=== PATIENT | female | born 1970 | race Caucasian/White ===

== ENCOUNTER → 2017-01-14 | Outpatient (CLI) | payer BC ==
[~2017-01-14] MED LIST: ALLO300T2 PO; AMLO-110 PO; FERREX PO; METO-217 PO; MULT-506 PO; MYCO500T4 PO; POLY150C PO; PRED-301 PO; PSYL55.43 PO; TACR1CAP PO
[2017-01-14 10:05] LABS: CHOLESTEROL/HDL RATIO 5.1
[2017-01-14 10:14] LABS: ESTIMATED AVERAGE GLUCOSE 157 mg/dl; HA1C FLAG Normal (Normal)
== END | disposition home or self-care (01) ==
LOC: C.LAB1850 08:08
PROVIDERS: ATTEND Internal Medicine
DX: E78.00 Pure hypercholesterolemia, unspecified (principal)

== ENCOUNTER → 2017-02-24 | Outpatient (CLI) | payer BC ==
[~2017-02-24] MED LIST changes: +FERR1TAB13 PO
== END | disposition home or self-care (01) ==
LOC: C.LAB1850 08:08
PROVIDERS: ATTEND Internal Medicine
DX: Z94.0 Kidney transplant status (principal)

== ENCOUNTER → 2017-02-28 | Outpatient (CLI) | payer BC ==
[2017-02-28 13:50] LABS: URINE APPEARANCE TURBID (CLEAR); URINE BILIRUBIN NEG (NEG); URINE COLOR YELLOW; URINE EPITHELIAL CELL AUTO 0-5 /lpf (0-5); URINE NITRITE NEG (NEG); URINE PH 6.5 (4.5-7.5); URINE SPECIFIC GRAVITY 1.018 (1.000-1.030); UROBILINOGEN NEG (NEG)
[2017-02-28 13:57] LABS: MANUAL MICROSCOPIC REQUIRED? NO; REVIEW REQ? NO
== END | disposition home or self-care (01) ==
LOC: C.LAB1850 12:09
PROVIDERS: ATTEND Internal Medicine
DX: N39.0 Urinary tract infection, site not specified (principal); E11.9 Type 2 diabetes mellitus without complications

== ENCOUNTER → 2017-04-10 | Outpatient (CLI) | payer BC ==
[2017-04-10 09:40] LABS: URINE APPEARANCE CLEAR (CLEAR); URINE BILIRUBIN NEG (NEG); URINE COLOR YELLOW; URINE NITRITE NEG (NEG); URINE SPECIFIC GRAVITY 1.019 (1.000-1.030); UROBILINOGEN NEG (NEG)
[2017-04-10 09:41] LABS: MANUAL MICROSCOPIC REQUIRED? NO; REVIEW REQ? NO
[2017-04-10 09:52] LABS: ESTIMATED AVERAGE GLUCOSE 140 mg/dl; HA1C FLAG Normal (Normal)
== END | disposition home or self-care (01) ==
LOC: C.LAB1850 08:09
PROVIDERS: ATTEND Internal Medicine
DX: N39.0 Urinary tract infection, site not specified (principal); E11.9 Type 2 diabetes mellitus without complications

== ENCOUNTER → 2017-08-06 | Outpatient (CLI) | payer BC ==
[~2017-08-06] MED LIST changes: -FERR1TAB13 PO
[2017-08-06 10:04] LABS: ESTIMATED AVERAGE GLUCOSE 148 mg/dl; HA1C FLAG Normal (Normal)
== END | disposition home or self-care (01) ==
LOC: C.LAB1850 08:02
PROVIDERS: ATTEND Internal Medicine
DX: E11.9 Type 2 diabetes mellitus without complications (principal)

== ENCOUNTER 2017-08-18 08:02 | Emergency (ER) | payer BC ==
[~2017-08-18] VITALS: Ht 167.6 cm; Wt 85.5 kg
[2017-08-18 08:04] VITALS: TEMP 36.6; Ht 167.6 cm; Wt 85.5 kg
[2017-08-18 08:21] VITALS: O2SAT 96
[2017-08-18] MEDS ORDERED: FERR1TAB13 PO (08:32)
[2017-08-18 08:48] LABS: BASO % 0.3 %; BASO ABS # 0.02 K/uL (0-0.2); COMPLETE YES; EOS % 2.6 %; HEMATOCRIT 41.9 % (37-47); IG% 0.4 %; LYMPH % 30.6 %; LYMPH ABS # 2.35 K/uL (1.2-3.4); MEAN CELL VOLUME 88.2 fL (80-100); MEAN CORPUSCULAR HEMOGLOBIN 30.5 pg (25-34); MEAN CORPUSCULAR HGB CONC 34.6 g/dl (32-36); MEAN PLATELET VOLUME 10.3 fL (7.4-10.4); MONO % 6.9 %; NEUT % 59.2 %; PLATELET COUNT 312 K/uL (130-400); RED BLOOD COUNT 4.75 M/uL (4.2-5.4); WHITE BLOOD COUNT 7.68 K/uL (4.8-10.8)
--- NOTE | 2017-08-18 08:52 | DIAGNOSTIC IMAGING REPORT ---
CHEST ONE VIEW PORTABLE HISTORY: 46 years-old Female Chest Pain acute atypical chest pain COMPARISON: Chest radiograph 03/13/2016 TECHNIQUE: Portable upright AP view of the chest FINDINGS: Cardiomediastinal and hilar silhouettes are within normal limits. No pneumothorax, pleural effusion, focal airspace consolidation or overt pulmonary edema. Bones of the chest are grossly intact. IMPRESSION: No acute cardiopulmonary process. The above report was generated using voice recognition software. It may contain grammatical, syntax or spelling errors. Electronically signed by: Aldair Ray M.D. 08/18/2017 8:51 AM Dictated Date/Time: 08/18/2017 8:46 AM
[2017-08-18 08:55] LABS: BLOOD UREA NITROGEN 7 mg/dl (7-18); BUN/CREATININE RATIO 8.2 (10-20); CALCIUM 9.1 mg/dl (8.5-10.1); CARBON DIOXIDE 27 mmol/L (21-32); CHLORIDE 105 mmol/L (98-107); CREATININE 0.81 mg/dl (0.60-1.20); GLUCOSE 158 mg/dl (70-99); POTASSIUM 3.6 mmol/L (3.5-5.1); SODIUM 138 mmol/L (136-145)
--- NOTE | 2017-08-18 09:38 | EMERGENCY ROOM VISIT NOTE ---
History Report prepared by Misha: Nayeli Ann Under the Supervision of: Dr. Antelmo Ingram M.D. First contact with patient: 08:08 Chief Complaint: CHEST PAIN Stated Complaint: CHEST PAINS, SHOULDER AND NECK PAIN Nursing Triage Summary: Pt reports mid to right sided chest pain into right side of neck since Fri. SOB when having the pain. Denies dizziness/lightheadedness. Unable to lay flat or bend over d/t increased pain. Denies leg pain. Pt states she is a kidney transplant pt. Had dental work done last week and did take prophylactic abx as ordered. States she was shredding documents when the pain started. States currently pain has "eased up some." History of Present Illness The patient is a 46 year old female who presents to the Emergency Room with complaints of waxing and waning right sided chest pain that began three nights ago. She states that her pain ranges from 2/10-4/10 in severity. The patient states that her pain began Joshua night and notes that the pain radiated into her right arm and neck. She denies doing anything strenuous at the time. The patient denies any history of chest pain in the past. She states that last week she had dental work done and notes that she was on antibiotics. The patient states that her pain has been with her since Friday evening. The patient denies any recent activity or trauma. She reports shallowed breathing, noting that deep breaths worsen her pain. The patient states that she has a history of palpitations that was worked up by Cardiology. She states that she had a normal stress test two years ago and denies any previous echocardiogram. The patient denies any drug or tobacco use. She denies any diaphoresis, nausea , vomiting, or flu symptoms. The patient reports a history of a kidney transplant and hypertension. Source of History: patient Onset: three nights ago Position: chest (right) Symptom Intensity: 2-4/10 Timing: waxes/wanes Modifying Factors (Worsening): breathing (deep) Associated Symptoms: + neck pain, No diaphoresis, No nausea, No vomiting Review of Systems See HPI for pertinent positives & negatives. A total of 10 systems reviewed and were otherwise negative. Past Medical & Surgical Medical Problems: (1) Hypertension (2) Kidney disease Surgical Problems: (1) Kidney transplant recipient (2) S/P cholecystectomy Family History FHx: cancer FHx: heart disease Hypertension Social History Smoking Status: Never Smoker Smokeless Tobacco Use: No Alcohol Use: none Drug Use: none Marital Status: Housing Status: lives with significant other Occupation Status: employed Current/Historical Medications Scheduled Allopurinol (Zyloprim), 300 MG PO DAILY Amlodipine (Norvasc), 5 MG PO DAILY Ferrous Sulfate (Kp Ferrous Sulfate), 325 MG PO BID Metoprolol Succinate (Toprol Xl), 50 MG PO DAILY Multivitamin (Multivitamin), 1 TAB PO DAILY Mycophenolate Mofetil (Cellcept), 500 MG PO BID Prednisone (Prednisone), 5 MG PO Q2D Tacrolimus (Prograf), 3 MG PO BID Allergies Coded Allergies: Penicillins (Verified Allergy, Mild, PATIENT DOESN'T REMEMBER RXN: RASH?, 08/18/17) Sulfa Drugs (Verified Allergy, Mild, 08/18/17) Tetracycline (Verified Allergy, Mild, 08/18/17) Cephalosporins (Verified Allergy, Unknown, PATIENT DOESN'T REMEMBER RXN: RASH?, 08/18/17) Physical Exam Vital Signs Date Time Temp Pulse Resp B/P (MAP) Pulse Ox O2 Delivery O2 Flow Rate FiO2 08/18/17 10:19 68 18 122/74 94 08/18/17 08:24 68 08/18/17 08:21 96 Room Air 08/18/17 08:04 36.6 74 18 144/94 96 Room Air Physical Exam GENERAL: Patient is well appearing and in no acute distress. HEENT: No acute trauma, normocephalic atraumatic, mucous membranes moist, no nasal congestion, no scleral icterus. NECK: No stridor, no adenopathy, no meningismus, trachea is midline. LUNGS: No dyspnea. Clear to auscultation and equal bilaterally. No wheeze, no rhonchi. HEART: Regular rate and rhythm. No murmurs, rubs, gallops appreciated. ABDOMEN: Soft, nontender, bowel sounds positive, no masses appreciated, no peritonitis. BACK: No midline tenderness, no CVA tenderness EXTREMITIES: Normal motion all extremities, no cyanosis, no edema. NEUROLOGIC: Alert and oriented, no acute motor or sensory deficits, no focal weakness, cranial nerves grossly intact. SKIN: No rash, no jaundice, no diaphoresis. Medical Decision & Procedures ER Provider Diagnostic Interpretation: X ray results are stated below per my interpretation and the radiologist's interpretation. CHEST ONE VIEW PORTABLE HISTORY: 46 years-old Female Chest Pain acute atypical chest pain COMPARISON: Chest radiograph 03/13/2016 TECHNIQUE: Portable upright AP view of the chest FINDINGS: Cardiomediastinal and hilar silhouettes are within normal limits. No pneumothorax, pleural effusion, focal airspace consolidation or overt pulmonary edema. Bones of the chest are grossly intact. IMPRESSION: No acute cardiopulmonary process. The above report was generated using voice recognition software. It may contain grammatical, syntax or spelling errors. Electronically signed by: Aldair Ray M.D. 08/18/2017 8:51 AM Dictated Date/Time: 08/18/2017 8:46 AM Laboratory Results 08/18/17 08:18 Red Blood Count 4.75, Mean Corpuscular Volume 88.2, Mean Corpuscular Hemoglobin 30.5, Mean Corpuscular Hemoglobin Concent 34.6, Mean Platelet Volume 10.3, Neutrophils (%) (Auto) 59.2, Lymphocytes (%) (Auto) 30.6, Monocytes (%) (Auto) 6.9, Eosinophils (%) (Auto) 2.6, Basophils (%) (Auto) 0.3, Neutrophils # (Auto) 4.55, Lymphocytes # (Auto) 2.35, Monocytes # (Auto) 0.53, Eosinophils # (Auto) 0.20, Basophils # (Auto) 0.02 08/18/17 08:18 Test 08/18/17 08:18 White Blood Count 7.68 K/uL (4.8-10.8) Red Blood Count 4.75 M/uL (4.2-5.4) Hemoglobin 14.5 g/dL (12.0-16.0) Hematocrit 41.9 % (37-47) Mean Corpuscular Volume 88.2 fL (80-100) Mean Corpuscular Hemoglobin 30.5 pg (25-34) Mean Corpuscular Hemoglobin Concent 34.6 g/dl (32-36) Platelet Count 312 K/uL (130-400) Mean Platelet Volume 10.3 fL (7.4-10.4) Neutrophils (%) (Auto) 59.2 % Lymphocytes (%) (Auto) 30.6 % Monocytes (%) (Auto) 6.9 % Eosinophils (%) (Auto) 2.6 % Basophils (%) (Auto) 0.3 % Neutrophils # (Auto) 4.55 K/uL (1.4-6.5) Lymphocytes # (Auto) 2.35 K/uL (1.2-3.4) Monocytes # (Auto) 0.53 K/uL (0.11-0.59) Eosinophils # (Auto) 0.20 K/uL (0-0.5) Basophils # (Auto) 0.02 K/uL (0-0.2) RDW Standard Deviation 43.8 fL (36.4-46.3) RDW Coefficient of Variation 13.5 % (11.5-14.5) Immature Granulocyte % (Auto) 0.4 % Immature Granulocyte # (Auto) 0.03 K/uL (0.00-0.02) D-Dimer < 190 ug/L FEU (0-500) Anion Gap 6.0 mmol/L (3-11) Est Creatinine Clear Calc Drug Dose 93.5 ml/min Estimated GFR () 99.5 Estimated GFR (Non- 85.9 BUN/Creatinine Ratio 8.2 (10-20) Calcium Level 9.1 mg/dl (8.5-10.1) Troponin I < 0.015 ng/ml (0-0.045) Laboratory results as reviewed by me. ECG Indication: chest pain Rate (beats per minute): 0932 Rhythm: normal sinus Findings: no acute ischemic change, no ectopy ED Course 0811: The patient was evaluated in room B12B. A complete history and physical exam was performed by Dr. Darden, Tile Installer. 0827: The patient was evaluated in room B12B. A complete history and physical exam was performed. 0935: I reevaluated the patient and she is resting comfortably. I discussed the exam findings with her and I discussed the treatment plan. She verbalized complete understanding and agreement. She is ready to go home. Medical Decision Differential: Cardiac Ischemia (STEMI, NSTEMI, Unstable Angina, etc), Aortic Dissection, Arrhythmia, Pulmonary Embolism, Pneumonia, Pneumothorax, MSK, Infectious, Pericarditis/Myocarditis, Esophageal Rupture, Gastrointestinal, amongst other pathologies entertained. 46 yr old female with right upper chest discomfort with increased allergies last few days. Continuous and with normal EKG and Trop I do not feel this is ACS. Not consistent with PE and dimer negative thus I do not feel CTA indicated. No abdominal pain nor TTP thus I do not feel this is referred pain. No evidence abscess nor wbc elevation. Cr oK and has follow up with transplant in a few weeks. Previous stress testing normal and will discuss with PCP further in next few days. Stable and comfortable. Given above I feel that outpatient management reasonable and patient agrees, especially give Obs status if coming in. I noted mild hyperglycemia to patient and she will discuss that with PCP as well. Medication Reconcilliation Current Medication List: was personally reviewed by me Impression Primary Impression: Right-sided chest pain Additional Impression: Hyperglycemia Scribe Attestation The scribe's documentation has been prepared under my direction and personally reviewed by me in its entirety. I confirm that the note above accurately reflects all work, treatment, procedures, and medical decision making performed by me. Departure Information Dispostion Home / Self-Care Referrals Lev Jones M.D. (PCP) Forms Call Back Authorization, HOME CARE DOCUMENTATION FORM, IMPORTANT VISIT INFORMATION Patient Instructions ED Chest Pain Atypical Unkn Cause, My [facility] Additional Instructions You blood sugar was mildly elevated on this visit. You should have this rechecked by your primary provider. Return or call 911 if fevers, worsening pain, passing out, weakness, difficulty breathing or other concerns. Problem Qualifiers
[2017-08-18 10:19] VITALS: BP 122/74; PULSE 68; O2SAT 94
--- NOTE | 2017-08-18 10:35 | EMERGENCY ROOM VISIT NOTE ---
History First contact with patient: 08:08 Chief Complaint: CHEST PAIN Stated Complaint: CHEST PAINS, SHOULDER AND NECK PAIN Nursing Triage Summary: Pt reports mid to right sided chest pain into right side of neck since Fri. SOB when having the pain. Denies dizziness/lightheadedness. Unable to lay flat or bend over d/t increased pain. Denies leg pain. Pt states she is a kidney transplant pt. Had dental work done last week and did take prophylactic abx as ordered. States she was shredding documents when the pain started. States currently pain has "eased up some." History of Present Illness The patient is a 46 year old female who presents to the Emergency Room with complaints of right sided chest pain that began three days ago. She states her chest pain came on whilst she was doing paperwork, and had not engaged in any strenuous activity. Her pain is a 4/10, and waxed and waned from a 2/10 to a 4/ 10, but never disappeared completely. It radiated to her right arm and up into her neck, and was worse if she bent over, lay flat, or took a deep breath in. She denies shortness of breath, but states she tried to take shallow breaths so as not to aggravate the pain. She denies diaphoresis, nausea, vomiting, flu- like symptoms or syncope. She has been eating a drinking well the past few days. No trauma, no history of heart problems. She has had occasional palpitations in the past which were worked up by a chartered wealth manager and found to be benign. Her last stress test was 2 years ago and was normal, and she states she has never had an ECHO. She has a longstanding history of hypertension, and a kidney transplant 13 years ago. She does not have a history of diabetes, hypercholesterolemia. She denies smoking, alcohol and recreational drugs. Of note, she had a dental procedure (filling) done 6 days ago, and was given prophylactic antibiotics at this time. Review of Systems Systems review negative, except as noted Constitutional: No fever, No chills, No sweats Respiratory: No cough, No sputum, No wheezing, No shortness of breath, No dyspnea on exertion, No dyspnea at rest Cardiovascular: + chest pain, No edema, No palpitations Abdomen: No pain, No nausea, No vomiting, No diarrhea, No constipation Genitourinary - Female: No dysuria Past Medical/Surgical History Medical Problems: (1) Hypertension (2) Kidney disease Surgical Problems: (1) Kidney transplant recipient (2) S/P cholecystectomy Family History FHx: cancer FHx: heart disease Hypertension Social History Smoking Status: Never Smoker Smokeless Tobacco Use: No Alcohol Use: none Drug Use: none Marital Status: Housing Status: lives with significant other Occupation Status: employed Current/Historical Medications Scheduled Allopurinol (Zyloprim), 300 MG PO DAILY Amlodipine (Norvasc), 5 MG PO DAILY Ferrous Sulfate (Kp Ferrous Sulfate), 325 MG PO BID Metoprolol Succinate (Toprol Xl), 50 MG PO DAILY Multivitamin (Multivitamin), 1 TAB PO DAILY Mycophenolate Mofetil (Cellcept), 500 MG PO BID Prednisone (Prednisone), 5 MG PO Q2D Tacrolimus (Prograf), 3 MG PO BID Physical Exam Vital Signs Date Time Temp Pulse Resp B/P (MAP) Pulse Ox O2 Delivery O2 Flow Rate FiO2 08/18/17 10:19 68 18 122/74 94 08/18/17 08:24 68 08/18/17 08:21 96 Room Air 08/18/17 08:04 36.6 74 18 144/94 96 Room Air Physical Exam No pertinent exam findings, except as noted. General Appearance: WD/WN, no apparent distress Head: normocephalic, atraumatic Neck: supple, no adenopathy, no JVD, trachea midline, + pertinent finding ( No cervical tenderness, no pain with movement of neck) Respiratory/Chest: chest non-tender, lungs clear, normal breath sounds, no respiratory distress, no accessory muscle use Cardiovascular: regular rate, rhythm, no edema, no gallop, no JVD, no murmur , normal peripheral pulses, + pertinent finding (Mild tenderness to palpation of right chest ) Abdomen / GI: normal bowel sounds, non tender, soft, no organomegaly, no pulsatile mass Medical Decision & Procedures ER Provider Diagnostic Interpretation: EKG - normal sinus, no ischemic changes or ectopy Chest xray - Cardiomediastinal and hilar silhouettes are within normal limits. No pneumothorax, pleural effusion, focal airspace consolidation or overt pulmonary edema. Bones of the chest are grossly intact. Laboratory Results 08/18/17 08:18 Red Blood Count 4.75, Mean Corpuscular Volume 88.2, Mean Corpuscular Hemoglobin 30.5, Mean Corpuscular Hemoglobin Concent 34.6, Mean Platelet Volume 10.3, Neutrophils (%) (Auto) 59.2, Lymphocytes (%) (Auto) 30.6, Monocytes (%) (Auto) 6.9, Eosinophils (%) (Auto) 2.6, Basophils (%) (Auto) 0.3, Neutrophils # (Auto) 4.55, Lymphocytes # (Auto) 2.35, Monocytes # (Auto) 0.53, Eosinophils # (Auto) 0.20, Basophils # (Auto) 0.02 08/18/17 08:18 Test 08/18/17 08:18 White Blood Count 7.68 K/uL (4.8-10.8) Red Blood Count 4.75 M/uL (4.2-5.4) Hemoglobin 14.5 g/dL (12.0-16.0) Hematocrit 41.9 % (37-47) Mean Corpuscular Volume 88.2 fL (80-100) Mean Corpuscular Hemoglobin 30.5 pg (25-34) Mean Corpuscular Hemoglobin Concent 34.6 g/dl (32-36) Platelet Count 312 K/uL (130-400) Mean Platelet Volume 10.3 fL (7.4-10.4) Neutrophils (%) (Auto) 59.2 % Lymphocytes (%) (Auto) 30.6 % Monocytes (%) (Auto) 6.9 % Eosinophils (%) (Auto) 2.6 % Basophils (%) (Auto) 0.3 % Neutrophils # (Auto) 4.55 K/uL (1.4-6.5) Lymphocytes # (Auto) 2.35 K/uL (1.2-3.4) Monocytes # (Auto) 0.53 K/uL (0.11-0.59) Eosinophils # (Auto) 0.20 K/uL (0-0.5) Basophils # (Auto) 0.02 K/uL (0-0.2) RDW Standard Deviation 43.8 fL (36.4-46.3) RDW Coefficient of Variation 13.5 % (11.5-14.5) Immature Granulocyte % (Auto) 0.4 % Immature Granulocyte # (Auto) 0.03 K/uL (0.00-0.02) D-Dimer < 190 ug/L FEU (0-500) Anion Gap 6.0 mmol/L (3-11) Est Creatinine Clear Calc Drug Dose 93.5 ml/min Estimated GFR () 99.5 Estimated GFR (Non- 85.9 BUN/Creatinine Ratio 8.2 (10-20) Calcium Level 9.1 mg/dl (8.5-10.1) Troponin I < 0.015 ng/ml (0-0.045) Medical Decision The patient was evaluated in room B12. Her EKG, chest xray and labs are reported above. Given that her investigations showed no abnormalities, and her pain was slowly resolving, she was discharged and will be followed up by her PCP in the outpatient setting. She may benefit from a repeat stress test, given her last one was two years ago, and a repeat glucose level as she was hyperglycemic in the ED. Impression Primary Impression: Right-sided chest pain Additional Impression: Hyperglycemia Departure Information Dispostion Home / Self-Care Condition GOOD Referrals Lev Jones M.D. (PCP) Forms Call Back Authorization, HOME CARE DOCUMENTATION FORM, IMPORTANT VISIT INFORMATION Patient Instructions My [facility], ED Chest Pain Atypical Unkn Cause Additional Instructions You blood sugar was mildly elevated on this visit. You should have this rechecked by your primary provider. Return or call 911 if fevers, worsening pain, passing out, weakness, difficulty breathing or other concerns. Problem Qualifiers
== END 2017-08-18 10:20 | disposition home or self-care (01) ==
LOC: C.EDB 08:05
DX: R07.9 Chest pain, unspecified (principal); I12.9 Hypertensive chronic kidney disease with stage 1 through stage 4 chronic kidney disease, or unspecified chronic kidney disease; N18.9 Chronic kidney disease, unspecified; Z94.0 Kidney transplant status; Z90.49 Acquired absence of other specified parts of digestive tract; Z79.899 Other long term (current) drug therapy; Z88.0 Allergy status to penicillin; Z88.2 Allergy status to sulfonamides; Z88.8 Allergy status to other drugs, medicaments and biological substances; Z80.9 Family history of malignant neoplasm, unspecified; Z82.49 Family history of ischemic heart disease and other diseases of the circulatory system

== ENCOUNTER → 2017-08-20 | Outpatient (CLI) | payer BC ==
[~2017-08-20] MED LIST changes: +FERR1TAB13 PO; -FERREX PO; -POLY150C PO; -PSYL55.43 PO
--- NOTE | 2017-08-20 15:17 | DIAGNOSTIC IMAGING REPORT ---
CT SCAN OF THE ABDOMEN AND PELVIS WITHOUT CONTRAST CLINICAL HISTORY: R10.11 Abdominal discomfort in right upper quadrant R07.89 atypical chest pain COMPARISON STUDY: 05/14/2013 TECHNIQUE: CT scan of the abdomen and pelvis was performed from the lung bases to the proximal femurs. Images are reviewed in the axial, sagittal, and coronal planes. IV contrast was not administered for this examination. A dose lowering technique was utilized adhering to the principles of ALARA. CT DOSE: 914.50 mGycm FINDINGS: Lower chest: The heart is normal in size and configuration, without pericardial effusion. The lung bases and pleural spaces are clear. Liver: There is mild hepatic steatosis. No focal masses are visualized. The liver is mildly enlarged measuring 23.5 cm in length. Gallbladder: Surgically absent Spleen: The spleen is enlarged measuring 14 cm Pancreas: Unremarkable. Adrenal glands: Unremarkable. Kidneys: The [place] kidneys are markedly atrophic. There is a right lower quadrant iliac fossa transplant kidney. There is no hydronephrosis. Bowel: There are no transition zone to indicate bowel obstruction. The appendix is felt to be normal. There is pandiverticulosis. There are no acute peridiverticular inflammatory changes. Peritoneum: There is no intraperitoneal free air or abdominal ascites. Vasculature: The abdominal aorta is normal in course and caliber. Adenopathy: None. Pelvic viscera: There is an air droplets within the bladder, possibly iatrogenic. Skeletal structures: No destructive osseous lesions are seen. IMPRESSION: 1. No evidence of bowel obstruction. No evidence of free air 2. Pandiverticulosis. No evidence of acute peridiverticular inflammatory change 3. Atrophic date of kidneys. Right lower quadrant transplant kidney. No hydronephrosis 4. Surgically absent gallbladder 5. Hepatic steatosis. Hepatosplenomegaly. 6. Normal appendix Electronically signed by: Andrew Garcia M.D. 08/20/2017 3:15 PM Dictated Date/Time: 08/20/2017 3:11 PM
== END | disposition home or self-care (01) ==
LOC: C.CTS 12:53
PROVIDERS: ATTEND Physician Assistant
DX: R07.89 Other chest pain (principal); R10.11 Right upper quadrant pain; K57.30 Diverticulosis of large intestine without perforation or abscess without bleeding; N26.1 Atrophy of kidney (terminal); Z90.49 Acquired absence of other specified parts of digestive tract; K76.0 Fatty (change of) liver, not elsewhere classified; R16.2 Hepatomegaly with splenomegaly, not elsewhere classified; Z94.0 Kidney transplant status

== ENCOUNTER → 2017-08-20 | Outpatient (CLI) | payer BC ==
[2017-08-20 12:59] LABS: ALT/SGPT 61 U/L (12-78); AMYLASE 45 U/L (25-115); BLOOD UREA NITROGEN 8 mg/dl (7-18); BUN/CREATININE RATIO 9.7 (10-20); CALCIUM 9.4 mg/dl (8.5-10.1); CARBON DIOXIDE 26 mmol/L (21-32); CHLORIDE 107 mmol/L (98-107); CREATININE 0.81 mg/dl (0.60-1.20); GLUCOSE 116 mg/dl (70-99); SODIUM 140 mmol/L (136-145)
[2017-08-20 13:01] LABS: ALB/GLOB RATIO 0.8 (0.9-2); ALKALINE PHOSPHATASE 68 U/L (45-117); AST/SGOT 35 U/L (15-37)
== END | disposition home or self-care (01) ==
LOC: C.LAB1850 10:56
PROVIDERS: ATTEND Physician Assistant
DX: R10.11 Right upper quadrant pain (principal); R07.89 Other chest pain

== ENCOUNTER → 2017-11-11 | Outpatient (CLI) | payer OTHER ==
[2017-11-11 09:44] LABS: BASO % 0.2 %; BASO ABS # 0.02 K/uL (0-0.2); EOS % 2.6 %; EOS ABS # 0.23 K/uL (0-0.5); HEMOGLOBIN 13.8 g/dL (12.0-16.0); IG# 0.01 K/uL (0.00-0.02); LYMPH % 30.6 %; LYMPH ABS # 2.74 K/uL (1.2-3.4); MEAN CELL VOLUME 89.1 fL (80-100); MEAN CORPUSCULAR HGB CONC 33.7 g/dl (32-36); MEAN PLATELET VOLUME 10.9 fL (7.4-10.4); MONO % 8.5 %; MONO ABS # 0.76 K/uL (0.11-0.59); NEUT ABS # 5.19 K/uL (1.4-6.5); PLATELET COUNT 282 K/uL (130-400); RED CELL DISTRIBUTION WIDTH CV 13.7 % (11.5-14.5); RED CELL DISTRIBUTION WIDTH SD 44.9 fL (36.4-46.3); WHITE BLOOD COUNT 8.95 K/uL (4.8-10.8)
[2017-11-11 10:02] LABS: HEMOGLOBIN A1C 6.6 % (4.5-5.6)
[2017-11-11 10:04] LABS: BLOOD UREA NITROGEN 8 mg/dl (7-18); CALCIUM 9.4 mg/dl (8.5-10.1); CARBON DIOXIDE 26 mmol/L (21-32); CREATININE 0.72 mg/dl (0.60-1.20); GLUCOSE 150 mg/dl (70-99); POTASSIUM 3.7 mmol/L (3.5-5.1); SODIUM 138 mmol/L (136-145)
== END | disposition home or self-care (01) ==
LOC: C.LAB1850 08:11
PROVIDERS: ATTEND Internal Medicine
DX: Z94.0 Kidney transplant status (principal); E11.9 Type 2 diabetes mellitus without complications

== ENCOUNTER → 2017-12-22 | Outpatient (CLI) | payer OTHER | END | disposition home or self-care (01) | LOC: C.LAB1850 15:25 | PROVIDERS: ATTEND Internal Medicine | DX: R39.9 Unspecified symptoms and signs involving the genitourinary system (principal) ==

== ENCOUNTER → 2018-02-16 | Outpatient (CLI) | payer OTHER | END | disposition home or self-care (01) | LOC: C.PAPS 10:45 | PROVIDERS: ATTEND Obstetrics & Gynecology | DX: Z12.4 Encounter for screening for malignant neoplasm of cervix (principal) ==

== ENCOUNTER → 2018-02-23 | Outpatient (CLI) | payer OTHER ==
[2018-02-23 09:47] LABS: HEMOGLOBIN A1C 7.7 % (4.5-5.6)
== END | disposition home or self-care (01) ==
LOC: C.LAB1850 08:22
PROVIDERS: ATTEND Internal Medicine
DX: E11.9 Type 2 diabetes mellitus without complications (principal)

== ENCOUNTER → 2018-06-22 | Outpatient (CLI) | payer OTHER ==
[~2018-06-22] MED LIST changes: -AMLO-110 PO; +AMLO5TAB3 PO
[2018-06-22 09:35] LABS: BASO % 0.2 %; BASO ABS # 0.01 K/uL (0-0.2); EOS % 2.7 %; EOS ABS # 0.17 K/uL (0-0.5); HEMATOCRIT 40.5 % (37-47); HEMOGLOBIN 13.5 g/dL (12.0-16.0); IG# 0.01 K/uL (0.00-0.02); LYMPH % 30.7 %; MEAN CELL VOLUME 89.4 fL (80-100); MEAN CORPUSCULAR HEMOGLOBIN 29.8 pg (25-34); MEAN CORPUSCULAR HGB CONC 33.3 g/dl (32-36); MEAN PLATELET VOLUME 11.2 fL (7.4-10.4); MONO % 8.1 %; NEUT % 58.1 %; PLATELET COUNT 275 K/uL (130-400); RED CELL DISTRIBUTION WIDTH CV 13.4 % (11.5-14.5); RED CELL DISTRIBUTION WIDTH SD 43.6 fL (36.4-46.3); WHITE BLOOD COUNT 6.19 K/uL (4.8-10.8)
[2018-06-22 09:52] LABS: HEMOGLOBIN A1C 8.4 % (4.5-5.6)
[2018-06-22 09:58] LABS: BLOOD UREA NITROGEN 6 mg/dl (7-18); CALCIUM 8.7 mg/dl (8.5-10.1); CARBON DIOXIDE 29 mmol/L (21-32); CHOLESTEROL 177 mg/dl (0-200); CREATININE 0.83 mg/dl (0.60-1.20); GLUCOSE 175 mg/dl (70-99); LDL CHOLESTEROL CALCULATED 106 mg/dl; POTASSIUM 3.9 mmol/L (3.5-5.1); SODIUM 138 mmol/L (136-145); URIC ACID 3.4 mg/dl (2.6-7.2)
[2018-06-24 16:04] LABS: FK506 TACROLIMUS HIGHLY SENS 2.4 MCG/L (5-20)
== END | disposition home or self-care (01) ==
LOC: C.LAB1850 08:18
PROVIDERS: ATTEND Internal Medicine
DX: E11.9 Type 2 diabetes mellitus without complications (principal)

== ENCOUNTER 2019-02-02 16:41 | Inpatient (IN) ==
[2019-02-02] MEDS ORDERED: SODIUM CHLORIDE 0.9% 500 ML IV STA (17:07)
--- NOTE | 2019-02-02 17:20 | Emergency Department Note ---
Entered by Allyssa Donato acting as a scribe for History of Present Illness General Chief complaint: Rectal Bleed Stated complaint: RECTAL BLEEDING Time Seen by Provider: 02/02/19 16:58 Source: patient Mode of arrival: ambulatory Limitations: no limitations History of Present Illness Provider complaint: rectal bleeding Onset (ago): hour(s) (earlier today) Location: buttocks Pain Consistency: + other (episode) Maximum Pain Intensity: 0 Quality: + other (heavy) Associated symptoms: + denies other symptoms (urinary) and + other (abd pain); no fever/chills and no nausea/vomiting The patient is a 48 year old female who presents to the Emergency Room with complaints of an episode of rectal bleeding that occurred earlier today. The patient reports that she woke up this morning with abdominal cramping as well as bloating. She states that she then went to the bathroom and had a light episode of rectal bleeding and later had a second episode which was heavier and contained blood clots. The patient notes that she did have a similar episode about 10 years ago that was secondary to diverticular blood. She reports that she was recently placed on Metformin but denies any recent Advil or aspirin use. She also denies any nausea, vomiting, fevers or urinary symptoms. She notes that she has a history of a kidney transplant and denies any recent issues or complications. Home Medications Home Medications Medication Instructions Recorded Confirmed Type allopurinol 300 mg PO QPM 02/02/19 02/02/19 History amlodipine 5 mg PO QAM 02/02/19 02/02/19 History ferrous sulfate 325 mg PO BID 02/02/19 02/02/19 History metformin 500 mg PO DAILY 02/02/19 02/02/19 History metoprolol succinate 50 mg PO QAM 02/02/19 02/02/19 History multivitamin 1 tab PO QAM 02/02/19 02/02/19 History mycophenolate mofetil [CellCept] 500 mg PO BID 02/02/19 02/02/19 History prednisone 5 mg PO Q2D 02/02/19 02/02/19 History tacrolimus [Prograf] 3 mg PO Q12H 02/02/19 02/02/19 History Allergies Allergy/AdvReac Type Severity Reaction Status Date / Time Penicillins Allergy Mild POSSIBLE Unverified 02/02/19 18:23 RASH Sulfa (Sulfonamide Allergy Mild Rash Unverified 02/02/19 18:15 Antibiotics) tetracycline Allergy Mild Unknown Unverified 02/02/19 18:15 Cephalosporins Allergy Unknown Unknown Verified 02/02/19 18:25 Past Med/Surg History Medical History Diverticulosis (Chronic) Hypertension (Chronic) Pre-diabetes Surgical History S/P cholecystectomy S/P kidney transplant Family History Mother Colorectal cancer at age 26 with colon cancer Other Coronary heart disease Social History Preferred Language: Icelandic Communication Ability: Effective [place] Required: No Beliefs That Will Affect Care: None marital status: Current Living Situation: Spouse Other Information That Helps Us Care for You: No Feels Safe at Home: Yes Safety Concerns: Feels Safe At This Time Smoking Status: Never smoker Hx Alcohol Use: No Hx Substance Use: No Review of Systems See HPI for pertinent positives & negatives. and A total of 10 systems reviewed and were otherwise negative Physical Exam Vital Signs Vital Signs - 24 hr 02/02/19 16:46 02/02/19 17:08 02/02/19 18:00 Temperature 36.8 C Temperature Source Oral Sepsis Recent Fever Within 48 Hours No Sepsis New/Unexplained Change in Mental Status No Sepsis Action Taken by Nursing No Action Required Pulse Rate 77 66 Pulse Rate [Right Finger] Pulse Rate from SpO2 Sensor 66 Pulse Rhythm [Right Finger] Pulse Strength [Right Finger] Respiratory Rate 20 20 Respiratory Effort / Characteristics Non-Labored Spontaneous Respiratory Depth Normal Respiratory Pattern Regular Blood Pressure 141/86 H 126/75 Blood Pressure [Left Arm] Blood Pressure [Right Arm] Blood Pressure Mean 104 92 Blood Pressure Mean [Left Arm] Blood Pressure Mean [Right Arm] Blood Pressure Position Sitting Blood Pressure Position [Left Arm] Blood Pressure Position [Right Arm] Pulse Oximetry 98 96 97 Oxygen Delivery Method Room Air Room Air 02/02/19 18:08 02/02/19 18:10 02/02/19 18:20 Temperature Temperature Source Sepsis Recent Fever Within 48 Hours Sepsis New/Unexplained Change in Mental Status Sepsis Action Taken by Nursing Pulse Rate 67 65 64 Pulse Rate [Right Finger] Pulse Rate from SpO2 Sensor 67 65 64 Pulse Rhythm [Right Finger] Pulse Strength [Right Finger] Respiratory Rate 20 16 16 Respiratory Effort / Characteristics Respiratory Depth Respiratory Pattern Blood Pressure Blood Pressure [Left Arm] Blood Pressure [Right Arm] Blood Pressure Mean Blood Pressure Mean [Left Arm] Blood Pressure Mean [Right Arm] Blood Pressure Position Blood Pressure Position [Left Arm] Blood Pressure Position [Right Arm] Pulse Oximetry 98 98 96 Oxygen Delivery Method 02/02/19 18:21 02/02/19 18:30 02/02/19 18:40 Temperature Temperature Source Sepsis Recent Fever Within 48 Hours Sepsis New/Unexplained Change in Mental Status Sepsis Action Taken by Nursing Pulse Rate 65 69 Pulse Rate [Right Finger] 65 Pulse Rate from SpO2 Sensor 65 69 Pulse Rhythm [Right Finger] Pulse Strength [Right Finger] Respiratory Rate 18 20 20 Respiratory Effort / Characteristics Respiratory Depth Respiratory Pattern Blood Pressure Blood Pressure [Left Arm] Blood Pressure [Right Arm] 126/75 Blood Pressure Mean Blood Pressure Mean [Left Arm] Blood Pressure Mean [Right Arm] 92 Blood Pressure Position Blood Pressure Position [Left Arm] Blood Pressure Position [Right Arm] Pulse Oximetry 96 96 96 Oxygen Delivery Method 02/02/19 18:50 02/02/19 19:00 02/02/19 19:01 Temperature Temperature Source Sepsis Recent Fever Within 48 Hours Sepsis New/Unexplained Change in Mental Status Sepsis Action Taken by Nursing Pulse Rate 77 65 65 Pulse Rate [Right Finger] Pulse Rate from SpO2 Sensor 76 66 64 Pulse Rhythm [Right Finger] Pulse Strength [Right Finger] Respiratory Rate 18 20 18 Respiratory Effort / Characteristics Respiratory Depth Respiratory Pattern Blood Pressure 123/66 Blood Pressure [Left Arm] Blood Pressure [Right Arm] Blood Pressure Mean 85 Blood Pressure Mean [Left Arm] Blood Pressure Mean [Right Arm] Blood Pressure Position Blood Pressure Position [Left Arm] Blood Pressure Position [Right Arm] Pulse Oximetry 96 96 97 Oxygen Delivery Method 02/02/19 19:10 02/02/19 19:20 02/02/19 19:30 Temperature Temperature Source Sepsis Recent Fever Within 48 Hours Sepsis New/Unexplained Change in Mental Status Sepsis Action Taken by Nursing Pulse Rate 63 67 68 Pulse Rate [Right Finger] Pulse Rate from SpO2 Sensor 64 68 69 Pulse Rhythm [Right Finger] Pulse Strength [Right Finger] Respiratory Rate 17 19 22 Respiratory Effort / Characteristics Respiratory Depth Respiratory Pattern Blood Pressure Blood Pressure [Left Arm] Blood Pressure [Right Arm] Blood Pressure Mean Blood Pressure Mean [Left Arm] Blood Pressure Mean [Right Arm] Blood Pressure Position Blood Pressure Position [Left Arm] Blood Pressure Position [Right Arm] Pulse Oximetry 98 97 96 Oxygen Delivery Method 02/02/19 19:40 02/02/19 20:15 02/02/19 23:26 Temperature 36.8 C 36.9 C Temperature Source Oral Oral Sepsis Recent Fever Within 48 Hours Sepsis New/Unexplained Change in Mental Status Sepsis Action Taken by Nursing Pulse Rate 72 67 Pulse Rate [Right Finger] 65 64 Pulse Rate from SpO2 Sensor 71 Pulse Rhythm [Right Finger] Regular Pulse Strength [Right Finger] Normal Respiratory Rate 22 18 18 Respiratory Effort / Characteristics Non-Labored Spontaneous Respiratory Depth Normal Respiratory Pattern Regular Blood Pressure Blood Pressure [Left Arm] 123/72 Blood Pressure [Right Arm] 145/81 H Blood Pressure Mean Blood Pressure Mean [Left Arm] 89 Blood Pressure Mean [Right Arm] 102 Blood Pressure Position Blood Pressure Position [Left Arm] Lying Blood Pressure Position [Right Arm] Sitting Pulse Oximetry 96 97 95 Oxygen Delivery Method Room Air Room Air GENERAL: Patient is in no acute distress. HEENT: No acute trauma, normocephalic atraumatic, mucous membranes moist, no nasal congestion, no scleral icterus. NECK: No stridor, no adenopathy, no meningismus, trachea is midline. LUNGS: Clear to auscultation bilaterally, no wheeze, no rhonchi, breath sounds equal. HEART: Without murmurs gallops or rubs, regular rate and rhythm. ABDOMEN: Soft, nontender, bowel sounds positive, no hernias, no peritonitis. Fullness in her right pelvis consistent with her history of a kidney transplant. RECTAL: No hemorrhoids, no external source for bleeding. Digital exam reveals dark, maroon colored blood. EXTREMITIES: No cyanosis or edema, full range of motion of all the joints without pain or difficulty, no signs for acute trauma. NEUROLOGIC: Oriented x 3, no acute motor or sensory deficits, no focal weakness. SKIN: No rash, no jaundice, no diaphoresis. Course 1658: The patient was evaluated in room B12, and a complete history and physical examination were performed. 1910: I reviewed the patient's case with Dr. Giron - [facility] Hospitalist. She will evaluate the patient for further management. Administered Medications Allopurinol (Zyloprim) 300 mg PO QPM [facility] Stop: 03/04/19 20:59 Last Admin: 02/02/19 22:16 Dose: 300 mg Documented by: [id number] Piperacillin Sod/Tazobactam (Sod 3.375 gm/ Dextrose) 115 mls @ 28.75 mls/hr IV Q8H [facility]; Protocol Stop: 02/13/19 00:00 Last Admin: 02/02/19 23:44 Dose: 28.8 mls/hr Documented by: [id number] Sodium Chloride (Nss 1000ml) 1,000 mls @ 80 mls/hr IV .[id number] [facility] Stop: 02/03/19 21:17 Last Admin: 02/02/19 20:43 Dose: 80 mls/hr Documented by: [id number] Insulin Aspart (Novolog Flexpen) 0 units SC ACHS [facility] Stop: 03/04/19 20:59 Last Admin: 02/02/19 23:04 Dose: 2 units Documented by: [id number] Cosigned by: [id number] Mycophenolate Mofetil (Cellcept) 500 mg PO BID [facility] Stop: 03/04/19 20:59 Last Admin: 02/02/19 22:16 Dose: 500 mg Documented by: [id number] Tacrolimus (Prograf) 3 mg PO Q12 [facility] Stop: 03/04/19 21:29 Last Admin: 02/02/19 22:15 Dose: 3 mg Documented by: [id number] Discontinued Medications Sodium Chloride (Nss) 500 mls @ 999 mls/hr IV .Q31M STA Stop: 02/02/19 17:37 Last Infusion: 02/02/19 18:16 Dose: 0 mls/hr Documented by: [id number] Admin: 02/02/19 17:44 Dose: 999 mls/hr Documented by: [id number] Piperacillin Sod/Tazobactam Sod (Zosyn) 4.5 gm in 120 mls @ 240 mls/hr IV NOW ONE Stop: 02/02/19 18:50 Last Infusion: 02/02/19 19:34 Dose: 0 mls/hr Documented by: [id number] Admin: 02/02/19 18:32 Dose: 240 mls/hr Documented by: [id number] Medical Decision Making Differential Diagnosis Differential Diagnosis includes: diverticular bleeding, hemorrhoid, anal tear, anemia, coagulopathy, upper GI bleeding, colonic polyp, and diverticulitis. Home Medications Current Medication List: was personally reviewed by me Laboratory Data Attestation: I reviewed the patient's lab results. Result diagrams: 02/02/19 20:42 02/02/19 17:33 Lab Results 02/02/19 02/02/19 02/02/19 Range/Units 17:32 17:33 17:33 WBC 9.29 (4.8-10.8) K/uL RBC 4.46 (4.2-5.4) M/uL Hgb 13.8 (12.0-16.0) g/dL Hct 40.2 (37-47) % MCV 90.1 (80-100) fL MCH 30.9 (25-34) pg MCHC 34.3 (32-36) g/dL RDW Std Deviation 45.0 (36.4-46.3) fL RDW Coeff of Maribel 13.7 (11.5-14.5) % Plt Count 320 (130-400) K/uL MPV 10.6 H (7.4-10.4) fL Immature Gran % (Auto) % Neut % (Auto) % Lymph % (Auto) % [place] % (Auto) % Eos % (Auto) % Baso % (Auto) % Immature Gran # (Auto) (0.00-0.02) K/uL Neut # (Auto) (1.4-6.5) K/uL Lymph # (Auto) (1.2-3.4) K/uL [place] # (Auto) (0.11-0.59) K/uL Eos # (Auto) (0-0.5) K/uL Baso # (Auto) (0-0.2) K/uL PT 10.9 (9.0-12.0) Seconds INR 1.1 (0.9-1.1) APTT 26.3 (21.0-31.0) Seconds PTT Ratio 1.0 Sodium (136-145) mmol/L Potassium (3.5-5.1) mmol/L Chloride (98-107) mmol/L Carbon Dioxide (21-32) mmol/L Anion Gap (3-11) BUN (7-18) mg/dl Creatinine (0.6-1.2) mg/dl Est Cr Clr Drug Dosing ml/min Est GFR ( Amer) Est GFR (Non-Af Amer) BUN/Creatinine Ratio (10-20) Glucose (70-99) mg/dl POC Glucose (70-99) Calcium (8.5-10.1) mg/dl Phosphorus (2.5-4.9) mg/dl Magnesium (1.8-2.4) mg/dl Total Bilirubin (0.2-1) mg/dl AST (15-37) U/L ALT (12-78) U/L Alkaline Phosphatase (45-117) U/L Total Protein (6.4-8.2) gm/dl Albumin (3.4-5.0) gm/dl Globulin (2.5-4.0) gm/dl Albumin/Globulin Ratio (0.9-2) Blood Type B Positive Antibody Screen NEGATIVE 02/02/19 02/02/19 02/02/19 Range/Units 17:33 20:35 20:42 WBC (4.8-10.8) K/uL RBC (4.2-5.4) M/uL Hgb (12.0-16.0) g/dL Hct (37-47) % MCV (80-100) fL MCH (25-34) pg MCHC (32-36) g/dL RDW Std Deviation (36.4-46.3) fL RDW Coeff of Amribel (11.5-14.5) % Plt Count (130-400) K/uL MPV (7.4-10.4) fL Immature Gran % (Auto) % Neut % (Auto) % Lymph % (Auto) % [place] % (Auto) % Eos % (Auto) % Baso % (Auto) % Immature Gran # (Auto) (0.00-0.02) K/uL Neut # (Auto) (1.4-6.5) K/uL Lymph # (Auto) (1.2-3.4) K/uL [place] # (Auto) (0.11-0.59) K/uL Eos # (Auto) (0-0.5) K/uL Baso # (Auto) (0-0.2) K/uL PT (9.0-12.0) Seconds INR (0.9-1.1) APTT (21.0-31.0) Seconds PTT Ratio Sodium 139 (136-145) mmol/L Potassium 3.9 (3.5-5.1) mmol/L Chloride 106 (98-107) mmol/L Carbon Dioxide 26 (21-32) mmol/L Anion Gap 7.0 (3-11) BUN 8 (7-18) mg/dl Creatinine 0.84 (0.6-1.2) mg/dl Est Cr Clr Drug Dosing 87.5 ml/min Est GFR ( Amer) 93.9 Est GFR (Non-Af Amer) 81.0 BUN/Creatinine Ratio 9.4 L (10-20) Glucose 186 H (70-99) mg/dl POC Glucose 203 H (70-99) Calcium 9.2 (8.5-10.1) mg/dl Phosphorus 2.8 (2.5-4.9) mg/dl Magnesium 1.8 (1.8-2.4) mg/dl Total Bilirubin 0.6 (0.2-1) mg/dl AST 17 (15-37) U/L ALT 48 (12-78) U/L Alkaline Phosphatase 99 (45-117) U/L Total Protein 8.0 (6.4-8.2) gm/dl Albumin 3.7 (3.4-5.0) gm/dl Globulin 4.3 H (2.5-4.0) gm/dl Albumin/Globulin Ratio 0.9 (0.9-2) Blood Type Antibody Screen 02/02/19 Range/Units 20:42 WBC 9.79 (4.8-10.8) K/uL RBC 4.22 (4.2-5.4) M/uL Hgb 12.8 (12.0-16.0) g/dL Hct 37.7 (37-47) % MCV 89.3 (80-100) fL MCH 30.3 (25-34) pg MCHC 34.0 (32-36) g/dL RDW Std Deviation 45.2 (36.4-46.3) fL RDW Coeff of Mariebl 13.8 (11.5-14.5) % Plt Count 289 (130-400) K/uL MPV 10.4 (7.4-10.4) fL Immature Gran % (Auto) 0.3 % Neut % (Auto) 68.4 % Lymph % (Auto) 24.6 % [place] % (Auto) 5.6 % Eos % (Auto) 0.9 % Baso % (Auto) 0.2 % Immature Gran # (Auto) 0.03 H (0.00-0.02) K/uL Neut # (Auto) 6.69 H (1.4-6.5) K/uL Lymph # (Auto) 2.41 (1.2-3.4) K/uL [place] # (Auto) 0.55 (0.11-0.59) K/uL Eos # (Auto) 0.09 (0-0.5) K/uL Baso # (Auto) 0.02 (0-0.2) K/uL PT (9.0-12.0) Seconds INR (0.9-1.1) APTT (21.0-31.0) Seconds PTT Ratio Sodium (136-145) mmol/L Potassium (3.5-5.1) mmol/L Chloride (98-107) mmol/L Carbon Dioxide (21-32) mmol/L Anion Gap (3-11) BUN (7-18) mg/dl Creatinine (0.6-1.2) mg/dl Est Cr Clr Drug Dosing ml/min Est GFR ( Amer) Est GFR (Non-Af Amer) BUN/Creatinine Ratio (10-20) Glucose (70-99) mg/dl POC Glucose (70-99) Calcium (8.5-10.1) mg/dl Phosphorus (2.5-4.9) mg/dl Magnesium (1.8-2.4) mg/dl Total Bilirubin (0.2-1) mg/dl AST (15-37) U/L ALT (12-78) U/L Alkaline Phosphatase (45-117) U/L Total Protein (6.4-8.2) gm/dl Albumin (3.4-5.0) gm/dl Globulin (2.5-4.0) gm/dl Albumin/Globulin Ratio (0.9-2) Blood Type Antibody Screen Imaging Data Radiologist's Impression: Radiology results as stated below per my review and the radiologist's interpretation: CT abd pelvis wo con CLINICAL HISTORY: 48 years-old Female presenting with rectal bleed, poss divertic, h/o renal transplant. TECHNIQUE: Multidetector CT of the abdomen and pelvis was performed without the use of intravenous contrast. IV contrast: None. One or more dose lowering techniques were used consistent with the principles of ALARA (as low as reasonably achievable), including automatic exposure control, mA or kV adjustment to individual patient size, and/or use of iterative reconstruction. COMPARISON: 08/20/2017. CT DOSE (mGy.cm): The estimated cumulative dose is 663.92 mGy.cm. FINDINGS: Hand Clerical Verifier topogram: Cholecystectomy clips. Lung bases: Normal heart size. Coronary artery calcification. No pericardial or pleural effusion. Minimal dependent changes likely atelectasis. Liver: Normal morphology. Density consistent with hepatic steatosis. Biliary: Mild biliary ductal prominence likely a reservoir effect in the post cholecystectomy state. Gallbladder surgically absent. Pancreas: Normal noncontrast appearance. Spleen: Normal noncontrast appearance. Adrenal glands: Normal noncontrast appearance. Kidneys and ureters: Severely atrophic [place] kidneys. Right lower quadrant renal transplant with normal noncontrast appearance. No hydronephrosis or urothelial thickening evident. Bladder: Normal noncontrast appearance. Pelvic organs: Normal noncontrast appearance. Gas noted in the vagina. Bowel: Pancolonic diverticulosis largely sparing the sigmoid colon. Pericolonic inflammatory change and wall thickening at the proximal descending colon associated with one of the diverticula. Adjacent peritoneal thickening and trace left paracolic gutter fluid. No bowel obstruction. The appendix is normal. Peritoneal cavity: Trace free fluid in the left paracolic gutter. No free intraperitoneal gas. Lymph nodes: No gross lymphadenopathy allowing for noncontrast technique. Vasculature: Atherosclerosis of the normal caliber abdominal aorta. Abdominal wall: Normal. Musculoskeletal: Degenerative changes of the spine. IMPRESSION: 1. Acute uncomplicated diverticulitis of the proximal descending colon. No extraluminal gas or abscess. 2. Marte colonic diverticulosis. 3. Hepatic steatosis. 4. Normal noncontrast appearance of the right lower quadrant transplant kidney. 5. Post cholecystectomy. Electronically signed by: Fredis Farias M.D. 02/02/2019 5:53 PM Blood Pressure Blood Pressure Findings: Normal blood pressure Blood Pressure Disposition: did not require urgent referral MDM Narrative There is no leukocytosis or concerning anemia. No coagulopathy. No significant electrolyte abnormality or kidney failure. Blood type was B+. Abdominal and pelvis CT showed diverticulitis, no bowel obstruction, no free air, no abscess. On exam, the patient was not toxic or febrile. There was no peritonitis. She did have dark red blood per rectal exam. The patient received IV saline for hydration. She received IV Zosyn as antibiotic coverage. The patient presents with rectal bleeding. She is immunocompromised. She was found to have diverticulitis. I do think a hospital stay is warranted. She may require a colonoscopy during this hospital stay. I did speak to the patient and case management. The on-call hospitalist was consulted. Impression & Plan Diverticulitis, GI bleed, History of renal transplant, Immunocompromised Discharge Plan Visit Data *Final* Discharge Date/Time: 02/02/19 19:53 Chief Complaint: Rectal Bleed Stated Complaint: RECTAL BLEEDING ED Provider: Nathaniel Cisneros Discharge Problem: Diverticulitis, GI bleed, History of renal transplant, Immunocompromised Patient Disposition: Admitted As Inpatient Discharge Instructions Interventions: ED Discharge Assessment Last Done: 02/02/19 19:53 Discharge Problem: GI bleed Qualifiers: GI bleed type/associated pathology: unspecified gastrointestinal hemorrhage type Qualified Code(s): K92.2 - Gastrointestinal hemorrhage, unspecified The scribe's documentation has been prepared under my direction and personally reviewed by me in its entirety. I confirm that the note above accurately reflects all work, treatment, procedures, and medical decision making performed by me.
[2019-02-02 17:51] LABS: Hematocrit (blood only) 40.2 % (37-47); Hemoglobin 13.8 g/dL (12.0-16.0); Mean Corpuscular Hgb Conc 34.3 g/dL (32-36); Mean Corpuscular Volume 90.1 fL (80-100); Mean Platelet Volume 10.6 fL (7.4-10.4); Platelet Count 320 K/uL (130-400); RDW Coefficient of Variation 13.7 % (11.5-14.5); Red Blood Count 4.46 M/uL (4.2-5.4); White Blood Count 9.29 K/uL (4.8-10.8)
--- NOTE | 2019-02-02 17:55 | CT Scan Report ---
CT abd pelvis wo con CLINICAL HISTORY: 48 years-old Female presenting with rectal bleed, poss divertic, h/o renal transpla nt. TECHNIQUE: Multidetector CT of the abdomen and pelvis was performed without the use of intravenous co ntrast. IV contrast: None. One or more dose lowering techniques were used consistent with the princip les of ALARA (as low as reasonably achievable), including automatic exposure control, mA or kV adjust ment to individual patient size, and/or use of iterative reconstruction. COMPARISON: 08/20/2017. CT DOSE (mGy.cm): The estimated cumulative dose is 663.92 mGy.cm. FINDINGS: Marine Fitter topogram: Cholecystectomy clips. Lung bases: Normal heart size. Coronary artery calcification. No pericardial or pleural effusion. Min imal dependent changes likely atelectasis. Liver: Normal morphology. Density consistent with hepatic steatosis. Biliary: Mild biliary ductal prominence likely a reservoir effect in the post cholecystectomy state. Gallbladder surgically absent. Pancreas: Normal noncontrast appearance. Spleen: Normal noncontrast appearance. Adrenal glands: Normal noncontrast appearance. Kidneys and ureters: Severely atrophic [place] kidneys. Right lower quadrant renal transplant with nor mal noncontrast appearance. No hydronephrosis or urothelial thickening evident. Bladder: Normal noncontrast appearance. Pelvic organs: Normal noncontrast appearance. Gas noted in the vagina. Bowel: Pancolonic diverticulosis largely sparing the sigmoid colon. Pericolonic inflammatory change a nd wall thickening at the proximal descending colon associated with one of the diverticula. Adjacent peritoneal thickening and trace left paracolic gutter fluid. No bowel obstruction. The appendix is no rmal. Peritoneal cavity: Trace free fluid in the left paracolic gutter. No free intraperitoneal gas. Lymph nodes: No gross lymphadenopathy allowing for noncontrast technique. Vasculature: Atherosclerosis of the normal caliber abdominal aorta. Abdominal wall: Normal. Musculoskeletal: Degenerative changes of the spine. IMPRESSION: 1. Acute uncomplicated diverticulitis of the proximal descending colon. No extraluminal gas or absce ss. 2. Marte colonic diverticulosis. 3. Hepatic steatosis. 4. Normal noncontrast appearance of the right lower quadrant transplant kidney. 5. Post cholecystectomy. Electronically signed by: Fredis Farias M.D. 02/02/2019 5:53 PM
[2019-02-02 17:58] LABS: INR 1.1 (0.9-1.1); Partial Thromboplastin Time 26.3 Seconds (21.0-31.0); Prothrombin Time 10.9 Seconds (9.0-12.0)
[2019-02-02 18:08] LABS: Albumin Level 3.7 gm/dl (3.4-5.0); BUN Creatinine Ratio 9.4 (10-20); Calcium 9.2 mg/dl (8.5-10.1); Creatinine Clr Calc Pharmacy 87.5 ml/min; Est GFR (African American) 93.9; Potassium 3.9 mmol/L (3.5-5.1)
[2019-02-02 18:10] LABS: Albumin Globulin Ratio 0.9 (0.9-2); Bilirubin,Total 0.6 mg/dl (0.2-1); Globulin 4.3 gm/dl (2.5-4.0)
[2019-02-02] MEDS ORDERED: PIPERACILLIN/TAZOBACTAM 4.5 GM/120 ML BAG IV ONE (18:21)
--- NOTE | 2019-02-02 19:40 | History & Physical Report ---
Date of Service February 02, 2019 Assessment & Plan (1) GI bleed: Patient with BRBPR, marroon stool, hemoccult + noted in ER. Diverticulosis with diverticulitis noted on CT Abdomen. Patient is hemodynamically stable at present. No active bleeding. H/H = 13.8/40.2 which is near baseline -Admit to medical floor with telemetry monitoring -Place two large bore IVs -Check Orthostatic VS x 1 -Keep NPO for now -CBC q 8 hours. Transfuse for active bleed, symptomatic anemia or Hg < 7 -GI consultation - appreciate assistance with this case. Patient was seen by Dr. Araujo in the past Present on Admission?: Yes (2) Diverticulitis: Acute, uncomplicated diverticulitis noted on CT. Patient is afebrile, hemodynamically stable, no evidence of sepsis. She is s/p renal transplant and is on immuno-suppressants with CellCept/ProGraf and Prednisone. Tolerated Zosyn in ER -Zosyn 3.375gm IV q 8 hours -Monitor for evidence of systemic infection -Will continue immunosuppressants for now Present on Admission?: Yes (3) Immunocompromised: Patient is s/p renal transplant 14 years ago. Presently on CellCept/ProGraf and Prednisone. She follows with Dr. Jones and is doing well from a transplant perspective -Continue home regimen. -Closely monitor for evidence of progressive infection -Avoid nephrotoxic agents -Renal dosing as needed (4) Hypertension: Blood pressure well controlled on home regimen -Continue Amlodipine -Continue Metoprolol -If patient continues to have BRBPR, positive orthostatic VS or significant drop in H/H will hold these agents (5) Pre-diabetes: Patient recently started on Metformin 500mg po daily -ISS F/E/N - NSS at 80mL/hr x 2 liters, monitor electrolytes and replete as needed. NPO for now Ppx - SCDs Code - Full Dispo - Med with telemetry History of Present Illness Chief Complaint: GI bleed Primary Care Provider: Pasquale Jones MD Katy Lomeli is a pleasant 48yo female with history of renal transplant 14 years ago on ProGraf/CellCept and Prednisone immunosuppression, HTN and diverticulosis with prior diverticular bleed in 2011. She presents today with BRBPR. Reports seeing her PCP, Dr. Jones, yesterday for a routine followup appointment. No concerns or changes in medications at that time. After her appointment she began having diffuse crampy abdominal pain that lasted through the night. This AM she began having bright red blood per rectum. Denies rectal pain, nausea, vomiting, diarrhea or constipation. Denies fevers/chills, CP/SOB/dizziness or presyncope. States that her bleeding is similar to prior diverticular bleed. CT Abdomen obtined in the ER revealed rivas-diverticulosis with acute, uncomplicated diverticulitis of the proximal descending colon. ER Course: Zosyn Allergies Allergy/AdvReac Type Severity Reaction Status Date / Time Penicillins Allergy Mild POSSIBLE Unverified 02/02/19 18:23 RASH Sulfa (Sulfonamide Allergy Mild Rash Unverified 02/02/19 18:15 Antibiotics) tetracycline Allergy Mild Unknown Unverified 02/02/19 18:15 Cephalosporins Allergy Unknown Unknown Verified 02/02/19 18:25 Home Medications Home Medications Medication Instructions Recorded Confirmed Type allopurinol 300 mg PO QPM 02/02/19 02/02/19 History amlodipine 5 mg PO QAM 02/02/19 02/02/19 History ferrous sulfate 325 mg PO BID 02/02/19 02/02/19 History metformin 500 mg PO DAILY 02/02/19 02/02/19 History metoprolol succinate 50 mg PO QAM 02/02/19 02/02/19 History multivitamin 1 tab PO QAM 02/02/19 02/02/19 History mycophenolate mofetil [CellCept] 500 mg PO BID 02/02/19 02/02/19 History prednisone 5 mg PO Q2D 02/02/19 02/02/19 History tacrolimus [Prograf] 3 mg PO Q12H 02/02/19 02/02/19 History Past Med/Surg History Medical History Diverticulosis (Chronic) Hypertension (Chronic) Pre-diabetes Surgical History S/P cholecystectomy S/P kidney transplant Family History Mother Colorectal cancer at age 26 with colon cancer Other Coronary heart disease Social History marital status: Current Living Situation: Family Feels Safe at Home: Yes Smoking Status: Never smoker Review of Systems All systems reviewed & are unremarkable except as noted in HPI & below Physical Exam Vital Signs (Past 24 Hours): Last Vital Signs Temp 36.8 C 02/02/19 16:46 Pulse 65 02/02/19 18:21 Resp 18 02/02/19 18:21 BP 126/75 02/02/19 18:21 Pulse Ox 96 02/02/19 18:21 Physical Exam: General: patient resting comfortably, NAD, non-toxic in appearance, AA&O x 4 Skin: warm, dry, intact, no rashes or lesions HEENT: NC/AT, PERRL, EOMI, anicteric sclera, conjunctiva without injection, external ear normal to inspection and nontender, nares patent, moist mucus membranes, dentition intact, no oropharyngeal lesions, neck supple, trachea midline, no LAD, no thyromegaly, no JVD Heart: +S1/S2, regular, no m/r/g Lungs: equal air entry bilaterally, no rales/rhonchi/wheezes Abd: +BS, soft, NT/ND, no masses/organomegaly/ascites, palpable renal transplant in RLQ, non-tender Ext: warm, 2+ pulses in UE/LE bilaterally, no clubbing/cyanosis or edema Neuro: nonfocal, patient AA&O x 4, speech intact, no facial droop, moving all extremities on command with equal strength 5/5 Results & Data Laboratory Results Lab Results 02/02/19 02/02/19 02/02/19 Range/Units 17:32 17:33 17:33 WBC 9.29 (4.8-10.8) K/uL RBC 4.46 (4.2-5.4) M/uL Hgb 13.8 (12.0-16.0) g/dL Hct 40.2 (37-47) % MCV 90.1 (80-100) fL MCH 30.9 (25-34) pg MCHC 34.3 (32-36) g/dL RDW Std Deviation 45.0 (36.4-46.3) fL RDW Coeff of Maribel 13.7 (11.5-14.5) % Plt Count 320 (130-400) K/uL MPV 10.6 H (7.4-10.4) fL PT 10.9 (9.0-12.0) Seconds INR 1.1 (0.9-1.1) APTT 26.3 (21.0-31.0) Seconds PTT Ratio 1.0 Sodium (136-145) mmol/L Potassium (3.5-5.1) mmol/L Chloride (98-107) mmol/L Carbon Dioxide (21-32) mmol/L Anion Gap (3-11) BUN (7-18) mg/dl Creatinine (0.6-1.2) mg/dl Est Cr Clr Drug Dosing ml/min Est GFR ( Amer) Est GFR (Non-Af Amer) BUN/Creatinine Ratio (10-20) Glucose (70-99) mg/dl Calcium (8.5-10.1) mg/dl Total Bilirubin (0.2-1) mg/dl AST (15-37) U/L ALT (12-78) U/L Alkaline Phosphatase (45-117) U/L Total Protein (6.4-8.2) gm/dl Albumin (3.4-5.0) gm/dl Globulin (2.5-4.0) gm/dl Albumin/Globulin Ratio (0.9-2) Blood Type B Positive Antibody Screen NEGATIVE 02/02/19 Range/Units 17:33 WBC (4.8-10.8) K/uL RBC (4.2-5.4) M/uL Hgb (12.0-16.0) g/dL Hct (37-47) % MCV (80-100) fL MCH (25-34) pg MCHC (32-36) g/dL RDW Std Deviation (36.4-46.3) fL RDW Coeff of Maribel (11.5-14.5) % Plt Count (130-400) K/uL MPV (7.4-10.4) fL PT (9.0-12.0) Seconds INR (0.9-1.1) APTT (21.0-31.0) Seconds PTT Ratio Sodium 139 (136-145) mmol/L Potassium 3.9 (3.5-5.1) mmol/L Chloride 106 (98-107) mmol/L Carbon Dioxide 26 (21-32) mmol/L Anion Gap 7.0 (3-11) BUN 8 (7-18) mg/dl Creatinine 0.84 (0.6-1.2) mg/dl Est Cr Clr Drug Dosing 87.5 ml/min Est GFR ( Amer) 93.9 Est GFR (Non-Af Amer) 81.0 BUN/Creatinine Ratio 9.4 L (10-20) Glucose 186 H (70-99) mg/dl Calcium 9.2 (8.5-10.1) mg/dl Total Bilirubin 0.6 (0.2-1) mg/dl AST 17 (15-37) U/L ALT 48 (12-78) U/L Alkaline Phosphatase 99 (45-117) U/L Total Protein 8.0 (6.4-8.2) gm/dl Albumin 3.7 (3.4-5.0) gm/dl Globulin 4.3 H (2.5-4.0) gm/dl Albumin/Globulin Ratio 0.9 (0.9-2) Blood Type Antibody Screen Diagnostic Findings CT abd pelvis wo con CLINICAL HISTORY: 48 years-old Female presenting with rectal bleed, poss divertic, h/o renal transplant. TECHNIQUE: Multidetector CT of the abdomen and pelvis was performed without the use of intravenous contrast. IV contrast: None. One or more dose lowering techniques were used consistent with the principles of ALARA (as low as reasonably achievable), including automatic exposure control, mA or kV adjustment to individual patient size, and/or use of iterative reconstruction. COMPARISON: 08/20/2017. CT DOSE (mGy.cm): The estimated cumulative dose is 663.92 mGy.cm. FINDINGS: Design Verification Engineer topogram: Cholecystectomy clips. Lung bases: Normal heart size. Coronary artery calcification. No pericardial or pleural effusion. Minimal dependent changes likely atelectasis. Liver: Normal morphology. Density consistent with hepatic steatosis. Biliary: Mild biliary ductal prominence likely a reservoir effect in the post cholecystectomy state. Gallbladder surgically absent. Pancreas: Normal noncontrast appearance. Spleen: Normal noncontrast appearance. Adrenal glands: Normal noncontrast appearance. Kidneys and ureters: Severely atrophic moapa kidneys. Right lower quadrant renal transplant with normal noncontrast appearance. No hydronephrosis or urothelial thickening evident. Bladder: Normal noncontrast appearance. Pelvic organs: Normal noncontrast appearance. Gas noted in the vagina. Bowel: Pancolonic diverticulosis largely sparing the sigmoid colon. Pericolonic inflammatory change and wall thickening at the proximal descending colon associated with one of the diverticula. Adjacent peritoneal thickening and trace left paracolic gutter fluid. No bowel obstruction. The appendix is normal. Peritoneal cavity: Trace free fluid in the left paracolic gutter. No free intraperitoneal gas. Lymph nodes: No gross lymphadenopathy allowing for noncontrast technique. Vasculature: Atherosclerosis of the normal caliber abdominal aorta. Abdominal wall: Normal. Musculoskeletal: Degenerative changes of the spine. IMPRESSION: 1. Acute uncomplicated diverticulitis of the proximal descending colon. No extraluminal gas or abscess. 2. Rivas colonic diverticulosis. 3. Hepatic steatosis. 4. Normal noncontrast appearance of the right lower quadrant transplant kidney. 5. Post cholecystectomy. Electronically signed by: Fredis Farias M.D. 02/02/2019 5:53 PM Code Status & VTE Plan Code Status FULL VTE Prophylaxis Plan VTE Prophylaxis will be ordered: Yes Critical Care Time Critical Care Time: No (1) GI bleed GI bleed type/associated pathology: unspecified gastrointestinal hemorrhage type Qualified Code(s): K92.2 - Gastrointestinal hemorrhage, unspecified (2) Hypertension Hypertension type: essential hypertension Qualified Code(s): I10 - Essential (primary) hypertension
[2019-02-02] MEDS ORDERED: GLUCOSE 40% GEL 15 GM TUBE PO PRN (20:18)
[2019-02-02] MEDS ORDERED: GLUCOSE 10 TABS/TUBE PO PRN (20:18)
[2019-02-02] MEDS ORDERED: DEXTROSE 50% 50 ML SYRINGE IV PRN (20:18)
[2019-02-02] MEDS ORDERED: PIPERACILL/TAZOBAC CONSULT ACTIVE PRN (20:18)
[2019-02-02] MEDS ORDERED: GLUCAGON FOR INJ 1 MG VIAL SQ PRN (20:18)
[2019-02-02] MEDS ORDERED: ONDANSETRON INJ 2 MG/ML 2 ML VIAL IV PRN (20:18)
[2019-02-02] MEDS ORDERED: CARBOHYDRATES FOR HYPOGLYCEMIA PO PRN (20:18)
[2019-02-02] MEDS: SODIUM CHLORIDE 0.9% 1000ML 1,000 ML IV SCH (20:43)
[2019-02-02] MEDS ORDERED: ALLOPURINOL 300 MG TAB PO SCH (21:00)
[2019-02-02 21:19] LABS: Basophils # (auto) 0.02 K/uL (0-0.2); Basophils % (auto) 0.2 %; Eosinophils # (auto) 0.09 K/uL (0-0.5); Eosinophils % (auto) 0.9 %; Hematocrit (blood only) 37.7 % (37-47); Hemoglobin 12.8 g/dL (12.0-16.0); Immature Granulocytes # (auto) 0.03 K/uL (0.00-0.02); Immature Granulocytes % (auto) 0.3 %; Lymphocytes # (auto) 2.41 K/uL (1.2-3.4); Lymphocytes % (auto) 24.6 %; Mean Corpuscular Volume 89.3 fL (80-100); Mean Platelet Volume 10.4 fL (7.4-10.4); Monocytes # (auto) 0.55 K/uL (0.11-0.59); Monocytes % (auto) 5.6 %; Neutrophils # (auto) 6.69 K/uL (1.4-6.5); Neutrophils % (auto) 68.4 %; Platelet Count 289 K/uL (130-400); RDW Coefficient of Variation 13.8 % (11.5-14.5); RDW Standard Deviation 45.2 fL (36.4-46.3); Red Blood Count 4.22 M/uL (4.2-5.4); White Blood Count 9.79 K/uL (4.8-10.8)
[2019-02-02 21:26] LABS: Magnesium 1.8 mg/dl (1.8-2.4); Phosphorus 2.8 mg/dl (2.5-4.9)
[2019-02-02] MEDS: TACROLIMUS 1 MG CAP PO SCH (22:15)
[2019-02-02] MEDS: MYCOPHENOLATE MOFETIL 250 MG CAP PO SCH (22:16)
[2019-02-02] MEDS: INSULIN ASPART 100 UNITS/ML 3 ML PEN SC SCH (23:04)
[2019-02-02] MEDS: PIPERACILLIN/TAZOBACTAM 3.375 GM in DEXTROSE 5% 100 ML IV SCH (23:44)
[2019-02-03 06:06] LABS: BUN Creatinine Ratio 9.9 (10-20); Calcium 8.5 mg/dl (8.5-10.1); Creatinine Clr Calc Pharmacy 94.8 ml/min; Est GFR (Non-African American) 91.5; Potassium 3.8 mmol/L (3.5-5.1)
[2019-02-03] MEDS ORDERED: FERROUS SULFATE 325 MG TAB PO SCH (08:00)
[2019-02-03] MEDS: PIPERACILLIN/TAZOBACTAM 3.375 GM in DEXTROSE 5% 100 ML IV SCH (08:24)
[2019-02-03] MEDS: MYCOPHENOLATE MOFETIL 250 MG CAP PO SCH (08:25)
[2019-02-03] MEDS: TACROLIMUS 1 MG CAP PO SCH (08:25)
[2019-02-03] MEDS: SODIUM CHLORIDE 0.9% 1000ML 1,000 ML IV SCH (08:25)
[2019-02-03] MEDS: INSULIN ASPART 100 UNITS/ML 3 ML PEN SC SCH ×2 (08:32→13:35)
--- NOTE | 2019-02-03 08:32 | Family Medicine Progress Note ---
Date of Service February 03, 2019 Assessment & Plan (1) GI bleed: Subjective Pt states she had one bloody BM this morning. Still bright red, with no clots. Feels sine otherwise. Denies lightheadedness, dizziness, palpitations, SOB. Denies N/V, diarrhea, constipation. Review of Systems All systems reviewed & are unremarkable except as noted in HPI & below Physical Exam Vital Signs (Past 24 Hours): Last Vital Signs Temp 36.5 C 02/03/19 07:36 Pulse 63 02/03/19 07:36 Resp 20 02/03/19 07:36 BP 132/78 02/03/19 07:36 Pulse Ox 93 02/03/19 07:36 General: Alert, oriented. No acute distress HEENT: NC/AT, PERRLA, EOMI. Chest: Nontender to palpation. CV: RRR, Normal s1, s2. Resp: Breath sounds clear bilaterally, no increased effort of breathing. Abdomen: Soft, nontender, nondistended. No guarding. No organomegaly appreciated. Extremities: No edema. Results & Data Laboratory Results Laboratory Results - last 24 hr 02/02/19 02/02/19 02/02/19 17:32 17:33 17:33 WBC 9.29 RBC 4.46 Hgb 13.8 Hct 40.2 MCV 90.1 MCH 30.9 MCHC 34.3 RDW Std Deviation 45.0 RDW Coeff of Maribel 13.7 Plt Count 320 MPV 10.6 H Immature Gran % (Auto) Neut % (Auto) Lymph % (Auto) [place] % (Auto) Eos % (Auto) Baso % (Auto) Immature Gran # (Auto) Neut # (Auto) Lymph # (Auto) [place] # (Auto) Eos # (Auto) Baso # (Auto) PT 10.9 INR 1.1 APTT 26.3 PTT Ratio 1.0 Sodium Potassium Chloride Carbon Dioxide Anion Gap BUN Creatinine Est Cr Clr Drug Dosing Est GFR ( Amer) Est GFR (Non-Af Amer) BUN/Creatinine Ratio Glucose POC Glucose Calcium Phosphorus Magnesium Total Bilirubin AST ALT Alkaline Phosphatase Total Protein Albumin Globulin Albumin/Globulin Ratio Blood Type B Positive Antibody Screen NEGATIVE 02/02/19 02/02/19 02/02/19 17:33 20:35 20:42 WBC RBC Hgb Hct MCV MCH MCHC RDW Std Deviation RDW Coeff of Maribel Plt Count MPV Immature Gran % (Auto) Neut % (Auto) Lymph % (Auto) [place] % (Auto) Eos % (Auto) Baso % (Auto) Immature Gran # (Auto) Neut # (Auto) Lymph # (Auto) [place] # (Auto) Eos # (Auto) Baso # (Auto) PT INR APTT PTT Ratio Sodium 139 Potassium 3.9 Chloride 106 Carbon Dioxide 26 Anion Gap 7.0 BUN 8 Creatinine 0.84 Est Cr Clr Drug Dosing 87.5 Est GFR ( Amer) 93.9 Est GFR (Non-Af Amer) 81.0 BUN/Creatinine Ratio 9.4 L Glucose 186 H POC Glucose 203 H Calcium 9.2 Phosphorus 2.8 Magnesium 1.8 Total Bilirubin 0.6 AST 17 ALT 48 Alkaline Phosphatase 99 Total Protein 8.0 Albumin 3.7 Globulin 4.3 H Albumin/Globulin Ratio 0.9 Blood Type Antibody Screen 02/02/19 02/03/19 20:42 05:21 WBC 9.79 RBC 4.22 Hgb 12.8 Hct 37.7 MCV 89.3 MCH 30.3 MCHC 34.0 RDW Std Deviation 45.2 RDW Coeff of Maribel 13.8 Plt Count 289 MPV 10.4 Immature Gran % (Auto) 0.3 Neut % (Auto) 68.4 Lymph % (Auto) 24.6 [place] % (Auto) 5.6 Eos % (Auto) 0.9 Baso % (Auto) 0.2 Immature Gran # (Auto) 0.03 H Neut # (Auto) 6.69 H Lymph # (Auto) 2.41 [place] # (Auto) 0.55 Eos # (Auto) 0.09 Baso # (Auto) 0.02 PT INR APTT PTT Ratio Sodium 141 Potassium 3.8 Chloride 111 H Carbon Dioxide 23 Anion Gap 7.0 BUN 8 Creatinine 0.76 Est Cr Clr Drug Dosing 94.8 Est GFR ( Amer) 106.0 Est GFR (Non-Af Amer) 91.5 BUN/Creatinine Ratio 9.9 L Glucose 150 H POC Glucose Calcium 8.5 Phosphorus Magnesium Total Bilirubin AST ALT Alkaline Phosphatase Total Protein Albumin Globulin Albumin/Globulin Ratio Blood Type Antibody Screen Medications Administered Home Medications allopurinol 300 mg PO QPM 02/02/19 [History Confirmed 02/02/19] amlodipine 5 mg PO QAM 02/02/19 [History Confirmed 02/02/19] ferrous sulfate 325 mg PO BID 02/02/19 [History Confirmed 02/02/19] metformin 500 mg PO DAILY 02/02/19 [History Confirmed 02/02/19] metoprolol succinate 50 mg PO QAM 02/02/19 [History Confirmed 02/02/19] multivitamin 1 tab PO QAM 02/02/19 [History Confirmed 02/02/19] mycophenolate mofetil [CellCept] 500 mg PO BID 02/02/19 [History Confirmed 07/15] prednisone 5 mg PO Q2D 02/02/19 [History Confirmed 02/02/19] tacrolimus [Prograf] 3 mg PO Q12H 02/02/19 [History Confirmed 02/02/19] Active Medications Allopurinol (Zyloprim) 300 mg PO QPM [facility] Stop: 03/04/19 20:59 Last Admin: 02/02/19 22:16 Dose: 300 mg Documented by: Amlodipine Besylate (Norvasc) 5 mg PO QAM [facility] Stop: 03/05/19 08:59 Dextrose (Dextrose 50%) 25 - 50 ml IV UD PRN; Protocol PRN Reason: Hypoglycemia Protocol Stop: 03/04/19 20:17 Ferrous Sulfate (Feosol) 325 mg PO BIDM [facility] Stop: 03/05/19 07:59 Glucagon (Glucagen) 1 mg SQ UD PRN; Protocol PRN Reason: Hypoglycemia Protocol Stop: 03/04/19 20:17 Glucose (Glucose 40%) 15 - 30 gm PO UD PRN; Protocol PRN Reason: Hypoglycemia Protocol Stop: 03/04/19 20:17 Glucose (Dex4 Glucose) 4 - 8 tabs PO UD PRN; Protocol PRN Reason: Hypoglycemia Protocol Stop: 03/04/19 20:17 Piperacillin Sod/Tazobactam (Sod 3.375 gm/ Dextrose) 115 mls @ 28.75 mls/hr IV Q8H [facility]; Protocol Stop: 02/13/19 00:00 Last Infusion: 02/03/19 03:55 Dose: Infused Documented by: Sodium Chloride (Nss 1000ml) 1,000 mls @ 80 mls/hr IV .[id number] [facility] Stop: 02/03/19 21:17 Last Admin: 02/02/19 20:43 Dose: 80 mls/hr Documented by: Insulin Aspart (Novolog Flexpen) 0 units SC ACHS [facility] Stop: 03/04/19 20:59 Last Admin: 02/02/19 23:04 Dose: 2 units Documented by: Metoprolol Succinate (Toprol Xl) 50 mg PO QAM [facility] Stop: 03/05/19 08:59 Miscellaneous (Carbohydrates For Hypoglycemia) 15 - 30 gm PO UD PRN PRN Reason: Hypoglycemia Treatment Stop: 03/04/19 20:17 Miscellaneous Information (Consult) 1 ea N/A UD PRN PRN Reason: Consult Stop: 03/04/19 20:17 Multivitamins (Multivitamin Tab) [facility] [place] Stop: 03/05/19 08:59 Mycophenolate Mofetil (Cellcept) 500 mg PO BID [facility] Stop: 03/04/19 20:59 Last Admin: 02/02/19 22:16 Dose: 500 mg Documented by: Ondansetron HCl (Zofran) 4 mg IV Q6H PRN PRN Reason: Nausea Stop: 03/04/19 20:17 Prednisone (Prednisone) 5 mg PO Q2D [facility] Stop: 03/05/19 08:59 Tacrolimus (Prograf) 3 mg PO Q12 [facility] Stop: 03/04/19 21:29 Last Admin: 02/02/19 22:15 Dose: 3 mg Documented by: (1) GI bleed GI bleed type/associated pathology: unspecified gastrointestinal hemorrhage type Qualified Code(s): K92.2 - Gastrointestinal hemorrhage, unspecified
[2019-02-03] MEDS ORDERED: METOPROLOL SUCC 50MG EXT REL TAB PO SCH (09:00)
[2019-02-03] MEDS ORDERED: AMLODIPINE BESYLATE 5 MG TAB PO SCH (09:00)
[2019-02-03] MEDS ORDERED: predniSONE 5 MG TAB PO SCH (09:00)
[2019-02-03] MEDS ORDERED: MULTIVITAMIN TAB PO SCH (09:00)
--- NOTE | 2019-02-03 10:03 | Gastrointestinal Consultation ---
Date of Consultation February 03, 2019 Assessment & Plan (1) Diverticulitis: Patient is a 48 yo female with acute uncomplicated diverticulitis (first occurrence) without fever or leukocytosis. 1) Continue IV Zosyn while hospitalized with plans to transition to po antibiotic treatment for discharge to complete a 10 day course. 2) Low residue diet. 3) Colonoscopy in 8 weeks. Our office will arrange outpatient scope and follow- up. 4) No further GI recommendations at this time. Thank you for allowing us to participate in the care of this patient. We will sign off at this time. If you have further questions or concerns, do not hesitate to contact us at [phone] or [phone]. Present on Admission?: Yes Supervising Physician Co-Signing Physician Notes Agree with IJEOMA Evans as above Patient was discharged prior to my evaluation History of Present Illness Reason for Consultation: GI bleed Attending Physician: Ester Mata MD History of Present Illness Patient is a 48 yo female who presented to the hospital with left sided abdominal pain and rectal bleeding. She reports that bright red rectal bleeding began on 02/02/2019. She presented to the ER. A CT scan indicated acute, uncomplicated diverticulitis of the descending colon. She has no leukocytosis. She is afebrile. The patient reports a history of diverticulosis. She reports she has had colonoscopies in the past. She notes that her symptoms are resolved at present. She denies abdominal pain or further rectal bleeding. She offers no further complaints. She denies a family history of IBD or GI malignancy. Allergies Allergy/AdvReac Type Severity Reaction Status Date / Time Penicillins Allergy Mild POSSIBLE Unverified 02/02/19 18:23 RASH Sulfa (Sulfonamide Allergy Mild Rash Unverified 02/02/19 18:15 Antibiotics) tetracycline Allergy Mild Unknown Unverified 02/02/19 18:15 Cephalosporins Allergy Unknown Unknown Verified 02/02/19 18:25 Home Medications Home Medications Medication Instructions Recorded Confirmed Type allopurinol 300 mg PO QPM 02/02/19 02/02/19 History amlodipine 5 mg PO QAM 02/02/19 02/02/19 History ferrous sulfate 325 mg PO BID 02/02/19 02/02/19 History metformin 500 mg PO DAILY 02/02/19 02/02/19 History metoprolol succinate 50 mg PO QAM 02/02/19 02/02/19 History multivitamin 1 tab PO QAM 02/02/19 02/02/19 History mycophenolate mofetil [CellCept] 500 mg PO BID 02/02/19 02/02/19 History prednisone 5 mg PO Q2D 02/02/19 02/02/19 History tacrolimus [Prograf] 3 mg PO Q12H 02/02/19 02/02/19 History amoxicillin-pot clavulanate 1 tab PO BID #20 tab 02/03/19 Rx [Augmentin] Patient History Medical History Diverticulosis (Chronic) Hypertension (Chronic) Pre-diabetes Surgical History S/P cholecystectomy S/P kidney transplant Family History Mother Colorectal cancer at age 26 with colon cancer Other Coronary heart disease Social History Preferred Language: Persian Beliefs That Will Affect Care: None marital status: Current Living Situation: Spouse Other Information That Helps Us Care for You: No Feels Safe at Home: Yes Safety Concerns: Feels Safe At This Time Smoking Status: Never smoker Hx Alcohol Use: No Hx Substance Use: No Review of Systems Constitutional: no fever and no chills no acute complaints Respiratory: no cough and no dyspnea Cardiovascular: no chest pain Gastrointestinal: no abdominal pain, no constipation and no diarrhea/loose stools Musculoskeletal: no back pain Integumentary: no rash no acute issues Physical Exam Vital Signs (Past 24 Hours): Last Vital Signs Temp 36.5 C 02/03/19 07:36 Pulse 67 02/03/19 08:00 Resp 20 02/03/19 07:36 BP 132/78 02/03/19 07:36 Pulse Ox 93 02/03/19 07:36 Constitutional: WD/WN, vitals as above Eyes: PERRL, conjunctivae normal, anicteric sclerae ENMT: external ear and nose normal, oropharynx normal Respiratory: normal respiratory effort, lungs clear to auscultation Cardiovascular: RRR, no murmur, no edema Gastrointestinal (Abdomen): normal bowel sounds, soft, nontender, no hepatosplenomegaly Musculoskeletal: no cyanosis or clubbing, extremities motor strength 5/5 Skin: no rashes, warm and dry Neurologic: Speech / Cognition: normal speech Psychiatric: A+Ox3, euthymic affect
--- NOTE | 2019-02-03 12:39 | Discharge Summary ---
Date of Service February 03, 2019 Admission HPI Per Admitting Provider Katy Lomeli is a pleasant 48yo female with history of renal transplant 14 years ago on ProGraf/CellCept and Prednisone immunosuppression, HTN and diverticulosis with prior diverticular bleed in 2011. She presents today with BRBPR. Reports seeing her PCP, Dr. Jones, yesterday for a routine followup appointment. No concerns or changes in medications at that time. After her appointment she began having diffuse crampy abdominal pain that lasted through the night. This AM she began having bright red blood per rectum. Denies rectal pain, nausea, vomiting, diarrhea or constipation. Denies fevers/chills, CP/SO B/dizziness or presyncope. States that her bleeding is similar to prior diverticular bleed. CT Abdomen obtined in the ER revealed rivas-diverticulosis with acute, uncomplicated diverticulitis of the proximal descending colon. ER Course: Zosyn Principal Diagnosis Acute Diverticulitis and Diverticular bleed Discharge Exam Constitutional WD/WN, vitals as above Respiratory normal respiratory effort, lungs clear to auscultation Cardiovascular RRR, no murmur, no edema Gastrointestinal (Abdomen) normal bowel sounds, soft, nontender, no hepatosplenomegaly Psychiatric A+Ox3, euthymic affect Discharge Data Allergies Allergy/AdvReac Type Severity Reaction Status Date / Time Penicillins Allergy Mild POSSIBLE Unverified 02/02/19 18:23 RASH Sulfa (Sulfonamide Allergy Mild Rash Unverified 02/02/19 18:15 Antibiotics) tetracycline Allergy Mild Unknown Unverified 02/02/19 18:15 Cephalosporins Allergy Unknown Unknown Verified 02/02/19 18:25 Consultations 02/02/19 18:31 ED Decision to Admit Stat 02/02/19 20:18 Consult Gastroenterology Routine Ordered Studies 02/02/19 17:07 CT abd pelvis wo con Stat Hospital Course (1) Diverticulitis: Patient with BRBPR, marroon stool, hemoccult + noted in ER. Diverticulosis with diverticulitis noted on CT Abdomen. Hemodynamically stable on admission and with no active bleeding. H/H = 13.8/40.2 which is near baseline -Admited to medical floor with telemetry monitoring -Kept NPO and on IVF -Received Zosyn 3.375gm IV q 8 hours for diverticulitis -Next day - diet was advanced and she tolerated it well. -Discharged home on augmentin. s/p renal transplant 14 years ago. Presently on CellCept/ProGraf and Prednisone. She follows with Dr. Jones and is doing well from a transplant perspective -Continued home regimen. HTN -Continued Amlodipine -Continued Metoprolol Pre-diabetes: -Patient recently started on Metformin 500mg po daily Total Time Total Time Spent Total Time Spent (In Minutes): 35 Discharge Plan Discharge Items Patient Disposition: Home - Self-Care Reason For Visit: GIB Discharge Diagnosis: Acute Diverticulitis Diverticular Bleed Discharge Goals: Improve disease control Activity: Resume your previous activity Non-emergency contact: Primary Care Provider Call non-emergency contact if: your symptoms worsen Follow-up/Referrals: Pasquale Jones MD [Primary Care Provider] - Diet: Low Sodium (2gm) and See below Diet Comment: Low Residue Diet Addtl Provider Instructions: Follow up with family physician in one week. Prescriptions: New amoxicillin-pot clavulanate [Augmentin] 875-125 mg tablet 1 tab PO BID Qty: 20 RF: 0 Continued metoprolol succinate 50 mg Tablet Extended Release 24 Hr 50 mg PO QAM RF: 0 amlodipine 5 mg Tablet 5 mg PO QAM RF: 0 ferrous sulfate 325 mg (65 mg iron) Tablet 325 mg PO BID RF: 0 allopurinol 300 mg Tablet 300 mg PO QPM RF: 0 multivitamin Tablet 1 tab PO QAM RF: 0 prednisone 5 mg Tablet 5 mg PO Q2D RF: 0 mycophenolate mofetil [CellCept] 500 mg Tablet 500 mg PO BID RF: 0 tacrolimus [Prograf] 1 mg Capsule 3 mg PO Q12H RF: 0 metformin 500 mg 500 mg PO DAILY RF: 0 Stand-Alone Forms: [facility] Discharge Orders: Discharge Order (Routine); Ordered 02/03/19 Ordered By: Ester Mata Admission Data Admit Date/Time: 02/02/19 19:35 Attending Provider: Ester Mata Admit Provider: Nayeli Giron Primary Care Provider: Pasquale Jones Other Providers: Ishaan Araujo Service: Telemetry Medical Other Interventions: Discharge Summary Assessment (RN) Last Done: 02/03/19 12:49 DC Date/Time DO NOT enter until pt leaves facility: 02/03/19 16:50
== END 2019-02-03 16:50 | disposition home or self-care (01) | DRG 378 ==
LOC: ED 16:41 → 2N 19:35 → SUATTDRO 19:35 → 2N 19:53
DX: Z88.1 Allergy status to other antibiotic agents; Z79.52 Long term (current) use of systemic steroids; Z79.899 Other long term (current) drug therapy; Z88.2 Allergy status to sulfonamides; Z80.0 Family history of malignant neoplasm of digestive organs; Z94.0 Kidney transplant status; R73.03 Prediabetes; Z88.0 Allergy status to penicillin; K57.33 Diverticulitis of large intestine without perforation or abscess with bleeding; I10 Essential (primary) hypertension; Z79.84 Long term (current) use of oral hypoglycemic drugs

== ENCOUNTER 2019-05-05 20:33 | Inpatient (IN) ==
[2019-05-05] MEDS ORDERED: SODIUM CHLORIDE 0.9% 250 ML IV PRN (21:06)
[2019-05-05] MEDS ORDERED: ONDANSETRON INJ 2 MG/ML 2 ML VIAL ONE (21:11)
[2019-05-05] MEDS ORDERED: ONDANSETRON INJ 2 MG/ML 2 ML VIAL IV STA (21:12)
[2019-05-05] MEDS ORDERED: SODIUM CHLORIDE 0.9% 500 ML IV SCH (21:15)
[2019-05-05 21:38] LABS: Alanine Aminotransferase 34 U/L (12-78); Albumin Level 2.6 gm/dl (3.4-5.0); Aspartate Aminotransferase 17 U/L (15-37); BUN Creatinine Ratio 9.2 (10-20); Blood Urea Nitrogen 8 mg/dl (7-18); Carbon Dioxide 23 mmol/L (21-32); Chloride 108 mmol/L (98-107); Est GFR (Non-African American) 77.7; Glucose 237 mg/dl (70-99); Potassium 3.9 mmol/L (3.5-5.1); Sodium 140 mmol/L (136-145)
--- NOTE | 2019-05-05 21:40 | Emergency Department Note ---
Entered by Kristy Dawson acting as a scribe for Tate Gambino DO History of Present Illness General Chief complaint: Rectal Bleed Stated complaint: BLEEDING FROM BOWEL,HEADACHE Time Seen by Provider: 05/05/19 21:02 Source: patient History of Present Illness Provider complaint: abdominal pain Onset (ago): day(s) 3 Location: abdomen Severity: similar to prior episodes Pain Consistency: + constant Associated symptoms: + headaches, + nausea/vomiting, + weakness and + other (+fatigue) The patient is a 48 year old female who presents to the Emergency Room with complaints of constant abdominal pain. The patient states that she was here and discharged for diverticulitis. The patient states that she has been experiencing nausea, vomiting, fatigue, weakness, dizziness, and headaches. She reports that when she was here her CT scan was negative. The patient denies being on blood thinners. The patient has a history of a kidney transplant and blood transfusion. She denies any tobacco or alcohol use. Home Medications Home Medications Medication Instructions Recorded Confirmed Type allopurinol 300 mg PO QPM 02/02/19 05/05/19 History amlodipine 5 mg PO QAM 02/02/19 05/05/19 History ferrous sulfate 325 mg PO BID 02/02/19 05/05/19 History metoprolol succinate 50 mg PO QAM 02/02/19 05/05/19 History multivitamin 1 tab PO QAM 02/02/19 05/05/19 History mycophenolate mofetil [CellCept] 500 mg PO BID 02/02/19 05/05/19 History prednisone 5 mg PO Q2D 02/02/19 05/05/19 History tacrolimus [Prograf] 3 mg PO Q12H 02/02/19 05/05/19 History metformin 500 mg PO QPM 05/03/19 05/05/19 History ciprofloxacin HCl 500 mg PO BID 05/05/19 05/05/19 History metronidazole 500 mg PO TID 05/05/19 05/05/19 History Allergies Allergy/AdvReac Type Severity Reaction Status Date / Time Penicillins Allergy Mild POSSIBLE Unverified 05/05/19 22:16 RASH Sulfa (Sulfonamide Allergy Mild Rash Unverified 05/05/19 22:16 Antibiotics) tetracycline Allergy Mild Unknown Unverified 05/05/19 22:16 Cephalosporins Allergy Unknown Unknown Verified 05/05/19 22:25 Past Med/Surg History Medical History Diverticulitis (Acute) Diverticulosis (Chronic) Hypertension (Chronic) Pre-diabetes Surgical History S/P cholecystectomy S/P kidney transplant Family History Mother Colorectal cancer at age 26 with colon cancer Other Coronary heart disease Social History Preferred Language: Estonian Communication Ability: Effective Rehabilitation Counsellor Required: No Beliefs That Will Affect Care: None marital status: Current Living Situation: Spouse Other Information That Helps Us Care for You: No Feels Safe at Home: Yes Safety Concerns: Feels Safe At This Time Smoking Status: Never smoker Do You Dip or Chew Tobacco: No Hx Alcohol Use: No Hx Substance Use: No Review of Systems See HPI for pertinent positives & negatives. and A total of 10 systems reviewed and were otherwise negative Physical Exam Vital Signs Vital Signs - 24 hr 05/05/19 20:42 05/05/19 21:14 05/05/19 21:15 Temperature 36.7 C Temperature Source Oral Sepsis Recent Fever Within 48 Hours No Sepsis Action Taken by Nursing No Action Required Pulse Rate 99 H 90 87 Pulse Rate [Apical] Pulse Rate from SpO2 Sensor Pulse Strength Normal Respiratory Rate 18 Respiratory Effort / Characteristics Non-Labored Spontaneous Respiratory Depth Normal Respiratory Pattern Regular Blood Pressure 83/51 L 116/66 Blood Pressure [Right Arm] Blood Pressure Mean 61 82 Blood Pressure Mean [Right Arm] Blood Pressure Position Sitting Pulse Oximetry 98 98 Oxygen Delivery Method Room Air Room Air Oxygen Flow Rate 05/05/19 21:19 05/05/19 21:30 05/05/19 21:31 Temperature Temperature Source Sepsis Recent Fever Within 48 Hours Sepsis Action Taken by Nursing Pulse Rate 87 86 83 Pulse Rate [Apical] Pulse Rate from SpO2 Sensor Pulse Strength Respiratory Rate 20 Respiratory Effort / Characteristics Respiratory Depth Respiratory Pattern Blood Pressure 107/60 Blood Pressure [Right Arm] Blood Pressure Mean 75 Blood Pressure Mean [Right Arm] Blood Pressure Position Pulse Oximetry Oxygen Delivery Method Oxygen Flow Rate 05/05/19 21:44 05/05/19 21:45 05/05/19 22:00 Temperature Temperature Source Sepsis Recent Fever Within 48 Hours Sepsis Action Taken by Nursing Pulse Rate 80 85 Pulse Rate [Apical] 85 Pulse Rate from SpO2 Sensor Pulse Strength Respiratory Rate 20 21 21 Respiratory Effort / Characteristics Respiratory Depth Respiratory Pattern Blood Pressure 110/57 L 112/56 L Blood Pressure [Right Arm] 107/60 Blood Pressure Mean 74 74 Blood Pressure Mean [Right Arm] 75 Blood Pressure Position Pulse Oximetry 96 Oxygen Delivery Method Room Air Oxygen Flow Rate 05/05/19 22:01 05/05/19 22:15 05/05/19 22:25 Temperature Temperature Source Sepsis Recent Fever Within 48 Hours Sepsis Action Taken by Nursing Pulse Rate 89 85 Pulse Rate [Apical] Pulse Rate from SpO2 Sensor Pulse Strength Respiratory Rate 22 24 Respiratory Effort / Characteristics Respiratory Depth Respiratory Pattern Blood Pressure 107/57 L Blood Pressure [Right Arm] Blood Pressure Mean 73 Blood Pressure Mean [Right Arm] Blood Pressure Position Pulse Oximetry Oxygen Delivery Method Room Air Oxygen Flow Rate 05/05/19 22:38 05/05/19 22:40 05/05/19 22:43 Temperature 36.8 C Temperature Source Oral Sepsis Recent Fever Within 48 Hours Sepsis Action Taken by Nursing Pulse Rate 85 85 84 Pulse Rate [Apical] Pulse Rate from SpO2 Sensor 85 Pulse Strength Respiratory Rate 21 22 18 Respiratory Effort / Characteristics Respiratory Depth Respiratory Pattern Blood Pressure 106/54 L 106/56 L 106/56 L Blood Pressure [Right Arm] Blood Pressure Mean 71 72 72 Blood Pressure Mean [Right Arm] Blood Pressure Position Lying Pulse Oximetry 88 L 96 Oxygen Delivery Method Oxygen Flow Rate 05/05/19 22:50 05/05/19 22:59 05/05/19 23:00 Temperature 37.3 C Temperature Source Oral Sepsis Recent Fever Within 48 Hours Sepsis Action Taken by Nursing Pulse Rate 86 83 85 Pulse Rate [Apical] Pulse Rate from SpO2 Sensor 85 84 85 Pulse Strength Respiratory Rate 27 H 21 22 Respiratory Effort / Characteristics Respiratory Depth Respiratory Pattern Blood Pressure 105/55 L 108/60 108/60 Blood Pressure [Right Arm] Blood Pressure Mean 71 76 76 Blood Pressure Mean [Right Arm] Blood Pressure Position Pulse Oximetry 98 98 99 Oxygen Delivery Method Oxygen Flow Rate 3 05/05/19 23:01 05/05/19 23:15 05/05/19 23:44 Temperature 37.5 C 37.3 C Temperature Source Oral Oral Sepsis Recent Fever Within 48 Hours Sepsis Action Taken by Nursing Pulse Rate 84 88 88 Pulse Rate [Apical] Pulse Rate from SpO2 Sensor 83 Pulse Strength Respiratory Rate 19 18 18 Respiratory Effort / Characteristics Respiratory Depth Respiratory Pattern Blood Pressure 104/56 L 105/61 Blood Pressure [Right Arm] Blood Pressure Mean 72 75 Blood Pressure Mean [Right Arm] Blood Pressure Position Pulse Oximetry 100 94 95 Oxygen Delivery Method Oxygen Flow Rate 05/05/19 23:45 Temperature 37.7 C H Temperature Source Oral Sepsis Recent Fever Within 48 Hours Sepsis Action Taken by Nursing Pulse Rate 90 Pulse Rate [Apical] Pulse Rate from SpO2 Sensor Pulse Strength Respiratory Rate 18 Respiratory Effort / Characteristics Respiratory Depth Respiratory Pattern Blood Pressure 112/54 L Blood Pressure [Right Arm] Blood Pressure Mean 73 Blood Pressure Mean [Right Arm] Blood Pressure Position Pulse Oximetry 96 Oxygen Delivery Method Oxygen Flow Rate 0 GENERAL: The patient is awake and alert. She is very anxious appearing. She appears to be uncomfortable. EYES: The conjunctivae are clear. The pupils are round and reactive. EARS, NOSE, MOUTH AND THROAT: The nose is without any evidence of any deformity. Mucous membranes are moist tongue is midline NECK: The neck is nontender and supple. RESPIRATORY: Normal respiratory effort is noted there is no evidence of wheezing rhonchi or rales CARDIOVASCULAR: Regular rate and rhythm noted there no murmurs rubs or gallops normal S1 normal S2 GASTROINTESTINAL: The abdomen is soft. There is diffuse tenderness to abdominal palpation. There is no specific guarding or rigidity. MUSCULOSKELETAL/EXTREMITIES: There is no evidence of gross deformity full range of motion is noted in the hips and shoulders SKIN: There is no obvious evidence of any rash. Skin is cool and dry. Skin is pale. NEUROLOGIC: Patient is awake alert and oriented x3. Course 2104: The patient was evaluated in room B12A, and a complete history and physical examination were performed. 2107: I reviewed the patient's case with Dr. Carlson [facility] Hospitalist. He will evaluate the patient for further management. Consultations Consultation #1: Dr. Carlson [facility] Hospitalist Time: 21:08 Administered Medications Discontinued Medications Sodium Chloride (Nss) 500 mls @ 999 mls/hr IV .Q31M LIUDMILA Stop: 05/05/19 21:45 Last Infusion: 05/05/19 22:13 Dose: 0 mls/hr Documented by: [id number] Admin: 05/05/19 21:46 Dose: 999 mls/hr Documented by: [id number] Aztreonam 2,000 mg/ Dextrose 120 mls @ 100 mls/hr IV NOW STA; Protocol Stop: 05/05/19 23:47 Last Infusion: 05/06/19 00:45 Dose: 0 mls/hr Documented by: [id number] Admin: 05/05/19 23:32 Dose: 100 mls/hr Documented by: [id number] Metronidazole (Flagyl) 500 mg in 100 mls @ 100 mls/hr IV NOW STA Stop: 05/05/19 23:35 Last Infusion: 05/06/19 01:20 Dose: 0 mls/hr Documented by: [id number] Admin: 05/06/19 00:34 Dose: 100 mls/hr Documented by: [id number] Ondansetron HCl (Zofran) Confirm Administered Dose 4 mg .ROUTE .STK-MED ONE Stop: 05/05/19 21:12 Last Admin: 05/05/19 21:17 Dose: 4 mg Documented by: [id number] Ondansetron HCl (Zofran) 4 mg IV NOW STA Stop: 05/05/19 21:13 Last Admin: 05/05/19 21:17 Dose: Not Given Documented by: [id number] Medical Decision Making Differential Diagnosis Differential diagnosis: Etiologies such as appendicitis, diverticulitis, PUD, biliary pathology, UTI, pancreatitis, obstruction, mesenteric ischemia, aortic pathology, infections, inflammatory bowel disease, renal colic, as well as others were entertained. Medical Records Attestation: I reviewed the patient's medical records. Home Medications Current Medication List: was personally reviewed by me Laboratory Data Attestation: I reviewed the patient's lab results. Result diagrams: 05/05/19 20:57 05/05/19 20:57 Lab Results 05/05/19 05/05/19 05/05/19 Range/Units 20:57 20:57 20:57 WBC 16.47 H (4.8-10.8) K/uL RBC 2.01 L (4.2-5.4) M/uL Hgb 6.1 L* (12.0-16.0) g/dL POC Hgb (12.0-16.0) g/dl Hct 18.2 L* (37-47) % POC Hct (37-47) % MCV 90.5 (80-100) fL MCH 30.3 (25-34) pg MCHC 33.5 (32-36) g/dL RDW Std Deviation 47.5 H (36.4-46.3) fL RDW Coeff of Maribel 14.4 (11.5-14.5) % Plt Count 365 (130-400) K/uL MPV 10.4 (7.4-10.4) fL Immature Gran % (Auto) 0.6 % Neut % (Auto) 68.0 % Lymph % (Auto) 24.0 % Dickens % (Auto) 6.3 % Eos % (Auto) 0.9 % Baso % (Auto) 0.2 % Immature Gran # (Auto) 0.10 H (0.00-0.02) K/uL Neut # (Auto) 11.19 H (1.4-6.5) K/uL Lymph # (Auto) 3.96 H (1.2-3.4) K/uL Dickens # (Auto) 1.04 H (0.11-0.59) K/uL Eos # (Auto) 0.14 (0-0.5) K/uL Baso # (Auto) 0.04 (0-0.2) K/uL Polychromasia 1+ PT 11.4 (9.0-12.0) Seconds INR 1.1 (0.9-1.1) APTT < 20.0 L (21.0-31.0) Seconds PTT Ratio 0.7 POC Sodium (135-144) mEq/L Sodium 140 (136-145) mmol/L POC Potassium (3.3-5.0) mEq/L Potassium 3.9 (3.5-5.1) mmol/L POC Chloride (101-112) mEq/L Chloride 108 H (98-107) mmol/L Carbon Dioxide 23 (21-32) mmol/L POC Total CO2 (24-31) mEq/l Anion Gap 8.0 (3-11) POC Anion Gap (16-25) mmol/L POC BUN (7-18) mg/dl BUN 8 (7-18) mg/dl Creatinine 0.87 (0.6-1.2) mg/dl POC Creatinine (0.6-1.3) mg/dl Est Cr Clr Drug Dosing Not Reportable Est GFR ( Amer) 90.0 Est GFR (Non-Af Amer) 77.7 BUN/Creatinine Ratio 9.2 L (10-20) Glucose 237 H (70-99) mg/dl POC Glucose (other) (70-99) mg/dl Calcium 8.0 L (8.5-10.1) mg/dl POC Ioniz Calcium Calvin (1.12-1.32) mmol/l Total Bilirubin 0.2 (0.2-1) mg/dl AST 17 (15-37) U/L ALT 34 (12-78) U/L Alkaline Phosphatase 45 (45-117) U/L Total Protein 5.2 L (6.4-8.2) gm/dl Albumin 2.6 L (3.4-5.0) gm/dl Globulin 2.6 (2.5-4.0) gm/dl Albumin/Globulin Ratio 1.0 (0.9-2) Lipase 117 (73-393) U/L Blood Type Antibody Screen Crossmatch Draw and Hold 05/05/19 05/05/19 Range/Units 21:03 21:09 WBC (4.8-10.8) K/uL RBC (4.2-5.4) M/uL Hgb (12.0-16.0) g/dL POC Hgb 6.5 L* (12.0-16.0) g/dl Hct (37-47) % POC Hct 19 L* (37-47) % MCV (80-100) fL MCH (25-34) pg MCHC (32-36) g/dL RDW Std Deviation (36.4-46.3) fL RDW Coeff of Maribel (11.5-14.5) % Plt Count (130-400) K/uL MPV (7.4-10.4) fL Immature Gran % (Auto) % Neut % (Auto) % Lymph % (Auto) % Dickens % (Auto) % Eos % (Auto) % Baso % (Auto) % Immature Gran # (Auto) (0.00-0.02) K/uL Neut # (Auto) (1.4-6.5) K/uL Lymph # (Auto) (1.2-3.4) K/uL Dickens # (Auto) (0.11-0.59) K/uL Eos # (Auto) (0-0.5) K/uL Baso # (Auto) (0-0.2) K/uL Polychromasia PT (9.0-12.0) Seconds INR (0.9-1.1) APTT (21.0-31.0) Seconds PTT Ratio POC Sodium 138 (135-144) mEq/L Sodium (136-145) mmol/L POC Potassium 3.9 (3.3-5.0) mEq/L Potassium (3.5-5.1) mmol/L POC Chloride 103 (101-112) mEq/L Chloride (98-107) mmol/L Carbon Dioxide (21-32) mmol/L POC Total CO2 20 L (24-31) mEq/l Anion Gap (3-11) POC Anion Gap 21.0 (16-25) mmol/L POC BUN 6 L (7-18) mg/dl BUN (7-18) mg/dl Creatinine (0.6-1.2) mg/dl POC Creatinine 0.7 (0.6-1.3) mg/dl Est Cr Clr Drug Dosing Est GFR ( Amer) Est GFR (Non-Af Amer) BUN/Creatinine Ratio (10-20) Glucose (70-99) mg/dl POC Glucose (other) 245 H (70-99) mg/dl Calcium (8.5-10.1) mg/dl POC Ioniz Calcium Calvin 1.16 (1.12-1.32) mmol/l Total Bilirubin (0.2-1) mg/dl AST (15-37) U/L ALT (12-78) U/L Alkaline Phosphatase (45-117) U/L Total Protein (6.4-8.2) gm/dl Albumin (3.4-5.0) gm/dl Globulin (2.5-4.0) gm/dl Albumin/Globulin Ratio (0.9-2) Lipase (73-393) U/L Blood Type B Positive Antibody Screen NEGATIVE Crossmatch See Detail Draw and Hold Cancelled Imaging Data Radiologist's Impression: Radiology results as stated below per my review and the radiologist's interpretation: XR chest 1V portable CLINICAL HISTORY: 48 years-old Female presenting with gib, vomiting, history of diverticulitis. TECHNIQUE: Portable upright AP view of the chest was obtained. COMPARISON: 08/18/2017. FINDINGS: Cardiomediastinal silhouette normal. No focal opacity. No large effusion or pneumothorax. Osseous structures normal. Upper abdomen normal. IMPRESSION: 1. No acute cardiopulmonary disease. Electronically signed by: Fredis Farias M.D. 05/05/2019 10:40 PM XR KUB/Abdomen 1 view CLINICAL HISTORY: 48 years-old Female presenting with vomiting. TECHNIQUE: Single supine view of the abdomen was obtained. COMPARISON: CT from 05/03/2019. FINDINGS: Cholecystectomy clips noted. Nonobstructive bowel gas pattern. No gross pneumoperitoneum. Allowing for bowel gas and stool, no calcifications to suggest nephrolithiasis. Pelvic phleboliths noted. Osseous structures normal. Lung bases clear. IMPRESSION: 1. No acute intra-abdominal pathology. Electronically signed by: Fredis Farias M.D. 05/05/2019 10:38 PM ECG Data Attestation: I personally reviewed and interpreted this ECG as follows: Indication: abdominal pain Rate (beats per minute): 87 Rhythm: normal sinus Findings: + other (no acute ST segments); no ectopy Comparison ECG Date: from (08/08/17) Change: no significant change Blood Pressure Blood Pressure Findings: Normal blood pressure Blood Pressure Disposition: did not require urgent referral MDM Narrative The patient is a 48-year-old female who presented to the emergency department for an evaluation of lower abdominal pain GI bleeding and nausea vomiting. The patient was found to have a very low hemoglobin compared to her most recent lab draw. She was seen in our facility for similar complaints recently. I discussed the patient's laboratory and radiographic studies with her. She was started on blood transfusion while in the emergency department. She was also treated with IV Zofran and IV fluids. On subsequent reevaluation she was somewhat improved. I discussed her case with the on-call [facility] hospitalist group. They have agreed to evaluate the patient in the emergency department for further management and disposition. Impression & Plan Lower gastrointestinal bleed, Hypotension, Anemia, History of diverticulitis, Nausea & vomiting Critical Care Time Critical Care Time: Yes Total Critical Care Time: 120 I have personally spent 120 minutes of critical care time in the direct management of this patient. This includes bedside care, interpretation of diagnostic studies, and testing, discussion with consultants, patient, and family members, and other required patient management activities. This 120 minutes is in excess of all separately billable procedures. Discharge Plan Visit Data *Final* Discharge Date/Time: 05/06/19 00:49 Chief Complaint: Rectal Bleed Stated Complaint: BLEEDING FROM BOWEL,HEADACHE ED Provider: Tate Gambino Discharge Problem: Lower gastrointestinal bleed, Hypotension, Anemia, History of diverticulitis, Nausea & vomiting Patient Disposition: Admitted As Inpatient Discharge Instructions Interventions: ED Discharge Assessment Last Done: 05/06/19 00:49 Discharge Problem: Hypotension Qualifiers: Hypotension type: unspecified hypotension type Qualified Code(s): I95.9 - Hypotension, unspecified Anemia Qualifiers: Anemia type: unspecified type Qualified Code(s): D64.9 - Anemia, unspecified Nausea & vomiting Qualifiers: Vomiting type: unspecified Vomiting Intractability: unspecified Qualified Code(s): R11.2 - Nausea with vomiting, unspecified The scribe's documentation has been prepared under my direction and personally reviewed by me in its entirety. I confirm that the note above accurately reflects all work, treatment, procedures, and medical decision making performed by me.
[2019-05-05 21:42] LABS: INR 1.1 (0.9-1.1); Partial Thromboplastin Ratio 0.7; Partial Thromboplastin Time < 20.0 Seconds (21.0-31.0); Prothrombin Time 11.4 Seconds (9.0-12.0)
[2019-05-05 21:44] LABS: Alkaline Phosphatase 45 U/L (45-117); Bilirubin,Total 0.2 mg/dl (0.2-1); Globulin 2.6 gm/dl (2.5-4.0); Total Protein 5.2 gm/dl (6.4-8.2)
[2019-05-05 21:58] LABS: Hematocrit (blood only) 18.2 % (37-47); Hemoglobin 6.1 g/dL (12.0-16.0); Mean Corpuscular Hgb Conc 33.5 g/dL (32-36); Mean Corpuscular Volume 90.5 fL (80-100); Mean Platelet Volume 10.4 fL (7.4-10.4); Platelet Count 365 K/uL (130-400); RDW Coefficient of Variation 14.4 % (11.5-14.5); RDW Standard Deviation 47.5 fL (36.4-46.3); Red Blood Count 2.01 M/uL (4.2-5.4); White Blood Count 16.47 K/uL (4.8-10.8)
[2019-05-05 22:07] LABS: Basophils # (auto) 0.04 K/uL (0-0.2); Basophils % (auto) 0.2 %; Eosinophils # (auto) 0.14 K/uL (0-0.5); Eosinophils % (auto) 0.9 %; Immature Granulocytes % (auto) 0.6 %; Lymphocytes # (auto) 3.96 K/uL (1.2-3.4); Monocytes # (auto) 1.04 K/uL (0.11-0.59); Monocytes % (auto) 6.3 %; Neutrophils # (auto) 11.19 K/uL (1.4-6.5); Polychromasia 1+
[2019-05-05 22:10] LABS: iSTAT Creatinine 0.7 mg/dl (0.6-1.3); iSTAT Hemoglobin 6.5 g/dl (12.0-16.0); iSTAT Ionized Calcium 1.16 mmol/l (1.12-1.32); iSTAT Potassium 3.9 mEq/L (3.3-5.0)
[2019-05-05] MEDS ORDERED: AZTREONAM 2,000 MG in DEXTROSE 5% 100 ML IV STA (22:36)
[2019-05-05] MEDS ORDERED: metroNIDAZOLE 500 MG/100 ML BAG IV STA (22:36)
--- NOTE | 2019-05-05 22:39 | XRay Report ---
XR KUB/Abdomen 1 view CLINICAL HISTORY: 48 years-old Female presenting with vomiting. TECHNIQUE: Single supine view of the abdomen was obtained. COMPARISON: CT from 05/03/2019. FINDINGS: Cholecystectomy clips noted. Nonobstructive bowel gas pattern. No gross pneumoperitoneum. Allowing for bowel gas and stool, no calcifications to suggest nephrolithiasis. Pelvic phleboliths no kong. Osseous structures normal. Lung bases clear. IMPRESSION: 1. No acute intra-abdominal pathology. Electronically signed by: Fredis Farias M.D. 05/05/2019 10:38 PM
--- NOTE | 2019-05-05 22:42 | XRay Report ---
XR chest 1V portable CLINICAL HISTORY: 48 years-old Female presenting with gib, vomiting, history of diverticulitis. TECHNIQUE: Portable upright AP view of the chest was obtained. COMPARISON: 08/18/2017. FINDINGS: Cardiomediastinal silhouette normal. No focal opacity. No large effusion or pneumothorax. Osseous str uctures normal. Upper abdomen normal. IMPRESSION: 1. No acute cardiopulmonary disease. Electronically signed by: Fredis Farias M.D. 05/05/2019 10:40 PM
--- NOTE | 2019-05-05 23:48 | History & Physical Report ---
Date of Service May 05, 2019 Assessment & Plan (1) Abdominal pain: 48-year-old female was admitted on 05 May 2019 for abdominal pain, anemia, and suspected diverticular bleed. Abdominal pain, nausea and vomiting, suspected diverticular bleed: Admitted for diverticular bleed in January 2019. Evaluated by GI, recommended outpatient colonoscopy at that time. Seen in ED on 08Jul for BRBPR. Patient notes bleeding since onset then. Concurrent N/V. - In the ED, afebrile, borderline tachycardic, lowest BP 83/51, normal room SpO2. WBC 16. Hemoglobin 6.1, MCV 90. LFTs and lipase okay. EKG NSR 87. CT a/p performed on 08Jul noted resolution of prior acute diverticulitis and hepatic steatosis. This admit, ED pCXR appears clear [rads reads for this and KUB are pending]. BCx from 08Jul have been no growth x 48 hours. - In ED, treated with aztreonam 2 gm, Flagyl 500 mg, normal saline IVF, and Zofran. They ordered type and cross for 4 units PRBCs and transfuse 2 units now. Is not presently tachycardic or hypotensive. - Will recheck hemoglobin after this two unit transfusion. Suspect will need second transfusion of two more units PRBCs given ongoing rectal bleeding. Consulted GI. History of right kidney transplant in 2003: By patient report, for chronic renal loss. At home is on CellCept, prednisone, and tacrolimus. Was started on Cipro and Flagyl yesterday (l) as outpatient via PCP for protection against diverticulitis. Admit eGFR 77. Given her immunosuppression, it is difficult to tell if she has a concurrent infection although she is non-tender to abdominal palpation. - On admit, will convert to vancomycin + aztreonam + Flagyl (in part due to antibiotic allergies). Continue home CellCept, prednisone, and tacrolimus. Ongoing medical issues: - Hypertension: At home is on amlodipine and metoprolol. --- We will hold on admission due to relative hypotension. - Diabetes: 09Jul HbA1c was 7.9. At home is on metformin daily. --- Held home metformin. Will place on insulin sliding scale as inpatient. - Anemia: Reported history of same. At home is on iron. Held while n.p.o. here. - Gout: Patient reports last attack prior to kidney transplant. Was on allopurinol. Held while n.p.o. here. Code status: Full. Diet: N.p.o except PO meds. DVT prophy: SCDs. Chemical prophylaxis held due to current GI bleeding. PT/OT: Deferred. Disbo: Admit to PCU telemetry. (2) Rectal bleeding: (3) Lower gastrointestinal bleed: (4) Diverticulosis: (5) Nausea & vomiting: (6) History of renal transplant: (7) Hypertension: (8) Diabetes: (9) Anemia: (10) Gout: History of Present Illness Primary Care Provider: Pasquale Jones MD 48-year-old female presents the emergency department with concerns for ongoing rectal bleeding and abdominal pain. Symptoms began this past Fridayl with generalized abdominal pain. She was seen in the ED at that time, noted to have BRBPR but her hemoglobin had not dropped. CT scan at that time showed known d iverticular disease without evidence of diverticulitis. Patient already had planned follow-up with gastroenterology after being admitted in January 2019 for a diverticular bleed. She was on track for colonoscopy later this month. Patient says since Friday she continues to have bright red blood with all bowel movements. She also notes some nausea and vomiting as well. No known fevers or prodromal illness. She denies any chest pain, shortness of breath, or focal weakness. No other acute patient concerns. She says she has been able to keep down her chronic immunosuppressive medications. - Past medical history includes diverticulosis, lower GI bleed, bilateral kidney failure, hypertension, pre-diabetes, anemia, gout. - Past surgical history includes cholecystectomy, right kidney transplant in 2003. - Social history includes never smoking. Denies alcohol and substance abuse. and lives at home. Allergies Allergy/AdvReac Type Severity Reaction Status Date / Time Penicillins Allergy Mild POSSIBLE Unverified 05/05/19 22:16 RASH Sulfa (Sulfonamide Allergy Mild Rash Unverified 05/05/19 22:16 Antibiotics) tetracycline Allergy Mild Unknown Unverified 05/05/19 22:16 Cephalosporins Allergy Unknown Unknown Verified 05/05/19 22:25 Home Medications Home Medications Medication Instructions Recorded Confirmed Type allopurinol 300 mg PO QPM 02/02/19 05/05/19 History amlodipine 5 mg PO QAM 02/02/19 05/05/19 History ferrous sulfate 325 mg PO BID 02/02/19 05/05/19 History metoprolol succinate 50 mg PO QAM 02/02/19 05/05/19 History multivitamin 1 tab PO QAM 02/02/19 05/05/19 History mycophenolate mofetil [CellCept] 500 mg PO BID 02/02/19 05/05/19 History prednisone 5 mg PO Q2D 02/02/19 05/05/19 History tacrolimus [Prograf] 3 mg PO Q12H 02/02/19 05/05/19 History metformin 500 mg PO QPM 05/03/19 05/05/19 History ciprofloxacin HCl 500 mg PO BID 05/05/19 05/05/19 History metronidazole 500 mg PO TID 05/05/19 05/05/19 History Past Med/Surg History Medical History Diverticulitis (Acute) Diverticulosis (Chronic) Hypertension (Chronic) Pre-diabetes Surgical History S/P cholecystectomy S/P kidney transplant Family History Mother Colorectal cancer at age 26 with colon cancer Other Coronary heart disease Social History Preferred Language: Dutch Communication Ability: Effective Beliefs That Will Affect Care: None marital status: Current Living Situation: Spouse Feels Safe at Home: Yes Smoking Status: Never smoker Hx Alcohol Use: No Hx Substance Use: No Review of Systems Review of Systems: Constitutional: Denies fevers, chills, focal weakness Eyes: Denies any visual loss or diplopia ENT: Denies any ear/nose/throat pain or difficulty speaking or swallowing Respiratory: Denies any dyspnea, cough, hemoptysis Cardiovascular: Denies any chest pain or feeling of edema Gastrointestinal: Positive abdominal pain. Positive nausea and vomiting. Denies diarrhea. Positive bright red blood per rectum. Musculoskeletal: Denies any acute extremity pains, myalgias, or focal weakness Skin: Denies any known acute rashes or lesions Neuro: Denies any headache, acute focal weakness or numbness, or difficulties with speech or swallow. Hematologic: Ongoing bright red blood per rectum. Physical Exam Physical Exam: GENERAL: Awake, alert, appears fatigued and generally pale, but does not appear in immediate physical distress. HENT: Normocephalic, atraumatic. Oropharynx dry. EYES: Normal conjunctiva. Sclera pale. NECK: Inspection normal. Supple and full ROM. No nuchal rigidity. CARDIAC: +S1S2 RRR, no murmurs. RESPIRATORY: Clear to auscultation. No wheezes or rales. Normal respiratory effort. GI: +BS, soft, non-distended. No tenderness to palpation. No rebound or guarding. EXTREMITIES: No pedal edema or calf tenderness. Moving all extremities naturally and easily. NEURO: No gross neuro deficits. Results & Data Vital Signs (Past 12 Hours) Vital Signs Temp Pulse Pulse Resp BP BP Pulse Ox 05/05/19 23:44 37.3 C 88 18 105/61 95 05/05/19 23:15 37.5 C 88 18 104/56 L 94 05/05/19 23:01 84 19 100 05/05/19 23:00 37.3 C 85 22 108/60 99 05/05/19 22:59 83 21 108/60 98 05/05/19 22:50 86 27 H 105/55 L 98 05/05/19 22:43 36.8 C 84 18 106/56 L 96 05/05/19 22:40 85 22 106/56 L 88 L 05/05/19 22:38 85 21 106/54 L 05/05/19 22:15 85 24 107/57 L 05/05/19 22:01 89 22 05/05/19 22:00 85 21 112/56 L 05/05/19 21:45 80 21 110/57 L 05/05/19 21:44 85 20 107/60 96 05/05/19 21:31 83 05/05/19 21:30 86 20 107/60 05/05/19 21:19 87 05/05/19 21:15 87 116/66 05/05/19 21:14 90 98 05/05/19 20:42 36.7 C 99 H 18 83/51 L 98 Laboratory Results 05/05/19 05/05/19 05/05/19 Range/Units 21:09 21:03 20:57 WBC (4.8-10.8) K/uL RBC (4.2-5.4) M/uL Hgb (12.0-16.0) g/dL POC Hgb 6.5 L* (12.0-16.0) g/dl Hct (37-47) % POC Hct 19 L* (37-47) % MCV (80-100) fL MCH (25-34) pg MCHC (32-36) g/dL RDW Std Deviation (36.4-46.3) fL RDW Coeff of Maribel (11.5-14.5) % Plt Count (130-400) K/uL MPV (7.4-10.4) fL Immature Gran % (Auto) % Neut % (Auto) % Lymph % (Auto) % [place] % (Auto) % Eos % (Auto) % Baso % (Auto) % Immature Gran # (Auto) (0.00-0.02) K/uL Neut # (Auto) (1.4-6.5) K/uL Lymph # (Auto) (1.2-3.4) K/uL [place] # (Auto) (0.11-0.59) K/uL Eos # (Auto) (0-0.5) K/uL Baso # (Auto) (0-0.2) K/uL Polychromasia PT (9.0-12.0) Seconds INR (0.9-1.1) APTT (21.0-31.0) Seconds PTT Ratio POC Sodium 138 (135-144) mEq/L Sodium 140 (136-145) mmol/L POC Potassium 3.9 (3.3-5.0) mEq/L Potassium 3.9 (3.5-5.1) mmol/L POC Chloride 103 (101-112) mEq/L Chloride 108 H (98-107) mmol/L Carbon Dioxide 23 (21-32) mmol/L POC Total CO2 20 L (24-31) mEq/l Anion Gap 8.0 (3-11) POC Anion Gap 21.0 (16-25) mmol/L POC BUN 6 L (7-18) mg/dl BUN 8 (7-18) mg/dl Creatinine 0.87 (0.6-1.2) mg/dl POC Creatinine 0.7 (0.6-1.3) mg/dl Est Cr Clr Drug Dosing Not Reportable Est GFR ( Amer) 90.0 Est GFR (Non-Af Amer) 77.7 BUN/Creatinine Ratio 9.2 L (10-20) Glucose 237 H (70-99) mg/dl POC Glucose (other) 245 H (70-99) mg/dl Calcium 8.0 L (8.5-10.1) mg/dl POC Ioniz Calcium Calvin 1.16 (1.12-1.32) mmol/l Total Bilirubin 0.2 (0.2-1) mg/dl AST 17 (15-37) U/L ALT 34 (12-78) U/L Alkaline Phosphatase 45 (45-117) U/L Total Protein 5.2 L (6.4-8.2) gm/dl Albumin 2.6 L (3.4-5.0) gm/dl Globulin 2.6 (2.5-4.0) gm/dl Albumin/Globulin Ratio 1.0 (0.9-2) Lipase 117 (73-393) U/L Blood Type B Positive Antibody Screen NEGATIVE Crossmatch See Detail Draw and Hold Cancelled 05/05/19 05/05/19 Range/Units 20:57 20:57 WBC 16.47 H (4.8-10.8) K/uL RBC 2.01 L (4.2-5.4) M/uL Hgb 6.1 L* (12.0-16.0) g/dL POC Hgb (12.0-16.0) g/dl Hct 18.2 L* (37-47) % POC Hct (37-47) % MCV 90.5 (80-100) fL MCH 30.3 (25-34) pg MCHC 33.5 (32-36) g/dL RDW Std Deviation 47.5 H (36.4-46.3) fL RDW Coeff of Maribel 14.4 (11.5-14.5) % Plt Count 365 (130-400) K/uL MPV 10.4 (7.4-10.4) fL Immature Gran % (Auto) 0.6 % Neut % (Auto) 68.0 % Lymph % (Auto) 24.0 % [place] % (Auto) 6.3 % Eos % (Auto) 0.9 % Baso % (Auto) 0.2 % Immature Gran # (Auto) 0.10 H (0.00-0.02) K/uL Neut # (Auto) 11.19 H (1.4-6.5) K/uL Lymph # (Auto) 3.96 H (1.2-3.4) K/uL [place] # (Auto) 1.04 H (0.11-0.59) K/uL Eos # (Auto) 0.14 (0-0.5) K/uL Baso # (Auto) 0.04 (0-0.2) K/uL Polychromasia 1+ PT 11.4 (9.0-12.0) Seconds INR 1.1 (0.9-1.1) APTT < 20.0 L (21.0-31.0) Seconds PTT Ratio 0.7 POC Sodium (135-144) mEq/L Sodium (136-145) mmol/L POC Potassium (3.3-5.0) mEq/L Potassium (3.5-5.1) mmol/L POC Chloride (101-112) mEq/L Chloride (98-107) mmol/L Carbon Dioxide (21-32) mmol/L POC Total CO2 (24-31) mEq/l Anion Gap (3-11) POC Anion Gap (16-25) mmol/L POC BUN (7-18) mg/dl BUN (7-18) mg/dl Creatinine (0.6-1.2) mg/dl POC Creatinine (0.6-1.3) mg/dl Est Cr Clr Drug Dosing Est GFR ( Amer) Est GFR (Non-Af Amer) BUN/Creatinine Ratio (10-20) Glucose (70-99) mg/dl POC Glucose (other) (70-99) mg/dl Calcium (8.5-10.1) mg/dl POC Ioniz Calcium Calvin (1.12-1.32) mmol/l Total Bilirubin (0.2-1) mg/dl AST (15-37) U/L ALT (12-78) U/L Alkaline Phosphatase (45-117) U/L Total Protein (6.4-8.2) gm/dl Albumin (3.4-5.0) gm/dl Globulin (2.5-4.0) gm/dl Albumin/Globulin Ratio (0.9-2) Lipase (73-393) U/L Blood Type Antibody Screen Crossmatch Draw and Hold Medications Administered Discontinued Medications Sodium Chloride (Nss) 500 mls @ 999 mls/hr IV .Q31M LIUDMILA Stop: 05/05/19 21:45 Last Infusion: 05/05/19 22:13 Dose: 0 mls/hr Documented by: [id number] Admin: 05/05/19 21:46 Dose: 999 mls/hr Documented by: [id number] Aztreonam 2,000 mg/ Dextrose 120 mls @ 100 mls/hr IV NOW STA; Protocol Stop: 05/05/19 23:47 Last Admin: 05/05/19 23:32 Dose: 100 mls/hr Documented by: [id number] Ondansetron HCl (Zofran) Confirm Administered Dose 4 mg .ROUTE .STK-MED ONE Stop: 05/05/19 21:12 Last Admin: 05/05/19 21:17 Dose: 4 mg Documented by: [id number] Ondansetron HCl (Zofran) 4 mg IV NOW STA Stop: 05/05/19 21:13 Last Admin: 05/05/19 21:17 Dose: Not Given Documented by: [id number] Code Status & VTE Plan Code Status Full code VTE Prophylaxis Plan VTE Prophylaxis will be ordered: Yes Supervising Physician Co-Signing Physician Notes Attending addendum: I have physically seen this patient, have supervised the medical residents activities, and agree with the H&P unless as otherwise noted. Assessment and Plan: Recurrent lower GI bleed/symptomatic anemia/diverticular bleed requiring admission 02/02-02/03/2019- Admit to monitored bed. Most recent assessment in ED 2 nights ago on 04/03/2019 for abdominal discomfort, with onset of bleeding since that time, along with nausea, vomiting and generalized fatigue. Complicated at this time by immunosuppression with mycophenolate and tacrolimus. Place on vancomycin IV, aztreonam IV and Flagyl IV. We will transfuse 2 units PRBCs tonight, and recheck H&H 1 hour afterwards. Status post renal transplant 2003- Continue mycophenolate and tacrolimus. Hold prednisone and place on stress dose hydrocortisone 100 mg IV every 8 hours. Follow serial laboratories. Diabetes mellitus- Hold metformin. Place on Accu-Cheks before meals and at bedtime with NovoLog coverage per scale. Remainder of orders and notations as noted. PG Care Time/CCT Total # of Minutes Spent Total Time Spent with Patient: Total time spent is greater than 50% in coordination of care (as documented) at patient's floor/unit and/or counseling patient: Resident Activity Tracking Resident Involvement: Resident Care Provided Care Provided: Adult Hospital Medicine (1) Anemia Anemia type: unspecified type Qualified Code(s): D64.9 - Anemia, unspecified (2) Nausea & vomiting Vomiting Intractability: unspecified Vomiting type: unspecified Qualified Code(s): R11.2 - Nausea with vomiting, unspecified (3) Hypertension Hypertension type: essential hypertension Qualified Code(s): I10 - Essential (primary) hypertension
[2019-05-06] MEDS ORDERED: VANCOMYCIN CONSULT ACTIVE PRN (01:51)
[2019-05-06] MEDS ORDERED: TACROLIMUS 1 MG CAP PO SCH (01:51)
[2019-05-06] MEDS ORDERED: ACETAMINOPHEN 65 ML IV PRN (01:51)
[2019-05-06] MEDS ORDERED: CARBOHYDRATES FOR HYPOGLYCEMIA PO PRN (01:51)
[2019-05-06] MEDS ORDERED: VANCOMYCIN HCL 1,750 MG in SODIUM CHLORIDE 0.9% 500 ML IV ONE (01:51)
[2019-05-06] MEDS ORDERED: GLUCAGON FOR INJ 1 MG VIAL SQ PRN (01:51)
[2019-05-06] MEDS ORDERED: GLUCOSE 10 TABS/TUBE PO PRN (01:51)
[2019-05-06] MEDS ORDERED: DEXTROSE 50% 50 ML SYRINGE IV PRN (01:51)
[2019-05-06] MEDS ORDERED: GLUCOSE 40% GEL 15 GM TUBE PO PRN (01:51)
[2019-05-06] MEDS ORDERED: ONDANSETRON INJ 2 MG/ML 2 ML VIAL IV PRN (01:51)
[2019-05-06] MEDS ORDERED: PATIENT'S HEIGHT AND/OR WEIGHT NEEDED SCH (02:15)
[2019-05-06] MEDS: LACTATED RINGER'S 1,000 ML IV SCH ×2 (05:15→23:00)
[2019-05-06 06:35] LABS: Basophils # (auto) 0.02 K/uL (0-0.2); Basophils % (auto) 0.1 %; Eosinophils # (auto) 0.01 K/uL (0-0.5); Eosinophils % (auto) 0.1 %; Hematocrit (blood only) 23.3 % (37-47); Hemoglobin 7.9 g/dL (12.0-16.0); Immature Granulocytes # (auto) 0.13 K/uL (0.00-0.02); Immature Granulocytes % (auto) 0.8 %; Lymphocytes # (auto) 2.82 K/uL (1.2-3.4); Lymphocytes % (auto) 18.2 %; Mean Corpuscular Hgb Conc 33.9 g/dL (32-36); Mean Corpuscular Volume 86.9 fL (80-100); Mean Platelet Volume 9.8 fL (7.4-10.4); Monocytes # (auto) 1.14 K/uL (0.11-0.59); Monocytes % (auto) 7.4 %; Neutrophils # (auto) 11.37 K/uL (1.4-6.5); Neutrophils % (auto) 73.4 %; Platelet Count 257 K/uL (130-400); RDW Standard Deviation 50.2 fL (36.4-46.3); Red Blood Count 2.68 M/uL (4.2-5.4); White Blood Count 15.49 K/uL (4.8-10.8)
[2019-05-06 06:45] LABS: Appearance Urine Clear (Clear); Bilirubin Urine Negative (Negative); Blood Urine Negative (Negative); Color Urine Yellow; Glucose Urine UA 2+ (Negative); Ketones Urine Trace (Negative); Leukocyte Esterase Urine Negative (Negative); Nitrite Urine Negative (Negative); Protein Urine Negative (Negative); Specific Gravity Urine 1.028 (1.000-1.030); Urobilinogen Urine Negative (Negative); pH Urine 5.5 (4.5-7.5)
[2019-05-06 07:06] LABS: BUN Creatinine Ratio 11.4 (10-20); Calcium 7.9 mg/dl (8.5-10.1); Creatinine Clr Calc Pharmacy 89.6 ml/min; Est GFR (African American) 96.7; Est GFR (Non-African American) 83.4
[2019-05-06 07:53] LABS: Polychromasia 1+
[2019-05-06] MEDS: AZTREONAM 1,000 MG in DEXTROSE 5% 100 ML IV SCH ×2 (08:30→16:50)
[2019-05-06] MEDS: MYCOPHENOLATE MOFETIL 250 MG CAP PO SCH ×2 (08:31→20:33)
[2019-05-06] MEDS: predniSONE 5 MG TAB PO SCH (08:31)
[2019-05-06] MEDS: INSULIN ASPART 100 UNITS/ML 3 ML PEN SC SCH ×4 (08:38→20:34)
[2019-05-06] MEDS: metroNIDAZOLE 500 MG/100 ML BAG IV SCH ×2 (09:43→17:57)
--- NOTE | 2019-05-06 11:34 | Gastrointestinal Consultation ---
Date of Consultation May 06, 2019 Assessment & Plan (1) Abdominal pain: (2) Nausea & vomiting: (3) Diverticulosis: (4) Anemia: (5) Rectal bleeding: Pt is a 48 y/o female w hx of s/p renal transplant in 2003, hx of diverticulitis last January who was admitted for symptomatic anemia, abd pain, n/v and BRBPR. No more rectal bleeding since admitted. She had been treated w 2U PRBC transfusion and antibx for suspected diverticulitis though her CT scan suggests no signs of diverticulitis. Suspect diverticular bleeding - CL diet; advance as tolerated - Originally had been scheduled for outpt colonoscopy on 05/25. We will help move this up to 05/10/19, also outpt with Dr. Araujo - Monitor H/H and transfuse prn Supervising Physician Co-Signing Physician Notes I saw and evaluated the patient. We were consulted for evaluation of hematochezia. Morning the patient reported resolution however the patient again had a bloody bowel movement around lunch today. Examination No obvious distress, no scleral icterus Impression: Patient with recurrent hematochezia we will plan for a bowel preparation this afternoon. If bleeding discontinues then we can certainly do the colonoscopy as an outpatient with Dr. Araujo as previously scheduled. If bleeding persists we would make arrangements for colonoscopy tomorrow. History of Present Illness Reason for Consultation: GI bleeding Requesting Physician: Dr. Fili Sorensen Attending Physician: Dr. Sushil Patricia History of Present Illness Pt is a 48 y/o female w PMHx of s/o renal transplant in 2003, diverticulitis in January, HTN, gout, anemia, who presente to ED w c/o abd pain, n/v, BRBPR. She suspected she has another diverticulitis episode. Was in ED 3 days ago and had CT abdf/pelvis w/o evidence of diverticulitis. Symptoms got worse w also feeling fainty thus returned. Upon evaluation noted to have leukocytosis, anemia. H/H 6.5/23, treated w 2U PRBC transfusion and responding. INR 1.1. She isn't on any blood thinners. She denies any complications from her renal transplant, currently still on Cellcept 500mg BID, Prograf 3mg BID, Prednisone 5mg BID. She reports that since admitted she hasn't had any more BRBPR. Some nausea but no vomiting. Denies ever having any hematemesis or coffee ground appearing emesis. Currently denies any abd pain. Allergies Allergy/AdvReac Type Severity Reaction Status Date / Time Penicillins Allergy Mild POSSIBLE Unverified 05/05/19 22:16 RASH Sulfa (Sulfonamide Allergy Mild Rash Unverified 05/05/19 22:16 Antibiotics) tetracycline Allergy Mild Unknown Unverified 05/05/19 22:16 Cephalosporins Allergy Unknown Unknown Verified 05/05/19 22:25 Home Medications Home Medications Medication Instructions Recorded Confirmed Type allopurinol 300 mg PO QPM 02/02/19 05/05/19 History amlodipine 5 mg PO QAM 02/02/19 05/05/19 History ferrous sulfate 325 mg PO BID 02/02/19 05/05/19 History metoprolol succinate 50 mg PO QAM 02/02/19 05/05/19 History multivitamin 1 tab PO QAM 02/02/19 05/05/19 History mycophenolate mofetil [CellCept] 500 mg PO BID 02/02/19 05/05/19 History prednisone 5 mg PO Q2D 02/02/19 05/05/19 History tacrolimus [Prograf] 3 mg PO Q12H 02/02/19 05/05/19 History metformin 500 mg PO QPM 05/03/19 05/05/19 History ciprofloxacin HCl 500 mg PO BID 05/05/19 05/05/19 History metronidazole 500 mg PO TID 05/05/19 05/05/19 History Patient History Medical History Diverticulitis (Acute) Diverticulosis (Chronic) Hypertension (Chronic) Pre-diabetes Surgical History S/P cholecystectomy S/P kidney transplant Family History Mother Colorectal cancer at age 26 with colon cancer Other Coronary heart disease Social History Preferred Language: Kazakh Communication Ability: Effective Beliefs That Will Affect Care: None marital status: Current Living Situation: Spouse Feels Safe at Home: Yes Smoking Status: Never smoker Hx Alcohol Use: No Hx Substance Use: No Review of Systems Review of Systems: All systems reviewed & are unremarkable except as noted in HPI & below Physical Exam Constitutional: WD/WN, vitals as above well groomed, cooperative and comfortable Eyes: PERRL, conjunctivae normal, anicteric sclerae ENMT: external ear and nose normal, oropharynx normal Respiratory: normal respiratory effort, lungs clear to auscultation Cardiovascular: RRR, no murmur, no edema Gastrointestinal (Abdomen): normal bowel sounds, soft, nontender, no hepatosplenomegaly Skin: no rashes, warm and dry no jaundice Psychiatric: A+Ox3, euthymic affect Lymphatic: no lymphedema Results & Data Vital Signs (Past 12 Hours) Vital Signs Temp Pulse Pulse Resp BP BP Pulse Ox 05/06/19 08:00 86 05/06/19 07:42 37.3 C 88 18 110/59 L 93 05/06/19 05:19 37 C 92 H 14 96/59 L 94 05/06/19 05:00 93 H 16 106/66 95 05/06/19 04:30 95 H 17 105/65 95 05/06/19 04:24 37.6 C H 98 H 17 102/65 95 05/06/19 04:05 37.6 C H 93 H 16 104/63 96 05/06/19 03:34 37.4 C 85 15 111/64 96 05/06/19 03:18 37.6 C H 91 H 15 98/57 L 96 05/06/19 02:39 37.2 C 15 105/65 96 05/06/19 02:38 37.4 C 80 16 108/64 98 05/06/19 02:00 37.5 C 87 16 108/67 98 05/06/19 01:51 37.5 C 90 16 107/65 98 05/06/19 01:30 37.4 C 90 16 107/65 98 05/06/19 01:00 38.1 C H 85 14 102/61 98 05/06/19 00:26 36.8 C 86 18 104/56 L 98 05/05/19 23:45 37.7 C H 90 18 112/54 L 96 05/05/19 23:44 37.3 C 88 18 105/61 95 Pulse Ox 05/06/19 08:00 05/06/19 07:42 05/06/19 05:19 05/06/19 05:00 05/06/19 04:30 05/06/19 04:24 05/06/19 04:05 05/06/19 03:34 05/06/19 03:18 05/06/19 02:39 05/06/19 02:38 05/06/19 02:00 05/06/19 01:51 98 05/06/19 01:30 05/06/19 01:00 05/06/19 00:26 05/05/19 23:45 05/05/19 23:44 (1) Anemia Anemia type: unspecified type Qualified Code(s): D64.9 - Anemia, unspecified (2) Nausea & vomiting Vomiting Intractability: unspecified Vomiting type: unspecified Qualified Code(s): R11.2 - Nausea with vomiting, unspecified
[2019-05-06] MEDS: TACROLIMUS 1 MG CAP PO SCH ×2 (12:12→21:57)
[2019-05-06 13:01] LABS: Hemoglobin 7.8 g/dL (12.0-16.0)
--- NOTE | 2019-05-06 13:01 | Hospitalist Progress Note ---
Date of Service May 06, 2019 Assessment & Plan (1) Rectal bleeding: Pt is a 48 y/o female w hx of s/p renal transplant in 2003, hx of diverticulitis last January who was admitted for symptomatic anemia, abd pain, n/v and BRBPR. No more rectal bleeding since admitted. She had been treated w 2U PRBC transfusion and antibx for suspected diverticulitis though her CT scan suggests no signs of diverticulitis. Suspect diverticular bleeding no bleeding for about 12 hours, then had a small bloody BM, no pain Hb stable at 7.8 after two units transfused keep two more units on hold if needed, transfuse if < 7 or if hypotensive no plans for colonoscopy while actively bleeding allow low fiber diet (2) Abdominal pain: possible diverticulitis, no evidence on CT but poor quality due to lack of contrast cover empirically with Aztreonam and Flagyl (3) Nausea & vomiting: resolved with supportive care low residue diet (4) Diverticulosis: (5) Anemia: acute blood loss anemia Hb low at 6.1 on admission up to 7.8 after two units transfused over night repeat H/H later this evening two units on hold (6) History of renal transplant: History of right kidney transplant in 2003: At home is on CellCept, prednisone, and tacrolimus. (7) Immunocompromised: continue on suppression medications antibiotics ordered for possible infection (8) Diverticulosis: bleeding, possible diverticulitis (9) Hypotension: At home is on amlodipine and metoprolol. --- We will hold on admission due to relative hypotension. BP improved with transfusion (10) Diabetes: hold Metformin Novolog SS, diabetic diet Subjective patient feeling better this morning, did not have a bloody BM or a BM prior to this morning had a small bloody BM later in the morning no abdominal pain at all, no fever or chills no nausea or vomiting reviewed labs, Hb up to 7.9, repeat at 1300 was at 7.8 will check again tomorrow morning or sooner if she bleeds further discussed with [facility], recommend colonoscopy on Friday with Dr. Araujo will allow a low fiber diet for today Review of Systems Review of Systems: All systems reviewed & are unremarkable except as noted in HPI & below Gastrointestinal: + diarrhea/loose stools and + blood in stools; no abdominal pain, no nausea, no vomiting and no constipation Physical Exam Constitutional: WD/WN, vitals as above Eyes: PERRL, conjunctivae normal, anicteric sclerae ENMT: external ear and nose normal, oropharynx normal Neck: trachea midline, no thyromegaly Respiratory: normal respiratory effort, lungs clear to auscultation Cardiovascular: RRR, no murmur, no edema Gastrointestinal (Abdomen): normal bowel sounds, soft, nontender, no hepatosplenomegaly Musculoskeletal: no cyanosis or clubbing, extremities motor strength 5/5 Skin: no rashes, warm and dry Neurologic: patellar DTR's 2+ bilat, sensation intact and PERRL, EOMI, accommodation nl, no face palsy, no dysarthria Psychiatric: A+Ox3, euthymic affect Lymphatic: no cervical or axillary lymphadenopathy Results & Data Vital Signs (Past 12 Hours) Vital Signs Temp Pulse Pulse Resp BP BP Pulse Ox 05/06/19 11:25 36.9 C 77 18 113/67 95 05/06/19 08:00 86 05/06/19 07:42 37.3 C 88 18 110/59 L 93 05/06/19 05:19 37 C 92 H 14 96/59 L 94 05/06/19 05:00 93 H 16 106/66 95 05/06/19 04:30 95 H 17 105/65 95 05/06/19 04:24 37.6 C H 98 H 17 102/65 95 05/06/19 04:05 37.6 C H 93 H 16 104/63 96 05/06/19 03:34 37.4 C 85 15 111/64 96 05/06/19 03:18 37.6 C H 91 H 15 98/57 L 96 05/06/19 02:39 37.2 C 15 105/65 96 05/06/19 02:38 37.4 C 80 16 108/64 98 05/06/19 02:00 37.5 C 87 16 108/67 98 05/06/19 01:51 37.5 C 90 16 107/65 98 05/06/19 01:30 37.4 C 90 16 107/65 98 05/06/19 01:00 38.1 C H 85 14 102/61 98 Pulse Ox 05/06/19 11:25 05/06/19 08:00 05/06/19 07:42 05/06/19 05:19 05/06/19 05:00 05/06/19 04:30 05/06/19 04:24 05/06/19 04:05 05/06/19 03:34 05/06/19 03:18 05/06/19 02:39 05/06/19 02:38 05/06/19 02:00 05/06/19 01:51 98 05/06/19 01:30 05/06/19 01:00 Laboratory Results Laboratory Results - last 24 hr 05/05/19 05/05/19 05/05/19 20:57 20:57 20:57 WBC 16.47 H RBC 2.01 L Hgb 6.1 L* POC Hgb Hct 18.2 L* POC Hct MCV 90.5 MCH 30.3 MCHC 33.5 RDW Std Deviation 47.5 H RDW Coeff of Maribel 14.4 Plt Count 365 MPV 10.4 Immature Gran % (Auto) 0.6 Neut % (Auto) 68.0 Lymph % (Auto) 24.0 [place] % (Auto) 6.3 Eos % (Auto) 0.9 Baso % (Auto) 0.2 Immature Gran # (Auto) 0.10 H Neut # (Auto) 11.19 H Lymph # (Auto) 3.96 H [place] # (Auto) 1.04 H Eos # (Auto) 0.14 Baso # (Auto) 0.04 Polychromasia 1+ PT 11.4 INR 1.1 APTT < 20.0 L PTT Ratio 0.7 POC Sodium Sodium 140 POC Potassium Potassium 3.9 POC Chloride Chloride 108 H Carbon Dioxide 23 POC Total CO2 Anion Gap 8.0 POC Anion Gap POC BUN BUN 8 Creatinine 0.87 POC Creatinine Est Cr Clr Drug Dosing Not Reportable Est GFR ( Amer) 90.0 Est GFR (Non-Af Amer) 77.7 BUN/Creatinine Ratio 9.2 L Glucose 237 H POC Glucose POC Glucose (other) Calcium 8.0 L POC Ioniz Calcium Calvin Total Bilirubin 0.2 AST 17 ALT 34 Alkaline Phosphatase 45 Total Protein 5.2 L Albumin 2.6 L Globulin 2.6 Albumin/Globulin Ratio 1.0 Lipase 117 Urine Color Urine Appearance Urine pH Ur Specific [place] Urine Protein Urine Glucose (UA) Urine Ketones Urine Blood Urine Nitrite Urine Bilirubin Urine Urobilinogen Ur Leukocyte Esterase Blood Type Antibody Screen Crossmatch Draw and Hold 05/05/19 05/05/19 05/06/19 21:03 21:09 06:10 WBC RBC Hgb POC Hgb 6.5 L* Hct POC Hct 19 L* MCV MCH MCHC RDW Std Deviation RDW Coeff of Maribel Plt Count MPV Immature Gran % (Auto) Neut % (Auto) Lymph % (Auto) [place] % (Auto) Eos % (Auto) Baso % (Auto) Immature Gran # (Auto) Neut # (Auto) Lymph # (Auto) [place] # (Auto) Eos # (Auto) Baso # (Auto) Polychromasia PT INR APTT PTT Ratio POC Sodium 138 Sodium POC Potassium 3.9 Potassium POC Chloride 103 Chloride Carbon Dioxide POC Total CO2 20 L Anion Gap POC Anion Gap 21.0 POC BUN 6 L BUN Creatinine POC Creatinine 0.7 Est Cr Clr Drug Dosing Est GFR ( Amer) Est GFR (Non-Af Amer) BUN/Creatinine Ratio Glucose POC Glucose POC Glucose (other) 245 H Calcium POC Ioniz Calcium Calvin 1.16 Total Bilirubin AST ALT Alkaline Phosphatase Total Protein Albumin Globulin Albumin/Globulin Ratio Lipase Urine Color Yellow Urine Appearance Clear Urine pH 5.5 Ur Specific [place] 1.028 Urine Protein Negative Urine Glucose (UA) 2+ H Urine Ketones Trace H Urine Blood Negative Urine Nitrite Negative Urine Bilirubin Negative Urine Urobilinogen Negative Ur Leukocyte Esterase Negative Blood Type B Positive Antibody Screen NEGATIVE Crossmatch See Detail Draw and Hold Cancelled 05/06/19 05/06/19 05/06/19 06:19 06:19 11:22 WBC 15.49 H RBC 2.68 L Hgb 7.9 L POC Hgb Hct 23.3 L POC Hct MCV 86.9 MCH 29.5 MCHC 33.9 RDW Std Deviation 50.2 H RDW Coeff of Maribel 16.0 H Plt Count 257 MPV 9.8 Immature Gran % (Auto) 0.8 Neut % (Auto) 73.4 Lymph % (Auto) 18.2 [place] % (Auto) 7.4 Eos % (Auto) 0.1 Baso % (Auto) 0.1 Immature Gran # (Auto) 0.13 H Neut # (Auto) 11.37 H Lymph # (Auto) 2.82 [place] # (Auto) 1.14 H Eos # (Auto) 0.01 Baso # (Auto) 0.02 Polychromasia 1+ PT INR APTT PTT Ratio POC Sodium Sodium 140 POC Potassium Potassium 4.0 POC Chloride Chloride 110 H Carbon Dioxide 22 POC Total CO2 Anion Gap 8.0 POC Anion Gap POC BUN BUN 9 Creatinine 0.82 POC Creatinine Est Cr Clr Drug Dosing 89.6 Est GFR ( Amer) 96.7 Est GFR (Non-Af Amer) 83.4 BUN/Creatinine Ratio 11.4 Glucose 194 H POC Glucose 243 H POC Glucose (other) Calcium 7.9 L POC Ioniz Calcium Calvin Total Bilirubin AST ALT Alkaline Phosphatase Total Protein Albumin Globulin Albumin/Globulin Ratio Lipase Urine Color Urine Appearance Urine pH Ur Specific [place] Urine Protein Urine Glucose (UA) Urine Ketones Urine Blood Urine Nitrite Urine Bilirubin Urine Urobilinogen Ur Leukocyte Esterase Blood Type Antibody Screen Crossmatch Draw and Hold 05/06/19 12:52 WBC RBC Hgb 7.8 L POC Hgb Hct 23.0 L POC Hct MCV MCH MCHC RDW Std Deviation RDW Coeff of Maribel Plt Count MPV Immature Gran % (Auto) Neut % (Auto) Lymph % (Auto) [place] % (Auto) Eos % (Auto) Baso % (Auto) Immature Gran # (Auto) Neut # (Auto) Lymph # (Auto) [place] # (Auto) Eos # (Auto) Baso # (Auto) Polychromasia PT INR APTT PTT Ratio POC Sodium Sodium POC Potassium Potassium POC Chloride Chloride Carbon Dioxide POC Total CO2 Anion Gap POC Anion Gap POC BUN BUN Creatinine POC Creatinine Est Cr Clr Drug Dosing Est GFR ( Amer) Est GFR (Non-Af Amer) BUN/Creatinine Ratio Glucose POC Glucose POC Glucose (other) Calcium POC Ioniz Calcium Calvin Total Bilirubin AST ALT Alkaline Phosphatase Total Protein Albumin Globulin Albumin/Globulin Ratio Lipase Urine Color Urine Appearance Urine pH Ur Specific [place] Urine Protein Urine Glucose (UA) Urine Ketones Urine Blood Urine Nitrite Urine Bilirubin Urine Urobilinogen Ur Leukocyte Esterase Blood Type Antibody Screen Crossmatch Draw and Hold Medications Administered Current Inpatient Medications Dextrose (Dextrose 50%) 25 - 50 ml IV UD PRN; Protocol PRN Reason: Hypoglycemia Protocol Stop: 06/05/19 01:50 Glucagon (Glucagen) 1 mg SQ UD PRN; Protocol PRN Reason: Hypoglycemia Protocol Stop: 06/05/19 01:50 Glucose (Glucose 40%) 15 - 30 gm PO UD PRN; Protocol PRN Reason: Hypoglycemia Protocol Stop: 06/05/19 01:50 Glucose (Dex4 Glucose) 4 - 8 tabs PO UD PRN; Protocol PRN Reason: Hypoglycemia Protocol Stop: 06/05/19 01:50 Lactated Ringer's (Lr) 1,000 mls @ 80 mls/hr IV .[id number] [facility] Stop: 06/05/19 01:50 Last Infusion: 05/06/19 11:15 Dose: 80 mls/hr Documented by: Metronidazole (Flagyl) 500 mg in 100 mls @ 100 mls/hr IV Q8H [facility] Stop: 05/16/19 08:59 Last Infusion: 05/06/19 10:45 Dose: Infused Documented by: Acetaminophen (Ofirmev) 65 mls @ 200 mls/hr IV Q4H PRN PRN Reason: Pain or Fever Stop: 06/05/19 01:50 Aztreonam 1,000 mg/ Dextrose 110 mls @ 100 mls/hr IV Q8H [facility]A; Protocol Stop: 05/16/19 07:59 Last Infusion: 05/06/19 09:43 Dose: Infused Documented by: Insulin Aspart (Novolog Flexpen) 0 units SC ACHS [facility] Stop: 06/05/19 07:29 Last Admin: 05/06/19 12:11 Dose: 2 units Documented by: Miscellaneous (Carbohydrates For Hypoglycemia) 15 - 30 gm PO UD PRN PRN Reason: Hypoglycemia Treatment Stop: 06/05/19 01:50 Miscellaneous Information (Consult) 1 ea N/A UD PRN PRN Reason: Consult Stop: 06/05/19 01:50 Mycophenolate Mofetil (Cellcept) 500 mg PO BID [facility] Stop: 06/05/19 08:59 Last Admin: 05/06/19 08:31 Dose: 500 mg Documented by: Ondansetron HCl (Zofran) 4 mg IV Q6H PRN PRN Reason: Nausea Stop: 06/05/19 01:50 Prednisone (Prednisone) 5 mg PO Q2D [facility] Stop: 06/05/19 08:59 Last Admin: 05/06/19 08:31 Dose: 5 mg Documented by: Tacrolimus (Prograf) 3 mg PO Q12@1000,2200 [facility] Stop: 06/05/19 12:29 Last Admin: 05/06/19 12:12 Dose: 3 mg Documented by: PG Care Time/CCT Total # of Minutes Spent Total Time Spent with Patient: Total time spent is greater than 50% in coordination of care (as documented) at patient's floor/unit and/or counseling patient: (1) Anemia Anemia type: unspecified type Qualified Code(s): D64.9 - Anemia, unspecified (2) Nausea & vomiting Vomiting Intractability: unspecified Vomiting type: unspecified Qualified Code(s): R11.2 - Nausea with vomiting, unspecified (3) Hypotension Hypotension type: unspecified hypotension type Qualified Code(s): I95.9 - Hypotension, unspecified
--- NOTE | 2019-05-06 15:04 | Pharmacy Report ---
Pharmacy Abx Dose Short Note - Date of Service May 06, 2019 - Assessment & Plan Assessment 48 year old F receiving vancomycin for treatment of Gi source Day # 11/05 of antimicrobial therapy. Plan Vancomycin * Vanco 1750mg (21mg/kg) given overnight * then vanco 1250mg (15mg) q12 hours * goal trough for abdominal source: 15-20mcg/mL * trough ordered for 05/08/19 @0230, reflective of css Pharmacy will continue to follow and will adjust dose/frequency as necessary. Thank you.
[2019-05-06] MEDS: VANCOMYCIN HCL 1,250 MG in SODIUM CHLORIDE 0.9% 250 ML IV SCH (15:43)
[2019-05-06] MEDS ORDERED: LAVAGE SOLUTION 4000ML PO SCH (17:00)
[2019-05-06 19:19] LABS: Hematocrit (blood only) 22.3 % (37-47); Hemoglobin 7.6 g/dL (12.0-16.0)
[2019-05-06 23:55] LABS: Hematocrit (blood only) 18.9 % (37-47); Hemoglobin 6.4 g/dL (12.0-16.0)
[2019-05-07] MEDS: LACTATED RINGER'S 1,000 ML IV SCH ×3 (00:07→19:37)
[2019-05-07] MEDS: AZTREONAM 1,000 MG in DEXTROSE 5% 100 ML IV SCH ×4 (00:10→23:59)
[2019-05-07] MEDS ORDERED: SODIUM CHLORIDE 0.9% 250 ML IV PRN (00:10)
--- NOTE | 2019-05-07 01:07 | Progress Note ---
Date of Service May 07, 2019 Received a text page from the patient's bedside nurse providing an update of the patient's overall status. Per discussion with the nurse and the patient at bedside, the patient was noted to have multiple bright red liquid bowel movements throughout the day. Patient notes her dizziness is gotten progressively worse throughout today (improves with lying supine) but she denies any chest pain or shortness of breath. Her last hemoglobin checked at 1830 was 7.6. Last BP was 105/55 with heart rate in 80s. A stat hemoglobin was ordered and resulted at 6.4. Discussed the same with the patient and she agreed to be transfused an additional 2 units of PRBCs. Will also increase her maintenance IVF due to minimal p.o. intake (including her GI prep) and fluid losses from bleeding. Once again asked the patient to notify us if she were to develop any new chest pain, shortness of breath, or any acute concerns whatsoever. Discussed plan with Dr. Wilson at the time of ordering additional blood. Devan Ordonez, PGY3 Overnight call Results & Data Vital Signs (Past 12 Hours) Vital Signs Temp Pulse Pulse Resp BP BP BP 05/07/19 00:37 36.8 C 85 18 100/61 05/06/19 23:26 37.3 C 84 17 109/56 L 05/06/19 21:35 36.6 C 05/06/19 21:33 72 104/55 L 05/06/19 18:49 36.8 C 90 18 108/60 05/06/19 17:48 81 05/06/19 15:49 37.1 C 93 H 18 117/61 Pulse Ox 05/07/19 00:37 94 05/06/19 23:26 92 05/06/19 21:35 05/06/19 21:33 99 05/06/19 18:49 97 05/06/19 17:48 05/06/19 15:49 92
[2019-05-07] MEDS: metroNIDAZOLE 500 MG/100 ML BAG IV SCH ×3 (01:13→16:05)
[2019-05-07] MEDS: VANCOMYCIN HCL 1,250 MG in SODIUM CHLORIDE 0.9% 250 ML IV SCH ×2 (02:54→16:05)
[2019-05-07 07:02] LABS: Basophils # (auto) 0.02 K/uL (0-0.2); Basophils % (auto) 0.2 %; Eosinophils # (auto) 0.17 K/uL (0-0.5); Eosinophils % (auto) 1.3 %; Hematocrit (blood only) 23.9 % (37-47); Hemoglobin 8.1 g/dL (12.0-16.0); Immature Granulocytes # (auto) 0.19 K/uL (0.00-0.02); Immature Granulocytes % (auto) 1.5 %; Lymphocytes # (auto) 3.11 K/uL (1.2-3.4); Lymphocytes % (auto) 24.4 %; Mean Corpuscular Hgb Conc 33.9 g/dL (32-36); Mean Corpuscular Volume 90.2 fL (80-100); Monocytes # (auto) 0.86 K/uL (0.11-0.59); Monocytes % (auto) 6.8 %; Neutrophils # (auto) 8.39 K/uL (1.4-6.5); Neutrophils % (auto) 65.8 %; Platelet Count 222 K/uL (130-400); RDW Coefficient of Variation 16.2 % (11.5-14.5); RDW Standard Deviation 52.5 fL (36.4-46.3); Red Blood Count 2.65 M/uL (4.2-5.4); White Blood Count 12.74 K/uL (4.8-10.8)
[2019-05-07 07:40] LABS: BUN Creatinine Ratio 10.3 (10-20); Calcium 7.3 mg/dl (8.5-10.1); Est GFR (African American) 115.1; Est GFR (Non-African American) 99.3; Potassium 3.8 mmol/L (3.5-5.1)
[2019-05-07] MEDS: INSULIN ASPART 100 UNITS/ML 3 ML PEN SC SCH ×4 (08:14→20:40)
--- NOTE | 2019-05-07 09:15 | Anesthesiology Consultation ---
Date of Service May 07, 2019 Assessment & Plan (1) Encounter for pre-operative examination: Chart Review Chart Review: Acceptable Risk for Surgery Consults Requested none ASA ASA3 Proposed Anesthesia Anesthesia Type: MAC Risk / Benefits Reviewed With: PT / POA / Parent / Guardian, Accepts Plan and Informed Consent Obtained History Surgery Operation Date: 05/07/19 08:30 Proposed Procedures p Colonoscopy Dr Harshad Patricia Height/Weight Height: 5 ft 6 in Weight: 84.8 kg Allergies Allergy/AdvReac Type Severity Reaction Status Date / Time Penicillins Allergy Mild POSSIBLE Unverified 05/05/19 22:16 RASH Sulfa (Sulfonamide Allergy Mild Rash Unverified 05/05/19 22:16 Antibiotics) tetracycline Allergy Mild Unknown Unverified 05/05/19 22:16 Cephalosporins Allergy Unknown Unknown Verified 05/05/19 22:25 Medications Home Medications Medication Instructions Recorded Confirmed Last Taken allopurinol 300 mg PO QPM 02/02/19 05/05/19 05/04/19 amlodipine 5 mg PO QAM 02/02/19 05/05/19 05/05/19 ferrous sulfate 325 mg PO BID 02/02/19 05/05/19 05/05/19 2nd Dose metoprolol succinate 50 mg PO QAM 02/02/19 05/05/19 05/05/19 multivitamin 1 tab PO QAM 02/02/19 05/05/19 05/05/19 mycophenolate mofetil [CellCept] 500 mg PO BID 02/02/19 05/05/19 05/05/19 10:00 500 MG prednisone 5 mg PO Q2D 02/02/19 05/05/19 Unknown tacrolimus [Prograf] 3 mg PO Q12H 02/02/19 05/05/19 05/05/19 10:00 3 MG metformin 500 mg PO QPM 05/03/19 05/05/19 05/04/19 ciprofloxacin HCl 500 mg PO BID 05/05/19 05/05/19 05/05/19 AM DOSE metronidazole 500 mg PO TID 05/05/19 05/05/19 05/05/19 AM DOSE Active Medications Generic Name Dose Route Start Last Admin Trade Name Freq PRN Reason Stop Dose Admin Lactated Ringer's 1,000 mls @ 120 mls/hr 05/06/19 01:51 05/07/19 09:39 Lr IV 06/05/19 01:50 0 mls/hr .[id number] LIUDMILA Infusion Metronidazole 500 mg in 100 mls @ 100 mls/hr 05/06/19 09:00 05/07/19 02:22 Flagyl IV 05/16/19 08:59 Infused Q8H [facility]UDMILA Infusion Aztreonam 1,000 mg/ Dextrose 110 mls @ 100 mls/hr 05/06/19 08:00 05/07/19 09:39 IV 05/16/19 07:59 Infused Q8H [facility]UDMILA Infusion Protocol Vancomycin HCl 1,250 mg/ 275 mls @ 125 mls/hr 05/06/19 15:00 05/07/19 05:15 Sodium Chloride IV 05/16/19 14:59 Infused Q12H [facility]UDMILA Infusion Sodium Chloride 250 mls @ 15 mls/hr 05/07/19 00:10 05/07/19 06:57 Nss IV 06/06/19 00:09 Infused .[id number] PRN Infusion For Transfusion Insulin Aspart 0 units 05/06/19 07:30 05/07/19 08:14 Novolog Flexpen SC 06/05/19 07:29 1 units ACHS [facility]UDMILA Administration Mycophenolate Mofetil 500 mg 05/06/19 09:00 05/06/19 20:33 Cellcept PO 06/05/19 08:59 500 mg BID [facility]UDMILA Administration Polyethylene Glycol/Electrolytes 16 dose 05/06/19 17:00 05/06/19 16:55 Golytely PO 05/07/19 11:00 16 dose TODAY@1700 [facility]UDMILA Administration Prednisone 5 mg 05/06/19 09:00 05/06/19 08:31 Prednisone PO 06/05/19 08:59 5 mg Q2D [facility]UDMILA Administration Tacrolimus 3 mg 05/06/19 12:30 05/06/19 21:57 Prograf PO 06/05/19 12:29 3 mg Q12@1000,2200 [facility]UDMIL[facility] Administration NPO Date Last Intake of Fluids: 05/06/19 Time Last Intake of Fluids: 23:00 Date Last Intake of Solids: 05/06/19 Time Last Intake of Solids: 12:00 Past Medical History Medical History Lower gastrointestinal bleed (Acute) Anemia (Acute) Diverticulitis (Acute) Diverticulosis (Chronic) Hypertension (Chronic) Pre-diabetes Exercise / Class Metabolic Activity II 4-5 Yardwork/Stairs/Walk up hill Past Family History Family History Mother Colorectal cancer at age 26 with colon cancer Other Coronary heart disease Past Surgical History Surgical History S/P cholecystectomy S/P kidney transplant Past Anesthesia History No Hx of Anesthesia Complications and No Family Hx of Anesthesia Complications History of PONV No Hx of PONV and No Hx of Motion Sickness Social History Smoking Status: Never smoker Do You Dip or Chew Tobacco: No Hx Alcohol Use: No Hx Substance Use: No Physical Exam Vital Signs Last Vital Signs Temp 98.4 F 05/07/19 07:32 Pulse 73 05/07/19 07:32 Resp 18 05/07/19 07:32 BP 103/60 05/07/19 07:32 Pulse Ox 92 05/07/19 07:32 ENMT Mouth: no dentition abnormality Thyromental Distance: > or= 3.5 Finger Breadths Mallampati Class: II Neck normal visual inspection Respiratory normal respiratory effort Auscultation: lungs clear to auscultation bilaterally Cardiovascular Rate/Rhythm: regular rate and regular rhythm Testing Laboratory Results 05/07/19 06:44 05/07/19 06:44 PT 11.4 Seconds (9.0-12.0) 05/05/19 20:57 INR 1.1 (0.9-1.1) 05/05/19 20:57 APTT < 20.0 Seconds (21.0-31.0) L 05/05/19 20:57 Urine Color Yellow 05/06/19 06:10 Urine Appearance Clear (Clear) 05/06/19 06:10 Urine pH 5.5 (4.5-7.5) 05/06/19 06:10 Ur Specific [place] 1.028 (1.000-1.030) 05/06/19 06:10 Urine Protein Negative (Negative) 05/06/19 06:10 Urine Glucose (UA) 2+ (Negative) H 05/06/19 06:10 Urine Ketones Trace (Negative) H 05/06/19 06:10 Urine Nitrite Negative (Negative) 05/06/19 06:10 Ur Leukocyte Esterase Negative (Negative) 05/06/19 06:10 Blood Type B Positive 05/05/19 21:09 Antibody Screen NEGATIVE 05/05/19 21:09 05/07/19 07:29 POC Glucose 192 H Electrocardiogram Date: 05/05/19 Sinus rhythm with Premature atrial complexes, rate 87 bpm Otherwise normal ECG When compared with ECG of 18-AUG-2017 08:13, Premature atrial complexes are now Present Confirmed by Anjel Huggins ([id number]) on 05/06/2019 10:34:32 PM Chest X-Ray Date: 05/05/19 Findings: + NAD
--- NOTE | 2019-05-07 09:51 | History & Physical Bridge Note ---
Date of Service May 07, 2019 History & Physical Bridge Note I have examined the patient, reviewed the History & Physical and in the interval since the performance of the History & Physical I have noted the following changes of clinical significance: no changes noted. Given the persistent hematochezia we are planning for colonoscopy today. As she is still passing blood I think it would be prudent to do an upper endoscopy to ensure that we are not missing a duodenal ulcer.
--- NOTE | 2019-05-07 10:36 | Anesthesiology Progress Note ---
Date of Service May 07, 2019 Anesthesia Post Procedure Vital Signs Vital Signs: Temp Pulse Pulse Resp BP BP BP 05/07/19 10:32 86 18 106/64 05/07/19 09:30 98.2 F 85 18 128/71 05/07/19 07:32 98.4 F 73 18 103/60 05/07/19 05:48 98.2 F 80 106/62 05/07/19 05:24 98.2 F 74 18 104/60 05/07/19 04:24 97.9 F 73 18 110/71 05/07/19 03:54 97.9 F 74 20 114/73 05/07/19 03:33 97.9 F 72 18 120/76 05/07/19 03:23 98.6 F 76 17 110/66 05/07/19 02:53 98.1 F 78 18 105/67 05/07/19 02:27 98.1 F 89 18 104/68 05/07/19 01:27 98.4 F 84 18 109/65 05/07/19 00:37 98.2 F 85 18 100/61 05/06/19 23:26 99.1 F 84 17 109/56 L 05/06/19 21:35 97.9 F 05/06/19 21:33 72 104/55 L 05/06/19 18:49 98.2 F 90 18 108/60 05/06/19 17:48 81 05/06/19 15:49 98.8 F 93 H 18 117/61 05/06/19 11:25 98.4 F 77 18 113/67 Pulse Ox 05/07/19 10:32 95 05/07/19 09:30 99 05/07/19 07:32 92 05/07/19 05:48 95 05/07/19 05:24 93 05/07/19 04:24 93 05/07/19 03:54 94 05/07/19 03:33 93 05/07/19 03:23 93 05/07/19 02:53 95 05/07/19 02:27 97 05/07/19 01:27 93 05/07/19 00:37 94 05/06/19 23:26 92 05/06/19 21:35 05/06/19 21:33 99 05/06/19 18:49 97 05/06/19 17:48 05/06/19 15:49 92 05/06/19 11:25 95 Transfer of Care Handoff Completed per policy Notes Mental Status: alert / awake / arousable and participated in evaluation Patient Amnestic to Procedure: Yes Nausea / Vomiting: adequately controlled Pain: adequately controlled Airway Patency, RR, SpO2: stable & adequate BP & HR: stable & adequate Hydration State: stable & adequate Anesthetic Complications: no major complications apparent and Pt Satisfied with anesthetic care
[2019-05-07] MEDS: TACROLIMUS 1 MG CAP PO SCH ×2 (11:26→21:58)
[2019-05-07] MEDS: MYCOPHENOLATE MOFETIL 250 MG CAP PO SCH ×2 (11:27→21:58)
--- NOTE | 2019-05-07 12:01 | GI REPORT ---
Patient Name: Katy Lomeli Procedure Date: 05/07/2019 9:57 AM Date of : 1970 Admit Type: Inpatient Age: 48 Gender: Female Attending MD: Sushil Patricia DO Procedure: Upper GI endoscopy Providers: Sushil Patricia DO Referring MD: Fili Sorensen Indications: Hematochezia Medicines: Monitored Anesthesia Care Complications: No immediate complications. Estimated blood loss: Minimal. Estimated Blood Loss: Estimated blood loss was minimal. Procedure: Pre-Anesthesia Assessment: - Prior to the procedure, a History and Physical was performed, and patient medications, allergies and sensitivities were reviewed. The patient's tolerance of previous anesthesia was reviewed. - The risks and benefits of the procedure and the sedation options and risks were discussed with the patient. All questions were answered and informed consent was obtained. - Patient identification and proposed procedure were verified prior to the procedure by the physician, the nurse and the informatics manager. The procedure was verified in the procedure room. - Pre-procedure physical examination revealed no contraindications to sedation. - ASA Grade Assessment: III - A patient with severe systemic disease. - After reviewing the risks and benefits, the patient was deemed in satisfactory condition to undergo the procedure. - The anesthesia plan was to use monitored anesthesia care (MAC). - Immediately prior to administration of medications, the patient was re-assessed for adequacy to receive sedatives. - The heart rate, respiratory rate, oxygen saturations, blood pressure, adequacy of pulmonary ventilation, and response to care were monitored throughout the procedure. - The physical status of the patient was re-assessed after the procedure. After obtaining informed consent, the endoscope was passed under direct vision. Throughout the procedure, the patient's blood pressure, pulse, and oxygen saturations were monitored continuously. The scope was introduced through the mouth, and advanced to the fourth part of duodenum. The upper GI endoscopy was accomplished without difficulty. The patient tolerated the procedure well. Findings: The examined esophagus was normal. The entire examined stomach was normal. The examined duodenum was normal. Impression: - Normal esophagus. - Normal stomach. - Normal examined duodenum. - No specimens collected. Recommendation: - Perform a colonoscopy today. Sushil Patricia D.O. Sushil Patricia DO 05/07/2019 12:01:07 PM This report has been signed electronically. Note Initiated On: 05/07/2019 9:57 AM Number of Addenda: 0 I attest to the content of the Intraoperative Record and orders documented therein, exceptions below {[id number]}
--- NOTE | 2019-05-07 12:05 | GI REPORT ---
Patient Name: Katy Lomeli Procedure Date: 05/07/2019 9:56 AM Date of : 1970 Admit Type: Inpatient Age: 48 Gender: Female Attending MD: Sushil Patricia DO Procedure: Colonoscopy Providers: Sushil Patricia DO Referring MD: Fili Sorensen Indications: Hematochezia Medicines: Monitored Anesthesia Care Complications: No immediate complications. Estimated blood loss: Minimal. Estimated Blood Loss: Estimated blood loss was minimal. Procedure: Pre-Anesthesia Assessment: - Prior to the procedure, a History and Physical was performed, and patient medications, allergies and sensitivities were reviewed. The patient's tolerance of previous anesthesia was reviewed. - The risks and benefits of the procedure and the sedation options and risks were discussed with the patient. All questions were answered and informed consent was obtained. - Patient identification and proposed procedure were verified prior to the procedure by the physician, the nurse and the aviation safety inspector. The procedure was verified in the procedure room. - Pre-procedure physical examination revealed no contraindications to sedation. - ASA Grade Assessment: III - A patient with severe systemic disease. - After reviewing the risks and benefits, the patient was deemed in satisfactory condition to undergo the procedure. - The anesthesia plan was to use monitored anesthesia care (MAC). - Immediately prior to administration of medications, the patient was re-assessed for adequacy to receive sedatives. - The heart rate, respiratory rate, oxygen saturations, blood pressure, adequacy of pulmonary ventilation, and response to care were monitored throughout the procedure. - The physical status of the patient was re-assessed after the procedure. After I obtained informed consent, the scope was passed under direct vision. Throughout the procedure, the patient's blood pressure, pulse, and oxygen saturations were monitored continuously. The scope was introduced through the anus and advanced to the cecum, identified by appendiceal orifice and ileocecal valve. The colonoscopy was performed without difficulty. The patient tolerated the procedure well. The quality of the bowel preparation was fair. Findings: The perianal and digital rectal examinations were normal. Pertinent negatives include normal sphincter tone. Clotted blood was found in the entire colon. Multiple medium-mouthed diverticula were found in the sigmoid colon, descending colon and ascending colon. There was no evidence of diverticular bleeding. There was evidence of past bleeding, however no single diverticulum could be identified as the cause of her recent hemorrhage. Internal hemorrhoids were found during retroflexion. The hemorrhoids were mild. The exam was otherwise without abnormality. Impression: - Preparation of the colon was fair. - Blood in the entire examined colon. - Mild diverticulosis in the sigmoid colon, in the descending colon and in the ascending colon. There was no evidence of ongoing diverticular bleeding (likely cause of presentation). - Internal hemorrhoids. - The examination was otherwise normal. - No specimens collected. Recommendation: - [facility]. - Do a GI bleeding (tagged RBC) scan. Sushil Patricia D.O. Sushil Patricia, 05/07/2019 12:04:57 PM This report has been signed electronically. Note Initiated On: 05/07/2019 9:56 AM Number of Addenda: 0 I attest to the content of the Intraoperative Record and orders documented therein, exceptions below {[id number]}
--- NOTE | 2019-05-07 13:03 | Hospitalist Progress Note ---
Date of Service May 07, 2019 Assessment & Plan (1) Abdominal pain: possible diverticulitis, no evidence on CT but poor quality due to lack of contrast cover empirically with Aztreonam and Flagyl WBC slightly high at 12k no fever (2) Lower gastrointestinal bleed: Pt is a 48 y/o female w hx of s/p renal transplant in 2003, hx of diverticulitis last January who was admitted for symptomatic anemia, abd pain, n/v and BRBPR. No more rectal bleeding since admitted. She had been treated w 2U PRBC transfusion and antibx for suspected diverticulitis though her CT scan suggests no signs of diverticulitis. Suspect diverticular bleeding transfused two units for Hb on admission, Hb up to 7.8 Hb dropped again to 6.1 after further bleeding, transfused two more units overnight/morning on 05/07 Hb up to 8.1 today, BP stable keep two more units on hold if needed, transfuse if < 7 or if hypotensive EGD normal Coloscopy with diverticula but no active bleeding plan for tagged RBC scan today (3) Acute blood loss anemia: acute blood loss anemia Hb low at 6.1 on admission up to 7.8 after two units transfused over night further bleeding and dropped to 6/1 late on 05/06 transfused two further units of PRBC and Hb up to 8.1, BP stable on 05/07 (4) Diverticulosis: bleeding, possible diverticulitis (5) Nausea & vomiting: resolved with supportive care low residue diet (6) History of renal transplant: History of right kidney transplant in 2003: At home is on CellCept, prednisone, and tacrolimus. Cr stable at 0.[address] Jones as outpatient (7) Hypertension: BP stable (8) Diabetes: hold Metformin Novolog SS, diabetic diet mild hyperglycemia today, tightened correction factor and BS improved (9) Gout: Subjective patient seen after EGD and colonoscopy no findings on EGD, colonoscopy showed diverticular disease, no active bleeding GI recommends tagged RBC scan Hb is 8.1, up from 6 last night after further bleeding transfused two more units for 4 total no chest pain, no dyspnea, no fever or chills updated patient's at the bedside reviewed labs, Cr stable, electrolytes stable discussed plan with gastroenterology Review of Systems Review of Systems: All systems reviewed & are unremarkable except as noted in HPI & below Constitutional: no fever Respiratory: no cough and no dyspnea Cardiovascular: no chest pain Gastrointestinal: + blood in stools (last night); no abdominal pain, no nausea, no vomiting, no constipation and no diarrhea/loose stools Physical Exam Constitutional: WD/WN, vitals as above Eyes: PERRL, conjunctivae normal, anicteric sclerae ENMT: external ear and nose normal, oropharynx normal Neck: trachea midline, no thyromegaly Respiratory: normal respiratory effort, lungs clear to auscultation Cardiovascular: RRR, no murmur, no edema Gastrointestinal (Abdomen): normal bowel sounds, soft, nontender, no hepatosplenomegaly Musculoskeletal: no cyanosis or clubbing, extremities motor strength 5/5 Skin: no rashes, warm and dry Neurologic: patellar DTR's 2+ bilat, sensation intact and PERRL, EOMI, accommodation nl, no face palsy, no dysarthria Psychiatric: A+Ox3, euthymic affect Lymphatic: no cervical or axillary lymphadenopathy Results & Data Vital Signs (Past 12 Hours) Vital Signs Temp Pulse Pulse Resp BP BP BP 05/07/19 11:25 36.9 C 62 18 110/59 L 05/07/19 11:08 75 18 102/64 05/07/19 10:59 67 18 104/60 05/07/19 10:51 70 18 106/72 05/07/19 10:45 69 18 104/58 L 05/07/19 10:39 77 17 103/57 L 05/07/19 10:32 86 18 106/64 05/07/19 09:30 36.8 C 85 18 128/71 05/07/19 08:00 69 05/07/19 07:32 36.9 C 73 18 103/60 05/07/19 05:48 36.8 C 80 106/62 05/07/19 05:24 36.8 C 74 18 104/60 05/07/19 04:24 36.6 C 73 18 110/71 05/07/19 03:54 36.6 C 74 20 114/73 05/07/19 03:33 36.6 C 72 18 120/76 05/07/19 03:23 37.0 C 76 17 110/66 05/07/19 02:53 36.7 C 78 18 105/67 05/07/19 02:27 36.7 C 89 18 104/68 05/07/19 01:27 36.9 C 84 18 109/65 Pulse Ox 05/07/19 11:25 94 05/07/19 11:08 95 05/07/19 10:59 94 05/07/19 10:51 97 05/07/19 10:45 96 05/07/19 10:39 96 05/07/19 10:32 95 05/07/19 09:30 99 05/07/19 08:00 05/07/19 07:32 92 05/07/19 05:48 95 05/07/19 05:24 93 05/07/19 04:24 93 05/07/19 03:54 94 05/07/19 03:33 93 05/07/19 03:23 93 05/07/19 02:53 95 05/07/19 02:27 97 05/07/19 01:27 93 Laboratory Results Laboratory Results - last 24 hr 05/05/19 05/06/19 05/06/19 21:09 16:42 18:51 WBC RBC Hgb 7.6 L Hct 22.3 L MCV MCH MCHC RDW Std Deviation RDW Coeff of Maribel Plt Count MPV Immature Gran % (Auto) Neut % (Auto) Lymph % (Auto) [place] % (Auto) Eos % (Auto) Baso % (Auto) Immature Gran # (Auto) Neut # (Auto) Lymph # (Auto) [place] # (Auto) Eos # (Auto) Baso # (Auto) Sodium Potassium Chloride Carbon Dioxide Anion Gap BUN Creatinine Est Cr Clr Drug Dosing Est GFR ( Amer) Est GFR (Non-Af Amer) BUN/Creatinine Ratio Glucose POC Glucose 294 H Calcium Blood Type B Positive Antibody Screen NEGATIVE Crossmatch See Detail Draw and Hold Cancelled 05/06/19 05/06/19 05/07/19 20:14 23:29 06:44 WBC 12.74 H RBC 2.65 L Hgb 6.4 L* 8.1 L Hct 18.9 L* 23.9 L MCV 90.2 MCH 30.6 MCHC 33.9 RDW Std Deviation 52.5 H RDW Coeff of Maribel 16.2 H Plt Count 222 MPV 10.0 Immature Gran % (Auto) 1.5 Neut % (Auto) 65.8 Lymph % (Auto) 24.4 [place] % (Auto) 6.8 Eos % (Auto) 1.3 Baso % (Auto) 0.2 Immature Gran # (Auto) 0.19 H Neut # (Auto) 8.39 H Lymph # (Auto) 3.11 [place] # (Auto) 0.86 H Eos # (Auto) 0.17 Baso # (Auto) 0.02 Sodium Potassium Chloride Carbon Dioxide Anion Gap BUN Creatinine Est Cr Clr Drug Dosing Est GFR ( Amer) Est GFR (Non-Af Amer) BUN/Creatinine Ratio Glucose POC Glucose 237 H Calcium Blood Type Antibody Screen Crossmatch Draw and Hold 05/07/19 05/07/19 05/07/19 06:44 07:29 11:25 WBC RBC Hgb Hct MCV MCH MCHC RDW Std Deviation RDW Coeff of Maribel Plt Count MPV Immature Gran % (Auto) Neut % (Auto) Lymph % (Auto) [place] % (Auto) Eos % (Auto) Baso % (Auto) Immature Gran # (Auto) Neut # (Auto) Lymph # (Auto) [place] # (Auto) Eos # (Auto) Baso # (Auto) Sodium 140 Potassium 3.8 Chloride 111 H Carbon Dioxide 24 Anion Gap 5.0 BUN 7 Creatinine 0.71 Est Cr Clr Drug Dosing 104.0 Est GFR ( Amer) 115.1 Est GFR (Non-Af Amer) 99.3 BUN/Creatinine Ratio 10.3 Glucose 177 H POC Glucose 192 H 180 H Calcium 7.3 L Blood Type Antibody Screen Crossmatch Draw and Hold 05/07/19 05/07/19 12:51 13:12 WBC RBC Hgb 8.1 L Hct 24.3 L MCV MCH MCHC RDW Std Deviation RDW Coeff of Maribel Plt Count MPV Immature Gran % (Auto) Neut % (Auto) Lymph % (Auto) [place] % (Auto) Eos % (Auto) Baso % (Auto) Immature Gran # (Auto) Neut # (Auto) Lymph # (Auto) [place] # (Auto) Eos # (Auto) Baso # (Auto) Sodium Potassium Chloride Carbon Dioxide Anion Gap BUN Creatinine Est Cr Clr Drug Dosing Est GFR ( Amer) Est GFR (Non-Af Amer) BUN/Creatinine Ratio Glucose POC Glucose 181 H Calcium Blood Type Antibody Screen Crossmatch Draw and Hold Diagnostic Findings EGD - normal findings Colonoscopy - scattered diverticula in sigmoid, descending and ascending colon, no active bleeding Medications Administered Current Inpatient Medications Dextrose (Dextrose 50%) 25 - 50 ml IV UD PRN; Protocol PRN Reason: Hypoglycemia Protocol Stop: 06/05/19 01:50 Glucagon (Glucagen) 1 mg SQ UD PRN; Protocol PRN Reason: Hypoglycemia Protocol Stop: 06/05/19 01:50 Glucose (Glucose 40%) 15 - 30 gm PO UD PRN; Protocol PRN Reason: Hypoglycemia Protocol Stop: 06/05/19 01:50 Glucose (Dex4 Glucose) 4 - 8 tabs PO UD PRN; Protocol PRN Reason: Hypoglycemia Protocol Stop: 06/05/19 01:50 Lactated Ringer's (Lr) 1,000 mls @ 120 mls/hr IV .[id number] LIUDMILA Stop: 06/05/19 01:50 Last Infusion: 05/07/19 12:30 Dose: 120 mls/hr Documented by: Metronidazole (Flagyl) 500 mg in 100 mls @ 100 mls/hr IV Q8H LIUDMILA Stop: 05/16/19 08:59 Last Infusion: 05/07/19 13:04 Dose: Infused Documented by: Acetaminophen (Ofirmev) 65 mls @ 200 mls/hr IV Q4H PRN PRN Reason: Pain or Fever Stop: 06/05/19 01:50 Aztreonam 1,000 mg/ Dextrose 110 mls @ 100 mls/hr IV Q8H LIUDMILA; Protocol Stop: 05/16/19 07:59 Last Infusion: 05/07/19 09:39 Dose: Infused Documented by: Vancomycin HCl 1,250 mg/ (Sodium Chloride) 275 mls @ 125 mls/hr IV Q12H LIUDMILA Stop: 05/16/19 14:59 Last Infusion: 05/07/19 05:15 Dose: Infused Documented by: Sodium Chloride (Nss) 250 mls @ 15 mls/hr IV .[id number] PRN PRN Reason: For Transfusion Stop: 06/06/19 00:09 Last Infusion: 05/07/19 06:57 Dose: Infused Documented by: Insulin Aspart (Novolog Flexpen) 0 units SC ACHS LIUDMILA Stop: 06/05/19 07:29 Last Admin: 05/07/19 08:14 Dose: 1 units Documented by: Miscellaneous (Carbohydrates For Hypoglycemia) 15 - 30 gm PO UD PRN PRN Reason: Hypoglycemia Treatment Stop: 06/05/19 01:50 Miscellaneous Information (Consult) 1 ea N/A UD PRN PRN Reason: Consult Stop: 06/05/19 01:50 Mycophenolate Mofetil (Cellcept) 500 mg PO BID [facility] Stop: 06/05/19 08:59 Last Admin: 05/07/19 11:27 Dose: 500 mg Documented by: Ondansetron HCl (Zofran) 4 mg IV Q6H PRN PRN Reason: Nausea Stop: 06/05/19 01:50 Prednisone (Prednisone) 5 mg PO Q2D [facility] Stop: 06/05/19 08:59 Last Admin: 05/06/19 08:31 Dose: 5 mg Documented by: Tacrolimus (Prograf) 3 mg PO Q12@1000,2200 [facility] Stop: 06/05/19 12:29 Last Admin: 05/07/19 11:26 Dose: 3 mg Documented by: PG Care Time/CCT Total # of Minutes Spent Total Time Spent with Patient: Total time spent is greater than 50% in coordination of care (as documented) at patient's floor/unit and/or counseling patient: (1) Nausea & vomiting Vomiting Intractability: unspecified Vomiting type: unspecified Qualified Code(s): R11.2 - Nausea with vomiting, unspecified (2) Hypertension Hypertension type: essential hypertension Qualified Code(s): I10 - Essential (primary) hypertension
[2019-05-07 13:05] LABS: Hematocrit (blood only) 24.3 % (37-47); Hemoglobin 8.1 g/dL (12.0-16.0)
--- NOTE | 2019-05-07 15:44 | Nuclear Medicine Report ---
TAGGED RED BLOOD CELL GI BLEEDING SCAN CLINICAL HISTORY: Rectal bleeding. COMPARISON STUDY: GI bleeding scan July 25, 2012. CT of the abdomen and pelvis May 03, 2019. TECHNIQUE: Following the IV administration of 24.3 mCi of technetium 99m UltraTag labeled red blood c ells, nuclear bleeding scan was performed. Anterior flow images were obtained every 2 seconds for a t otal 48 seconds. Anterior static images were obtained every 5 minutes for a total of 60 minutes. FINDINGS: There are no foci to suggest active GI bleed during this 60 minute exam. Activity within t he right lower quadrant renal allograft and bladder is noted. IMPRESSION: No evidence of active GI bleed during this 60 minute exam. Electronically signed by: Eder Hobbs M.D. 05/07/2019 3:43 PM
[2019-05-08] MEDS: metroNIDAZOLE 500 MG/100 ML BAG IV SCH ×2 (01:01→08:14)
[2019-05-08] MEDS ORDERED: VANCOMYCIN TROUGH ONE (02:30)
[2019-05-08] MEDS: VANCOMYCIN HCL 1,250 MG in SODIUM CHLORIDE 0.9% 250 ML IV SCH (02:48)
[2019-05-08] MEDS: LACTATED RINGER'S 1,000 ML IV SCH ×2 (02:48→09:44)
[2019-05-08] MEDS: AZTREONAM 1,000 MG in DEXTROSE 5% 100 ML IV SCH (08:14)
[2019-05-08] MEDS: INSULIN ASPART 100 UNITS/ML 3 ML PEN SC SCH ×2 (08:14→11:45)
[2019-05-08] MEDS: MYCOPHENOLATE MOFETIL 250 MG CAP PO SCH (08:15)
[2019-05-08] MEDS: TACROLIMUS 1 MG CAP PO SCH (09:30)
[2019-05-08] MEDS: predniSONE 5 MG TAB PO SCH (09:30)
[2019-05-08 09:34] LABS: Hematocrit (blood only) 23.3 % (37-47); Hemoglobin 7.8 g/dL (12.0-16.0)
[2019-05-08 10:02] LABS: BUN Creatinine Ratio 6.8 (10-20); Calcium 7.9 mg/dl (8.5-10.1); Creatinine Clr Calc Pharmacy 91.2 ml/min; Est GFR (African American) 98.2; Est GFR (Non-African American) 84.7; Potassium 3.8 mmol/L (3.5-5.1)
--- NOTE | 2019-05-08 10:31 | Progress Note ---
Date of Service May 08, 2019 Subjective Patient was seen and examined today, feels better, had BM this morning with no bleeding. Tolerating PO diet. On exam abdomen is soft Labs reviewed H/H stable Impression: Likely diverticular bleeding, spontaneously resolved. Plan: Diet as tolerated. High fiber content. Avoid NSAIDs nuts and seeds. Recall GI if any evidence of rebleeding or any concerns. Results & Data Vital Signs (Past 12 Hours) Vital Signs Temp Pulse Resp BP Pulse Ox 05/08/19 07:01 36.9 C 76 18 119/70 91 05/08/19 02:53 36.9 C 73 18 130/76 96 05/07/19 23:12 36.8 C 73 18 105/58 L 97
[2019-05-08 11:19] VITALS: PULSE 69; TEMP 98.1; O2SAT 95
[2019-05-08 14:19] LABS: Hemoglobin 8.2 g/dL (12.0-16.0)
--- NOTE | 2019-05-08 15:08 | Discharge Summary ---
Date of Service May 08, 2019 Admission HPI Per Admitting Provider 48-year-old female presents the emergency department with concerns for ongoing rectal bleeding and abdominal pain. Symptoms began this past Friday 08Jul with generalized abdominal pain. She was seen in the ED at that time, noted to have BRBPR but her hemoglobin had not dropped. CT scan at that time showed known diverticular disease without evidence of diverticulitis. Patient already had planned follow-up with gastroenterology after being admitted in January 2019 for a diverticular bleed. She was on track for colonoscopy later this month. Patient says since Friday she continues to have bright red blood with all bowel movements. She also notes some nausea and vomiting as well. No known fevers or prodromal illness. She denies any chest pain, shortness of breath, or focal weakness. No other acute patient concerns. She says she has been able to keep down her chronic immunosuppressive medications. - Past medical history includes diverticulosis, lower GI bleed, bilateral kidney failure, hypertension, pre-diabetes, anemia, gout. - Past surgical history includes cholecystectomy, right kidney transplant in 2003. - Social history includes never smoking. Denies alcohol and substance abuse. and lives at home. Principal Diagnosis Acute diverticular bleed Discharge Exam Constitutional WD/WN, vitals as above Eyes PERRL, conjunctivae normal, anicteric sclerae ENMT external ear and nose normal, oropharynx normal Neck trachea midline, no thyromegaly Respiratory normal respiratory effort, lungs clear to auscultation Cardiovascular RRR, no murmur, no edema Gastrointestinal (Abdomen) normal bowel sounds, soft, nontender, no hepatosplenomegaly Musculoskeletal no cyanosis or clubbing, extremities motor strength 5/5 Skin no rashes, warm and dry Neurologic patellar DTR's 2+ bilat, sensation intact and PERRL, EOMI, accommodation nl, no face palsy, no dysarthria Psychiatric A+Ox3, euthymic affect Lymphatic no cervical or axillary lymphadenopathy Discharge Data Allergies Allergy/AdvReac Type Severity Reaction Status Date / Time Penicillins Allergy Mild POSSIBLE Unverified 05/05/19 22:16 RASH Sulfa (Sulfonamide Allergy Mild Rash Unverified 05/05/19 22:16 Antibiotics) tetracycline Allergy Mild Unknown Unverified 05/05/19 22:16 Cephalosporins Allergy Unknown Unknown Verified 05/05/19 22:25 Consultations 05/05/19 21:27 ED Decision to Admit Stat 05/06/19 07:53 Consult Gastroenterology Routine Procedures Performed Operation Date: 05/07/19 08:30 Actual Procedures p Esophagogastroduodenoscopy(Not Applicable) - Sushil Patricia s Colonoscopy(Not Applicable) - Sushil Patricia [facility] Course (1) Lower gastrointestinal bleed: Suspect diverticular bleeding transfused two units for Hb on admission, Hb up to 7.8 Hb dropped again to 6.1 after further bleeding, transfused two more units overnight/morning on 05/07 Hb up to 8.1 05/07, BP stable keep two more units on hold if needed, transfuse if < 7 or if hypotensive EGD normal Coloscopy with diverticula but no active bleeding tagged RBC scan showed no bleeding at 60 minutes Hb stable on day of discharge at 8.2, no bleeding since colonoscopy prep stable to go home, bleeding appeared to be done told patient to return to the hospital immediately if she started to bleed again would recommend going to tertiary care for embolization at that time (2) Acute blood loss anemia: acute blood loss anemia Hb low at 6.1 on admission up to 7.8 after two units transfused over night further bleeding and dropped to 6.1 late on 05/06 transfused two further units of PRBC and Hb up to 8.1, BP stable on 05/07 Hb 8.2 on day of discharge, vitals stable, patient felt well follow up with PCP for H/H check (3) Abdominal pain: possible diverticulitis, no evidence on CT but poor quality due to lack of contrast covered empirically with Aztreonam and Flagyl while admitted no fever, no pain at all, typically diverticulitis does not present with bleeding which was her primary issue will stop antibiotics on discharge (4) Diverticulosis: bleeding, possible diverticulitis (5) Nausea & vomiting: resolved with supportive care low residue diet (6) History of renal transplant: History of right kidney transplant in 2003: At home is on CellCept, prednisone, and tacrolimus. Cr stable follows with Dr. Jones as outpatient (7) Hypertension: BP stable (8) Diabetes: hold Metformin Novolog SS, diabetic diet mild hyperglycemia today, tightened correction factor and BS improved (9) Gout: Total Time Total Time Spent Total Time Spent (In Minutes): 35 minutes Total Time Includes: Examination of the Patient, Discharge Planning, Medication Reconciliation and Communication With Other Providers ([facility]) Discharge Plan Discharge Items Patient Disposition: Home - Self-Care Reason For Visit: GI BLEED, ANEMIA Discharge Diagnosis: Diverticular bleed Acute blood loss anemia Condition: Good Discharge Goals: Diagnostic testing and Improve function Activity: Resume your previous activity Non-emergency contact: Primary Care Provider and [employer]per Call non-emergency contact if: you have any medication questions, your symptoms worsen and you have a fever Follow-up/Referrals: Pasquale Jones MD [Primary Care Provider] - Diet: Carb Consistent or DM2 and Low Fiber Addtl Provider Instructions: Medications: no changes Diverticular bleed, acute blood loss anemia bleeding appears to be resolved, Hb is stable for 24 hours and no bloody bowel movements since colonoscopy yesterday morning nuclear tagged red blood cell scan was negative for active bleeding at 60 minutes EGD was normal so no signs of upper GI bleed colon had some old blood, no signs of active bleeding, you have diverticulosis in ascending, descending and sigmoid colon Hemoglobin 8.1 today, received total of 4 units of RBC during admission if you have further bleeding like before come back to the ED further bleeding may warrant going to another hospital for interventional radiology to perform embolization to stop bleeding FOLLOW UP - call Dr. Jones's office on Friday for appt, recommend repeating hemoglobin this week Prescriptions: Continued metoprolol succinate 50 mg Tablet Extended Release 24 Hr 50 mg PO QAM RF: 0 amlodipine 5 mg Tablet 5 mg PO QAM RF: 0 ferrous sulfate 325 mg (65 mg iron) Tablet 325 mg PO BID RF: 0 allopurinol 300 mg Tablet 300 mg PO QPM RF: 0 multivitamin Tablet 1 tab PO QAM RF: 0 prednisone 5 mg Tablet 5 mg PO Q2D RF: 0 mycophenolate mofetil [CellCept] 500 mg Tablet 500 mg PO BID RF: 0 tacrolimus [Prograf] 1 mg Capsule 3 mg PO Q12H RF: 0 metformin 500 mg tablet extended release 24 hr 500 mg PO QPM RF: 0 Discontinued metronidazole 500 mg tablet 500 mg PO TID RF: 0 ciprofloxacin HCl 500 mg tablet 500 mg PO BID RF: 0 Stand-Alone Forms: [facility] Discharge Orders: Discharge Order (Routine); Ordered 05/08/19 Ordered By: Fili Sorensen Admission Data Admit Date/Time: 05/05/19 23:46 Attending Provider: Fili Sorensen Admit Provider: Aldair Ordonez Primary Care Provider: Pasquale Jones Other Providers: Sushil Patricia Service: Telemetry Other Interventions: Discharge Summary Assessment (RN) Last Done: 05/08/19 15:20 Pending Studies at Discharge: No DC Date/Time DO NOT enter until pt leaves facility: 05/08/19 15:41
[2019-05-08 15:22] VITALS: BP 102/64
== END 2019-05-08 15:41 | disposition home or self-care (01) | DRG 378 ==
LOC: ED 20:33 → 2E 23:46 → SUATTDRO 23:46 → 2E 05-06 00:49
DX: Z94.0 Kidney transplant status; M10.9 Gout, unspecified; Z79.84 Long term (current) use of oral hypoglycemic drugs; I10 Essential (primary) hypertension; K57.91 Diverticulosis of intestine, part unspecified, without perforation or abscess with bleeding; E11.65 Type 2 diabetes mellitus with hyperglycemia; D62 Acute posthemorrhagic anemia; Z79.899 Other long term (current) drug therapy; R11.2 Nausea with vomiting, unspecified

== ENCOUNTER 2024-01-21 19:10 | Inpatient (IN) ==
--- NOTE | 2024-01-21 19:44 | Emergency Department Note ---
History of Present Illness General Chief complaint: Illness Stated complaint: DIVERTICULITIS FLARE-UP Time Seen by Provider: 01/21/24 19:23 History of Present Illness 53-year-old female presents emergency department with a 1 day history of diffuse abdominal cramping and gurgling as well as bright red blood per rectum. Patient's had a prior history of diverticulitis. Patient states that she is taken Cipro and Flagyl in the past last flareup was in 2019. Patient is a renal transplant patient followed locally by Dr. Rhoades and [facility]. Patient denies fever denies specific quadrant abdominal pain. Patient denies vomiting. There are no other mitigating or alleviating factors. Patient states that she believes she has a urinary tract infection as well and started taking amoxicillin this morning. Home Medications Medication Instructions Recorded Confirmed Type ferrous sulfate 325 mg (65 mg 325 mg PO BID 02/02/19 12/03/23 History iron) tablet multivitamin 1 tab PO QAM 02/02/19 12/03/23 History mycophenolate mofetil 500 mg 500 mg PO BID 02/02/19 12/03/23 History tablet (CellCept) tacrolimus 1 mg capsule, 3 mg PO Q12H 02/02/19 12/03/23 History immediate-release (Prograf) blood sugar diagnostic (Accu-Chek #400 ea 11/18/19 12/03/23 Rx Guide test strips) lancets (Accu-Chek Fastclix Lancet #400 ea 11/18/19 12/03/23 Rx Drum) metformin 500 mg tablet,extended 1,000 mg (2 x 500 mg) PO BID #360 11/21/20 12/03/23 Rx release 24 hr tabs amlodipine 5 mg tablet 5 mg PO DAILY 07/27/21 12/03/23 History metoprolol succinate 50 mg 50 mg PO DAILY 07/27/21 12/03/23 History tablet,extended release 24 hr allopurinol 300 mg tablet 300 mg PO QPM #90 tabs 10/15/23 12/03/23 Rx amoxicillin 500 mg capsule 500 mg PO Q8H #15 caps 12/31/23 Rx Allergies Allergy/AdvReac Type Severity Reaction Status Date / Time Penicillins Allergy Mild POSSIBLE Verified 12/03/23 08:29 RASH Sulfa (Sulfonamide Allergy Mild Rash Verified 12/03/23 08:29 Antibiotics) Cephalosporins Allergy Unknown welts Verified 12/03/23 08:29 tetracycline AdvReac Mild GI issues Verified 12/03/23 08:29 Past Med/Surg History Medical History ESRD (end stage renal disease) Allergic rhinitis Gastroesophageal reflux disease Gout, joint Hypercholesterolemia Steatohepatitis, nonalcoholic Anemia Lower gastrointestinal bleed Diverticulitis Diverticulosis Hypertension Surgical History S/P cholecystectomy S/P kidney transplant Family History Mother Colorectal cancer at age 26 with colon cancer Father Heart disease Obesity Other Coronary heart disease Denies family history of Ovarian cancer Breast cancer Social History Smoking Status: Never smoker Do You Dip or Chew Tobacco: No; Hx Alcohol Use: No Hx Substance Use: No Preferred Language: French Communication Ability: Effective Amusement Or Recreation Card Checker Required: No Beliefs That Will Affect Care: None marital status: Current Living Situation: Spouse Feels Safe at Home: Yes Assistive Devices: Glasses Review of Systems A total of 10 systems reviewed and were otherwise negative Gastrointestinal: + abdominal pain and + nausea Physical Exam Vital Signs Vital Signs - 24 hr 01/21/24 19:23 01/21/24 19:27 01/21/24 19:47 Temperature 36.5 C Temperature Source Temporal Artery Scan Pulse Rate 73 68 Pulse Rate [Apical] Respiratory Rate 18 Respiratory Pattern Blood Pressure 162/92 H Blood Pressure [Right Arm] Blood Pressure Mean 115 Blood Pressure Mean [Right Arm] Blood Pressure Position Sitting Pulse Oximetry 98 99 Oxygen Delivery Method Room Air Room Air Sepsis Recent Fever Within 48 Hours No Sepsis New/Unexplained Change in Mental Status N/A Sepsis Action Taken by Nursing No Action Required 01/21/24 19:48 01/21/24 21:00 Temperature Temperature Source Pulse Rate Pulse Rate [Apical] 97 H 69 Respiratory Rate 19 17 Respiratory Pattern Regular Blood Pressure Blood Pressure [Right Arm] 124/89 124/88 Blood Pressure Mean Blood Pressure Mean [Right Arm] 100 100 Blood Pressure Position Pulse Oximetry 97 96 Oxygen Delivery Method Room Air Room Air Sepsis Recent Fever Within 48 Hours Sepsis New/Unexplained Change in Mental Status Sepsis Action Taken by Nursing GENERAL: Patient is awake alert in no acute distress patient is resting comfortably and showing no signs of anxiety EYES: The conjunctivae are clear. The pupils are round and reactive. EARS, NOSE, MOUTH AND THROAT: The nose is without any evidence of any deformity. Mucous membranes are moist. Tongue is midline. NECK: The neck is nontender and supple. RESPIRATORY: Normal respiratory effort is noted there is no evidence of wheezing rhonchi or rales CARDIOVASCULAR: Regular rate and rhythm noted there no murmurs rubs or gallops normal S1 normal S2. GASTROINTESTINAL: The abdomen is soft. Abdomen is nontender. There is no rebound rigidity or guarding BACK: No midline tenderness or or step-off noted range of motion in flexion extension as well as rotation no signs of muscle spasm noted MUSCULOSKELETAL/EXTREMITIES: There is no evidence of gross deformity full range of motion is noted in the hips and shoulders. SKIN: There is no obvious evidence of any rash. There are no petechiae, pallor or cyanosis noted. NEUROLOGIC: Patient is awake alert and oriented x3 strength is symmetric Course Reevaluation(s) Reevaluation #1: Resting in no distress however has had 2 episodes of rectal bleeding Time: 23:04 Consultations Consultation #1: Case was discussed with the [facility] hospitalist for admission Time: 23:04 Administered Medications Discontinued Medications Ioversol (Optiray 320 100ml) 90 ml IV ONCE ONE Stop: 01/21/24 20:59 Last Admin: 01/21/24 20:59 Dose: 90 ml Documented By: CHIQUI Medical Decision Making Medical Records Attestation: I reviewed the patient's medical records. Home Medications Current Medication List: was personally reviewed by me Laboratory Data Attestation: I reviewed the patient's lab results. Labs are unremarkable 01/21/24 19:40 01/21/24 19:40 Lab Results 01/21/24 01/21/24 Range/Units 19:40 19:56 WBC 7.99 (4.8-10.8) K/ul RBC 3.86 L (4.20-5.40) M/uL Hgb 10.7 L (12.0-16.0) g/dl Hct 33.7 L (37.0-47.0) % MCV 87.3 (80.0-100.0) fL MCH 27.7 (25.0-34.0) pg MCHC 31.8 L (32.0-36.0) g/dL RDW Std Deviation 45.5 (36.4-46.3) fL RDW Coeff of Maribel 14.3 (11.5-14.5) % Plt Count 329 (130-400) K/uL MPV 10.5 (9.4-12.4) fL Immature Gran % (Auto) 0.1 % Neut % (Auto) 45.2 % Lymph % (Auto) 43.9 % [place] % (Auto) 6.5 % Eos % (Auto) 4.0 % Baso % (Auto) 0.3 % Neut # (Auto) 3.61 (1.40-6.50) K/uL Lymph # (Auto) 3.51 H (1.20-3.40) K/uL [place] # (Auto) 0.52 (0.11-0.59) K/uL Eos # (Auto) 0.32 (0.00-0.50) K/uL Baso # (Auto) 0.02 (0.00-0.20) K/uL Immature Gran # (Auto) 0.01 (0.01-0.20) K/uL Sodium 140 (136-145) mmol/L Potassium 4.1 (3.5-5.1) mmol/L Chloride 106 (98-107) mmol/L Carbon Dioxide 27 (21-32) mmol/L Anion Gap 7 (3-11) BUN 9 (6-23) mg/dl Creatinine 0.68 (0.6-1.2) mg/dl Est Cr Clr Drug Dosing 98.7 ml/min Est GFR ( Amer) 114.1 ml/min Est GFR (Non-Af Amer) 98.5 ml/min BUN/Creatinine Ratio 13.2 (10-20) Glucose 133 H (70-99(Fasting)) mg/dl Calcium 9.5 (8.6-10.3) mg/dl Total Bilirubin 0.3 (0.2-1.0) mg/dl AST 16 (13-39) U/L ALT 21 (7-52) U/L Alkaline Phosphatase 79 (34-104) U/L Total Protein 7.0 (6.0-8.3) gm/dl Albumin 4.0 (3.4-5.0) gm/dl Globulin 3.0 (2.5-4.0) gm/dl Albumin/Globulin Ratio 1.3 (0.9-2) Lipase 46 (11-82) U/L Urine Color Yellow Urine Appearance Clear (Clear) Urine pH 6.5 (4.5-7.5) Ur Specific [place] 1.009 (1.000-1.030) Urine Protein Negative (Negative) Urine Glucose (UA) Negative (Negative) Urine Ketones Negative (Negative) Urine Blood Negative (Negative) Urine Nitrite Negative (Negative) Urine Bilirubin Negative (Negative) Urine Urobilinogen Negative (Negative) Ur Leukocyte Esterase Negative (Negative) Imaging Data Attestation: I personally reviewed and interpreted this imaging study as follows: Radiologist's Impression: Abdomen/Pelvis CT 01/21/24 19:23 Exam(s): CT ABDOMEN + PELVIS With Contrast IV Amt: 90 ml optiray 320 EXAM: CT Abdomen and Pelvis With Intravenous Contrast CLINICAL HISTORY: Reason for exam: abd pain. TECHNIQUE: Axial computed tomography images of the abdomen and pelvis with intravenous contrast. CTDI is 25.37 mGy and DLP is 1181.78 mGy-cm. Automated exposure control was utilized for the study. A dose lowering technique was utilized adhering to the principles of ALARA. CONTRAST: Patient received 90 ml optiray 320 of IV contrast COMPARISON: CT abdomen pelvis 05/03/19. FINDINGS: Lung bases: Clear. Liver: Unremarkable. Gallbladder and bile ducts: Cholecystectomy. No ductal dilation. Pancreas: No ductal dilation. Spleen: Unremarkable. Adrenals: Unremarkable. Kidneys and ureters: Chronic, end stage renal disease, with right lower quadrant renal transplant, that has a stable cortical scar in the upper pole. No transplant pyelonephritis, perinephric abscess or hydronephrosis. Stomach and bowel: Moderate fluid in the descending colon, nonspecific, concerning for ileus or gastroenteritis. Diverticulosis without diverticulitis. No obstruction. Appendix: No acute appendicitis. Intraperitoneal space: No free air or fluid. Bones/joints: No acute fracture. Soft tissues: Unremarkable. Vasculature: No aortic aneurysm. Lymph nodes: No enlarged lymph nodes. Bladder: No stones. Reproductive: Unremarkable as visualized. IMPRESSION: 1. Possible moderate gastroenteritis or ileus with fluid distending the distal colon. 2. No acute abnormality involving the right lower quadrant renal transplant. Electronically signed by: Sol Olson M.D. 01/21/24 21:54 PM MDM Narrative Medical decision making differential diagnosis includes diverticulitis, colitis, gastroenteritis, bowel obstruction, metabolic derangement, dehydration, lower GI bleed Plan is to check labs, CT abdomen pelvis I discussed the evaluation with the patient patient states that she continues to have bright red blood per rectum. Patient's had a prior history what appears to potentially be diverticular bleeding rather than diverticulitis. Patient CT was unremarkable for diverticulitis. I suspect that the patient may have a diverticular bleed, she did 5 years ago have a situation which her hemoglobin dropped and she had a syncopal episode requiring blood transfusions. Case was discussed with the [facility] hospitalist for admission Impression & Plan GIB (gastrointestinal bleeding) Discharge Plan Visit Data Chief Complaint: Illness Stated Complaint: DIVERTICULITIS FLARE-UP ED Provider: Nazario Alas Discharge Problem: GIB (gastrointestinal bleeding) Patient Disposition: Admitted As Inpatient Forms Stand Alone Forms: My [facility] Prescriptions Prescriptions: No Action (DME) Accu-Chek Guide test strips Strip See Rx Instructions .ROUTE .MEDSUPPLY Qty: 400 3RF Rx Instructions: Test 4 times daily (DME) lancets [Accu-Chek Fastclix Lancet Drum] Misc See Rx Instructions .ROUTE .MEDSUPPLY Qty: 400 3RF Rx Instructions: Test 4 times daily metformin 500 mg tablet extended release 24 hr 1,000 mg PO BID Qty: 360 3RF allopurinol 300 mg tablet 300 mg PO QPM Qty: 90 3RF amoxicillin 500 mg capsule 500 mg PO Q8H Qty: 15 0RF amlodipine 5 mg tablet 5 mg PO DAILY metoprolol succinate 50 mg tablet extended release 24 hr 50 mg PO DAILY ferrous sulfate 325 mg (65 mg iron) Tablet 325 mg PO BID multivitamin Tablet 1 tab PO QAM mycophenolate mofetil [CellCept] 500 mg Tablet 500 mg PO BID tacrolimus [Prograf] 1 mg Capsule 3 mg PO Q12H Referrals Referrals: Jorge Rhoades MD [Primary Care Provider] -
[2024-01-21 19:53] LABS: Basophils # (auto) 0.02 K/uL (0.00-0.20); Basophils % (auto) 0.3 %; Eosinophils # (auto) 0.32 K/uL (0.00-0.50); Hematocrit (blood only) 33.7 % (37.0-47.0); Hemoglobin 10.7 g/dl (12.0-16.0); Immature Granulocytes # (auto) 0.01 K/uL (0.01-0.20); Immature Granulocytes % (auto) 0.1 %; Lymphocytes # (auto) 3.51 K/uL (1.20-3.40); Lymphocytes % (auto) 43.9 %; Mean Corpuscular Hemoglobin 27.7 pg (25.0-34.0); Mean Corpuscular Hgb Conc 31.8 g/dL (32.0-36.0); Mean Corpuscular Volume 87.3 fL (80.0-100.0); Mean Platelet Volume 10.5 fL (9.4-12.4); Monocytes # (auto) 0.52 K/uL (0.11-0.59); Monocytes % (auto) 6.5 %; Neutrophils # (auto) 3.61 K/uL (1.40-6.50); Neutrophils % (auto) 45.2 %; Platelet Count 329 K/uL (130-400); RDW Coefficient of Variation 14.3 % (11.5-14.5); RDW Standard Deviation 45.5 fL (36.4-46.3); Red Blood Count 3.86 M/uL (4.20-5.40); White Blood Count 7.99 K/ul (4.8-10.8)
[2024-01-21 20:13] LABS: Albumin Globulin Ratio 1.3 (0.9-2); BUN Creatinine Ratio 13.2 (10-20); Bilirubin,Total 0.3 mg/dl (0.2-1.0); Calcium 9.5 mg/dl (8.6-10.3); Creatinine Clr Calc Pharmacy 98.7 ml/min; Est GFR (African American) 114.1 ml/min; Est GFR (Non-African American) 98.5 ml/min; Potassium 4.1 mmol/L (3.5-5.1)
[2024-01-21 20:14] LABS: Appearance Urine Clear (Clear); Bilirubin Urine Negative (Negative); Blood Urine Negative (Negative); Color Urine Yellow; Glucose Urine UA Negative (Negative); Ketones Urine Negative (Negative); Leukocyte Esterase Urine Negative (Negative); Nitrite Urine Negative (Negative); Protein Urine Negative (Negative); Specific Gravity Urine 1.009 (1.000-1.030); Urobilinogen Urine Negative (Negative); pH Urine 6.5 (4.5-7.5)
[2024-01-21] MEDS: OPTIRAY 320 100ml IV ONE (20:59)
--- NOTE | 2024-01-21 21:55 | CT Scan Report ---
Exam(s): CT ABDOMEN + PELVIS With Contrast IV Amt: 90 ml optiray 320 EXAM: CT Abdomen and Pelvis With Intravenous Contrast CLINICAL HISTORY: Reason for exam: abd pain. TECHNIQUE: Axial computed tomography images of the abdomen and pelvis with intravenous contrast. CTDI is 25.37 mGy and DLP is 1181.78 mGy-cm. Automated exposure control was utilized for the study. A dose lowering technique was utilized adhering to the principles of ALARA. CONTRAST: Patient received 90 ml optiray 320 of IV contrast COMPARISON: CT abdomen pelvis 05/03/19. FINDINGS: Lung bases: Clear. Liver: Unremarkable. Gallbladder and bile ducts: Cholecystectomy. No ductal dilation. Pancreas: No ductal dilation. Spleen: Unremarkable. Adrenals: Unremarkable. Kidneys and ureters: Chronic, end stage renal disease, with right lower quadrant renal transplant, that has a stable cortical scar in the upper pole. No transplant pyelonephritis, perinephric abscess or hydronephrosis. Stomach and bowel: Moderate fluid in the descending colon, nonspecific, concerning for ileus or gastroenteritis. Diverticulosis without diverticulitis. No obstruction. Appendix: No acute appendicitis. Intraperitoneal space: No free air or fluid. Bones/joints: No acute fracture. Soft tissues: Unremarkable. Vasculature: No aortic aneurysm. Lymph nodes: No enlarged lymph nodes. Bladder: No stones. Reproductive: Unremarkable as visualized. IMPRESSION: 1. Possible moderate gastroenteritis or ileus with fluid distending the distal colon. 2. No acute abnormality involving the right lower quadrant renal transplant. Electronically signed by: Sol Olson M.D. 01/21/24 21:54 PM
[2024-01-21] MEDS: ONDANSETRON INJ 2 MG/ML 2 ML VIAL ONE (23:21)
[2024-01-21] MEDS: ONDANSETRON INJ 2 MG/ML 2 ML VIAL IV STA (23:21)
--- NOTE | 2024-01-22 00:01 | History & Physical Report ---
Date of Service January 21, 2024 Assessment & Plan (1) Acute GI bleeding: Plan: 53yo female with history of diverticulosis with prior LGIB in 2019 requiring transfusion, mild internal hemorrhoids presenting with LGIB. Patient reports one bloody BM yesterday 01/20/24 and has had two episodes thus far today. She is hemodynamically stable. Hgb=10.7 Hct=33.7 (last 12.3 and 38, respectively on 08/20/22). She is not taking any anticoagulation or antiplatelet medications. She was told several years ago that she has early changes of fatty liver disease but has no liver dysfunction on today's labs - platelets, INR, Bilirubin and Albumin WNL. Patient with patent 20g PVI in right antecubital. CT with possible moderate gastroenteritis or ileus with fluid distending the distal colon. Possibly blood rather than gastroenteritis? During patient's prior colonoscopy for similar presentation she was found to have clotted blood in the entire colon. No evidence of acute diverticulitis. Normal WBC count. Patient was treated empirically in the past with Aztreonam and Flagyl -Admit to PCU -Maintain NPO status -LR at 125mL/hr x 1L -Maintain 2 large bore PIVs -Check orthostatic VS x 1 -Monitor CBC q 6 hours - next draw is due on transfer. Transfuse for ongoing bl ood loss, symptomatic anemia or Hgb < 8. Consent obtained. -Zofran PRN nausea -GI consultation appreciated -Will hold off on empiric antibiotics for now (2) History of renal transplant: Plan: Patient s/p renal transplant in August 2004. She is on immunosuppressive therapy with Prograf and CellCept. She follows locally with [facility]. Her renal function has been stable. -Continue Tacrolimus and CellCept (3) Hypertension: Plan: Blood pressure adequately controlled - presently 124/72 -Hold metoprolol and amlodipine in setting of acute bleed -Monitor (4) Pre-diabetes: Plan: Chronic. Patient is on Metformin 1000mg po BID -Hold Metformin -ISS correctional - goal blood sugar 110 - 140 F/E/N - LR at 125mL/hr x 1L, electrolytes WNL, NPO for now Ppx - SCDs Code - Full per discussion with patient and at time of admission Dispo - Admit to PCU History of Present Illness Chief Complaint: acute lower GI bleed Primary Care Provider: Jorge Rhoades MD Katy Lomeli is a 53yo female with history of diverticulosis presenting with acute lower GI bleed. Patient was in her usual state of health until yesterday (01/20/24) when she had an episode of painless hematochezia. Today she had two additional episodes of bright red blood per rectum - most recent episode witnessed in the ER. She reports some abdominal distention and increased gas but denies abdominal pain or cramping. She developed some nausea in the ER with an episode of non-bloody vomiting. No report of hematemesis or coffee ground emesis. Patient denies chest pain or shortness of breath. She does have some dizziness with positional changes and felt like she was going to pass out while having her last BM. In the ER patient afebrile, HD stable. HR currently 78bpm, BP of 124/72 ER Course: Zofran Patient presented with hematochezia in the past and was hospitalized from 05/05/19 - 05/08/19. Her presenting Hgb at that time was 6.1. She was transfused 2u PRBCs during that hospital stay with appropriate response. She had a colonoscopy and EGD performed by Dr. Patricia on 05/07/2019. Colonoscopy at that time revealed clotted blood in the entire colon with multiple medium-mouthed diverticula in the sigmoid colon, descending colon and ascending colon. Evidence of past bleeding, however, no evidence of diverticular bleeding. Mild internal hemorrhoids. Her EGD was entirely normal. Thought to be secondary to acute diverticular bleed. Allergies Allergy/AdvReac Type Severity Reaction Status Date / Time Penicillins Allergy Mild POSSIBLE Verified 01/21/24 23:51 RASH Sulfa (Sulfonamide Allergy Mild Rash Verified 01/21/24 23:51 Antibiotics) Cephalosporins Allergy Unknown welts Verified 01/21/24 23:51 tetracycline AdvReac Mild GI issues Verified 01/21/24 23:51 Home Medications Medication Instructions Recorded Confirmed Type ferrous sulfate 325 mg (65 mg 325 mg PO QAM 02/02/19 01/21/24 History iron) tablet multivitamin 1 tab PO QAM 02/02/19 01/21/24 History mycophenolate mofetil 500 mg 500 mg PO BID 02/02/19 01/21/24 History tablet (CellCept) tacrolimus 1 mg capsule, 3 mg PO Q12H 02/02/19 01/21/24 History immediate-release (Prograf) blood sugar diagnostic (Accu-Chek #400 ea 11/18/19 01/21/24 Rx Guide test strips) lancets (Accu-Chek Fastclix Lancet #400 ea 11/18/19 01/21/24 Rx Drum) metformin 500 mg tablet,extended 1,000 mg (2 x 500 mg) PO BID #360 11/21/20 01/21/24 Rx release 24 hr tabs amlodipine 5 mg tablet 5 mg PO DAILY 07/27/21 01/21/24 History metoprolol succinate 50 mg 50 mg PO DAILY 07/27/21 01/21/24 History tablet,extended release 24 hr allopurinol 300 mg tablet 300 mg PO QPM #90 tabs 10/15/23 01/21/24 Rx Past Med/Surg History Medical History ESRD (end stage renal disease) Allergic rhinitis Gastroesophageal reflux disease Gout, joint Hypercholesterolemia Steatohepatitis, nonalcoholic Anemia Lower gastrointestinal bleed Diverticulitis Diverticulosis Hypertension Surgical History S/P cholecystectomy S/P kidney transplant Family History Mother Colorectal cancer at age 26 with colon cancer Father Heart disease Obesity Other Coronary heart disease Denies family history of Ovarian cancer Breast cancer Social History Smoking Status: Never smoker Do You Dip or Chew Tobacco: No; Hx Alcohol Use: No Hx Substance Use: No Preferred Language: Romanian Communication Ability: Effective Body Presser Required: No Beliefs That Will Affect Care: None marital status: Current Living Situation: Spouse Feels Safe at Home: Yes Assistive Devices: Glasses Review of Systems Review of Systems: All systems reviewed & are unremarkable except as noted in HPI & below Physical Exam Physical Exam: General: patient resting comfortably, NAD, non-toxic in appearance, AA&O x 4 Skin: warm, dry, intact, no rashes or lesions HEENT: NC/AT, PERRL, EOMI, anicteric sclera, conjunctiva without injection, external ear normal to inspection and nontender, nares patent, moist mucus membranes, dentition intact, no oropharyngeal lesions, neck supple, trachea midline, no LAD, no thyromegaly, no JVD Heart: +S1/S2, regular, no m/r/g Lungs: equal air entry bilaterally, no rales/rhonchi/wheezes Abd: +BS, soft,mild distention, non-tender, no masses/organomegaly/ascites Ext: warm, 2+ pulses in UE/LE bilaterally, no clubbing/cyanosis or edema Neuro: nonfocal, patient AA&O x 4, speech intact, no facial droop, moving all extremities on command with equal strength 5/5 Bloody BM noted in bathroom - appx 100mL Results & Data Results & Data Vital Signs (Past 12 Hours) Vital Signs Temp Pulse Pulse Resp BP BP Pulse Ox 01/21/24 23:00 78 20 124/72 95 01/21/24 21:00 69 17 124/88 96 01/21/24 19:48 97 H 19 124/89 97 01/21/24 19:47 68 01/21/24 19:27 36.5 C 73 18 162/92 H 99 01/21/24 19:23 98 O2 Del Method 01/21/24 23:00 Room Air 01/21/24 21:00 Room Air 01/21/24 19:48 Room Air 01/21/24 19:47 01/21/24 19:27 Room Air 01/21/24 19:23 Room Air Laboratory Results Laboratory Results WBC 7.99 K/ul (4.8-10.8) 01/21/24 19:40 RBC 3.86 M/uL (4.20-5.40) L 01/21/24 19:40 Hgb 10.7 g/dl (12.0-16.0) L 01/21/24 19:40 Hct 33.7 % (37.0-47.0) L 01/21/24 19:40 MCV 87.3 fL (80.0-100.0) 01/21/24 19:40 MCH 27.7 pg (25.0-34.0) 01/21/24 19:40 MCHC 31.8 g/dL (32.0-36.0) L 01/21/24 19:40 RDW Std Deviation 45.5 fL (36.4-46.3) 01/21/24 19:40 RDW Coeff of Maribel 14.3 % (11.5-14.5) 01/21/24 19:40 Plt Count 329 K/uL (130-400) 01/21/24 19:40 MPV 10.5 fL (9.4-12.4) 01/21/24 19:40 Immature Gran % (Auto) 0.1 % 01/21/24 19:40 Neut % (Auto) 45.2 % 01/21/24 19:40 Lymph % (Auto) 43.9 % 01/21/24 19:40 Page % (Auto) 6.5 % 01/21/24 19:40 Eos % (Auto) 4.0 % 01/21/24 19:40 Baso % (Auto) 0.3 % 01/21/24:40 Neut # (Auto) 3.61 K/uL (1.40-6.50) 01/21/24 19:40 Lymph # (Auto) 3.51 K/uL (1.20-3.40) H 01/21/24 19:40 Page # (Auto) 0.52 K/uL (0.11-0.59) 01/21/24 19:40 Eos # (Auto) 0.32 K/uL (0.00-0.50) 01/21/24 19:40 Baso # (Auto) 0.02 K/uL (0.00-0.20) 01/21/24 19:40 Immature Gran # (Auto) 0.01 K/uL (0.01-0.20) 01/21/24 19:40 PT 11.4 Seconds (9.0-12.0) 01/21/24 23:10 INR 1.0 (0.9-1.1) 01/21/24 23:10 Sodium 140 mmol/L (136-145) 01/21/24 19:40 Potassium 4.1 mmol/L (3.5-5.1) 01/21/24 19:40 Chloride 106 mmol/L (98-107) 01/21/24 19:40 Carbon Dioxide 27 mmol/L (21-32) 01/21/24 19:40 Anion Gap 7 (3-11) 01/21/24 19:40 BUN 9 mg/dl (6-23) 01/21/24 19:40 Creatinine 0.68 mg/dl (0.6-1.2) 01/21/24 19:40 Est Cr Clr Drug Dosing 98.7 ml/min 01/21/24 19:40 Est GFR ( Amer) 114.1 ml/min 01/21/24 19:40 Est GFR (Non-Af Amer) 98.5 ml/min 01/21/24 19:40 BUN/Creatinine Ratio 13.2 (10-20) 01/21/24 19:40 Glucose 133 mg/dl (70-99(Fasting)) H 01/21/24 19:40 Calcium 9.5 mg/dl (8.6-10.3) 01/21/24 19:40 Total Bilirubin 0.3 mg/dl (0.2-1.0) 01/21/24 19:40 AST 16 U/L (13-39) 01/21/24 19:40 ALT 21 U/L (7-52) 01/21/24 19:40 Alkaline Phosphatase 79 U/L (34-104) 01/21/24 19:40 Total Protein 7.0 gm/dl (6.0-8.3) 01/21/24 19:40 Albumin 4.0 gm/dl (3.4-5.0) 01/21/24 19:40 Globulin 3.0 gm/dl (2.5-4.0) 01/21/24 19:40 Albumin/Globulin Ratio 1.3 (0.9-2) 01/21/24 19:40 Lipase 46 U/L (11-82) 01/21/24 19:40 Urine Color Yellow 01/21/24 19:56 Urine Appearance Clear (Clear) 01/21/24 19:56 Urine pH 6.5 (4.5-7.5) 01/21/24 19:56 Ur Specific [employer] 1.009 (1.000-1.030) 01/21/24 19:56 Urine Protein Negative (Negative) 01/21/24 19:56 Urine Glucose (UA) Negative (Negative) 01/21/24 19:56 Urine Ketones Negative (Negative) 01/21/24 19:56 Urine Blood Negative (Negative) 01/21/24 19:56 Urine Nitrite Negative (Negative) 01/21/24 19:56 Urine Bilirubin Negative (Negative) 01/21/24 19:56 Urine Urobilinogen Negative (Negative) 01/21/24 19:56 Ur Leukocyte Esterase Negative (Negative) 01/21/24 19:56 Blood Type B Positive 01/21/24 23:10 Antibody Screen NEGATIVE 01/21/24 23:10 Impressions Abdomen/Pelvis CT 01/21/24 19:23 Exam(s): CT ABDOMEN + PELVIS With Contrast IV Amt: 90 ml optiray 320 EXAM: CT Abdomen and Pelvis With Intravenous Contrast CLINICAL HISTORY: Reason for exam: abd pain. TECHNIQUE: Axial computed tomography images of the abdomen and pelvis with intravenous contrast. CTDI is 25.37 mGy and DLP is 1181.78 mGy-cm. Automated exposure control was utilized for the study. A dose lowering technique was utilized adhering to the principles of ALARA. CONTRAST: Patient received 90 ml optiray 320 of IV contrast COMPARISON: CT abdomen pelvis 05/03/19. FINDINGS: Lung bases: Clear. Liver: Unremarkable. Gallbladder and bile ducts: Cholecystectomy. No ductal dilation. Pancreas: No ductal dilation. Spleen: Unremarkable. Adrenals: Unremarkable. Kidneys and ureters: Chronic, end stage renal disease, with right lower quadrant renal transplant, that has a stable cortical scar in the upper pole. No transplant pyelonephritis, perinephric abscess or hydronephrosis. Stomach and bowel: Moderate fluid in the descending colon, nonspecific, concerning for ileus or gastroenteritis. Diverticulosis without diverticulitis. No obstruction. Appendix: No acute appendicitis. Intraperitoneal space: No free air or fluid. Bones/joints: No acute fracture. Soft tissues: Unremarkable. Vasculature: No aortic aneurysm. Lymph nodes: No enlarged lymph nodes. Bladder: No stones. Reproductive: Unremarkable as visualized. IMPRESSION: 1. Possible moderate gastroenteritis or ileus with fluid distending the distal colon. 2. No acute abnormality involving the right lower quadrant renal transplant. Electronically signed by: Sol Olson M.D. 01/21/24 21:54 PM Code Status & VTE Plan VTE Prophylaxis Plan VTE Prophylaxis will be ordered: Yes PG Care Time/CCT Total # of Minutes Spent Total Time Spent with Patient: Total time spent is greater than 50% in coordination of care (as documented) at patient's floor/unit and/or counseling patient: Coding Level of Care Code 55089 INT INP/OBS CARE 3/75MIN Diagnoses Acute GI bleeding K92.2 History of renal transplant Z94.0 Essential hypertension I10 Hypertension type: essential hypertension Pre-diabetes R73.03 (3) Hypertension Hypertension type: essential hypertension Qualified Code(s): I10 - Essential (primary) hypertension
[2024-01-22 00:03] LABS: Prothrombin Time 11.4 Seconds (9.0-12.0)
[2024-01-22] MEDS ORDERED: DEXTROSE 50% 50 ML SYRINGE IV PRN (00:35)
[2024-01-22] MEDS ORDERED: GLUCOSE 10 TAB/TUBE PO PRN (00:35)
[2024-01-22] MEDS ORDERED: GLUCOSE 40% GEL 15 GM TUBE PO PRN (00:35)
[2024-01-22] MEDS ORDERED: CARBOHYDRATES FOR HYPOGLYCEMIA PO PRN (00:35)
[2024-01-22] MEDS ORDERED: GLUCAGON FOR INJ 1 MG VIAL SQ PRN (00:35)
[2024-01-22] MEDS ORDERED: ONDANSETRON INJ 2 MG/ML 2 ML VIAL IV PRN (00:35)
[2024-01-22 01:07] LABS: Hematocrit (blood only) 29.6 % (37.0-47.0); Hemoglobin 9.4 g/dl (12.0-16.0); Mean Corpuscular Hemoglobin 27.8 pg (25.0-34.0); Mean Corpuscular Hgb Conc 31.8 g/dL (32.0-36.0); Mean Corpuscular Volume 87.6 fL (80.0-100.0); Mean Platelet Volume 10.8 fL (9.4-12.4); Platelet Count 341 K/uL (130-400); RDW Coefficient of Variation 14.3 % (11.5-14.5); RDW Standard Deviation 45.8 fL (36.4-46.3); Red Blood Count 3.38 M/uL (4.20-5.40); White Blood Count 9.63 K/ul (4.8-10.8)
[2024-01-22] MEDS: LACTATED RINGER'S 1,000 ML IV SCH (01:30)
[2024-01-22 04:11] LABS: Calcium 8.4 mg/dl (8.6-10.3); Potassium 4.8 mmol/L (3.5-5.1)
[2024-01-22 04:13] LABS: BUN Creatinine Ratio 14.3 (10-20); Creatinine Clr Calc Pharmacy 95.6 ml/min; Est GFR (Non-African American) 97.5 ml/min
[2024-01-22 04:28] LABS: Hematocrit (blood only) 27.2 % (37.0-47.0); Hemoglobin 8.7 g/dl (12.0-16.0); Mean Corpuscular Hemoglobin 27.8 pg (25.0-34.0); Mean Corpuscular Volume 86.9 fL (80.0-100.0); Mean Platelet Volume 10.6 fL (9.4-12.4); Platelet Count 287 K/uL (130-400); RDW Coefficient of Variation 14.5 % (11.5-14.5); RDW Standard Deviation 45.5 fL (36.4-46.3); Red Blood Count 3.13 M/uL (4.20-5.40); White Blood Count 9.92 K/ul (4.8-10.8)
[2024-01-22] MEDS: INSULIN ASPART PER UNIT CHARGE SC SCH ×2 (06:35→17:58)
[2024-01-22] MEDS: LANTUS PER UNIT CHARGE SQ SCH (08:07)
[2024-01-22] MEDS: TACROLIMUS 1 MG CAP PO SCH ×2 (08:08→21:33)
[2024-01-22] MEDS: MYCOPHENOLATE MOFETIL 250 MG CAP PO SCH (08:08)
[2024-01-22 10:29] LABS: Hematocrit (blood only) 26.5 % (37.0-47.0); Hemoglobin 8.5 g/dl (12.0-16.0)
--- NOTE | 2024-01-22 10:38 | Gastrointestinal Consultation ---
Date of Consultation January 22, 2024 Assessment & Plan (1) Acute GI bleeding: Painless red/dark red rectal bleeding in a pt w hx of rivas diverticulosis - likley a diverticular bleed. Plan 1. Colonoscopy tomorrow by Dr. Santana. 2. Clear liquids po today. 3. NPO after midnight. 4. Monitor Hb/Hct, BUN and stool outputs. 5. Further recommendations to follow scope tomorrow. Supervising Physician Co-Signing Physician Notes Attg add: Pt with painless hematochezia, normotensive, no rise in BUN. Hgb 8. Likely diverticular bleed - plan bi-directional endoscopy tomorrow after prep today. History of Present Illness Reason for Consultation: Lower GI Bleed Requesting Physician: Dr. Giron Attending Physician: Lev Castillo MD History of Present Illness Ms. Katy Lomeli is a 53 yr old female pt w a hx of HTN, pre-DM, renal transplant and hx of prior (likely) diverticular bleed in 2019 who presented to the ED yesterday for rectal bleeding. She passes a bloody BM, "very dark" on Friday around noon, then on Friday around 3 PM passed several BMs consisting of dark red blood. She hasn't had significant abd pain, just some cramping prior to each BM and she doesn't have upper abd pain/burning or reflux symptoms. She is not on any antiplatelets/anticoagulants and has not taken any NSAIDs. On arrival, Hb 10.8->7.5 today (no blood products), BUN is normal at 10. She is awake, alert, oriented and denies any pain. Her most recent colonoscopy in 2018 during a similar episode showed blood clots in the colon, rivas diverticulosis, internal hemorrhois, no clear site of bleeding was identified. Allergies Allergy/AdvReac Type Severity Reaction Status Date / Time Penicillins Allergy Mild POSSIBLE Verified 01/21/24 23:51 RASH Sulfa (Sulfonamide Allergy Mild Rash Verified 01/21/24 23:51 Antibiotics) Cephalosporins Allergy Unknown welts Verified 01/21/24 23:51 tetracycline AdvReac Mild GI issues Verified 01/21/24 23:51 Home Medications Medication Instructions Recorded Confirmed Type ferrous sulfate 325 mg (65 mg 325 mg PO QAM 02/02/19 01/21/24 History iron) tablet multivitamin 1 tab PO QAM 02/02/19 01/21/24 History mycophenolate mofetil 500 mg 500 mg PO BID 02/02/19 01/21/24 History tablet (CellCept) tacrolimus 1 mg capsule, 3 mg PO Q12H 02/02/19 01/21/24 History immediate-release (Prograf) blood sugar diagnostic (Accu-Chek #400 ea 11/18/19 01/21/24 Rx Guide test strips) lancets (Accu-Chek Fastclix Lancet #400 ea 11/18/19 01/21/24 Rx Drum) metformin 500 mg tablet,extended 1,000 mg (2 x 500 mg) PO BID #360 11/21/20 01/21/24 Rx release 24 hr tabs amlodipine 5 mg tablet 5 mg PO DAILY 07/27/21 01/21/24 History metoprolol succinate 50 mg 50 mg PO DAILY 07/27/21 01/21/24 History tablet,extended release 24 hr allopurinol 300 mg tablet 300 mg PO QPM #90 tabs 10/15/23 01/21/24 Rx Patient History Medical History ESRD (end stage renal disease) Allergic rhinitis Gastroesophageal reflux disease Gout, joint Hypercholesterolemia Steatohepatitis, nonalcoholic Anemia Lower gastrointestinal bleed Diverticulitis Diverticulosis Hypertension Surgical History S/P cholecystectomy S/P kidney transplant Family History Mother Colorectal cancer at age 26 with colon cancer Father Heart disease Obesity Other Coronary heart disease Denies family history of Ovarian cancer Breast cancer Social History Smoking Status: Never smoker Second Hand Exposure: No; Do You Dip or Chew Tobacco: No; Hx Alcohol Use: No Hx Substance Use: No Preferred Language: Welsh Communication Ability: Effective Parts Clerk Required: No Beliefs That Will Affect Care: None marital status: Current Living Situation: Spouse Current Living Situation Comment: w/ spouse Feels Safe at Home: Yes Assistive Devices: None Review of Systems 2 Review of Systems: ROS: Gen: Denies weakness, fevers, weight loss Eyes: No eye redness, or pain, no recent vision changes Resp: No SOB, no cough Cardio: No palpitations/irregular beats, no chest pain GI: As per HPI, otherwise (-) : Denies pain on urination Skin: No jaundice, itching or new rashes Physical Exam 2 Constitutional: WD/WN, vitals as above Eyes: PERRL, conjunctivae normal, anicteric sclerae ENMT: external ear and nose normal, oropharynx normal Neck: trachea midline, no thyromegaly Respiratory: normal respiratory effort, lungs clear to auscultation Cardiovascular: RRR, no murmur, no edema Gastrointestinal (Abdomen): normal bowel sounds, soft, nontender, no hepatosplenomegaly transplanted kidney palpable in the RLQ Musculoskeletal: no cyanosis or clubbing, extremities motor strength 5/5 Skin: no rashes, warm and dry Neurologic: PERRL, EOMI, accommodation nl, no face palsy, no dysarthria Psychiatric: A+Ox3, euthymic affect Lymphatic: no cervical or axillary lymphadenopathy Results & Data Vital Signs (Past 12 Hours) Vital Signs Temp Pulse Pulse Resp BP Pulse Ox O2 Del Method 01/22/24 08:13 36.8 C 74 18 116/65 95 Room Air 01/22/24 08:00 73 01/22/24 05:35 69 01/22/24 03:36 36.6 C 76 18 106/69 95 Room Air 01/22/24 00:53 36.7 C 88 18 105/70 96 Room Air 01/21/24 23:00 78 20 124/72 95 Room Air Laboratory Results 01/22/24 10:09 01/22/24 03:20 Diagnostic Findings CTAP w IV on 01/21/24: . Possible moderate gastroenteritis or ileus with fluid distending the distal colon. 2. No acute abnormality involving the right lower quadrant renal transplant.
[2024-01-22 11:09] LABS: Ferritin 11.9 ng/ml (8-388)
--- OUTSIDE RECORDS SUMMARY | 2024-01-22 12:23 | External Medical Summary | Continuity of Care Document ---
Author Name Unknown Organization [facility] [address] [place], [place] [id number] Care Team Providers Care Supervisor Brine Name Role Phone RhoadesBertobrigettemillanafisa Alejandra Primary Care Physician [phone] [id number] Date(s): 12/15/23 - 12/15/23 [facility] [address] [facility] [address], [facility] 1 [place], [place] [phone] Encounter Diagnosis Kidney transplant status(Final) - Discharge Disposition: Home or Self Care Attending Physician: MD Best Nasroll Referring Physician: MD Estephania, [facility] Allergies, Adverse Reactions, Alerts Substance Reaction Severity Status sulfa drugs hives Active MSG (Monosodium Glutamate) Swelling erythema and swelling of ankles, has happened several times. Swelling Rash MSG Mild Active Immunizations Given and Recorded Vaccine Date Status Refusal Reason tetanus/diphtheria/pertuss, acel (Tdap) 11/21/23 G iven SARS-CoV-2 (COVID-19) mRNA-vacc - [id number] 09/13/23 Recorded SARS-CoV-2 mRNA (Pfizer 12+) bivalent 10/23/22 Rec orded zoster vaccine, inactivated 1 09/10/22 Given zoster vaccine, inactivated 2 07/24/22 Given influenza virus vaccine, inactivated 07/24/22 Give n influenza virus vaccine, inactivated 07/25/21 Give n SARS-CoV-2 (COVID-19) mRNA BNT-162b2 vax 10/10/21 Recorded SARS-CoV-2 (COVID-19) mRNA BNT-162b2 vax 3 01/15/21 Recorded SARS-CoV-2 (COVID-19) mRNA BNT-162b2 vax 4 12/25/20 Recorded influenza virus vaccine, H1N1 5 09/27/09 Recorded 1Result Comment: Pearl Attila, Electrical Intern [id number] 07/25/23 2Result Comment: AC4KT exp 07/10/23 3Result Comment: 2021-07-25: Historical information-source unspecified 4Result Comment: 2021-07-25: Historical information-source unspecified 5Result Comment: 2021-07-25: Historical information-source unspecified Medications Accu-Chek FastClix Lancets Start: 02/13/22 13:18:00 EDT, See Instructions, Disp# 400 each, Refills: 0, Pt to check blood sugars 4x daily. E11.9, Pharmacy: [facility] Start Date: 02/13/22 Status: Ordered Accu-Chek Guide Test Strips Start: 02/13/22 13:18:00 EDT, See Instructions, Disp# 400 each, Refills: 0, Pt to check blood sugars 4 times daily. E11.9, Pharmacy: [facility] Start Date: 02/13/22 Status: Ordered allopurinol 300 mg oral tablet Start: 03/29/11 11:51:00, 1 tab, PO, qhs Start Date: 03/29/11 Status: Ordered amLODIPine 5 mg oral tablet Start: 10/15/23 14:43:00 EST, See Instructions, Disp# 90 unknown unit, Refills: 0, TAKE 1 TABLET BYMOUTH DAILY., Pharmacy: [facility] Start Date: 10/15/23 Status: Ordered iron polysaccharide 150 mg (elemental iron) oral capsule Start: 03/29/11 11:54:00, 1 cap, PO, Daily, cap Start Date: 03/29/11 Status: Ordered metFORMIN 500 mg oral tablet Start: 10/15/23 14:43:00 EST, See Instructions, Disp# 360 unknown unit, Refills: 0, TAKE 2 TABLETS BY MOUTH TWICE DAILY, Pharmacy: [facility] Start Date: 10/15/23 Status: Ordered Metoprolol Succinate ER 50 mg oral tablet, extended release Start: 07/21/23 15:32:00 EDT, See Instructions, Disp# 90 tab, Refills: 1, TAKE 1 TABLET BY MOUTH ONCE DAILY, Pharmacy: [facility] Start Date: 07/21/23 Status: Ordered multivitamin with iron Start: 03/29/11 11:52:00, qAM, cap Start Date: 03/29/11 Status: Ordered mycophenolate mofetil 500 mg oral tablet Start: 01/05/23 19:21:00 EDT, See Instructions, Disp# 180 tab, Refills: 3, TAKE 1 TABLET TWICE DAILY, Pharmacy: [facility] Start Date: 01/05/23 Status: Ordered tacrolimus (generic) 1 mg oral capsule Start: 01/03/23 15:52:00 EST, See Instructions, Disp# 450 cap, Refills: 2, TAKE 3 MG IN THE MORNINGAND 2 MG IN THE EVENING. HOLD PRIOR TO BLOOD WORK., Pharmacy: 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 A 1 year screening mammogram is recommended. 2Negative for intraepithelial lesion or malignancy 3done 2019, due 2024 - followed by Dr. Laguerre 4except diverticulosis Results Laboratory List Name Date Post-Transplant Donor Specific Antibody (DSA) (POST TX HLA ANTIBODIES) 12/15/23 Request to FAX Report (First Location) ( ACC NO TO BE FAXED) 12/15/23 Most recent to oldest [Reference Range]: 1 Bilirubin, Total (QST) [0.2-1.2 mg/dL] 0 .4 mg/dL 1 (12/15/23 1:35 PM) WBC Count-[facility] [3.8-10.8 Thousand/uL] 6 .1 Thousand/uL 2 (12/15/23 1:35 PM) Mg-[facility] [1.5-2.5 mg/dL] 1.6 mg/dL 3 (12/15/23 1:35 PM) Phosphorus-[facility] [2.5-4.5 mg/dL] 3.9 mg/ dL 4 (12/15/23 1:35 PM) Color UA-[facility] [YELLOW] YELLOW 5 (12/15/23 1:35 PM) Appearance [facility] [CLEAR] CLEAR 6 (12/15/23 1:35 PM) Specific [place] [facility] [1.001-1.035] 1.010 7 (12/15/23 1:35 PM) pH [facility] [5.0-8.0] 6.5 8 (12/15/23 1:35 PM) Glucose [facility] [NEGATIVE-NEGATIVE] NEG ATIVE 9 (12/15/23 1:35 PM) Bilirubin [facility] [NEGATIVE-NEGATIVE] N EGATIVE 10 (12/15/23 1:35 PM) Ketones [facility] [NEGATIVE-NEGATIVE] NEG ATIVE 11 (12/15/23 1:35 PM) Occult Blood [facility] [NEGATIVE-NEGATIVE ] NEGATIVE 12 (12/15/23 1:35 PM) Protein [facility] [NEGATIVE-NEGATIVE] NEG ATIVE 13 (12/15/23 1:35 PM) Nitrite [facility] [NEGATIVE-NEGATIVE] NEG ATIVE 14 (12/15/23 1:35 PM) Leuk Est [facility] [NEGATIVE-NEGATIVE] TR JUDY 15 *A* (12/15/23 1:35 PM) WBC [facility] [< OR = 5 /HPF] NONE SEEN / HPF 16 (12/15/23 1:35 PM) RBC [facility] [< OR = 2 /HPF] NONE SEEN / HPF 17 (12/15/23 1:35 PM) Squam Epi [facility] [< OR = 5 /HPF] NONE SEEN /HPF 18 (12/15/23 1:35 PM) Bacteria [facility] [NONE SEEN /HPF] NONE SEEN /HPF 19 (12/15/23 1:35 PM) Hyaline Cast [facility] [NONE SEEN /LPF] N ONE SEEN /LPF 20 (12/15/23 1:35 PM) BUN-[facility] [7-25 mg/dL] 8 mg/dL 21 (12/15/23 1:35 PM) Creatinine-[facility] [0.50-1.03 mg/dL] 0.62 mg/dL 22 (12/15/23 1:35 PM) BUN/Creat Ratio-Quest [6-22 (calc)] SEE NOTE: (calc) 23 (12/15/23 1:35 PM) Na-[facility] [135-146 mmol/L] 140 mmol/L 24 (12/15/23 1:35 PM) K-[facility] [3.5-5.3 mmol/L] 4.3 mmol/L 25 (12/15/23 1:35 PM) Cl-[facility] [98-110 mmol/L] 104 mmol/L 26 (12/15/23 1:35 PM) CO2-Quest [20-32 mmol/L] 26 mmol/L 27 (12/15/23 1:35 PM) Ca-[facility] [8.6-10.4 mg/dL] 9.5 mg/dL 28 (12/15/23 1:35 PM) MPV-Quest [7.5-12.5 fL] 10.7 fL 29 (12/15/23 1:35 PM) Absolute Neutrophils-Quest [7615-9018 ce lls/uL] 3373 cells/uL 30 (12/15/23 1:35 PM) Absolute Lymphocytes-Quest [850-3900 paresh ls/uL] 2141 cells/uL 31 (12/15/23 1:35 PM) Absolute Monocytes-Quest [200-950 cells/ uL] 378 cells/uL 32 (12/15/23 1:35 PM) Absolute Eosinophils-Quest [15-500 cells /uL] 177 cells/uL 33 (12/15/23 1:35 PM) Absolute Basophils-Quest [0-200 cells/uL ] 31 cells/uL 34 (12/15/23 1:35 PM) Neutrophils-Quest 55.3 % 35 (12/15/23 1:35 PM) Lymphocytes-Quest 35.1 % 36 (12/15/23 1:35 PM) Monocytes-Quest 6.2 % 37 (12/15/23 1:35 PM) Eosinophils-Quest 2.9 % 38 (12/15/23 1:35 PM) Basophils-Quest 0.5 % 39 (12/15/23 1:35 PM) HCG Total, QL-QST [See Note:] NEGATIVE 4 0 (12/15/23 1:35 PM) Donor Specific Antibody (DSA) NEGATIVE *Unknown* (12/15/23 9:32 AM) Phone No [phone] (12/15/23 9:32 AM) Hemoglobin Refl [11.7-15.5 g/dL] 12.6 g/ dL 42 (12/15/23 1:35 PM) Hematocrit Refl [35.0-45.0 %] 36.8 % 43 (12/15/23 1:35 PM) RBC Refl [3.80-5.10 Million/uL] 4.45 Mil lion/uL 44 (12/15/23 1:35 PM) MCV Refl [80.0-100.0 fL] 82.7 fL 45 (12/15/23 1:35 PM) MCH Refl [27.0-33.0 pg] 28.3 pg 46 (12/15/23 1:35 PM) RDW Refl [11.0-15.0 %] 14.0 % 47 (12/15/23 1:35 PM) Alkaline Phosphatase (ALP) [37-153 U/L] 75 U/L 48 (12/15/23 1:35 PM) CMV DNA, Qn Real Time PCR Not Detected I U/mL 49 (12/15/23 1:35 PM) CMV DNA, Qn PCR Not Detected Log IU/ mL 50 (12/15/23 1:35 PM) U Creatinine [20-275 mg/dL] 69 mg/dL 51 (12/15/23 1:35 PM) ALT [6-29 U/L] 23 U/L 52 (12/15/23 1:35 PM) Source Whole Blood 53 (12/15/23 1:35 PM) Comment (HLA antibody) see comment tab 5 4 *Unknown* (12/15/23 9:32 AM) eGFR-QST [> OR = 60 mL/min/1.73m2] 105 m L/min/1.73m2 55 (12/15/23 1:35 PM) MCHC (QST) [32.0-36.0 g/dL] 34.2 g/dL 56 (12/15/23 1:35 PM) Protein/Creatinine Ratio. [24-184] 58 57 (12/15/23 1:35 PM) Glucose-Qst [65-99 mg/dL] 138 mg/dL 58 *HI* (12/15/23 1:35 PM) Platelet Count [140-400 Thousand/uL] 347 Thousand/uL 59 (12/15/23 1:35 PM) U Protein-QST [5-24 mg/dL] 4 mg/dL 60 *LOW* (12/15/23 1:35 PM) U Protein/Creatinine Ratio-QST [0.024-0. 184] 0.058 61 (12/15/23 1:35 PM) HLA class I Antibody (PRA) 0 % (12/15/23 9:32 AM) HLA class II Antibody (PRA) 0 % (12/15/23 9:32 AM) 1Result Comment: Specimen Received d/t: 12/15/2023 23:50:00 Lab test performed by: [facility] [employer] [address] [place] [address] Gildardo Carpio MD 2Result Comment: Specimen Received d/t: 12/15/2023 23:50:00 Lab test performed by: [facility] [employer] [address] [place] [address] Gildardo Carpio MD 3Result Comment: Specimen Received d/t: 12/15/2023 23:50:00 Lab test performed by: [facility] [employer] [address] [place] [address] Gildardo Carpio MD 4Result Comment: Specimen Received d/t: 12/15/2023 23:50:00 Lab test performed by: [facility], [facility] [employer] [address] [place] [address] Gildardo Carpio MD 5Result Comment: Specimen Received d/t: 12/15/2023 23:50:00 Lab test performed by: [facility] [employer] [address] [place] [address] Gildardo Carpio MD 6Result Comment: Specimen Received d/t: 12/15/2023 23:50:00 Lab test performed by: [facility], [facility] [employer] [address] [place] [address] Gildardo Carpio MD 7Result Comment: Specimen Received d/t: 12/15/2023 23:50:00 Lab test performed by: [employer] [facility] [employer] [address] [place] [address] Gildardo Carpio MD 8Result Comment: Specimen Received d/t: 12/15/2023 23:50:00 Lab test performed by: [employer] [facility] [employer] [address] [place] [address] Gildardo Carpio MD 9Result Comment: Specimen Received d/t: 12/15/2023 23:50:00 Lab test performed by: [employer] [facility] [employer] [address] [place], [place] [address] [place] [address] Gildardo Carpio MD 10Result Comment: Specimen Received d/t: 12/15/2023 23:50:00 Lab test performed by: [employer] [facility] [employer] [address] [place], [place] [address] [place] [address] Gildardo Carpio MD 11Result Comment: Specimen Received d/t: 12/15/2023 23:50:00 Lab test performed by: [employer] [facility] [employer] [address] [place], [place] [address] [place] [address] Gildardo Carpio MD 12Result Comment: Specimen Received d/t: 12/15/2023 23:50:00 Lab test performed by: [employer] [facility] [employer] [address] [place] [address] Gildardo Carpio MD 13Result Comment: Specimen Received d/t: 12/15/2023 23:50:00 Lab test performed by: [employer] [facility] [employer] [address] [place] [address]Dangelo Carpio MD 14Result Comment: Specimen Received d/t: 12/15/2023 23:50:00 Lab test performed by: [employer] [facility] [employer] [address] [place] [address]Dangelo Carpio MD 15Result Comment: Specimen Received d/t: 12/15/2023 23:50:00 Lab test performed by: [facility] [employer] [address] [place] [address]Dangelo Carpio MD 16Result Comment: Specimen Received d/t: 12/15/2023 23:50:00 Lab test performed by: [facility] [employer] [address] [place] [address]Dangelo Carpio MD 17Result Comment: Specimen Received d/t: 12/15/2023 23:50:00 Lab test performed by: [facility] [employer] [address] [place] [address]Dangelo Carpio MD 18Result Comment: Specimen Received d/t: 12/15/2023 23:50:00 Lab test performed by: [facility] [employer] [address] [place] [address]Dangelo Carpio MD 19Result Comment: Specimen Received d/t: 12/15/2023 23:50:00 Lab test performed by: [facility] [employer] [address] [place] [address]Dangelo Carpio MD 20Result Comment: Specimen Received d/t: 12/15/2023 23:50:00 Lab test performed by: [facility] [employer] [address] [place] [address]Dangelo Carpio MD 21Result Comment: Specimen Received d/t: 12/15/2023 23:50:00 Lab test performed by: [facility] [employer] [address] [place] [address]Dangelo Carpio MD 22Result Comment: Specimen Received d/t: 12/15/2023 23:50:00 Lab test performed by: [facility] [employer] [address] [place] [address]Dangelo Carpio MD 23Result Comment: Not Reported: BUN and Creatinine are within reference range. Specimen Received d/t: 12/15/2023 23:50:00 Lab test performed by: [facility] [employer] [address] [place] [address] Gildardo Carpio MD 24Result Comment: Specimen Received d/t: 12/15/2023 23:50:00 Lab test performed by: [facility] [employer] [address] [place] [address] Gildardo Carpio MD 25Result Comment: Specimen Received d/t: 12/15/2023 23:50:00 Lab test performed by: [facility], [facility] [employer] [address] [place] [address] Gildardo Carpio MD 26Result Comment: Specimen Received d/t: 12/15/2023 23:50:00 Lab test performed by: [facility], [facility] [employer] [address] [place] [address]Dangelo Carpio MD 27Result Comment: Specimen Received d/t: 12/15/2023 23:50:00 Lab test performed by: [facility] [employer] [address] [place] [address] Gildardo Carpio MD 28Result Comment: Specimen Received d/t: 12/15/2023 23:50:00 Lab test performed by: [facility] [employer] [address] [place] [address] Gildardo Carpio MD 29Result Comment: Specimen Received d/t: 12/15/2023 23:50:00 Lab test performed by: [facility] [employer] [address] [place] [address] Gildardo Carpio MD 30Result Comment: Specimen Received d/t: 12/15/2023 23:50:00 Lab test performed by: [facility] [employer] [address] [place] [address] Gildardo Carpio MD 31Result Comment: Specimen Received d/t: 12/15/2023 23:50:00 Lab test performed by: [facility] [employer] [address] [place] [address] Gildardo Carpio MD 32Result Comment: Specimen Received d/t: 12/15/2023 23:50:00 Lab test performed by: [employer] [facility] [employer] [address] [place] [address] Gildardo Carpio MD 33Result Comment: Specimen Received d/t: 12/15/2023 23:50:00 Lab test performed by: [facility], [facility] [employer] [address] [place] [address] Gildardo Carpio MD 34Result Comment: Specimen Received d/t: 12/15/2023 23:50:00 Lab test performed by: [employer] [facility] [employer] [address] [place] [address] Gildardo Carpio MD 35Result Comment: Specimen Received d/t: 12/15/2023 23:50:00 Lab test performed by: [employer] [facility] [employer] [address] [place] [address] Gildardo Carpio MD 36Result Comment: Specimen Received d/t: 12/15/2023 23:50:00 Lab test performed by: [employer] [facility] [employer] [address] [place] [address] Gildardo Carpio MD 37Result Comment: Specimen Received d/t: 12/15/2023 23:50:00 Lab test performed by: [facility] [employer] [address] [place] [address] Gildardo Carpio MD 38Result Comment: Specimen Received d/t: 12/15/2023 23:50:00 Lab test performed by: [facility] [employer] [address] [place] [place] [address] Gildardo Carpio MD 39Result Comment: Specimen Received d/t: 12/15/2023 23:50:00 Lab test performed by: [facility] [employer] [address] [place] [address]Dangelo Carpio MD 40Result Comment: Reference Range: Reference Range Non-: Negative : Positive Specimen Received d/t: 12/15/2023 23:50:00 Lab test performed by: [facility] [employer] [address] [place] [address]Dangelo Carpio MD 41Result Comment: Testing Performed By: Dept of [facility] [address], [facility] [address], [place] [address] 42Result Comment: Specimen Received d/t: 12/15/2023 23:50:00 Lab test performed by: [facility] [employer] [address] [place] [address]Dangelo Carpio MD 43Result Comment: Specimen Received d/t: 12/15/2023 23:50:00 Lab test performed by: [facility] [employer] [address] [place] [address]Dangelo Carpio MD 44Result Comment: Specimen Received d/t: 12/15/2023 23:50:00 Lab test performed by: [facility] [employer] [address] [place] [address]Dangelo Carpio MD 45Result Comment: Specimen Received d/t: 12/15/2023 23:50:00 Lab test performed by: [facility] [employer] [address] [place] [address]Dangelo Carpio MD 46Result Comment: Specimen Received d/t: 12/15/2023 23:50:00 Lab test performed by: [facility] [employer] [address] [place] [address]Dangelo Carpio MD 47Result Comment: Specimen Received d/t: 12/15/2023 23:50:00 Lab test performed by: [facility] [employer] [address] [place] [address]Dangelo Carpio MD 48Result Comment: Specimen Received d/t: 12/15/2023 23:50:00 Lab test performed by: [facility] [address] Gildardo Carpio MD 49Result Comment: Specimen Received d/t: 12/15/2023 23:50:00 Lab test performed by: [facility] [id number] [facility] [place] Zane Pereira M.D.,PhD 50Result Comment: REFERENCE RANGE: NOT DETECTED This test was developed and its analytical performance characteristics have been determined by [facility] [place], [place]. It has not been cleared or approved by the U.S. Food and Drug Administration. This assay has been validated pursuant to the CLIA regulations and is used for clinical purposes. For additional information, please refer to http://education.Trulia/faq/CMVandEBVPCR (This link is being provided for informational/ educational purposes only.) Specimen Received d/t: 12/15/2023 23:50:00 Lab test performed by: [facility] [place] [id number] [facility] [place] Zane Pereira M.D.,PhD 51Result Comment: Specimen Received d/t: 12/15/2023 23:50:00 Lab test performed by: [facility] [address] Gildardo Carpio MD 52Result Comment: Specimen Received d/t: 12/15/2023 23:50:00 Lab test performed by: [facility] [address] Gildardo Carpio MD 53Result Comment: Specimen Received d/t: 12/15/2023 23:50:00 Lab test performed by: [facility] [place] [id number] [facility] [place] Zane Pereira M.D.,PhD 54Result Comment: Antibodies directed against HLA class I and class II are defined by solid phase immunoassay, specific for IgG. Panel reactive antibody (%PRA), calculated by testing against a panel of HLA phenotypes reflecting population frequency, is an approximation of breadth of sensitization and does not reflect antibody strength. This test was developed and its performance characteristics determined by the [facility]. It has not been cleared or approved by the U.S. Food and Drug Administration. The FDA has determined that such clearance or approval is not necessary. This test is used for clinical purposes. It should not be regarded as investigational or for research. This lab is certified under CLIA-88 as qualified to perform high complexity clinical lab testing. Details of test procedures can be obtained from the [facility] at [phone]. [facility] No.: [id number] 55Result Comment: Specimen Received d/t: 12/15/2023 23:50:00 Lab test performed by: [facility] [employer] [address] [place] [address] Gildardo Carpio MD 56Result Comment: Specimen Received d/t: 12/15/2023 23:50:00 Lab test performed by: [facility] [employer] [address] [place] [address] Gildardo Carpio MD 57Result Comment: Specimen Received d/t: 12/15/2023 23:50:00 Lab test performed by: [facility] [employer] [address] [place] [address] Gildardo Carpio MD 58Result Comment: Fasting reference interval For someone without known diabetes, a glucose value >125 mg/dL indicates that they may have diabetes and this should be confirmed with a follow-up test. Specimen Received d/t: 12/15/2023 23:50:00 Lab test performed by: [facility] [employer] [address] [place] [address] Gildardo Carpio MD 59Result Comment: Specimen Received d/t: 12/15/2023 23:50:00 Lab test performed by: [facility] [employer] [address] [place] [address] Gildardo Carpio MD 60Result Comment: FASTING:UNKNOWN FASTING: UNKNOWN Specimen Received d/t: 12/15/2023 23:50:00 Lab test performed by: [facility], [facility] [employer] [address] [place] [address] Gildardo Carpio MD 61Result Comment: Specimen Received d/t: 12/15/2023 23:50:00 Lab test performed by: [facility], [facility] [employer] [address] [place] [address] Gildardo Carpio MD Social History Social History Type Response Smoking Status Never smoked cigaret alex Sex Female Patient Care team information Care Team Personnel Name: JARVIS Barrios, Valerie Position: RN Member Role: Lifetime - never expires Address: Address: [facility] [address] [place] [address] [place] Name: MD Rhoades Ravishankar E Position: Physician Member Role: Primary Care Provider Address: Address: [address] [place] [address] [place] Name: Maura Neri Tracy M Position: Pharmacist Member Role: Lifetime - never expires Address: Address: [facility] [address] [place] [address] Care Team Related Persons Name: JASVIR STAPLETON Address: home [address] [place], [place] [id number]
[2024-01-22] MEDS: LAVAGE SOLUTION 4000ML PO ONE (14:35)
[2024-01-22] MEDS ORDERED: Nursing to Pharmacy Communication SCH (16:45)
[2024-01-22] MEDS: bisacodyL 5 MG TABEC PO ONE (18:01)
[2024-01-22] MEDS: IRON SUCROSE 200 MG in 0.9 % SODIUM CHLORIDE 100 ML IV SCH (18:02)
[2024-01-22] MEDS: INSULIN ASPART PER UNIT CHARGE ONE (18:10)
--- NOTE | 2024-01-22 20:42 | Hospitalist Progress Note ---
Date of Service January 22, 2024 Assessment & Plan (1) Acute GI bleeding: Plan: Pt with history of diverticulosis with prior lower GI bleed in 2019 requiring transfusion and colonoscopy Her symptoms/signs are reminiscent of that episode in 2019 No abd pain or other signs to suggest ischemic colitis No infectious symptoms Hopefully GI bleeding is 2nd to diverticulosis Colonic or distal small bowel AVM is possible source Neoplasm can't be ruled out Thus far no need for PRBCs Appreciate GI consultation Plan - * serial H/H's * clears until MN, then NPO for EGD/colonoscopy tomorrow with [facility] * prep for colonoscopy * IV venofer (2) Acute blood loss anemia: Plan: 2nd to #1 serial H/H's (3) Iron deficiency: Plan: transferrin sat <20% ferritin 11 this is despite chronic use of ferrous sulfate supplementation would benefit from IV iron thus, venofer 200mg IV x 1 if tolerated then 300mg x 1 tomorrow after her scopes (4) History of renal transplant: Plan: s/p renal transplant in August 2004 at [facility] Continue Prograf and CellCept. 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 and the symptoms today were similar to previous CTS in that hand symptoms now fully resolved after name band was loosened Plan updated at bedside Admission and Anticipated Discharge Date Admission Date: January 21, 2024 Subjective patient w/o any major complaints during my visit lower GI bleeding/brbpr has improved since admission no abd pain no nausea or emesis denies feeling dizzy or lightheaded denies cp or dyspnea reports taking iron tablets once daily on chronic basis denies seeing blood in stool on regular basis tele overnight wnl Review of Systems Review of Systems: gen - tolerating clears neuro - had episode of R hand numbness earlier today; her name band was found to be extremely tight; it was cut off, and within about 1 hour the symptoms resolved; she has carpal tunnel, and this felt very similar to the numbness she gets with such cv - no orthopnea, edema or chest pain pulm - no NINA GI - no vomiting Physical Exam Physical Exam: gen - NAD, pleasant skin - mild pallor neck - no JVD heart - RRR, s1 s2, no murmur lungs - CTA b/l abd - soft NT ND BS+; kidney transplant palpable in the RLQ ext - no edema, warm, pulses 2+ b/l psych - a/o x 3 Results & Data Results & Data Vital Signs (Past 12 Hours) Vital Signs Temp Pulse Pulse Resp BP Pulse Ox O2 Del Method 01/22/24 19:05 36.7 C 76 18 106/69 94 Room Air 01/22/24 17:16 79 01/22/24 15:21 37.0 C 76 16 113/69 96 Room Air 01/22/24 11:37 36.6 C 77 16 110/67 96 Room Air Laboratory Results Laboratory Results - last 24 hr 01/21/24 01/22/24 01/22/24 23:10 00:40 03:20 WBC 9.63 9.92 RBC 3.38 L 3.13 L Hgb 9.4 L 8.7 L Hct 29.6 L 27.2 L MCV 87.6 86.9 MCH 27.8 27.8 MCHC 31.8 L 32.0 RDW Std Deviation 45.8 45.5 RDW Coeff of Maribel 14.3 14.5 Plt Count 341 287 MPV 10.8 10.6 PT 11.4 INR 1.0 Sodium 138 Potassium 4.8 Chloride 107 Carbon Dioxide 25 Anion Gap 6 BUN 10 Creatinine 0.70 Est Cr Clr Drug Dosing 95.6 Est GFR ( Amer) 113.0 Est GFR (Non-Af Amer) 97.5 BUN/Creatinine Ratio 14.3 Glucose 214 H POC Glucose 236 H Calcium 8.4 L Iron TIBC Unsaturated IBC Transferrin % Sat Ferritin Blood Type B Positive Antibody Screen NEGATIVE 01/22/24 01/22/24 01/22/24 06:25 10:09 11:36 WBC RBC Hgb 8.5 L Hct 26.5 L MCV MCH MCHC RDW Std Deviation RDW Coeff of Maribel Plt Count MPV PT INR Sodium Potassium Chloride Carbon Dioxide Anion Gap BUN Creatinine Est Cr Clr Drug Dosing Est GFR ( Amer) Est GFR (Non-Af Amer) BUN/Creatinine Ratio Glucose POC Glucose 176 H 151 H Calcium Iron 54 TIBC 319 Unsaturated IBC 265 Transferrin % Sat 17 Ferritin 11.9 Blood Type Antibody Screen 01/22/24 01/22/24 16:30 19:44 WBC RBC Hgb Hct MCV MCH MCHC RDW Std Deviation RDW Coeff of Maribel Plt Count MPV PT INR Sodium Potassium Chloride Carbon Dioxide Anion Gap BUN Creatinine Est Cr Clr Drug Dosing Est GFR ( Amer) Est GFR (Non-Af Amer) BUN/Creatinine Ratio Glucose POC Glucose 190 H 123 H Calcium Iron TIBC Unsaturated IBC Transferrin % Sat Ferritin Blood Type Antibody Screen PG Care Time/CCT Total # of Minutes Spent Total Time Spent with Patient: Total time spent is greater than 50% in coordination of care (as documented) at patient's floor/unit and/or counseling patient: Coding Level of Care Code 29713 SUB INP/OBS CARE 2/35MIN Diagnoses Acute GI bleeding K92.2 Acute blood loss anemia D62 Iron deficiency E61.1 History of renal transplant Z94.0 Essential hypertension I10 Hypertension type: essential hypertension Pre-diabetes R73.03 Carpal tunnel syndrome G56.00 (5) Hypertension Hypertension type: essential hypertension Qualified Code(s): I10 - Essential (primary) hypertension
[2024-01-22] MEDS: allopurinoL 300 MG TAB PO SCH (21:32)
[2024-01-23] MEDS: SODIUM CHLORIDE 0.9% 1,000 ML IV SCH (00:01)
[2024-01-23 07:17] LABS: Estimated Average Glucose 151 mg/dl; Hematocrit (blood only) 24.9 % (37.0-47.0); Hemoglobin A1C 6.9 % (4.5-5.6); Mean Corpuscular Hemoglobin 28.2 pg (25.0-34.0); Mean Corpuscular Hgb Conc 32.1 g/dL (32.0-36.0); Mean Corpuscular Volume 87.7 fL (80.0-100.0); Mean Platelet Volume 10.6 fL (9.4-12.4); Platelet Count 250 K/uL (130-400); RDW Coefficient of Variation 14.7 % (11.5-14.5); RDW Standard Deviation 47.5 fL (36.4-46.3); Red Blood Count 2.84 M/uL (4.20-5.40); White Blood Count 6.01 K/ul (4.8-10.8)
[2024-01-23 07:35] LABS: BUN Creatinine Ratio 9.1 (10-20); Calcium 8.5 mg/dl (8.6-10.3); Creatinine Clr Calc Pharmacy 100.7 ml/min; Est GFR (African American) 115.3 ml/min; Est GFR (Non-African American) 99.4 ml/min; Magnesium 1.6 mg/dl (1.7-2.4); Potassium 3.9 mmol/L (3.5-5.1)
[2024-01-23] MEDS: MAGNESIUM SULFATE / D5W 1 GM/100 ML BAG IV SCH (08:16)
--- NOTE | 2024-01-23 09:22 | History & Physical Bridge Note ---
Date of Service January 23, 2024 History & Physical Bridge Note I have examined the patient, reviewed the History & Physical and in the interval since the performance of the History & Physical I have noted the following changes of clinical significance: no changes noted Supervising Physician Co-Signing Physician Notes Bleeding has stopped. egd/colon for evaluation of hematochezia.
--- NOTE | 2024-01-23 09:44 | Anesthesiology Consultation ---
Date of Service January 23, 2024 Assessment & Plan Chart Review Chart Review: Acceptable Risk for Surgery and Patient NOT seen in Pre Admission Testing Consults Requested none ASA ASA2 Proposed Anesthesia Anesthesia Type: MAC Risk / Benefits Reviewed With: PT / POA / Parent / Guardian, Accepts Plan and Informed Consent Obtained History Surgery Operation Date: 01/23/24 16:30 Proposed Procedures p Colonoscopy EGD Dr. Esther Santana MD Height/Weight Height: 5 ft 6 in Weight: 76.7 kg Allergies Allergy/AdvReac Type Severity Reaction Status Date / Time Penicillins Allergy Mild POSSIBLE Verified 01/21/24 23:51 RASH Sulfa (Sulfonamide Allergy Mild Rash Verified 01/21/24 23:51 Antibiotics) Cephalosporins Allergy Unknown welts Verified 01/21/24 23:51 tetracycline AdvReac Mild GI issues Verified 01/21/24 23:51 Medications Home Medications Medication Instructions Recorded Confirmed Last Taken ferrous sulfate 325 mg (65 mg 325 mg PO QAM 02/02/19 01/21/24 01/21/24 iron) tablet multivitamin 1 tab PO QAM 02/02/19 01/21/24 05/05/19 mycophenolate mofetil 500 mg 500 mg PO BID 02/02/19 01/21/24 01/21/24 23:00 tablet (CellCept) tacrolimus 1 mg capsule, 3 mg PO Q12H 02/02/19 01/21/24 01/21/24 23:00 immediate-release (Prograf) blood sugar diagnostic (Accu-Chek #400 ea 11/18/19 01/21/24 Unknown Guide test strips) lancets (Accu-Chek Fastclix Lancet #400 ea 11/18/19 01/21/24 Unknown Drum) metformin 500 mg tablet,extended 1,000 mg (2 x 500 mg) PO BID #360 11/21/20 01/21/24 01/21/24 23:00 release 24 hr tabs amlodipine 5 mg tablet 5 mg PO DAILY 07/27/21 01/21/24 01/21/24 metoprolol succinate 50 mg 50 mg PO DAILY 07/27/21 01/21/24 01/21/24 tablet,extended release 24 hr allopurinol 300 mg tablet 300 mg PO QPM #90 tabs 10/15/23 01/21/24 01/21/24 23:00 Active Medications Generic Name Dose Route Start Last Admin Trade Name [place] PRN Reason Stop Dose Admin Allopurinol 300 mg 01/22/24 21:00 01/22/24 21:32 Allopurinol 300 Mg Tab PO 02/21/24 20:59 300 mg QPM LIUDMILA Administration Sodium Chloride 1,000 mls @ 75 mls/hr 01/23/24 00:00 01/23/24 00:01 Nss IV 02/22/24 00:00 75 mls/hr .[id number] LIUDMILA Administration Magnesium Sulfate/Dextrose 1 gm in 100 mls @ 50 mls/hr 01/23/24 08:00 01/23/24 08:16 Magnesium Sulfate / D5w IV 01/23/24 11:59 50 mls/hr Q2H LIUDMILA Administration Insulin Aspart 0 units 01/22/24 21:00 01/23/24 07:27 Insulin Aspart Per Unit Charge SC 02/21/24 05:59 1 units ACHS LIUDMILA Administration Insulin Glargine 7 units 01/22/24 09:00 01/22/24 08:07 Lantus Per Unit Charge SQ 02/21/24 08:59 7 units DAILY LIUDMILA Administration Mycophenolate Mofetil 500 mg 01/22/24 09:00 01/22/24 21:33 Mycophenolate Mofetil 250 Mg Cap PO 02/21/24 08:59 500 mg BID LIUDMILA Administration Tacrolimus 3 mg 01/22/24 09:00 01/22/24 08:08 Tacrolimus 1 Mg Cap PO 02/21/24 08:59 3 mg QAM LIUDMILA Administration Tacrolimus 2 mg 01/22/24 21:00 01/22/24 21:33 Tacrolimus 1 Mg Cap PO 02/21/24 20:59 2 mg PM LIUDMILA Administration NPO Date Last Intake of Fluids: 01/23/24 Time Last Intake of Fluids: 07:00 Date Last Intake of Solids: 01/20/24 Time Last Intake of Solids: 12:00 Past Medical History Medical History ESRD (end stage renal disease) Allergic rhinitis Gastroesophageal reflux disease Gout, joint Hypercholesterolemia Steatohepatitis, nonalcoholic Anemia Lower gastrointestinal bleed Diverticulitis Diverticulosis Hypertension Past Family History Family History Mother Colorectal cancer at age 26 with colon cancer Father Heart disease Obesity Other Coronary heart disease Denies family history of Ovarian cancer Breast cancer Past Surgical History Surgical History S/P cholecystectomy S/P kidney transplant Past Anesthesia History No Hx of Anesthesia Complications and No Family Hx of Anesthesia Complications Social History Smoking Status: Never smoker Do You Dip or Chew Tobacco: No Hx Alcohol Use: No Hx Substance Use: No Review of Systems ROS Unobtainable: All systems reviewed & are unremarkable except as noted in HPI & below Physical Exam Vital Signs Last Vital Signs Temp 37.0 C 01/23/24 07:19 Pulse 91 H 01/23/24 09:13 Resp 16 01/23/24 09:13 BP 152/87 H 01/23/24 09:13 Pulse Ox 97 01/23/24 09:13 O2 Del Method Room Air 01/23/24 09:13 ENMT Mouth: no TMJ abnormality and motion of mouth not restricted Thyromental Distance: > or= 3.5 Finger Breadths Mallampati Class: II Neck normal visual inspection and trachea midline; neck extension not limited Respiratory normal respiratory effort Auscultation: lungs clear to auscultation bilaterally Cardiovascular Rate/Rhythm: regular rate and regular rhythm Heart Sounds: no murmur Musculoskeletal Spine: normal cervical ROM Extremities: full ROM of extremities Neurologic moves all extremities Psychiatric Orientation: alert and oriented x 3 Testing Laboratory Results 01/23/24 06:29 01/23/24 06:29 PT 11.4 Seconds (9.0-12.0) 01/21/24 23:10 INR 1.0 (0.9-1.1) 01/21/24 23:10 Hemoglobin A1c 6.9 % (4.5-5.6) H 01/23/24 06:29 Urine Color Yellow 01/21/24 19:56 Urine Appearance Clear (Clear) 01/21/24 19:56 Urine pH 6.5 (4.5-7.5) 01/21/24 19:56 Ur Specific [place] 1.009 (1.000-1.030) 01/21/24 19:56 Urine Protein Negative (Negative) 01/21/24 19:56 Urine Glucose (UA) Negative (Negative) 01/21/24 19:56 Urine Ketones Negative (Negative) 01/21/24 19:56 Urine Nitrite Negative (Negative) 01/21/24 19:56 Ur Leukocyte Esterase Negative (Negative) 01/21/24 19:56 Blood Type B Positive 01/21/24 23:10 Antibody Screen NEGATIVE 01/21/24 23:10 01/23/24 06:59 POC Glucose 161 H
--- NOTE | 2024-01-23 10:26 | GI REPORT ---
Patient Name: Katy Lomeli Procedure Date: 01/23/2024 10:02 AM Date of : 1970 Admit Type: Inpatient Age: 53 Gender: Female Attending MD: Brenda Santana M.d., Procedure: Upper GI endoscopy Providers: Brenda Santana M.d. Referring MD: Lev Castillo Indications: Hematochezia Medicines: See the Anesthesia note for documentation of the administered medications Complications: No immediate complications. Estimated Blood Loss: Estimated blood loss: none. Procedure: Pre-Anesthesia Assessment: - Patient identification and proposed procedure were verified prior to the procedure by the physician, the nurse and the anesthesiologist. The procedure was verified in the pre-procedure area. - Prior to the procedure, a History and Physical was performed, and patient medications, allergies and sensitivities were reviewed. The patient's tolerance of previous anesthesia was reviewed. - The risks and benefits of the procedure and the sedation options and risks were discussed with the patient. All questions were answered and informed consent was obtained. After obtaining informed consent, the endoscope was passed under direct vision. Throughout the procedure, the patient's blood pressure, pulse, and oxygen saturations were monitored continuously. The Endoscope was introduced through the mouth and advanced to the second part of duodenum. The upper GI endoscopy was accomplished without difficulty. The patient tolerated the procedure well. Findings: The examined esophagus appeared normal. The Z-line appeared regular. The examined stomach appeared normal. The duodenal bulb and second portion of the duodenum appeared normal. Impression: - Normal esophagus. - Z-line regular. - Normal stomach. - Normal duodenal bulb and second portion of the duodenum. Recommendation: - No active bleeding noted or findings that would suggest recent bleeding source such as gastritis or ulceration. - Proceed to colonoscopy. Sharita Ma M.d. 01/23/2024 10:26:08 AM This report has been signed electronically. Note Initiated On: 01/23/2024 10:02 AM Number of Addenda: 0 I attest to the content of the Intraoperative Record and orders documented therein, exceptions below {[id number]}
--- NOTE | 2024-01-23 10:30 | GI REPORT ---
Patient Name: Katy Lomeli Procedure Date: 01/23/2024 10:01 AM Date of : 1970 Admit Type: Inpatient Age: 53 Gender: Female Attending MD: Brenda Santana M.d., Procedure: Colonoscopy Providers: Brenda Santana M.d. Referring MD: Lev Castillo Indications: Hematochezia Medicines: See the Anesthesia note for documentation of the administered medications Complications: No immediate complications. Estimated Blood Loss: Estimated blood loss: none. Procedure: Pre-Anesthesia Assessment: - Patient identification and proposed procedure were verified prior to the procedure by the physician, the nurse and the anesthesiologist. The procedure was verified in the pre-procedure area. - Prior to the procedure, a History and Physical was performed, and patient medications, allergies and sensitivities were reviewed. The patient's tolerance of previous anesthesia was reviewed. - The risks and benefits of the procedure and the sedation options and risks were discussed with the patient. All questions were answered and informed consent was obtained. After I obtained informed consent, the scope was passed under direct vision. Throughout the procedure, the patient's blood pressure, pulse, and oxygen saturations were monitored continuously. The Colonoscope was introduced through the anus and advanced to the terminal ileum. The colonoscopy was performed without difficulty. The patient tolerated the procedure well. The quality of the bowel preparation was poor. Findings: The examined terminal ileum appeared normal. The examined colon appeared normal. Multiple small and large-mouthed diverticula were found in the descending and sigmoid colon- most prominent in the sigmoid colon. Internal hemorrhoids were found during retroflexion. The exam was otherwise without abnormality on direct and retroflexion views. Impression: - Preparation of the colon was poor. - The examined portion of the terminal ileum appeared normal. - The examined colon appeared normal. - Diverticulosis in the descending and sigmoid colon- most prominent in the sigmoid colon. - Internal hemorrhoids. - The examination was otherwise normal on direct and retroflexion views. Recommendation: - Return to the floor. - No active bleeding was noted. - Given her history of self limited hematochezia and diverticular noted, she may have had a mild self limited diverticular bleed. - Resume diet per primary team. Sharita Ma M.d. 01/23/2024 10:29:50 AM This report has been signed electronically. Note Initiated On: 01/23/2024 10:01 AM Number of Addenda: 0 I attest to the content of the Intraoperative Record and orders documented therein, exceptions below {[id number]}
--- NOTE | 2024-01-23 10:31 | Communication Note ---
Date of Service: January 23, 2024 egd and colonoscopy without findings of active gi bleeding. only finding found was of descending and sigmoid diverticula (most prominent in the sigmoid area) and hemorrhoids. no active bleeding was noted from the diverticula or even stigmata of recent bleeding (ie redness around the area or intermixed with the prep) Resume diet per primary team. No need for a repeat colonoscopy as she has not had any active bleeding in over 24 hours. Further recommendations per primary team. GI will sign off call if questions.
[2024-01-23] MEDS: IRON SUCROSE 300 MG in SODIUM CHLORIDE 0.9% 250 ML IV ONE (11:09)
[2024-01-23] MEDS: PROPOFOL IV EMULSION 10 MG/ML 20 ML VIAL IV ONE ×2 (11:29)
[2024-01-23] MEDS: LIDOCAINE 2% 2 ML VIAL/AMP(20MG/ML) INFIL ONE ×2 (11:29)
[2024-01-23] MEDS: ACETAMINOPHEN 500 MG TAB PO PRN (11:36)
--- NOTE | 2024-01-23 11:56 | Anesthesiology Progress Note ---
Date of Service January 23, 2024 Anesthesia Post Procedure Vital Signs Vital Signs: Temp Pulse Pulse Pulse Resp BP Pulse Ox 01/23/24 10:56 77 16 123/72 94 01/23/24 10:41 80 79 16 114/70 96 01/23/24 10:26 91 H 89 16 109/68 96 01/23/24 09:13 91 H 16 152/87 H 97 01/23/24 07:42 97 H 01/23/24 07:19 37.0 C 75 16 128/72 94 01/23/24 03:08 36.5 C 74 18 128/70 93 01/22/24 23:09 73 01/22/24 22:44 36.7 C 80 18 108/74 94 01/22/24 19:05 36.7 C 76 18 106/69 94 01/22/24 17:16 79 01/22/24 15:21 37.0 C 76 16 113/69 96 O2 Del Method 01/23/24 10:56 Room Air 01/23/24 10:41 Room Air 01/23/24 10:26 Room Air 01/23/24 09:13 Room Air 01/23/24 07:42 01/23/24 07:19 Room Air 01/23/24 03:08 Room Air 01/22/24 23:09 01/22/24 22:44 Room Air 01/22/24 19:05 Room Air 01/22/24 17:16 01/22/24 15:21 Room Air Transfer of Care Handoff Completed per policy Notes Mental Status: alert / awake / arousable Patient Amnestic to Procedure: Yes Nausea / Vomiting: adequately controlled Pain: adequately controlled Airway Patency, RR, SpO2: stable & adequate BP & HR: stable & adequate Hydration State: stable & adequate Anesthetic Complications: no major complications apparent and Pt Satisfied with anesthetic care
--- NOTE | 2024-01-23 16:55 | Discharge Summary ---
Date of Service date of admission - January 21, 2024 date of discharge - January 23, 2024 Admission HPI Per Admitting Provider Katy Lomeli is a 53yo female with history of diverticulosis presenting with acute lower GI bleed. Patient was in her usual state of health until yesterday (01/20/24) when she had an episode of painless hematochezia. Today she had two additional episodes of bright red blood per rectum - most recent episode witnessed in the ER. She reports some abdominal distention and increased gas but denies abdominal pain or cramping. She developed some nausea in the ER with an episode of non-bloody vomiting. No report of hematemesis or coffee ground emesis. Patient denies chest pain or shortness of breath. She does have some dizziness with positional changes and felt like she was going to pass out while having her last BM. In the ER patient afebrile, HD stable. HR currently 78bpm, BP of 124/72 ER Course: Zofran Patient presented with hematochezia in the past and was hospitalized from 05/05/19 - 05/08/19. Her presenting Hgb at that time was 6.1. She was transfused 2u PRBCs during that hospital stay with appropriate response. She had a colonoscopy and EGD performed by Dr. Patricia on 05/07/2019. Colonoscopy at that time revealed clotted blood in the entire colon with multiple medium-mouthed diverticula in the sigmoid colon, descending colon and ascending colon. Evidence of past bleeding, however, no evidence of diverticular bleeding. Mild internal hemorrhoids. Her EGD was entirely normal. Thought to be secondary to acute diverticular bleed. Principal Diagnosis 1. acute lower GI bleeding 2. diverticulosis 3. acute blood loss anemia 4. kidney transplant status 5. iron deficiency Discharge Exam gen - NAD, pleasant skin - mild pallor neck - no JVD heart - RRR, s1 s2, no murmur lungs - CTA b/l abd - soft NT ND BS+; kidney transplant palpable in the RLQ ext - no edema, warm, pulses 2+ b/l psych - a/o x 3 Discharge Data Allergies Allergy/AdvReac Type Severity Reaction Status Date / Time Penicillins Allergy Mild POSSIBLE Verified 01/21/24 23:51 RASH Sulfa (Sulfonamide Allergy Mild Rash Verified 01/21/24 23:51 Antibiotics) Cephalosporins Allergy Unknown welts Verified 01/21/24 23:51 tetracycline AdvReac Mild GI issues Verified 01/21/24 23:51 Consultations [facility] - Brenda Santana MD Procedures Performed Operation Date: 01/23/24 16:30 Actual Procedures Esophagogastroduodenoscopy - Brenda Santana MD Findings: The examined esophagus appeared normal. The Z-line appeared regular. The examined stomach appeared normal. The duodenal bulb and second portion of the duodenum appeared normal. Colonoscopy - Brenda aSntana MD Findings: The examined terminal ileum appeared normal. The examined colon appeared normal. Multiple small and large-mouthed diverticula were found in the descending and sigmoid colon- most prominent in the sigmoid colon. Internal hemorrhoids were found during retroflexion. The exam was otherwise without abnormality on direct and retroflexion views. IV venofer x 2 infusions Ordered Studies Abdomen/Pelvis CT 01/21/24 19:23 Exam(s): CT ABDOMEN + PELVIS With Contrast IV Amt: 90 ml optiray 320 EXAM: CT Abdomen and Pelvis With Intravenous Contrast CLINICAL HISTORY: Reason for exam: abd pain. TECHNIQUE: Axial computed tomography images of the abdomen and pelvis with intravenous contrast. CTDI is 25.37 mGy and DLP is 1181.78 mGy-cm. Automated exposure control was utilized for the study. A dose lowering technique was utilized adhering to the principles of ALARA. CONTRAST: Patient received 90 ml optiray 320 of IV contrast COMPARISON: CT abdomen pelvis 05/03/19. FINDINGS: Lung bases: Clear. Liver: Unremarkable. Gallbladder and bile ducts: Cholecystectomy. No ductal dilation. Pancreas: No ductal dilation. Spleen: Unremarkable. Adrenals: Unremarkable. Kidneys and ureters: Chronic, end stage renal disease, with right lower quadrant renal transplant, that has a stable cortical scar in the upper pole. No transplant pyelonephritis, perinephric abscess or hydronephrosis. Stomach and bowel: Moderate fluid in the descending colon, nonspecific, concerning for ileus or gastroenteritis. Diverticulosis without diverticulitis. No obstruction. Appendix: No acute appendicitis. Intraperitoneal space: No free air or fluid. Bones/joints: No acute fracture. Soft tissues: Unremarkable. Vasculature: No aortic aneurysm. Lymph nodes: No enlarged lymph nodes. Bladder: No stones. Reproductive: Unremarkable as visualized. IMPRESSION: 1. Possible moderate gastroenteritis or ileus with fluid distending the distal colon. 2. No acute abnormality involving the right lower quadrant renal transplant. Electronically signed by: Sol Olson M.D. 01/21/24 21:54 PM Diabetes Follow up Diabetes Follow-up Needed for Newly Diagnosed Diabetes Hospital Course (1) Acute GI bleeding: Pt with history of diverticulosis with prior lower GI bleed in 2019 - due to diverticulosis - requiring transfusion and colonoscopy. Upon admission she had no abd pain or other signs to suggest ischemic colitis. No infectious symptoms. Did not require PRBCs. Hemoglobin was 10.7 upon admission, falling to 8 by discharge. Bleeding stopped by hospital day #2. She was seen in [facility] who recommended EGD/colonoscopy. EGD was entirely normal. Colonoscopy showed diverticular disease in the descending and sigmoid colon, with the latter more severe. During the colonoscopy there was no active bleeding. Her acute GI bleed was thought to be a lower GI bleed likely from diverticulosis. Post-colonoscopy she was resumed on a clear liquid diet and this was advanced without difficulty. She did not have any recurrent bleeding following her EGD/colonoscopy. Recommend a repeat CBC within about 5 days of discharge to ensure stability. (2) Acute blood loss anemia: 2nd to #1 above Discharge hemoglobin was 8 (3) Iron deficiency: transferrin sat <20% ferritin 11 this is despite chronic use of ferrous sulfate supplementation pre-admission gave IV venofer 200mg x 1, followed by a 2nd dose of 300mg on the following day She may need additional runs of IV venofer in the future depending on her iron studies She can hold her PO iron supplement at time of discharge seeing that she received the 2 infusions of iron while hospitalized (4) History of renal transplant: s/p renal transplant in August 2004 at [facility]. Continue Prograf and CellCept as prior. She follows locally with Dr Gelacio Laguerre - [facility]. Creatinine very stable while here - 0.6-0.7. (5) Hypertension: Both her metoprolol and amlodipine were HELD in the setting of her acute GI bleed and acute blood loss anemia. Systolic BPs were low 100s to 120s OFF her usual metoprolol/amlodipine. She was asked to continue holding both meds upon discharge. She was advised to check her BP twice daily at home. If her systolic BP is consistently <130 she can continue to hold both medicines. If her systolic BP is consistently >130 she can resume her metoprolol first. She was asked to f/u with her PCP shortly after discharge for her BP. (6) Pre-diabetes: 2022 Hba1c 6.4% Hba1c 6.9% this admission f/u with PCP for this. continue metformin 1gm BID. she may need additional Rx in the near-future since her a1c has risen over time. (7) Carpal tunnel syndrome: had symptoms of this in her right hand early in the stay when her name band was too tight on the distal right arm. once the band was loosened her symptoms resolved. 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 symptoms did not recur later in the stay. Total Time Total Time Spent Total Time Spent (In Minutes): 40 Discharge Plan Discharge Items Patient Disposition: Home - Self-Care Reason For Visit: lower GI bleeding Discharge Diagnosis: 1. lower gastrointestinal bleeding - resolved 2. acute blood loss anemia due to #1 - discharge hemoglobin 8 3. iron deficiency - 2 infusions of IV iron given 4. diverticulosis of the colon 5. renal transplant status Activity: As commented below Activity Comment: light activities only for the next week due to your anemia Lifting: No more than 10 pounds Exercise/Sports: Wait until after follow-up appointment Non-emergency contact: Primary Care Provider and Supervisor [employer] Call non-emergency contact if: you have any medication questions and your symptoms worsen Follow-up/Referrals: Gelacio Laguerre DO [Physician] - 03/10/24 (as scheduled ) Jorge Rhoades MD [Primary Care Provider] - 01/26/24 12:45 pm (1 week ) Diet: Carb Consistent or DM2 Addtl Attending Provider Instructions: Mrs Lomeli, You were hospitalized due to lower gastrointestinal bleeding. This led to a drop in your blood counts / hemoglobin. Your initial hemoglobin was 10.7, falling to 8 on day of discharge. [facility] was consulted and they performed upper endoscopy (EGD) and colonoscopy. The EGD was completely normal with no bleeding in any location. Your colonoscopy showed diverticulosis and internal hemorrhoids. Gastroenterology feels that the bleeding was likely diverticular in origin. During the colonoscopy there were no signs of ongoing bleeding in the colon. For your iron deficiency we gave you 2 runs of IV iron ("venofer"). This will allow your body to make red cells over the next few weeks and raise your hemoglobin back to normal levels. Due to the blood loss from your colon your blood pressures have been normal without the use of your typical blood pressure medicines. This is fairly typical for GI bleeds. In the days after a GI bleed we often have to hold 1 or more blood pressure medicines. The more blood loss someone has the less medicine they need for their blood pressure. Recommendations - 1. It is ok to hold your oral iron supplement at this time since you received IV iron. You may need another bag or 2 of IV iron in the future depending on your hemoglobin & iron levels. Your family doctor or Dr Laguerre can order IV iron as an outpatient for you, if necessary. 2. Blood pressure - please HOLD your amlodipine AND metoprolol at this time. Check your blood pressure twice daily at home. If your systolic blood pressure (top number) is consistently greater than 130 over the next few days please resume your metoprolol first. Please show your blood pressure numbers to Dr Rhoades. If you have to resume your metoprolol and your systolic blood pressure still remains over 130 then resume your amlodipine after that. 3. In about 1-2 weeks please start on a dedicated fiber supplement such as metamucil. Take the supplement once daily. Fiber supplementation is helpful for those with diverticulosis. 4. In about 5-7 days please have your CBC blood counts rechecked, as well as your iron levels including ferritin. I would also recommend checking your creatinine with that blood draw. Please speak with Dr Rhoades about these labs. 5. Please AVOID all anti-inflammatory pills including aspirin, motrin, ibuprofen, aleve, naprosyn. TYLENOL IS OK for aches/pains. 6. Focus on good hydration & nutrition over the next few days as you recover from your hospital stay. 7. You may be more tired over the next week or two since you are anemic. It will be important to listen to your body and not over do it. Be sure to rest when needed. Follow-up - see separate section RETURN to [facility] if - * you have bright red blood in your stools * you have dark/black/tarry stools * you have abdominal pains * you feel dizzy or lightheaded * any other concerns It was our pleasure to care for you! Pending Studies at Discharge: No Stand-Alone Forms: My [facility], Smoking Cessation Medications and DC Order Prescriptions: Continued (DME) Accu-Chek Guide test strips Strip See Rx Instructions .ROUTE .MEDSUPPLY Qty: 400 3RF Rx Instructions: Test 4 times daily (DME) lancets [Accu-Chek Fastclix Lancet Drum] Misc See Rx Instructions .ROUTE .MEDSUPPLY Qty: 400 3RF Rx Instructions: Test 4 times daily metformin 500 mg tablet extended release 24 hr 1,000 mg PO BID Qty: 360 3RF allopurinol 300 mg tablet 300 mg PO QPM Qty: 90 3RF multivitamin Tablet 1 tab PO QAM mycophenolate mofetil [CellCept] 500 mg Tablet 500 mg PO BID Changed tacrolimus [Prograf] 1 mg Capsule 1 mg PO DIRECTED Qty: 1 0RF Rx Instructions: take 3mg each morning, and take 2mg each evening. Held amlodipine 5 mg tablet 5 mg PO DAILY Hold Instructions: hold for now due to recent GI bleeding metoprolol succinate 50 mg tablet extended release 24 hr 50 mg PO DAILY Hold Instructions: hold due to recent GI bleeding ferrous sulfate 325 mg (65 mg iron) Tablet 325 mg PO QAM Hold Instructions: hold for now since you received IV iron at [facility] x 2 runs Discharge Orders: Discharge Order (Routine); Ordered 01/23/24 Ordered By: Lev Torres/Other Patient Handouts: GI Bleeding Causes and Tests, Understanding Rectal Bleeding, ED Lower GI Bleeding (Stable), ED Upper GI Bleeding (Stable), ED Diverticulosis, Type 2 Diabetes Admission Data Admit Date/Time: 01/21/24 23:54 Attending Provider: Lev Castillo Admit Provider: Nayeli Giron Primary Care Provider: Jorge Rhoades Other Providers: Brenda Santana Other Interventions: Discharge Summary Assessment (RN) Last Done: 01/23/24 16:52 Coding Level of Care Code 41364 INP/OBS DISCH >30 MIN Diagnoses Acute GI bleeding K92.2 Acute blood loss anemia D62 Iron deficiency E61.1 History of renal transplant Z94.0 Essential hypertension I10 Hypertension type: essential hypertension Pre-diabetes R73.03 Carpal tunnel syndrome G56.00
== END 2024-01-23 17:17 | disposition home or self-care (01) | DRG 378 ==
LOC: ED 19:10 → 2S 23:54 → SUATTDRO 23:54 → 2S 01-22 00:18

== ENCOUNTER 2025-07-23 08:21 | Inpatient (IN) ==
--- NOTE | 2025-07-23 08:42 | Emergency Department Note ---
Impression & Plan Abdominal pain, Nausea vomiting and diarrhea, SVT (supraventricular tachycardia), Hypokalemia, Hypomagnesemia ED Provider Note NAME: RJ STAPLETON AGE: 54 SEX: F : 1970 ARRIVES VIA: Walk-In INFORMANT: Patient, ED PROVIDER(S): Tate Gambino DO CHIEF COMPLAINT: Abdominal pain HPI: The patient is a 54-year-old female who presented to the emergency department for an evaluation of abdominal pain. The patient describes diffuse abdominal pain which began at beginning the month. She has had problems with nausea vomiting as well as diarrhea. She has been in our facility twice for similar complaints. She states her pain is not significantly better. She is been taking oxycodone at home with only minimal relief of her symptoms. She is also been taking Zofran with also minimal relief. The patient did see her family doctor. She is trying to get in with a GI doctor but she has not had much luck. Previously the patient was diagnosed with colitis. She has a lot of rectal pain when she moves her bowels. There is concern for a perirectal abscess but this was not shown on the CT of the abdomen and pelvis. The patient was on a course of antibiotics. She does a history of renal transplant and takes Prograf. ROS: See above HPI for pertinent positives & negatives. A total of 10 systems reviewed and were otherwise negative. PAST MEDICAL HISTORY: See Below PAST SURGICAL HISTORY: See Below FAMILY HISTORY: See Below SOCIAL HISTORY: See Below HOME MEDICATIONS: See Below ALLERGIES: See Below VITALS: See Below PHYSICAL EXAMINATION: GENERAL: The patient is awake and alert. She appears uncomfortable. EYES: The conjunctivae are clear. The pupils are round and reactive. EARS, NOSE, MOUTH AND THROAT: The nose is without any evidence of any deformity. NECK: The neck is nontender and supple. RESPIRATORY: Normal respiratory effort is noted there is no evidence of wheezing rhonchi or rales CARDIOVASCULAR: Regular rate and rhythm noted there no murmurs rubs or gallops normal S1 normal S2. GASTROINTESTINAL: The abdomen is soft. There is diffuse tenderness to palpation but no guarding or rigidity. MUSCULOSKELETAL/EXTREMITIES: There is no evidence of gross deformity full range of motion is noted in the hips and shoulders. SKIN: There is no obvious evidence of any rash. There are no petechiae, pallor or cyanosis noted. NEUROLOGIC: Patient is awake alert and oriented x3. Gait was steady. MEDICAL DECISION MAKING: The patient is a 54-year-old female who presented to the emergency department for an evaluation of abdominal pain and diarrhea. The patient's had symptoms similar to this over the course of the last month. The patient has been in our facility twice for similar complaints. I did review the patient's previous 2 visits. She has had CAT scans on each of those previous visits. Initially I discussed the benefits of x-ray only with the patient but when her white blood cell count came back elevated and her episodes of SVT started happening I was concerned that there may be more of a vascular component including intestinal ischemia. Given the patient's past medical history I did feel that repeat imaging was warranted at this time. The patient was treated with IV fluids and IV pain medication. On reevaluation she was somewhat improved. She was also treated with IV magnesium and IV potassium replacement. I discussed the patient's condition with her. Given the fact that she has continued symptoms as well as this high of an elevated white blood cell count I do not feel that she would be a good candidate for outpatient management at this time. She is been trying to get in with a GI doctor without success. For this reason the [facility] hospitalist group was notified. Triage Nursing notes reviewed. Prior medical records reviewed Vital Signs: reviewed and remarkable for no significant abnormalities Differential diagnosis: Etiologies such as appendicitis, diverticulitis, obstruction, inflammatory bowel disease, renal colic, PUD, biliary pathology, pancreatitis, mesenteric ischemia, aortic pathology, infections, genitourinary, UTI, perforated viscus, as well as others were entertained. ER treatment provided: See below Diagnostics interpreted by me: ECG: EKG was obtained in the emergency department. My interpretation is normal sinus rhythm at 88 bpm. There is no ectopy. There is no acute ST segment abnormalities noted. This was compared to a tracing from May 05, 2019. No changes were noted. A second EKG was obtained in the emergency department. The patient went into a narrow complex tachycardia. This appears to be consistent with narrow complex tachycardia at 167 bpm. No PVCs were noted. Nonspecific ST depressions were also appreciated. This was a change compared to the earlier tracing. Cardiac Monitoring: An order was placed for continuous cardiac monitoring. The monitor shows a rate of 71 bpm with sinus rhythm. Laboratory studies: As stated above and show below. Imaging studies: See below. Radiographic imaging was reviewed by myself Consultation(s): Dr. Conklin notified about the patient. He will evaluate the patient in the emergency department. 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 Vasculitis Inflammatory arthritis Rash Carpal tunnel syndrome Iron deficiency Acute GI bleeding GIB (gastrointestinal bleeding) (Acute) Basal cell carcinoma, scalp/neck Hypercholesterolemia Allergic rhinitis (Acute) Gastroesophageal reflux disease (Acute) Gout, joint (Acute) Steatohepatitis, nonalcoholic (Acute) Diverticulosis Anemia (Acute) Pre-diabetes Diverticulitis (Acute) History of renal transplant (Acute) Immunocompromised (Acute) Medical History ESRD (end stage renal disease) Hypercholesterolemia Lower gastrointestinal bleed Diverticulosis Hypertension Surgical History S/P cholecystectomy S/P kidney transplant Family History Mother Colorectal cancer at age 26 with colon cancer Father Heart disease Obesity Other Coronary heart disease Denies family history of Ovarian cancer Breast cancer Social History Smoking Status: Never smoker Second Hand Exposure: No; Do You Dip or Chew Tobacco: No; Hx Alcohol Use: No Hx Substance Use: No Preferred Language: Wolof Communication Ability: Effective Visual Impairment: No Limitations Hearing Ability: Normal [employer] [place] Required: No Beliefs That Will Affect Care: None marital status: Current Living Situation: Spouse Current Living Situation Comment: w/ spouse current occupational status: retired Feels Safe at Home: Yes Diet: regular caffeine: Yes (4-5 cups caffeine beverage daily) Seatbelt Use: always Gender Identity: Female Assistive Devices: Glasses Allergies Allergies Allergy/AdvReac Type Severity Reaction Status Date / Time Sulfa (Sulfonamide Allergy Mild Rash Verified 07/07/25 14:14 Antibiotics) Home Meds Home Medications Medication Instructions Recorded Confirmed multivitamin 1 tab PO QAM 02/02/19 07/07/25 amlodipine 5 mg tablet 5 mg PO DAILY 07/27/21 07/07/25 metoprolol succinate 50 mg 50 mg PO DAILY 07/27/21 07/07/25 tablet,extended release 24 hr mycophenolate mofetil 500 mg 250 mg PO BID 05/04/25 07/07/25 tablet (CellCept) insulin glargine-yfgn 100 unit/mL unit subcut 07/07/25 07/07/25 (3 mL) subcutaneous pen (Semglee (insulin glargine-yfgn) Pen) prednisone 10 mg tablet 10 mg PO DAILY 07/07/25 Previous Rx's Medication Instructions Recorded blood sugar diagnostic (Accu-Chek #400 ea 11/18/19 Guide test strips) lancets (Accu-Chek Fastclix Lancet #400 ea 11/18/19 Drum) metformin 500 mg tablet,extended 1,000 mg (2 x 500 mg) PO BID #360 11/21/20 release 24 hr tabs tacrolimus 1 mg capsule, 1 mg PO DIRECTED #1 cap 01/23/24 immediate-release (Prograf) ferrous fumarate 325 mg (106 mg 325 mg PO .COMPLEX #30 tabs 08/12/24 iron) tablet allopurinol 300 mg tablet 300 mg PO QPM #90 tabs 11/16/24 potassium chloride 20 mEq 20 meq PO BID #10 tabs 03/17/25 tablet,extended release prednisone 5 mg tablet 5 mg PO DAILY #90 tabs 05/04/25 diphenoxylate-atropine 2.5 1 tab PO QID PRN diarrhea #12 tabs 07/10/25 mg-0.025 mg tablet (Lomotil) Results & Data (ED) Vital Signs Vital Signs - 24 hr 07/23/25 08:22 07/23/25 09:00 07/23/25 09:00 Temperature 37.3 C Temperature Source Temporal Artery Scan Pulse Rate 108 H 87 Pulse Rate [Apical] 106 H Pulse Rhythm Regular Pulse Rhythm [Apical] Regular Respiratory Rate 20 20 18 Respiratory Effort / Characteristics Non-Labored Spontaneous Respiratory Depth Normal Respiratory Pattern Regular Blood Pressure 188/91 H Blood Pressure [Left Arm] 114/78 Blood Pressure Mean 123 Blood Pressure Mean [Left Arm] 90 Pulse Oximetry 97 97 96 Oxygen Delivery Method Room Air Room Air Room Air Sepsis Recent Fever Within 48 Hours No Sepsis New/Unexplained Change in Mental Status No Sepsis Action Taken by Nursing No Action Required 07/23/25 10:34 Temperature Temperature Source Pulse Rate 71 Pulse Rate [Apical] Pulse Rhythm Pulse Rhythm [Apical] Respiratory Rate Respiratory Effort / Characteristics Respiratory Depth Respiratory Pattern Blood Pressure Blood Pressure [Left Arm] Blood Pressure Mean Blood Pressure Mean [Left Arm] Pulse Oximetry Oxygen Delivery Method Sepsis Recent Fever Within 48 Hours Sepsis New/Unexplained Change in Mental Status Sepsis Action Taken by Residential Medications Current Medication List: was personally reviewed by me Laboratory Data Attestation: I reviewed the patient's lab results. 07/23/25 08:42 07/23/25 08:42 Lab Results 07/23/25 07/23/25 07/23/25 Range/Units 08:42 08:48 08:55 WBC 20.56 H (4.8-10.8) K/ul RBC 4.41 (4.20-5.40) M/uL Hgb 10.2 L (12.0-16.0) g/dl POC Hgb 11.2 L (12.0-16.0) g/dl Hct 32.8 L (37.0-47.0) % POC Hct 33 L (37-47) % MCV 74.4 L (80.0-100.0) fL MCH 23.1 L (25.0-34.0) pg MCHC 31.1 L (32.0-36.0) g/dL RDW Std Deviation 42.1 (36.4-46.3) fL RDW Coeff of Maribel 15.5 H (11.5-14.5) % Plt Count 615 H (130-400) K/uL MPV 9.1 L (9.4-12.4) fL Immature Gran % (Auto) 0.5 % Neut % (Auto) 84.6 % Lymph % (Auto) 6.3 % [place] % (Auto) 8.3 % Eos % (Auto) 0.1 % Baso % (Auto) 0.2 % Neut # (Auto) 17.38 H (1.40-6.50) K/uL Lymph # (Auto) 1.30 (1.20-3.40) K/uL [place] # (Auto) 1.71 H (0.11-0.59) K/uL Eos # (Auto) 0.02 (0.00-0.50) K/uL Baso # (Auto) 0.04 (0.00-0.20) K/uL Immature Gran # (Auto) 0.11 (0.01-0.20) K/uL POC Sodium 131 L (135-144) mmol/L Sodium 131 L (136-145) mmol/L POC Potassium 3.1 L (3.3-5.0) mmol/L Potassium 3.2 L (3.5-5.1) mmol/L POC Chloride 98 L (101-112) mmol/L Chloride 96 L (98-107) mmol/L Carbon Dioxide 21 (21-32) mmol/L POC Total CO2 19 L (24-31) mmol/L Anion Gap 14 H (3-11) POC Anion Gap 19.0 (16-25) mmol/L POC BUN 10 (7-18) mg/dl BUN 12 (6-23) mg/dl Creatinine 0.69 (0.6-1.2) mg/dl POC Creatinine 0.8 (0.6-1.3) mg/dl Est Cr Clr Drug Dosing 85.2 ml/min eGFR 101.79 BUN/Creatinine Ratio 17.4 (10-20) Glucose 187 H (70-99(Fasting)) mg/dl POC Glucose (other) 184 H (70-99) mg/dl Lactate 1.2 (0.4-2.0) mmol/L Calcium 9.2 (8.6-10.3) mg/dl POC Ioniz Calcium Calvin 1.18 (1.12-1.32) mmol/l Magnesium 1.5 L (1.7-2.4) mg/dl Total Bilirubin 0.5 (0.2-1.0) mg/dl AST 8 L (13-39) U/L ALT 8 (7-52) U/L Alkaline Phosphatase 74 (34-104) U/L Troponin I High Sens 12.9 (0-14) pg/ml Total Protein 7.4 (6.0-8.3) gm/dl Albumin 3.1 L (3.4-5.0) gm/dl Globulin 4.3 H (2.5-4.0) gm/dl Albumin/Globulin Ratio 0.7 L (0.9-2) Lipase 11 (11-82) U/L Administered Medications Hydromorphone HCl (Hydromorphone Inj 0.5 Mg/0.5 Ml Syr) 0.5 mg IV Q15M PRN PRN Reason: Pain Stop: 08/06/25 08:35 Last Admin: 07/23/25 09:00 Dose: 0.5 mg Documented By: KIMI Discontinued Medications Sodium Chloride (Nss) 1,000 mls @ 999 mls/hr IV .Q1H1M STA Stop: 07/23/25 09:28 Last Admin: 07/23/25 08:57 Dose: 999 mls/hr Documented By: KIMI Potassium Chloride (K Martin / Wtr) 10 meq in 100 mls @ 100 mls/hr IV ONE ONE Stop: 07/23/25 09:49 Last Admin: 07/23/25 09:03 Dose: 100 mls/hr Documented By: KIMI Magnesium Sulfate/Dextrose (Magnesium Sulfate / D5w) 1 gm in 100 mls @ 100 mls/hr IV NOW STA Stop: 07/23/25 10:18 Last Admin: 07/23/25 09:58 Dose: 100 mls/hr Documented By: KIMI Ioversol (Optiray 320 125ml) 112 ml IV ONCE ONE Stop: 07/23/25 09:23 Last Admin: 07/23/25 09:22 Dose: 112 ml Documented By: THIERRY Ondansetron HCl (Ondansetron Inj 2 Mg/Ml 2 Ml Vial) 4 mg IV NOW STA Stop: 07/23/25 08:29 Last Admin: 07/23/25 08:57 Dose: 4 mg Documented By: KIMI Imaging Data Attestation: I personally reviewed and interpreted this imaging study as follows: My Impression: CT of the abdomen and pelvis was obtained. My interpretation is no free air or definite bowel obstruction, final report below. Radiologist's Impression: Abdomen/Pelvis CTA 07/23/25 09:04 EXAM: CT Abdomen and Pelvis With Intravenous Contrast INDICATION: Nausea, vomiting and lower abdominal pain. TECHNIQUE: Axial computed tomography images of the abdomen and pelvis with intravenous contrast. Sagittal and coronal reformatted images were created and reviewed. This CT exam was performed using one or more of the following dose reduction techniques: automated exposure control, adjustment of the mA and/or kV according to patient size, and/or use of iterative reconstruction technique. CONTRAST: 112 ml of Optiray 320 was administered intravenously. COMPARISON: 07/02/2025 FINDINGS: Limitations: None. Lung bases: No abnormality noted. Pleural space: No visualized pleural effusion or pneumothorax. Heart: No abnormality noted. Mediastinum: No abnormality noted. ABDOMEN: Liver: The liver is enlarged measuring 24 cm long. Hypodensity noted typical of fatty replacement. Smooth cortical contour. No mass or ductal dilation. Gallbladder and bile ducts: Cholecystectomy. No ductal dilation or stone noted. Pancreas: Homogeneous enhancement. No mass, inflammation or ductal dilation. Spleen: No significant abnormality noted. Adrenals: No significant abnormality noted. Kidneys and ureters: Atrophic [place] kidneys. No stones or hydronephrosis. Right lower quadrant renal pelvic transplant noted with small scar and tiny calcification noted at the apex. Question tiny angiomyolipoma in the apex. No perinephric fluid or hydronephrosis. Stomach and bowel: Moderate amounts of stool in the right colon. Bowel loops otherwise contain slightly prominent layering fluid. There is no inflammatory process or obstruction. There are left colonic diverticula. PELVIS: Appendix: Well seen and appears normal. Bladder: No filling defects to suggest mass or large stone. No inflammation. Reproductive: No abnormalities noted. ABDOMEN and PELVIS: Intraperitoneal space: No free air. No significant fluid collection. Bones/joints: No acute changes. Soft tissues: No significant abnormality noted. Vasculature: Atherosclerotic calcification of the aorta and branches. No aneurysm. Lymph nodes: No pathologically enlarged lymph nodes. IMPRESSION: 1. Scattered colonic diverticulosis without diverticulitis. Mild nonspecific ileus. 2. Hepatosplenomegaly and hepatic steatosis. 3. Satisfactory appearance of right lower quadrant renal pelvic transplant. ACT 112: N/A Electronically signed by Mely Roblero 07-23-2025 09:52 AM Chest CTA 07/23/25 09:04 EXAM: CT Angiography Chest With Intravenous Contrast INDICATION: Nausea vomiting and lower abdominal pain. TECHNIQUE: Axial computed tomographic angiography images of the chest with intravenous contrast. Sagittal and coronal reformatted images were created and reviewed. This CT exam was performed using one or more of the following dose reduction techniques: automated exposure control, adjustment of the mA and/or kV according to patient size, and/or use of iterative reconstruction technique. MIP reconstructed images were created and reviewed. CONTRAST: 112 ml of Optiray 320 was administered intravenously. COMPARISON: No relevant prior studies available. FINDINGS: Pulmonary arteries: No abnormality noted. No pulmonary embolism. Aorta: Atherosclerotic calcification of the aorta and branches. No aneurysm. Lungs and pleural spaces: No abnormality noted. No mass. No consolidation. No significant effusion. No pneumothorax. Heart: Mild cardiomegaly. No right heart strain or pericardial effusion. Thyroid: Density millimeter left thyroid calcification. No further assessment required. Bones/joints: No acute or atypical chronic changes. Soft tissues: No abnormality noted. Lymph nodes: No abnormality noted. No enlarged lymph nodes. Gallbladder and bile ducts: Cholecystectomy. No ductal dilation or stone noted. Spleen: Enlarged spleen measures at least 14.3 cm long. Kidneys and ureters: Atrophic [place] kidneys. IMPRESSION: 1. No acute abnormality such as pulmonary embolus or aortic dissection. 2. Mild cardiomegaly. No right heart strain. 3. Atrophic kidneys and splenomegaly. ACT 112: N/A Electronically signed by Mely Roblero 07-23-2025 09:48 AM Discharge Plan Visit Data Chief Complaint: GI Assessment Stated Complaint: GI ISSUES, NAUSEA, VOMITING, ABD PAIN ED Provider: Tate Gambino Discharge Problem: Abdominal pain, Nausea vomiting and diarrhea, SVT (supraventricular tachycardia), Hypokalemia, Hypomagnesemia Patient Disposition: Being Evaluated by Hospitalist Condition: Fair Forms Stand Alone Forms: [facility] Prescriptions Prescriptions: No Action (DME) Accu-Chek Guide test strips Strip See Rx Instructions .ROUTE .MEDSUPPLY Qty: 400 3RF Rx Instructions: Test 4 times daily (DME) lancets [Accu-Chek Fastclix Lancet Drum] Misc See Rx Instructions .ROUTE .MEDSUPPLY Qty: 400 3RF Rx Instructions: Test 4 times daily metformin 500 mg tablet extended release 24 hr 1,000 mg PO BID Qty: 360 3RF allopurinol 300 mg tablet 300 mg PO QPM Qty: 90 3RF potassium chloride 20 mEq tablet extended release 20 meq PO BID Qty: 10 0RF amlodipine 5 mg tablet 5 mg PO DAILY Hold Instructions: hold for now due to recent GI bleeding metoprolol succinate 50 mg tablet extended release 24 hr 50 mg PO DAILY Hold Instructions: hold due to recent GI bleeding prednisone 5 mg tablet 5 mg PO DAILY Qty: 90 1RF mycophenolate mofetil [CellCept] 500 mg tablet 250 mg PO BID ferrous fumarate 325 mg (106 mg iron) tablet 325 mg PO .COMPLEX Qty: 30 0RF Rx Instructions: TAKE 1 TAB PO EVERY DAY + AN ADDITIONAL DOSE EVERY OTHER DAY prednisone 10 mg tablet 10 mg PO DAILY Rx Instructions: as directed insulin glargine-yfgn [Semglee(insulin glarg-yfgn)Pen] 100 unit/mL (3 mL) insulin pen subcut multivitamin Tablet 1 tab PO QAM tacrolimus [Prograf] 1 mg Capsule 1 mg PO DIRECTED Qty: 1 0RF Rx Instructions: take 3mg each morning, and take 2mg each evening. diphenoxylate-atropine [Lomotil] 2.5-0.025 mg tablet 1 tab PO QID PRN (Reason: diarrhea) Qty: 12 0RF Referrals Referrals: Mackenzie Kumari [Primary Care Provider] -
[2025-07-23 08:54] LABS: Hematocrit (blood only) 32.8 % (37.0-47.0); Hemoglobin 10.2 g/dl (12.0-16.0); Immature Granulocytes # (auto) 0.11 K/uL (0.01-0.20); Immature Granulocytes % (auto) 0.5 %; Mean Corpuscular Hemoglobin 23.1 pg (25.0-34.0); Mean Corpuscular Volume 74.4 fL (80.0-100.0); Platelet Count 615 K/uL (130-400); RDW Standard Deviation 42.1 fL (36.4-46.3); Red Blood Count 4.41 M/uL (4.20-5.40); White Blood Count 20.56 K/ul (4.8-10.8)
[2025-07-23] MEDS: ONDANSETRON INJ 2 MG/ML 2 ML VIAL IV STA (08:57)
[2025-07-23] MEDS: SODIUM CHLORIDE 0.9% 1,000 ML IV STA (08:57)
[2025-07-23] MEDS: HYDROmorphone INJ 0.5 MG/0.5 ML SYR IV PRN (09:00)
[2025-07-23] MEDS: POTASSIUM CHLORIDE / WTR 10 MEQ/100 ML PLCT IV ONE ×2 (09:03→10:53)
[2025-07-23 09:14] LABS: Alanine Aminotransferase 8.0 U/L (7-52); Albumin Globulin Ratio 0.7 (0.9-2); Albumin Level 3.1 gm/dl (3.4-5.0); Alkaline Phosphatase 74.0 U/L (34-104); Anion Gap 14.0 (3-11); Bilirubin,Total 0.5 mg/dl (0.2-1.0); Blood Urea Nitrogen 12.0 mg/dl (6-23); Calcium 9.2 mg/dl (8.6-10.3); Carbon Dioxide 21.0 mmol/L (21-32); Chloride 96.0 mmol/L (98-107); Creatinine Clr Calc Pharmacy 85.2 ml/min; Globulin 4.3 gm/dl (2.5-4.0); Glucose 187.0 mg/dl (70-99(Fasting)); Lipase 11.0 U/L (11-82); Magnesium 1.5 mg/dl (1.7-2.4); Potassium 3.2 mmol/L (3.5-5.1); Sodium 131.0 mmol/L (136-145); Total Protein 7.4 gm/dl (6.0-8.3)
[2025-07-23] MEDS: OPTIRAY 320 125ml IV ONE (09:22)
--- NOTE | 2025-07-23 09:48 | CT Scan Report ---
EXAM: CT Angiography Chest With Intravenous Contrast INDICATION: Nausea vomiting and lower abdominal pain. TECHNIQUE: Axial computed tomographic angiography images of the chest with intravenous contrast. Sagittal and coronal reformatted images were created and reviewed. This CT exam was performed using one or more of the following dose reduction techniques: automated exposure control, adjustment of the mA and/or kV according to patient size, and/or use of iterative reconstruction technique. MIP reconstructed images were created and reviewed. CONTRAST: 112 ml of Optiray 320 was administered intravenously. COMPARISON: No relevant prior studies available. FINDINGS: Pulmonary arteries: No abnormality noted. No pulmonary embolism. Aorta: Atherosclerotic calcification of the aorta and branches. No aneurysm. Lungs and pleural spaces: No abnormality noted. No mass. No consolidation. No significant effusion. No pneumothorax. Heart: Mild cardiomegaly. No right heart strain or pericardial effusion. Thyroid: Density millimeter left thyroid calcification. No further assessment required. Bones/joints: No acute or atypical chronic changes. Soft tissues: No abnormality noted. Lymph nodes: No abnormality noted. No enlarged lymph nodes. Gallbladder and bile ducts: Cholecystectomy. No ductal dilation or stone noted. Spleen: Enlarged spleen measures at least 14.3 cm long. Kidneys and ureters: Atrophic [place] kidneys. IMPRESSION: 1. No acute abnormality such as pulmonary embolus or aortic dissection. 2. Mild cardiomegaly. No right heart strain. 3. Atrophic kidneys and splenomegaly. ACT 112: N/A Electronically signed by Mely Roblero 07-23-2025 09:48 AM
--- NOTE | 2025-07-23 09:54 | CT Scan Report ---
EXAM: CT Abdomen and Pelvis With Intravenous Contrast INDICATION: Nausea, vomiting and lower abdominal pain. TECHNIQUE: Axial computed tomography images of the abdomen and pelvis with intravenous contrast. Sagittal and coronal reformatted images were created and reviewed. This CT exam was performed using one or more of the following dose reduction techniques: automated exposure control, adjustment of the mA and/or kV according to patient size, and/or use of iterative reconstruction technique. CONTRAST: 112 ml of Optiray 320 was administered intravenously. COMPARISON: 07/02/2025 FINDINGS: Limitations: None. Lung bases: No abnormality noted. Pleural space: No visualized pleural effusion or pneumothorax. Heart: No abnormality noted. Mediastinum: No abnormality noted. ABDOMEN: Liver: The liver is enlarged measuring 24 cm long. Hypodensity noted typical of fatty replacement. Smooth cortical contour. No mass or ductal dilation. Gallbladder and bile ducts: Cholecystectomy. No ductal dilation or stone noted. Pancreas: Homogeneous enhancement. No mass, inflammation or ductal dilation. Spleen: No significant abnormality noted. Adrenals: No significant abnormality noted. Kidneys and ureters: Atrophic [place] kidneys. No stones or hydronephrosis. Right lower quadrant renal pelvic transplant noted with small scar and tiny calcification noted at the apex. Question tiny angiomyolipoma in the apex. No perinephric fluid or hydronephrosis. Stomach and bowel: Moderate amounts of stool in the right colon. Bowel loops otherwise contain slightly prominent layering fluid. There is no inflammatory process or obstruction. There are left colonic diverticula. PELVIS: Appendix: Well seen and appears normal. Bladder: No filling defects to suggest mass or large stone. No inflammation. Reproductive: No abnormalities noted. ABDOMEN and PELVIS: Intraperitoneal space: No free air. No significant fluid collection. Bones/joints: No acute changes. Soft tissues: No significant abnormality noted. Vasculature: Atherosclerotic calcification of the aorta and branches. No aneurysm. Lymph nodes: No pathologically enlarged lymph nodes. IMPRESSION: 1. Scattered colonic diverticulosis without diverticulitis. Mild nonspecific ileus. 2. Hepatosplenomegaly and hepatic steatosis. 3. Satisfactory appearance of right lower quadrant renal pelvic transplant. ACT 112: N/A Electronically signed by Mely Roblero 07-23-2025 09:52 AM
[2025-07-23] MEDS: MAGNESIUM SULFATE / D5W 1 GM/100 ML BAG IV STA ×2 (09:58→10:53)
[2025-07-23] MEDS: LACTATED RINGER'S 1,000 ML IV ONE (10:53)
[2025-07-23 12:13] LABS: Appearance Urine Clear (Clear); Glucose Urine UA Negative (Negative)
[2025-07-23] MEDS ORDERED: MAGNESIUM HYDROXIDE SUSP 30 ML UDC PO PRN (16:49)
[2025-07-23] MEDS ORDERED: HYDROmorphone INJ 0.5 MG/0.5 ML SYR IV PRN (16:49)
[2025-07-23] MEDS ORDERED: ALUMINUM/MAGNESIUM SUSP 30 ML UDC PO PRN (16:49)
[2025-07-23] MEDS ORDERED: MELATONIN 3 MG TAB PO PRN (16:49)
[2025-07-23] MEDS: ENOXAPARIN INJ 40 MG/0.4 ML SYR SQ SCH (17:48)
[2025-07-23] MEDS: INSULIN ASPART PER UNIT CHARGE SC SCH (17:49)
[2025-07-23] MEDS: FERROUS SULFATE 325 MG TAB PO SCH (17:50)
[2025-07-23] MEDS: ACETAMINOPHEN 325 MG TAB PO PRN (18:23)
[2025-07-23] MEDS: cefTRIAXone SODIUM 1,000 MG/50 ML BAG IV SCH (18:58)
[2025-07-23] MEDS: metroNIDAZOLE 500 MG/100 ML BAG IV SCH (18:58)
[2025-07-23 20:34] LABS: Anion Gap 11.0 (3-11); Blood Urea Nitrogen 9.0 mg/dl (6-23); Calcium 8.3 mg/dl (8.6-10.3); Carbon Dioxide 20.0 mmol/L (21-32); Chloride 103.0 mmol/L (98-107); Creatinine Clr Calc Pharmacy 106.9 ml/min; Glucose 161.0 mg/dl (70-99(Fasting)); Magnesium 1.8 mg/dl (1.7-2.4); Potassium 3.4 mmol/L (3.5-5.1); Sodium 134.0 mmol/L (136-145)
--- NOTE | 2025-07-23 20:35 | Communication Note ---
Date of Service: July 23, 2025 Nurse alerted me that pt was noting palpitations. EKG done and shows atrial bigeminy/trigeminy. Went to bedside to assess. BP acceptable. Pt appears well. She states that she has been having symptoms of palpitations on and off for the last 3 weeks or so. No prior hx of arrhythmia. No chest pain or SOB. No syncope or feeling syncopal at any point. She states she was given medications earlier for her electrolytes and for a few hours her symptoms did calm down but the last hour or so started up again. Otherwise no complaints at this time. Telemetry reviewed; appears pt goes into SVT for short bursts of about 10-15 seconds and then spontaneously converts back to sinus. Ordered repeat labs. Also ordered 40 mEq po KCl and 2 gm mag IV along with a 500 mL LR bolus. Advised both pt and nurse to keep me updated on if symptoms change or worsen overnight. Echo ordered to assess anatomic structures. Resident Activity Tracking Resident Involvement: Resident Care Provided Care Provided: Adult Hospital Medicine
[2025-07-23] MEDS: LACTATED RINGER'S 500 ML IV ONE (21:02)
[2025-07-23] MEDS: MAGNESIUM SULFATE / D5W 1 GM/100 ML BAG IV SCH (21:35)
[2025-07-23] MEDS: POTASSIUM CHLORIDE CRTAB 20 MEQ TABCR PO STA (21:35)
[2025-07-23] MEDS: TACROLIMUS 1 MG CAP PO SCH (21:38)
[2025-07-23] MEDS: MYCOPHENOLATE MOFETIL 250 MG CAP PO SCH (21:40)
[2025-07-23] MEDS: POLYETHYLENE (MIRALAX) 17 GM PACK PO SCH (21:43)
--- NOTE | 2025-07-23 21:58 | Electrocardiogram Report ---
Test Reason : Blood Pressure : */* mmHG Vent. Rate : 88 BPM Atrial Rate : 88 BPM P-R Int : 136 ms QRS Dur : 84 ms QT Int : 350 ms P-R-T Axes : 30 -17 41 degrees QTcB Int : 423 ms Normal sinus rhythm Normal ECG When compared with ECG of 05-May-2019 21:28, Premature atrial complexes are no longer Present Confirmed by Anjel Huggins ([id number]) on 07/23/2025 9:58:05 PM Referred By: REFERRED SELF Confirmed By: Anjel Huggins
--- NOTE | 2025-07-23 21:59 | Electrocardiogram Report ---
Test Reason : Blood Pressure : */* mmHG Vent. Rate : 167 BPM Atrial Rate : * BPM P-R Int : * ms QRS Dur : 70 ms QT Int : 276 ms P-R-T Axes : * -15 133 degrees QTcB Int : 460 ms Supraventricular tachycardia Nonspecific ST and T wave abnormality Abnormal ECG When compared with ECG of 23-Jul-2025 08:48, Vent. rate has increased by 79 bpm Supraventricular tachycardia has replaced Sinus rhythm Confirmed by Anjel Huggins ([id number]) on 07/23/2025 9:58:36 PM Referred By: REFERRED SELF Confirmed By: Anjel Huggins
[2025-07-24] MEDS: ONDANSETRON INJ 2 MG/ML 2 ML VIAL IV PRN (01:41)
--- NOTE | 2025-07-24 06:42 | Electrocardiogram Report ---
Test Reason : Blood Pressure : */* mmHG Vent. Rate : 107 BPM Atrial Rate : 147 BPM P-R Int : 136 ms QRS Dur : 80 ms QT Int : 352 ms P-R-T Axes : 42 -20 29 degrees QTcB Int : 469 ms Sinus rhythm with frequent Premature atrial complexes and PVCs Otherwise normal ECG When compared with ECG of 23-Jul-2025 08:50, Sinus rhythm has replaced Supraventricular tachycardia ST no longer depressed in Anterior leads Confirmed by Anjel Huggins ([id number]) on 07/24/2025 6:41:47 AM Referred By: REFERRED SELF Confirmed By: Anjel Huggins
--- NOTE | 2025-07-24 06:44 | Electrocardiogram Report ---
Test Reason : Blood Pressure : */* mmHG Vent. Rate : 120 BPM Atrial Rate : 159 BPM P-R Int : 176 ms QRS Dur : 76 ms QT Int : 360 ms P-R-T Axes : 23 -20 23 degrees QTcB Int : 420 ms Sinus rhythm with PVCs and PACs When compared with ECG of 23-Jul-2025 19:53, No significant change Confirmed by Anjel Huggins ([id number]) on 07/24/2025 6:43:51 AM Referred By: REFERRED SELF Confirmed By: Anjel Huggins
[2025-07-24 06:49] LABS: Hematocrit (blood only) 29.2 % (37.0-47.0); Hemoglobin 8.8 g/dl (12.0-16.0); Immature Granulocytes # (auto) 0.11 K/uL (0.01-0.20); Immature Granulocytes % (auto) 0.7 %; Mean Corpuscular Hemoglobin 22.6 pg (25.0-34.0); Mean Corpuscular Volume 75.1 fL (80.0-100.0); Platelet Count 526 K/uL (130-400); RDW Standard Deviation 42.6 fL (36.4-46.3); Red Blood Count 3.89 M/uL (4.20-5.40); White Blood Count 15.02 K/ul (4.8-10.8)
[2025-07-24 07:05] LABS: Anion Gap 8.0 (3-11); Blood Urea Nitrogen 8.0 mg/dl (6-23); Calcium 8.3 mg/dl (8.6-10.3); Carbon Dioxide 23.0 mmol/L (21-32); Chloride 105.0 mmol/L (98-107); Creatinine Clr Calc Pharmacy 108.9 ml/min; Glucose 147.0 mg/dl (70-99(Fasting)); Potassium 3.9 mmol/L (3.5-5.1); Sodium 136.0 mmol/L (136-145)
[2025-07-24 07:23] LABS: Hemoglobin A1C 10.3 % (4.5-5.6)
--- NOTE | 2025-07-24 07:45 | Hospitalist Progress Note ---
Date of Service July 24, 2025 Assessment & Plan (1) Nonspecific colitis: (2) Constipation: (3) Rectal pain: (4) Medium vessel vasculitis: Plan Patient is a 54yo F with PMH notable for renal transplant 20y ago on chronic immunosuppression, gout, GERD, prediabetes, diverticulosis, and medium-vessel vasculitis. She presented to the ED on 07/23 after 1 month of GI sx. She has had multiple ER visits during this time for these sx. She is being admitted for improved pain control and evaluation of etiology behind GI distress. #Colitis/abd pain/rectal pain - Sx for 1 month, progressively worsening; abdominal pain, nausea, vomiting poor po intake, and rectal pain with defecation as well as fevers/chills and night sweats. Seen in ER on 07/02 - exam only notable for exquisite rectal tenderness; CTAP showed nonspecific colitis; patient sent home with Augmentin bid x 7d. PCP switched abx to Cipro and added dicyclomine. Returned to ER on 07/10 - unchanged exam or imaging, and stool testing was negative. Given rx for Lomotil and oxycodone. Has not been able to get in with GI specialist and sx have become intolerable. Broad ddx given nonspecific sx, leukocytosis, CTAP with resolving/nonspecific colitis and moderate stool burden, and constitutional sx: colitis or other infectious etiology, vasculitis, constipation, malignancy e.g. leukemia - Will start empiric abx with IV Rocephin 1g q24h and IV Flagyl 500mg q8h - Daily CBC and peripheral smear to evaluate leukocytosis - CTAP showing improving colitis. CTA chest showing mild cardiomegaly, atrophic kidneys, and splenomegaly. UA not suggestive of infection - Pain control with Tylenol (mild), 0.5mg Dilaudid (mod), or 1mg Dilaudid (severe) - Gentle bowel regimen of 34g Miralax BID scheduled - Consult GI Colonoscopies [id number], most recent in 2023, no significant concern Plan to prep her today for colonoscopy tomorrow to look for any mucosal pathology that could be causing her symptoms #Vasculitis - Following with rheum who suspect likely systemic LEON - ESR > 130, CRP 14.53 - Has been on extended prednisone taper, most recently (on 07/15) reduced to 12.5 mg #Diabetes/ Severe steroid-induced hyperglycemia - A1c now 10.3%, up from 6.9% on 01/22. POC and BMP glucose staying ~180 - Per PCP notes, had been needing frequent adjustments but up to 35u Semglee per day Increase of long-acting insulin until steroid taper complete - Continue metformin 1g BID - While inpatient, Lantus 20u daily + SSI (bsg goal 140-180, CF 35, CR 12) #Tachyarrhythmia - EKG intermittently showing SVT. Telemetry reports overnight some episodes of SVT that convert back to nsr w/o intervention, as well as p wave inversions. Tele suggested considering a-flutter, AVNRT - Suspect this is a long-standing anatomical issue that has become symptomatic d/t recent pain and illness. Will focus on managing GI issues and, if arrhythmia persists beyond that, will consider further workup e.g. cardiology involvement, Holter monitoring Renal transplant recipient - Continue chronic regimen of tacrolimus and CellCept GERD - Continue Zofran VTE ppx: Lovenox Diet: regular as tolerated Dispo: med-tele, plan for eventual discharge home Admission and Anticipated Discharge Date Admission Date: July 23, 2025 Supervising Physician Co-Signing Physician Notes I personally examined the patient and verified all koroma points of history and exam, discussed case, and agree with decision making with Dr Ling Feels basically the same. No change. Abdominal pain is at least under reasonable control with current medications. GI input appreciated. Vitals noted, in general she is weak thin and cachectic but in no acute distress. HEENT normocephalic atraumatic mucous membranes moist. Breathing unlabored no accessory muscle use good effort. Skin without rashes pallor or icterus. Neuro without focal deficits or lateralizing signs. Abdominal pain/constitutional symptoms/fevers chills sweatsthe unifying diagnosis would probably be some sort of intestinal vasculitis creating this persistent colitis picture (that has persisted and spite of an appropriate course of antibiotics earlier in the month) and would be corroborated by her current active LEON and markedly elevated sed rate. At the same time, it is possible that she has abdominal pain from the constipation, the colitis is just a resolving CT finding, and the fevers are from something totally different But over the last 24 hours no other "something totally different" has evolved on history or physical, and the rather broad diagnostic workup we launched between the ER and our admitting orders have not shown other yield (could still consider peripheral smear to eval leukocytosis in more depth, but with neutrophil predominance, unlikely there is hematologic pathology as a primary illness here)making the abdominal process most likely as the culprit. For colonoscopy tomorrow. (Given poor p.o. intake and bowel prep, will give IV fluids) Severe protein calorie malnutritionconsult dietitian. Once she is able to eat better, work on better p.o. intake. SVTshort-lived, self arrests. Echo pending to ensure there is no structural heart disease, otherwise would follow with watchful waiting given that the episodes are short-lived and self arrest. Discussed ablation is fairly easy to set up if this becomes a chronic and ongoing thing, but I wonder if wants her nidus for a physiologic tachycardia as last the episodes of SVT will become much less as well. DVT prophylaxisLovenox Subjective Had a rough morning. Diarrhea overnight. Emesis this AM. Still no appetite, though she says she was able to eat some fruit. Per telemetry, eps of abd pain & emesis do correspond with abnormal rhythm - SVT most notable, self-converts back to nsr intermittently, but compensatory sinus pause during the change, and also having p wave inversion and PACs. She does experience palpitations a/w these rhythm abnormalities but only briefly and no CP, SOB. Review of Systems Review of Systems: As per HPI. Physical Exam Physical Exam: Gen: NAD, WD/WN HEENT: NCAT, normal conjunctiva, anicteric sclera, MMM CV: RRR, no m/r/g, S1/S2 normal, no LE edema Resp: CTAB, symmetrical chest rise, breathing non-labored Abd: Soft, NT/ND, normoactive BSx4, no HSM MSK: No gross deformities on inspection Skin: Warm, dry, well-perfused, no rashes or other lesions appreciated Neuro: AOx3, no focal deficits Psych: Full affect. Speech pace and thought content normal. Good insight Results & Data Results & Data Vital Signs (Past 12 Hours) Vital Signs Temp Pulse Pulse Resp BP Pulse Ox O2 Del Method 07/24/25 07:18 85 07/24/25 06:55 108 H 21 133/88 Room Air 07/24/25 04:30 37.0 C 85 18 109/70 92 Room Air 07/24/25 00:00 36.7 C 79 18 103/63 94 Room Air 07/23/25 22:15 72 Resident Activity Tracking Resident Involvement: Resident Care Provided Care Provided: Adult Hospital Medicine
[2025-07-24] MEDS: HYDROmorphone INJ 1 MG/ML SYRINGE IV PRN (09:17)
[2025-07-24] MEDS: TACROLIMUS 1 MG CAP PO SCH ×2 (09:19→21:24)
[2025-07-24] MEDS: METOPROLOL SUCC 50MG EXT REL TAB PO SCH (09:20)
[2025-07-24] MEDS: MULTIVITAMIN TAB PO SCH (09:20)
--- NOTE | 2025-07-24 10:48 | Gastrointestinal Consultation ---
Date of Consultation July 24, 2025 Assessment & Plan (1) Constipation: (2) Nausea vomiting and diarrhea: (3) Abdominal pain: (4) Rectal pain: (5) Nonspecific colitis: (6) Medium vessel vasculitis: 54-year-old admitted with ongoing abdominal pain and difficulty with defecation. Recent CT scan concerning for colitis. Certainly with her history of vasculitis this could be ischemic in nature. She has not responded well to antibiotics. I do think constipation is also playing a role here. She has been started on MiraLAX. I am going to try and prep her today and proceed with a colonoscopy tomorrow to look for any mucosal pathology that could be causing her symptoms. History of Present Illness Reason for Consultation: Abdominal pain/colitis Attending Physician: Panfilo Conklin, History of Present Illness Patient is a 54-year-old female who underwent a kidney transplant many years ago who is on chronic immunosuppressive therapy who has been struggling since February after she sustained what they think was a spider bite which resulted in vasculitis. She has been treated with steroids recently for this. Over the past month, she has had issues with significant abdominal pain, rectal pain, and difficulty with evacuation. She was initially seen in the emergency room on July [address] scan showed diffuse colitis. She was initially treated with Augmentin. This was eventually switched over to Cipro. She states this did not improve her symptoms at all. She was seen back in the ER 1 week later. During that stay she was given Lomotil and Oxy. Her symptoms persisted and she was admitted to the hospital. She underwent a CTA on July 23 which showed only hepatosplenomegaly. Her white count is elevated at 15. Hemoglobin 8.8. In speaking with her, it sounds as if she has been struggling with constipation. She denies any gross GI bleeding. She underwent an endoscopy and a colonoscopy December 2023 for GI bleeding and both of these were unremarkable. Her colonoscopy showed only left-sided diverticulosis. Her appetite has been poor. Allergies Allergy/AdvReac Type Severity Reaction Status Date / Time Sulfa (Sulfonamide Allergy Mild Rash Verified 07/07/25 14:14 Antibiotics) Home Medications Medication Instructions Recorded Confirmed Type multivitamin 1 tab PO QAM 02/02/19 07/23/25 History blood sugar diagnostic (Accu-Chek #400 ea 11/18/19 07/07/25 Rx Guide test strips) lancets (Accu-Chek Fastclix Lancet #400 ea 11/18/19 07/07/25 Rx Drum) metformin 500 mg tablet,extended 1,000 mg (2 x 500 mg) PO BID #360 11/21/20 07/23/25 Rx release 24 hr tabs amlodipine 5 mg tablet 5 mg PO DAILY 07/27/21 07/23/25 History metoprolol succinate 50 mg 50 mg PO DAILY 07/27/21 07/23/25 History tablet,extended release 24 hr tacrolimus 1 mg capsule, 1 mg PO DIRECTED #1 cap 01/23/24 07/23/25 Rx immediate-release (Prograf) allopurinol 300 mg tablet 300 mg PO QPM #90 tabs 11/16/24 07/23/25 Rx mycophenolate mofetil 500 mg 0 mg PO BID 05/04/25 07/23/25 History tablet (CellCept) insulin glargine-yfgn 100 unit/mL 0 unit subcut UD 07/07/25 07/23/25 History (3 mL) subcutaneous pen (Semglee (insulin glargine-yfgn) Pen) prednisone 10 mg tablet 10 mg PO DAILY 07/07/25 07/23/25 History diphenoxylate-atropine 2.5 1 tab PO QID PRN diarrhea #12 tabs 07/10/25 07/23/25 Rx mg-0.025 mg tablet (Lomotil) ferrous fumarate 325 mg (106 mg 0 mg PO UD 07/23/25 07/23/25 History iron) tablet insulin NPH isoph U-100 human 100 10 unit subcut UD 07/23/25 07/23/25 History unit/mL subcutaneous suspension (Humulin N NPH U-100 Insulin (isophane susp)) ondansetron HCl 4 mg tablet 4 mg PO TID PRN n/v 07/23/25 07/23/25 History oxycodone 5 mg tablet 5 mg PO Q6H PRN Pain 07/23/25 07/23/25 History potassium chloride 20 mEq 0 meq PO BID 07/23/25 07/23/25 History tablet,extended release prednisone 20 mg tablet 20 mg PO UD 07/23/25 07/23/25 History prednisone 5 mg tablet 0 mg PO DAILY 07/23/25 07/23/25 History Patient History Medical History (Updated 07/24/25 @ 08:[address]) Diabetes mellitus, type 2 ESRD (end stage renal disease) Hypercholesterolemia Lower gastrointestinal bleed Diverticulosis Hypertension Surgical History S/P cholecystectomy S/P kidney transplant Family History Mother Colorectal cancer at age 26 with colon cancer Father Heart disease Obesity Other Coronary heart disease Denies family history of Ovarian cancer Breast cancer Social History Smoking Status: Never smoker Second Hand Exposure: No; Do You Dip or Chew Tobacco: No; Hx Alcohol Use: No Hx Substance Use: No Preferred Language: Thai Communication Ability: Effective Visual Impairment: No Limitations Hearing Ability: Normal Beadworker Required: No Beliefs That Will Affect Care: None marital status: Current Living Situation: Spouse Current Living Situation Comment: w/ spouse current occupational status: retired Feels Safe at Home: Yes Diet: regular caffeine: Yes (4-5 cups caffeine beverage daily) Seatbelt Use: always Gender Identity: Female Assistive Devices: Glasses Physical Exam Constitutional: WD/WN, vitals as above Eyes: PERRL, conjunctivae normal, anicteric sclerae Neck: trachea midline, no thyromegaly Respiratory: normal respiratory effort, lungs clear to auscultation Cardiovascular: RRR, no murmur, no edema Gastrointestinal (Abdomen): normal bowel sounds, soft, nontender, no hepatosplenomegaly Skin: no rashes, warm and dry Results & Data Vital Signs (Past 12 Hours) Vital Signs Temp Pulse Pulse Pulse Resp BP Pulse Ox 07/24/25 08:09 36.7 C 99 H 16 111/64 96 07/24/25 07:18 85 07/24/25 06:55 108 H 21 133/88 07/24/25 04:30 37.0 C 85 18 109/70 92 07/24/25 00:00 36.7 C 79 18 103/63 94 O2 Del Method 07/24/25 08:09 Room Air 07/24/25 07:18 07/24/25 06:55 Room Air 07/24/25 04:30 Room Air 07/24/25 00:00 Room Air Laboratory Results 07/24/25 07/24/25 07/23/25 07:58 06:12 20:36 WBC 15.02 H RBC 3.89 L Hgb 8.8 L Hct 29.2 L MCV 75.1 L MCH 22.6 L MCHC 30.1 L RDW Std Deviation 42.6 RDW Coeff of Maribel 15.7 H Plt Count 526 H MPV 9.3 L Immature Gran % (Auto) 0.7 Neut % (Auto) 78.0 Lymph % (Auto) 11.9 [place] % (Auto) 9.2 Eos % (Auto) 0.1 Baso % (Auto) 0.1 Neut # (Auto) 11.71 H Lymph # (Auto) 1.78 [place] # (Auto) 1.38 H Eos # (Auto) 0.02 Baso # (Auto) 0.02 Immature Gran # (Auto) 0.11 ESR Sodium 136 Potassium 3.9 Chloride 105 Carbon Dioxide 23 Anion Gap 8 BUN 8 Creatinine 0.54 L Est Cr Clr Drug Dosing 108.9 eGFR 107.99 BUN/Creatinine Ratio 14.8 Glucose 147 H POC Glucose 186 H 154 H Estimat Average Glucose 249 Hemoglobin A1c 10.3 H Calcium 8.3 L Magnesium C-Reactive Protein Urine Color Urine Appearance Urine pH Ur Specific [place] Urine Protein Urine Glucose (UA) Urine Ketones Urine Blood Urine Nitrite Urine Bilirubin Urine Urobilinogen Ur Leukocyte Esterase Urine Comment Anaplasma Smear Babesia Smear Lyme Disease Screen 07/23/25 07/23/25 07/23/25 19:55 17:37 11:55 WBC RBC Hgb Hct MCV MCH MCHC RDW Std Deviation RDW Coeff of Maribel Plt Count MPV Immature Gran % (Auto) Neut % (Auto) Lymph % (Auto) [place] % (Auto) Eos % (Auto) Baso % (Auto) Neut # (Auto) Lymph # (Auto) [place] # (Auto) Eos # (Auto) Baso # (Auto) Immature Gran # (Auto) ESR Sodium 134 L Potassium 3.4 L Chloride 103 Carbon Dioxide 20 L Anion Gap 11 BUN 9 Creatinine 0.55 L Est Cr Clr Drug Dosing 106.9 eGFR 107.51 BUN/Creatinine Ratio 16.4 Glucose 161 H POC Glucose 190 H Estimat Average Glucose Hemoglobin A1c Calcium 8.3 L Magnesium 1.8 C-Reactive Protein Urine Color Yellow Urine Appearance Clear Urine pH 6.5 Ur Specific [place] 1.042 H Urine Protein Negative Urine Glucose (UA) Negative Urine Ketones 1+ H Urine Blood Negative Urine Nitrite Negative Urine Bilirubin Negative Urine Urobilinogen Negative Ur Leukocyte Esterase Negative Urine Comment Anaplasma Smear Babesia Smear Lyme Disease Screen 07/23/25 08:42 WBC RBC Hgb Hct MCV MCH MCHC RDW Std Deviation RDW Coeff of Maribel Plt Count MPV Immature Gran % (Auto) Neut % (Auto) Lymph % (Auto) [place] % (Auto) Eos % (Auto) Baso % (Auto) Neut # (Auto) Lymph # (Auto) [place] # (Auto) Eos # (Auto) Baso # (Auto) Immature Gran # (Auto) ESR > 130 H Sodium Potassium Chloride Carbon Dioxide Anion Gap BUN Creatinine Est Cr Clr Drug Dosing eGFR BUN/Creatinine Ratio Glucose POC Glucose Estimat Average Glucose Hemoglobin A1c Calcium Magnesium C-Reactive Protein 14.53 H Urine Color Urine Appearance Urine pH Ur Specific [place] Urine Protein Urine Glucose (UA) Urine Ketones Urine Blood Urine Nitrite Urine Bilirubin Urine Urobilinogen Ur Leukocyte Esterase Urine Comment Anaplasma Smear See Comment Babesia Smear See Comment Lyme Disease Screen Negative Medications Administered Home Medications Medication Instructions Recorded Confirmed Last Taken multivitamin 1 tab PO QAM 02/02/19 07/23/25 03/13/25 blood sugar diagnostic (Accu-Chek #400 ea 11/18/19 07/07/25 Unknown Guide test strips) lancets (Accu-Chek Fastclix Lancet #400 ea 11/18/19 07/07/25 Unknown Drum) metformin 500 mg tablet,extended 1,000 mg (2 x 500 mg) PO BID #360 11/21/20 07/23/25 03/13/25 release 24 hr tabs amlodipine 5 mg tablet 5 mg PO DAILY 07/27/21 07/23/25 03/13/25 metoprolol succinate 50 mg 50 mg PO DAILY 07/27/21 07/23/25 03/13/25 tablet,extended release 24 hr tacrolimus 1 mg capsule, 1 mg PO DIRECTED #1 cap 01/23/24 07/23/25 03/13/25 immediate-release (Prograf) allopurinol 300 mg tablet 300 mg PO QPM #90 tabs 11/16/24 07/23/25 03/13/25 mycophenolate mofetil 500 mg 0 mg PO BID 05/04/25 07/23/25 Unknown tablet (CellCept) insulin glargine-yfgn 100 unit/mL 0 unit subcut UD 07/07/25 07/23/25 Unknown (3 mL) subcutaneous pen (Semglee (insulin glargine-yfgn) Pen) prednisone 10 mg tablet 10 mg PO DAILY 07/07/25 07/23/25 Unknown diphenoxylate-atropine 2.5 1 tab PO QID PRN diarrhea #12 tabs 07/10/25 07/23/25 Unknown mg-0.025 mg tablet (Lomotil) ferrous fumarate 325 mg (106 mg 0 mg PO UD 07/23/25 07/23/25 Unknown iron) tablet insulin NPH isoph U-100 human 100 10 unit subcut 07/23/25 07/23/25 Unknown unit/mL subcutaneous suspension (Humulin N NPH U-100 Insulin (isophane susp)) ondansetron HCl 4 mg tablet 4 mg PO TID PRN n/v 07/23/25 07/23/25 Unknown oxycodone 5 mg tablet 5 mg PO Q6H PRN Pain 07/23/25 07/23/25 Unknown potassium chloride 20 mEq 0 meq PO BID 07/23/25 07/23/25 Unknown tablet,extended release prednisone 20 mg tablet 20 mg PO UD 07/23/25 07/23/25 Unknown prednisone 5 mg tablet 0 mg PO DAILY 07/23/25 07/23/25 Unknown Active Medications Generic Name Dose Route Start [facility] Admin [facility] Reason Stop Dose Admin Acetaminophen 650 mg 07/23/25 16:49 07/24/25 01:41 Acetaminophen 325 Mg Tab PO 08/22/25 16:48 650 mg Q4H PRN Administration Pain or Fever Allopurinol 300 mg 07/23/25 21:00 07/23/25 21:38 Allopurinol 300 Mg Tab PO 08/22/25 20:59 300 mg QPM LIUDMILA Administration Amlodipine Besylate 5 mg 07/24/25 09:00 07/24/25 09:21 Amlodipine Besylate 5 Mg Tab PO 08/23/25 08:59 5 mg DAILY LIUDMILA Administration Enoxaparin Sodium 40 mg 07/23/25 16:49 07/23/25 17:48 Enoxaparin Inj 40 Mg/0.4 Ml Syr SQ 08/22/25 16:48 40 mg Q24H LIUDMILA Administration Ferrous Sulfate 325 mg 07/23/25 17:30 07/24/25 09:19 Ferrous Sulfate 325 Mg Tab PO 08/22/25 17:29 325 mg DAILY LIUDMILA Administration Hydromorphone HCl 1 mg 07/23/25 16:49 07/24/25 09:17 Hydromorphone Inj 1 Mg/Ml Syringe IV 08/06/25 16:48 1 mg Q3H PRN Administration Pain - severe Ceftriaxone Sodium 1,000 mg in 50 mls @ 100 mls/hr 07/23/25 18:00 07/23/25 20:00 Rocephin IV 08/02/25 17:59 Infused Q24H LIUDMILA Infusion Metronidazole 500 mg in 100 mls @ 100 mls/hr 07/23/25 18:00 07/24/25 09:18 Flagyl IV 08/02/25 17:59 100 mls/hr Q8H LIUDMILA Administration Insulin Aspart 0 units 07/23/25 16:49 07/24/25 09:10 Insulin Aspart Per Unit Charge SC 08/22/25 16:48 1 units ACHS LIUDMILA Administration Metoprolol Succinate 50 mg 07/24/25 09:00 07/24/25 09:20 Metoprolol Succ 50mg Ext Rel Tab PO 08/23/25 08:59 50 mg DAILY LIUDMILA Administration Multivitamins 1 tab 07/24/25 09:00 07/24/25 09:20 Multivitamin Tab PO 08/23/25 08:59 1 tab QAM LIUDMILA Administration Mycophenolate Mofetil 500 mg 07/23/25 21:00 07/24/25 09:19 Mycophenolate Mofetil 250 Mg Cap PO 08/22/25 20:59 500 mg BID LIUDMILA Administration Ondansetron HCl 4 mg 07/23/25 16:49 07/24/25 09:18 Ondansetron Inj 2 Mg/Ml 2 Ml Vial IV 08/22/25 16:48 4 mg Q6H PRN Administration Nausea Polyethylene Glycol 34 gm 07/23/25 21:00 07/24/25 09:21 Polyethylene (Miralax) 17 Gm Pack PO 08/22/25 20:59 Not Given BID LIUDMILA Prednisone 15 mg 07/24/25 09:00 07/24/25 09:20 Prednisone 5 Mg Tab PO 08/23/25 08:59 15 mg DAILY LIUDMILA Administration Tacrolimus 3 mg 07/24/25 09:00 07/24/25 09:19 Tacrolimus 1 Mg Cap PO 08/23/25 08:59 3 mg QAM LIUDMILA Administration PG Care Time/CCT Total # of Minutes Spent Total Time Spent with Patient: Total time spent is greater than 50% in coordination of care (as documented) at patient's floor/unit and/or counseling patient: Coding Level of Care Code 06057 IN/OBS CONSULT LVL 4,60M Diagnoses Constipation K59.00 Nausea vomiting and diarrhea R11.2; R19.7 Abdominal pain R10.9 Rectal pain K62.89 Nonspecific colitis K52.9 Medium vessel vasculitis I77.6
--- NOTE | 2025-07-24 12:28 | Billing Data ---
Date of Service July 24, 2025 Coding Level of Care Code 35779 SUB INP/OBS CARE MIN
[2025-07-24] MEDS: ONDANSETRON 4 MG OD TAB PO PRN (13:28)
[2025-07-24] MEDS: LACTATED RINGER'S 1,000 ML IV SCH (13:29)
--- NOTE | 2025-07-24 13:48 | XCELERA ---
[id number] \\[id number]
[2025-07-24] MEDS: POLYETHYLENE (MIRALAX) 17 GM PACK PO SCH (15:13)
[2025-07-24] MEDS ORDERED: Nursing to Pharmacy Communication SCH (22:30)
--- NOTE | 2025-07-25 02:29 | Communication Note ---
Date of Service: July 25, 2025 Called to bedside by nurse around 02:18 for concern of SVT and pulsating abdomen. Went to bedside; EKG obtained and shows SVT but while watching the EKG machine screen as it is still connected to pt, rate decreases back to 80s and back in NSR. Pt denies chest pain or SOB but does feel palpitations with the episodes. Vitals stable otherwise; 133/76 and 95% on RA. She is undergoing colonoscopy prep tonight so is having frequent BMs and some abdominal pain/cramping secondary to that. Auscultation of the chest is unremarkable, abdominal exam is soft and nontender with palpable pulsation of abdominal aorta. Pt is smaller in size. CTA abdomen done on 07/23 and aorta unremarkable. Echo done 07/24 unremarkable and notably started on metoprolol succinate on 07/24 in the am. Pt does look and subjectively feel a bit dehydrated. She is on mIVF. Will order 500mL bolus and likely to repeat another 500mL after if tolerated. Labs ordered, given 2 gm mag IV. Given extra po dose of metoprolol 25 mg succinate. 1g calcium gluc ordered. Pt started to sustain more consistent runs of SVT, in for several minutes at a time and then back out of it for a minute or less. Pt still without chest pain or SOB just palpitations. BP continues to be well. Pt clinically appears well at bedside. Will transfer to PCU at this point and start amio bolus + drip. Resident Activity Tracking Resident Involvement: Resident Care Provided Care Provided: Adult Hospital Medicine
[2025-07-25] MEDS: LACTATED RINGER'S 500 ML IV ONE ×2 (02:31→03:35)
[2025-07-25 03:16] LABS: Hematocrit (blood only) 27.4 % (37.0-47.0); Hemoglobin 8.2 g/dl (12.0-16.0); Immature Granulocytes # (auto) 0.05 K/uL (0.01-0.20); Immature Granulocytes % (auto) 0.5 %; Mean Corpuscular Hemoglobin 22.6 pg (25.0-34.0); Mean Corpuscular Volume 75.5 fL (80.0-100.0); Platelet Count 443 K/uL (130-400); RDW Standard Deviation 43.0 fL (36.4-46.3); Red Blood Count 3.63 M/uL (4.20-5.40); White Blood Count 9.79 K/ul (4.8-10.8)
[2025-07-25 03:31] LABS: Anion Gap 9.0 (3-11); Blood Urea Nitrogen 5.0 mg/dl (6-23); Calcium 8.2 mg/dl (8.6-10.3); Carbon Dioxide 22.0 mmol/L (21-32); Chloride 101.0 mmol/L (98-107); Creatinine Clr Calc Pharmacy 120.0 ml/min; Glucose 141.0 mg/dl (70-99(Fasting)); Magnesium 1.5 mg/dl (1.7-2.4); Potassium 3.8 mmol/L (3.5-5.1); Sodium 132.0 mmol/L (136-145)
[2025-07-25] MEDS: MAGNESIUM SULFATE / D5W 1 GM/100 ML BAG IV SCH (03:51)
[2025-07-25] MEDS: METOPROLOL SUCC 25MG EXT REL TAB PO STA (03:56)
[2025-07-25] MEDS ORDERED: STAT IV Infusion **Titration per Protocol STA (04:12)
[2025-07-25] MEDS ORDERED: AMIODARONE IV BOLUS & DRIP IV STA (04:12)
[2025-07-25] MEDS ORDERED: 0.2 MICRON FILTER SET 1 EACH IV STA (04:12)
[2025-07-25] MEDS: CALCIUM GLUCONATE 1,000 MG/60 ML BAG IV STA (04:30)
[2025-07-25] MEDS: AMIODARONE / D5W 150 MG/100 ML BAG IV STA (05:14)
[2025-07-25] MEDS: AMIODARONE / D5W 360 MG/200 ML BAG IV ONE (05:27)
[2025-07-25] MEDS: POTASSIUM CHLORIDE / WTR 10 MEQ/100 ML PLCT IV SCH (05:53)
--- NOTE | 2025-07-25 07:25 | Hospitalist Progress Note ---
Date of Service July 25, 2025 Assessment & Plan (1) Constipation: (2) Medium vessel vasculitis: Plan Patient is a 54yo F with PMH notable for renal transplant 20y ago on chronic immunosuppression, gout, GERD, prediabetes, diverticulosis, and medium-vessel vasculitis. She presented to the ED on 07/23 after 1 month of GI sx. She has had multiple ER visits during this time for these sx. She is being admitted for improved pain control and evaluation of etiology behind GI distress. Overnight, pt with episode of sustained SVT. Failed po beta barbara and IVF bolus. Placed i=on amiodarone drip. Currently stable in sinus rhythm. #Colitis/abd pain/rectal pain - Sx for 1 month, progressively worsening; abdominal pain, nausea, vomiting poor po intake, and rectal pain with defecation as well as fevers/chills and night sweats. Seen in ER on 07/02 - exam only notable for exquisite rectal tenderness; CTAP showed nonspecific colitis; patient sent home with Augmentin bid x 7d. PCP switched abx to Cipro and added dicyclomine. Returned to ER on 07/10 - unchanged exam or imaging, and stool testing was negative. Given rx for Lomotil and oxycodone. Has not been able to get in with GI specialist and sx have become intolerable. Broad ddx given nonspecific sx, leukocytosis, CTAP with resolving/nonspecific colitis and moderate stool burden, and constitutional sx: colitis or other infectious etiology, vasculitis, constipation, malignancy e.g. leukemia - Will start empiric abx with IV Rocephin 1g q24h and IV Flagyl 500mg q8h - Daily CBC and peripheral smear to evaluate leukocytosis - CTAP showing improving colitis. CTA chest showing mild cardiomegaly, atrophic kidneys, and splenomegaly. UA not suggestive of infection - Pain control with Tylenol (mild), 0.5mg Dilaudid (mod), or 1mg Dilaudid (severe) - Bowel prep completed- awaiting colonoscopy - Consult GI Colonoscopies [id number], most recent in 2023, no significant concern Colonoscopy scheduled for 07/25 #Vasculitis - Following with rheum who suspect likely systemic LEON - ESR > 130, CRP 14.53 - Has been on extended prednisone taper, most recently (on 07/15) reduced to 12.5 mg #Diabetes/ Severe steroid-induced hyperglycemia - A1c now 10.3%, up from 6.9% on 01/22. POC and BMP glucose staying ~180 - Per PCP notes, had been needing frequent adjustments but up to 35u Semglee per day Increase of long-acting insulin until steroid taper complete - Continue metformin 1g BID - While NPO, Lantus 10u daily - Following colonoscopy, resume lantus 20 units + SSI (bsg goal 140-180, CF 35, CR 12) #Tachyarrhythmia - EKG intermittently showing SVT. Telemetry reports overnight some episodes of SVT that convert back to nsr w/o intervention, as well as p wave inversions. Tele suggested considering a-flutter, AVNRT - Pt with episode of constant SVT overnight- No improvement with PO metoprolol and bolus LR 500 mLs- started on amiodarone drip at 0.5mg/min - Consulted Cardiology, recommendations as follows stable to continue with scheduled colonoscopy Continue amiodarone drip until colonoscopy is completed Renal transplant recipient - Continue chronic regimen of tacrolimus and CellCept GERD - Continue Zofran VTE ppx: Lovenox Diet: regular as tolerated Dispo: med-tele, plan for eventual discharge home Admission and Anticipated Discharge Date Admission Date: July 23, 2025 Supervising Physician Co-Signing Physician Notes Attending attestation Pt seen and examined in concert with Dr. Mehta. In agreement with the documented findings as noted in the resident documentation with any exceptions or additions as noted here. Ongoing lower abdominal pain at chronic baseline and adequately controlled on present regimen. Completed prep. Reports no further palpitations, chest pain, nausea, etc. VS as noted. On examination, S1/S2 nl RRR no MCG. CTAB. Abd NT/ND BS+ve Supraventricular tachycardia - cardiology consult - resolved - continue amiodarone for likely d/c tomorrow pending cardiology recommendation. Abdominal pain with concern for complication of vasculitis - GI consult - s/p colonoscopy with findings concerning for CMV vs complications from vasculitis. Low threshold for rheumatology consultation. Continue pain control. Else see resident documentation as noted. Subjective Overnight, pt was prepping for colonoscopy and had episodes of SVT. It was noted that she was dehydrated and depleted in magnesium. She was given IVF bolus and magnesium. ECG showed SVT and possible arterial flutter. PO metoprolol did not sufficiently reduce her HR. Pt was started on amiodarone drip. This morning, pt reports continued lower abdominal pain at rest. She is no longer having palpitations and denies any chest pains or SOB during the event. Pt continues awaiting colonoscopy scheduled for today. Review of Systems Review of Systems: As per HPI. Physical Exam Physical Exam: Gen: NAD, WD/WN HEENT: NCAT, normal conjunctiva, anicteric sclera, MMM CV: RRR, no m/r/g, S1/S2 normal, no LE edema Resp: CTAB, symmetrical chest rise, breathing non-labored Abd: Soft, generally tender to palpation lower abdomen, hypoactive BS MSK: No gross deformities on inspection Skin: Warm, dry, well-perfused, no rashes or other lesions appreciated Neuro: AOx3, no focal deficits Psych: Full affect. Speech pace and thought content normal. Good insight Results & Data Results & Data Vital Signs (Past 12 Hours) Vital Signs Temp Pulse Pulse Pulse Resp BP Pulse Ox 07/25/25 05:15 07/25/25 02:21 36.8 C 89 20 133/76 95 07/24/25 23:03 36.7 C 94 H 16 116/68 94 07/24/25 21:53 87 O2 Del Method 07/25/25 05:15 Room Air 07/25/25 02:21 Room Air 07/24/25 23:03 Room Air 07/24/25 21:53 Resident Activity Tracking Resident Involvement: Resident Care Provided Care Provided: Adult Hospital Medicine
[2025-07-25] MEDS ORDERED: Nursing to Pharmacy Communication SCH (08:00)
[2025-07-25] MEDS: LANTUS PER UNIT CHARGE SQ SCH (08:54)
--- NOTE | 2025-07-25 09:44 | Anesthesiology Consultation ---
Date of Service July 25, 2025 Assessment & Plan (1) Encounter for pre-operative examination: Chart Review Chart Review: Acceptable Risk for Surgery History Surgery Operation Date: 07/25/25 17:10 Proposed Procedures p Colonoscopy Dr. Asad Kamara MD Height/Weight Height: 5 ft 6 in Weight: 67.1 kg Allergies Allergy/AdvReac Type Severity Reaction Status Date / Time Sulfa (Sulfonamide Allergy Mild Rash Verified 07/07/25 14:14 Antibiotics) Medications Home Medications Medication Instructions Recorded Confirmed Last Taken multivitamin 1 tab PO QAM 02/02/19 07/23/25 03/13/25 blood sugar diagnostic (Accu-Chek #400 ea 11/18/19 07/07/25 Unknown Guide test strips) lancets (Accu-Chek Fastclix Lancet #400 ea 11/18/19 07/07/25 Unknown Drum) metformin 500 mg tablet,extended 1,000 mg (2 x 500 mg) PO BID #360 11/21/20 07/23/25 03/13/25 release 24 hr tabs amlodipine 5 mg tablet 5 mg PO DAILY 07/27/21 07/23/25 03/13/25 metoprolol succinate 50 mg 50 mg PO DAILY 07/27/21 07/23/25 03/13/25 tablet,extended release 24 hr tacrolimus 1 mg capsule, 1 mg PO DIRECTED #1 cap 01/23/24 07/23/25 03/13/25 immediate-release (Prograf) allopurinol 300 mg tablet 300 mg PO QPM #90 tabs 11/16/24 07/23/25 03/13/25 mycophenolate mofetil 500 mg 0 mg PO BID 05/04/25 07/23/25 Unknown tablet (CellCept) insulin glargine-yfgn 100 unit/mL 0 unit subcut UD 07/07/25 07/23/25 Unknown (3 mL) subcutaneous pen (Semglee (insulin glargine-yfgn) Pen) prednisone 10 mg tablet 10 mg PO DAILY 07/07/25 07/23/25 Unknown diphenoxylate-atropine 2.5 1 tab PO QID PRN diarrhea #12 tabs 07/10/25 07/23/25 Unknown mg-0.025 mg tablet (Lomotil) ferrous fumarate 325 mg (106 mg 0 mg PO UD 07/23/25 07/23/25 Unknown iron) tablet insulin NPH isoph U-100 human 100 10 unit subcut UD 07/23/25 07/23/25 Unknown unit/mL subcutaneous suspension (Humulin N NPH U-100 Insulin (isophane susp)) ondansetron HCl 4 mg tablet 4 mg PO TID PRN n/v 07/23/25 07/23/25 Unknown oxycodone 5 mg tablet 5 mg PO Q6H PRN Pain 07/23/25 07/23/25 Unknown potassium chloride 20 mEq 0 meq PO BID 07/23/25 07/23/25 Unknown tablet,extended release prednisone 20 mg tablet 20 mg PO UD 07/23/25 07/23/25 Unknown prednisone 5 mg tablet 0 mg PO DAILY 07/23/25 07/23/25 Unknown Active Medications Generic Name Dose Route Start Last Admin Trade Name Freq PRN Reason Stop Dose Admin Acetaminophen 650 mg 07/23/25 16:49 07/24/25 01:41 Acetaminophen 325 Mg Tab PO 08/22/25 16:48 650 mg Q4H PRN Administration Pain or Fever Allopurinol 300 mg 07/23/25 21:00 07/24/25 21:25 Allopurinol 300 Mg Tab PO 08/22/25 20:59 300 mg QPM LIUDMILA Administration Amlodipine Besylate 5 mg 07/24/25 09:00 07/25/25 08:57 Amlodipine Besylate 5 Mg Tab PO 08/23/25 08:59 5 mg DAILY LIUDMILA Administration Enoxaparin Sodium 40 mg 07/23/25 16:49 07/24/25 16:30 Enoxaparin Inj 40 Mg/0.4 Ml Syr SQ 08/22/25 16:48 Not Given Q24H LIUDMILA Ferrous Sulfate 325 mg 07/23/25 17:30 07/25/25 08:57 Ferrous Sulfate 325 Mg Tab PO 08/22/25 17:29 Not Given DAILY LIUDMILA Hydromorphone HCl 1 mg 07/23/25 16:49 07/25/25 09:35 Hydromorphone Inj 1 Mg/Ml Syringe IV 08/06/25 16:48 1 mg Q3H PRN Administration Pain - severe Ceftriaxone Sodium 1,000 mg in 50 mls @ 100 mls/hr 07/23/25 18:00 07/24/25 19:21 Rocephin IV 08/02/25 17:59 Infused Q24H LIUDMILA Infusion Metronidazole 500 mg in 100 mls @ 100 mls/hr 07/23/25 18:00 07/25/25 04:03 Flagyl IV 08/02/25 17:59 Infused Q8H LIUDMILA Infusion Lactated Ringer's 1,000 mls @ 80 mls/hr 07/24/25 12:30 07/25/25 09:35 Lr IV 07/27/25 12:29 80 mls/hr .[id number] LIUDMILA Administration Amiodarone HCl/Dextrose 360 mg in 200 mls @ 33.333 mls/hr 07/25/25 04:22 07/25/25 05:27 Nexterone / D5w IV 07/25/25 10:21 1 mg/min ONE ONE 33.3 mls/hr Administration 1 MG/MIN Insulin Aspart 0 units 07/23/25 16:49 07/25/25 08:54 Insulin Aspart Per Unit Charge SC 08/22/25 16:48 1 units ACHS LIUDMILA Administration Metoprolol Succinate 50 mg 07/24/25 09:00 07/25/25 08:57 Metoprolol Succ 50mg Ext Rel Tab PO 08/23/25 08:59 50 mg DAILY LIUDMILA Administration Multivitamins 1 tab 07/24/25 09:00 07/25/25 08:57 Multivitamin Tab PO 08/23/25 08:59 Not Given QAM LIUDMILA Mycophenolate Mofetil 500 mg 07/23/25 21:00 07/25/25 08:56 Mycophenolate Mofetil 250 Mg Cap PO 08/22/25 20:59 500 mg BID LIUDMILA Administration Ondansetron HCl 4 mg 07/23/25 16:54 07/25/25 02:24 Ondansetron 4 Mg Od Tab PO 08/22/25 16:53 4 mg TID PRN Administration Nausea And Vomiting Ondansetron HCl 4 mg 07/23/25 16:49 07/24/25 21:56 Ondansetron Inj 2 Mg/Ml 2 Ml Vial IV 08/22/25 16:48 4 mg Q6H PRN Administration Nausea Polyethylene Glycol 34 gm 07/23/25 21:00 07/24/25 09:21 Polyethylene (Miralax) 17 Gm Pack PO 08/22/25 20:59 Not Given BID LIUDMILA Prednisone 15 mg 07/24/25 09:00 07/25/25 08:56 Prednisone 5 Mg Tab PO 08/23/25 08:59 15 mg DAILY LIUDMILA Administration Tacrolimus 3 mg 07/24/25 09:00 07/25/25 08:55 Tacrolimus 1 Mg Cap PO 08/23/25 08:59 3 mg QAM LIUDMILA Administration Tacrolimus 3 mg 07/24/25 21:00 07/24/25 21:24 Tacrolimus 1 Mg Cap PO 08/23/25 20:59 3 mg HS LIUDMILA Administration Past Medical History Medical History (Updated 07/25/25 @ 09:43 by Anthony Solis MD) Iron deficiency anemia Constipation Vasculitis Immunocompromised SVT (supraventricular tachycardia) ESRD (end stage renal disease) Hypercholesterolemia Lower gastrointestinal bleed Diverticulosis Hypertension Past Family History Family History Mother Colorectal cancer at age 26 with colon cancer Father Heart disease Obesity Other Coronary heart disease Denies family history of Ovarian cancer Breast cancer Past Surgical History Surgical History S/P cholecystectomy S/P kidney transplant Social History Smoking Status: Never smoker Do You Dip or Chew Tobacco: No Hx Alcohol Use: No Hx Substance Use: No substance use type: does not use Physical Exam Vital Signs Last Vital Signs Temp 36.8 C 07/25/25 02:21 Pulse 160 H 07/25/25 05:00 Resp 20 07/25/25 02:21 BP 133/76 07/25/25 02:21 Pulse Ox 95 07/25/25 02:21 O2 Del Method Room Air 07/25/25 05:15 Testing Laboratory Results 07/25/25 02:51 07/25/25 02:51 Hemoglobin A1c 10.3 % (4.5-5.6) H 07/24/25 06:12 Urine Color Yellow 07/23/25 11:55 Urine Appearance Clear (Clear) 07/23/25 11:55 Urine pH 6.5 (4.5-7.5) 07/23/25 11:55 Ur Specific Lyons 1.042 (1.000-1.030) H 07/23/25 11:55 Urine Protein Negative (Negative) 07/23/25 11:55 Urine Glucose (UA) Negative (Negative) 07/23/25 11:55 Urine Ketones 1+ (Negative) H 07/23/25 11:55 Urine Nitrite Negative (Negative) 07/23/25 11:55 Ur Leukocyte Esterase Negative (Negative) 07/23/25 11:55 07/25/25 07:31 POC Glucose 194 H Echocardiogram Date: 07/24/25 EF: 55-60% LV Function: normal Valvular Disease: + no significant valvular disease
[2025-07-25] MEDS: AMIODARONE / D5W 360 MG/200 ML BAG IV SCH (10:15)
--- NOTE | 2025-07-25 10:54 | Cardiology Consultation ---
Date of Consultation July 25, 2025 Assessment & Plan (1) SVT (supraventricular tachycardia): Plan 1. SVT: I will characterize her tachycardia as an SVT. While this is a general term, I do believe it is reentrant in nature. Less likely an ectopic atrial tachycardia. I do not believe this is an atrial flutter or atrial fibrillation. Given her structurally normal heart and the nature of the arrhythmia, this is an overall benign problem. While it may produce symptoms, did not appear to produce any hemodynamic instability. Her symptoms are also fairly mild. It is very possible that in the setting of her current illness and bowel prep there was some volume shifts or change in adrenergic tone that promoted this reentry. Curiously, she does not describe other episodes that were similar in nature leading up to her admission. She cannot recall any sustained or high heart rates at home over the years. She did not appear to have a history of SVT. As such, my hope is that with resolution of her acute medical problems this will not be a clinical issue. While she was started on amiodarone he may have had some benefit, I do not think this is required in the long-term. If she is scheduled for procedure today would be reasonable to continue amiodarone until afterwards in order to reduce the chance of any arrhythmias at that time. However, I would favor discontinuing amiodarone subsequent to any procedure or today if she is not to have a procedure at all. If she were to continue to have episodes of SVT, we could increase her dose of metoprolol. More definitive treatment of SVT for persistent and recurrent symptomatic episodes would be catheter-based (ie ablation) History of Present Illness Reason for Consultation: Tachycardia Requesting Physician: Janine Attending Physician: Dimas Michel MD History of Present Illness The patient is a 54-year-old woman without a known history of cardiac disease who is admitted to the hospital with symptoms of colitis. She has a history of renal transplant and has been suffering for a few months with some abdominal discomfort and other gastrointestinal symptoms. She attributes the onset of her symptoms to a spider bite around . She has been on high doses of prednisone in an attempt to control symptoms and at the time of tapering developed some additional GI complaints. In preparation for a colonoscopy she underwent a bowel cleansing last evening. She was noted to have frequent episodes of high and sustained heart rates over the course of the evening. She noted the sense of palpitation. She is not feeling well in general and some of this had to do with her bowel prep. She did not endorse dizziness or lightheadedness. No associated chest pain or breathing difficulty. An attempt to control her heart rates and symptoms amiodarone infusion was initiated. This morning the patient is feeling tired and has some abdominal discomfort. She is not currently aware of any high heart rates. She states that she occasionally has a sense of palpitation but this is quite infrequent and fleeting. She cannot recall any similar episodes to what occurred last evening. Prior to her spider bite around she was an active individual. In fact, she generally likes to exercise by riding a bike. She did not report exercise related symptoms. She cannot recall symptoms of dizziness, presyncope or syncope. Again, no history of extended episodes of tachycardia or palpitations. No limiting dyspnea. No symptoms of chest discomfort at rest or with exertion. Allergies Allergy/AdvReac Type Severity Reaction Status Date / Time Sulfa (Sulfonamide Allergy Mild Rash Verified 07/07/25 14:14 Antibiotics) Home Medications Medication Instructions Recorded Confirmed Type multivitamin 1 tab PO QAM 02/02/19 07/23/25 History blood sugar diagnostic (Accu-Chek #400 ea 11/18/19 07/07/25 Rx Guide test strips) lancets (Accu-Chek Fastclix Lancet #400 ea 11/18/19 07/07/25 Rx Drum) metformin 500 mg tablet,extended 1,000 mg (2 x 500 mg) PO BID #360 11/21/20 07/23/25 Rx release 24 hr tabs amlodipine 5 mg tablet 5 mg PO DAILY 07/27/21 07/23/25 History metoprolol succinate 50 mg 50 mg PO DAILY 07/27/21 07/23/25 History tablet,extended release 24 hr tacrolimus 1 mg capsule, 1 mg PO DIRECTED #1 cap 01/23/24 07/23/25 Rx immediate-release (Prograf) allopurinol 300 mg tablet 300 mg PO QPM #90 tabs 11/16/24 07/23/25 Rx mycophenolate mofetil 500 mg 0 mg PO BID 05/04/25 07/23/25 History tablet (CellCept) insulin glargine-yfgn 100 unit/mL 0 unit subcut UD 07/07/25 07/23/25 History (3 mL) subcutaneous pen (Semglee (insulin glargine-yfgn) Pen) prednisone 10 mg tablet 10 mg PO DAILY 07/07/25 07/23/25 History diphenoxylate-atropine 2.5 1 tab PO QID PRN diarrhea #12 tabs 07/10/25 07/23/25 Rx mg-0.025 mg tablet (Lomotil) ferrous fumarate 325 mg (106 mg 0 mg PO UD 07/23/25 07/23/25 History iron) tablet insulin NPH isoph U-100 human 100 10 unit subcut UD 07/23/25 07/23/25 History unit/mL subcutaneous suspension (Humulin N NPH U-100 Insulin (isophane susp)) ondansetron HCl 4 mg tablet 4 mg PO TID PRN n/v 07/23/25 07/23/25 History oxycodone 5 mg tablet 5 mg PO Q6H PRN Pain 07/23/25 07/23/25 History potassium chloride 20 mEq 0 meq PO BID 07/23/25 07/23/25 History tablet,extended release prednisone 20 mg tablet 20 mg PO UD 07/23/25 07/23/25 History prednisone 5 mg tablet 0 mg PO DAILY 07/23/25 07/23/25 History Patient History Medical History (Updated 07/25/25 @ 09:43 by Anthony Solis MD) Iron deficiency anemia Constipation Vasculitis Immunocompromised SVT (supraventricular tachycardia) ESRD (end stage renal disease) Hypercholesterolemia Lower gastrointestinal bleed Diverticulosis Hypertension Surgical History S/P cholecystectomy S/P kidney transplant Family History Mother Colorectal cancer at age 26 with colon cancer Father Heart disease Obesity Other Coronary heart disease Denies family history of Ovarian cancer Breast cancer Social History Smoking Status: Never smoker Second Hand Exposure: No; Do You Dip or Chew Tobacco: No; Hx Alcohol Use: No Hx Substance Use: No Preferred Language: Qatari Communication Ability: Effective Visual Impairment: No Limitations Hearing Ability: Normal Cnc Laser Operator Required: No Beliefs That Will Affect Care: None marital status: Current Living Situation: Spouse Current Living Situation Comment: w/ spouse current occupational status: retired Feels Safe at Home: Yes Diet: regular caffeine: Yes (4-5 cups caffeine beverage daily) Seatbelt Use: always Gender Identity: Female Assistive Devices: Glasses Review of Systems Review of Systems: Per HPI Physical Exam Physical Exam: She is alert and oriented x3. Mood affect appear normal. She answered all questions appropriately. HEENT: Sclerae are anicteric. Pupils are equal and reactive to light and accommodation. Extraocular movements were intact. Neuro: Cranial nerves intact Lungs: Lungs are clear to auscultation bilaterally. There are no rales wheezes or rhonchi. She has normal respiratory effort without use of accessory muscles. There is normal pulmonary excursion. Cardiac: The rhythm was regular. S1 and S2 were normal. There are no murmurs on examination. The PMI was not markedly displaced on palpation. Extremities: Patient has bilateral radial pulses that are equal in intensity. There is no evidence cyanosis or clubbing. There was no evidence of significant peripheral edema bilaterally. Skin: There are no rashes noted on examination today. Results & Data Vital Signs (Past 12 Hours) Vital Signs Temp Pulse Pulse Pulse Resp BP Pulse Ox 07/25/25 08:00 37.1 C 07/25/25 05:15 07/25/25 05:00 160 H 07/25/25 02:21 36.8 C 89 20 133/76 95 07/24/25 23:03 36.7 C 94 H 16 116/68 94 O2 Del Method 07/25/25 08:00 07/25/25 05:15 Room Air 07/25/25 05:00 07/25/25 02:21 Room Air 07/24/25 23:03 Room Air Laboratory Results Abnormal Lab Results 07/24/25 07/24/25 07/24/25 11:49 17:09 20:30 WBC RBC Hgb Hct MCV MCH MCHC RDW Std Deviation RDW Coeff of Maribel Plt Count MPV Immature Gran % (Auto) Neut % (Auto) Lymph % (Auto) Luna % (Auto) Eos % (Auto) Baso % (Auto) Neut # (Auto) Lymph # (Auto) Luna # (Auto) Eos # (Auto) Baso # (Auto) Immature Gran # (Auto) Sodium Potassium Chloride Carbon Dioxide Anion Gap BUN Creatinine Est Cr Clr Drug Dosing eGFR BUN/Creatinine Ratio Glucose POC Glucose 192 H 232 H 168 H Calcium Magnesium 07/25/25 07/25/25 02:51 07:31 WBC 9.79 RBC 3.63 L Hgb 8.2 L Hct 27.4 L MCV 75.5 L MCH 22.6 L MCHC 29.9 L RDW Std Deviation 43.0 RDW Coeff of Maribel 15.6 H Plt Count 443 H MPV 9.2 L Immature Gran % (Auto) 0.5 Neut % (Auto) 75.2 Lymph % (Auto) 13.4 Luna % (Auto) 10.6 Eos % (Auto) 0.2 Baso % (Auto) 0.1 Neut # (Auto) 7.36 H Lymph # (Auto) 1.31 Luna # (Auto) 1.04 H Eos # (Auto) 0.02 Baso # (Auto) 0.01 Immature Gran # (Auto) 0.05 Sodium 132 L Potassium 3.8 Chloride 101 Carbon Dioxide 22 Anion Gap 9 BUN 5 L Creatinine 0.49 L Est Cr Clr Drug Dosing 120.0 eGFR 110.55 BUN/Creatinine Ratio 10.2 Glucose 141 H POC Glucose 194 H Calcium 8.2 L Magnesium 1.5 L Diagnostic Findings Echocardiogram 07/16/2025: Normal LV systolic function with ejection fraction 55 to 60%. Mild LVH. No significant valvular heart disease. PG Care Time/CCT Total # of Minutes Spent Total Time Spent with Patient: Total time spent is greater than 50% in coordination of care (as documented) at patient's floor/unit and/or counseling patient: Coding Level of Care Code 60776 INT INP/OBS CARE 3/75MIN Diagnoses SVT (supraventricular tachycardia) I47.10
--- NOTE | 2025-07-25 11:02 | History & Physical Bridge Note ---
Date of Service July 25, 2025 History & Physical Bridge Note I have examined the patient, reviewed the History & Physical and in the interval since the performance of the History & Physical I have noted the following changes of clinical significance: Patient did go into SVT overnight. She is on an Amiodarone drip. She is stabilized at present. We will alert anesthesia. If they are comfortable proceeding, we will plan to proceed with colonoscopy as patient has prepped and continues to have ongoing GI symptoms of abdominal pain and rectal bleeding.
--- NOTE | 2025-07-25 13:22 | Communication Note ---
Date of Service: July 25, 2025 Lower abdominal discomfort loose stools with frequency and urgency. Questionable colitis on CT scan. Patient being treated for potential systemic LEON. On prednisone taper. Also had lower leg vasculitis and recent ophthalmology exam and started on prednisone drops question iritis or uveitis. Colonoscopy today evaluate for colonic involvement of vasculitis or inflammatory bowel disease. CTA did not show large vessel vasculitis
--- NOTE | 2025-07-25 13:59 | GI REPORT ---
[facility] Patient: RJ STAPLETON : 1970 Sex at : Female Age: 54 Years Procedure: Colonoscopy Date: 07/25/2025 Attending Physician: Yosvany Kamara MD Referring MD: Referred Self; Dimas Michel Indications: - Lower abdominal pain colitis on CT scan. History of vasculitis Medications: - Monitored Anesthesia Care Complications: - No immediate complications. Estimated Blood Loss: - Estimated blood loss was minimal. Procedure: - The adult colonoscope was introduced through the anus and advanced to the transverse colon. - The colonoscopy was performed without difficulty. - The quality of the bowel preparation was poor. Findings: - The perianal examination was normal. - Multiple 10 to 30 mm ulcers were found in the rectum, in the sigmoid colon, in the mid descending colon and in the proximal transverse colon. No bleeding was present. No stigmata of recent bleeding were seen. Biopsies were taken with a cold forceps for histology. Estimated blood loss was minimal. Impression: - Preparation of the colon was poor. - Multiple ulcers in the rectum, in the sigmoid colon, in the mid descending colon and in the proximal transverse colon. Biopsied. - Multiple punched-out ulcers rectum to proximal extent of scope passage transverse. Scope not advanced beyond or due to severity of the colitis looping and poor preparation. The ulcers appear bland there is no surrounding bleeding and minimal contact bleeding. This is suspicious for CMV. Biopsies performed. Consider ID consultation. Await biopsies. CMV DNA PCR. Recommendation: Procedure Code(s): - 17421-11, Colonoscopy, flexible; with biopsy, single or multiple Diagnosis Code(s): - K62.6, Ulcer of anus and rectum - K63.3, Ulcer of intestine CPT(R) - 2023 copyright [employer]. All Rights Reserved. The CPT codes, CCI edits and ICD codes generated are intended as suggestions and were generated based on input data. These codes are preliminary and upon database consultant review may be revised to meet current compliance and payer requirements. The provider is responsible for the final determination of appropriate codes, and modifiers. Yosvany Kamara MD This document has been electronically signed. Note Initiated:07/25/2025 Note Completed:07/25/2025 1:59 PM \\[email or web address]\Provation\Results\LIVE\[id number]
--- NOTE | 2025-07-25 14:00 | Communication Note ---
Date of Service: July 25, 2025 Multiple bland punched-out ulcers through the entirety of the colon. Could be compatible with a vasculitis. However the lack of surrounding erythema lack of contact or spontaneous bleeding raises the possibility of CMV. This patient at risk of CMV due to chronic kidney immunosuppression including CellCept and tacrolimus. Patient also received high dose of prednisone. Biopsies performed. Check for CMV on histology and immunohistochemical testing. PCR for CMV DNA. Consider infectious disease consultation.
--- NOTE | 2025-07-25 14:28 | Anesthesiology Progress Note ---
Date of Service July 25, 2025 Anesthesia Post Procedure Vital Signs Vital Signs: Temp Pulse Pulse Pulse Pulse Resp BP 07/25/25 14:21 37.0 C 78 16 129/75 07/25/25 14:06 37.0 C 79 16 131/78 07/25/25 13:51 37.0 C 83 83 20 116/76 07/25/25 12:35 37.0 C 84 21 125/74 07/25/25 08:00 37.1 C 07/25/25 05:15 07/25/25 05:00 160 H 07/25/25 02:21 36.8 C 89 20 133/76 07/24/25 23:03 36.7 C 94 H 16 116/68 07/24/25 21:53 87 07/24/25 19:14 36.7 C 83 16 120/73 07/24/25 14:47 36.8 C 103 H 16 114/67 Pulse Ox O2 Del Method 07/25/25 14:21 93 Room Air 07/25/25 14:06 96 Room Air 07/25/25 13:51 96 Room Air 07/25/25 12:35 92 Room Air 07/25/25 08:00 07/25/25 05:15 Room Air 07/25/25 05:00 07/25/25 02:21 95 Room Air 07/24/25 23:03 94 Room Air 07/24/25 21:53 07/24/25 19:14 95 Room Air 07/24/25 14:47 95 Room Air Pain Intensity Bilateral Lower Abdomen: Pain Intensity: 8 Transfer of Care Handoff Completed per policy Notes Mental Status: alert / awake / arousable Patient Amnestic to Procedure: Yes Nausea / Vomiting: adequately controlled Pain: adequately controlled Airway Patency, RR, SpO2: stable & adequate BP & HR: stable & adequate Hydration State: stable & adequate Anesthetic Complications: no major complications apparent and Pt Satisfied with anesthetic care
[2025-07-25] MEDS: LIDOCAINE 2% 2 ML VIAL/AMP(20MG/ML) INFIL ONE ×2 (14:42)
[2025-07-25] MEDS: PROPOFOL IV EMULSION 10 MG/ML 20 ML VIAL IV ONE ×2 (14:43)
[2025-07-26 04:41] LABS: Hematocrit (blood only) 25.4 % (37.0-47.0); Hemoglobin 8.0 g/dl (12.0-16.0); Mean Corpuscular Hemoglobin 23.7 pg (25.0-34.0); Mean Corpuscular Volume 75.1 fL (80.0-100.0); Platelet Count 400 K/uL (130-400); RDW Standard Deviation 42.6 fL (36.4-46.3); Red Blood Count 3.38 M/uL (4.20-5.40); White Blood Count 9.87 K/ul (4.8-10.8)
[2025-07-26 04:58] LABS: Anion Gap 9.0 (3-11); Blood Urea Nitrogen 4.0 mg/dl (6-23); Calcium 8.0 mg/dl (8.6-10.3); Carbon Dioxide 23.0 mmol/L (21-32); Chloride 103.0 mmol/L (98-107); Creatinine Clr Calc Pharmacy 117.6 ml/min; Glucose 123.0 mg/dl (70-99(Fasting)); Potassium 3.6 mmol/L (3.5-5.1); Sodium 135.0 mmol/L (136-145)
--- NOTE | 2025-07-26 06:45 | Hospitalist Progress Note ---
Date of Service July 26, 2025 Assessment & Plan (1) Constipation: (2) Medium vessel vasculitis: Plan Patient is a 54yo F with PMH notable for renal transplant 20y ago on chronic immunosuppression, gout, GERD, prediabetes, diverticulosis, and medium-vessel vasculitis. She presented to the ED on 07/23 after 1 month of GI sx. She has had multiple ER visits during this time for these sx. She is being admitted for improved pain control and evaluation of etiology behind GI distress. Overnight, pt with episode of sustained SVT. Failed po beta barbara and IVF bolus. Placed on amiodarone drip and stable throughout colonoscopy and overnight. #Colitis/abd pain/rectal pain - Sx for 1 month, progressively worsening; abdominal pain, nausea, vomiting poor po intake, and rectal pain with defecation as well as fevers/chills and night sweats. Seen in ER on 07/02 - exam only notable for exquisite rectal tenderness; CTAP showed nonspecific colitis; patient sent home with Augmentin bid x 7d. PCP switched abx to Cipro and added dicyclomine. Returned to ER on 07/10 - unchanged exam or imaging, and stool testing was negative. Given rx for Lomotil and oxycodone. Has not been able to get in with GI specialist and sx have become intolerable. Broad ddx given nonspecific sx, leukocytosis, CTAP with resolving/nonspecific colitis and moderate stool burden, and constitutional sx: colitis or other infectious etiology, vasculitis, constipation, malignancy e.g. leukemia - Continue empiric abx with IV Rocephin 1g q24h and IV Flagyl 500mg q8h - Ordered ID consult for possible CMV infection - Daily CBC, WBC have normalized - Pain control with Tylenol (mild), 0.5mg Dilaudid (mod), or 1mg Dilaudid (severe) - Consult GI, following Colonoscopies [id number], most recent in 2023, no significant concern Colonoscopy completed 07/25 and notable for multiple erosions throughout colon Pending CMV ab #Vasculitis - Following with rheum who suspect likely systemic LEON - ESR > 130, CRP 14.53 - Has been on extended prednisone taper, most recently (on 07/15) reduced to 12.5 mg #Diabetes/ Severe steroid-induced hyperglycemia - A1c now 10.3%, up from 6.9% on 01/22. POC and BMP glucose staying ~180 - Per PCP notes, had been needing frequent adjustments but up to 35u Semglee per day Increase of long-acting insulin until steroid taper complete - Continue metformin 1g BID - Continue lantus 20 units + SSI (bsg goal 140-180, CF 35, CR 12) #Tachyarrhythmia SVT has been stable while maintained on amiodarone drip. HR have been in 60- 80's, normotensive. - Pt with episode of constant SVT overnight on 07/2423-60-otpszx PO metoprolol and bolus LR 500 mLs - Maintained on amiodarone drip at 0.5mg/min overnight - Consulted Cardiology on 07/25, recommendations as follows agreed with amio drip, can stop after colonoscopy and assess rhythm - Amio drip stopped 07/26, will monitor on tele #Hypomagnesemia Mg is 1.6 - Ordered 2gm IV magnesium sulfate - Reassess in AM lab Renal transplant recipient - Continue chronic regimen of tacrolimus and CellCept GERD - Continue Zofran VTE ppx: Lovenox Diet: regular as tolerated Dispo: med-tele, plan for eventual discharge home Admission and Anticipated Discharge Date Admission Date: July 25, 2025 Supervising Physician Co-Signing Physician Notes Attending attestation Pt seen and examined in concert with Dr. Mehta. In agreement with the documented findings as noted in the resident documentation with any exceptions or additions as noted here. Significant improvement in lower abdominal pain and nausea, now tolerating clears well. VS as noted. On examination, S1/S2 nl RRR no MCG. CTAB. Abd NT/ND BS+ve Abdominal pain with concern for complication of vasculitis vs infectious etiology - GI consult - ID consultation today w/ CMV sendout labs pending at present. Continue abx therapy and monitor CBC, f/u sendout labs. Supraventricular tachycardia - cardiology consult - resolved - discontinue amiodarone and monitor on tele Else see resident documentation as noted. Subjective No acute events overnight. This morning, pt reports ability to tolerate full liquids without abdominal pain or nausea. Pt denies fever/chills, abdominal pain, CP, SOB, N/V/D, or new myalgias Review of Systems Review of Systems: As per HPI. Physical Exam Physical Exam: Gen: NAD, WD/WN HEENT: NCAT, normal conjunctiva, anicteric sclera, MMM CV: RRR, no m/r/g, S1/S2 normal, no LE edema Resp: CTAB, symmetrical chest rise, breathing non-labored Abd: Soft, mildly tender to palpation lower abdomen, normoactive BS MSK: No gross deformities on inspection Skin: Warm, dry, well-perfused, no rashes or other lesions appreciated Neuro: A&Ox3, no focal deficits Psych: Full affect. Speech pace and thought content normal. Good insight Results & Data Results & Data Vital Signs (Past 12 Hours) Vital Signs Temp Pulse Resp BP Pulse Ox O2 Del Method 07/26/25 04:00 70 22 109/63 91 Room Air 07/26/25 01:15 36.7 C 07/26/25 00:10 70 07/26/25 00:00 68 18 112/68 90 Room Air 07/25/25 20:00 36.7 C 71 19 112/69 90 Room Air 07/25/25 20:00 72 07/25/25 20:00 Room Air Resident Activity Tracking Resident Involvement: Resident Care Provided Care Provided: Adult Hospital Medicine
[2025-07-26] MEDS ORDERED: GLUCOSE 40% GEL 15 GM TUBE PO PRN (07:15)
[2025-07-26] MEDS ORDERED: DEXTROSE 50% 50 ML SYRINGE IV PRN (07:15)
[2025-07-26] MEDS ORDERED: GLUCAGON FOR INJ 1 MG VIAL SQ PRN (07:15)
[2025-07-26] MEDS ORDERED: GLUCOSE 10 TAB/TUBE PO PRN (07:15)
[2025-07-26] MEDS ORDERED: CARBOHYDRATES FOR HYPOGLYCEMIA PO PRN (07:15)
[2025-07-26] MEDS: LANTUS PER UNIT CHARGE SQ SCH (08:14)
[2025-07-26 08:49] LABS: Magnesium 1.6 mg/dl (1.7-2.4)
[2025-07-26] MEDS: MAGNESIUM SULFATE / D5W 1 GM/100 ML BAG IV SCH (09:14)
--- NOTE | 2025-07-26 10:32 | Infectious Disease Consult ---
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 ID consulted given colonoscopy findings c/f CMV. At 04/05/25 rheumatology visit for LEON, was started on prednisone 60 mg x 2 weeks, then 50 mg x 2 weeks, 40 mg x 1 week, with plan to reduce by 5 mg increments weekly. At most recent 07/07 rheumatology visit, she had been on prednisone 15 mg x 2+ weeks, and plan was to continue slow taper to 12.5 mg on 07/15, 10 mg on 07/29, and 7.5 mg on 08/12. She was unable to start Bactrim for PJP prophylaxis given a sulfa allergy, but insurance would not cover atovaquone, so continuing with close monitoring. Per nephrology note, pt's MMF dose was initially reduced from 500 mg BID to 250 mg BID while on steroids. At her 07/07 rheumatology visit, the MMF dose was increased back to 500 mg BID given the tapering steroids. She was seen in the ED on 07/02 for ~1.5 weeks of pain in her lower abdomen and rectum, diarrhea. CTAP with IV contrast showed diffuse mild colonic wall thickening with minimal pericolonic stranding, representing a nonspecific colitis. She was discharged with Augmentin 875 mg PO BID x 7 days. GI pathogen panel was negative at that time. She saw her PCP on 07/05 and the Augmentin was switched to cipro. She presented back to the ED on 07/10 with ongoing abd and rectal pain and diarrhea. Repeat CTAP with IV contrast showed findings consistent with mild colitis. Pt presented back to the ED on 07/23 with abdominal pain, N/V, diarrhea. Reported a lot of rectal pain when she moves her bowels. On presentation, pt was afebrile with WBC 20.56, plt 615, ESR >130, CRP 14.53. CTA chest abd pelvis showed no significant findings. She was started on ceftriaxone and metronidazole. Did have episode of SVT for which she was started on amiodarone gtt. GI was consulted and performed colonoscopy on 07/25, which showed multiple ulcers in the rectum, sigmoid colon, mid descending colon and proximal transverse colon. There was suspicion for CMV. Biopsies sent and pending. Discussion: CMV infection tends to happen early on post-transplant in the first several months, and less commonly occurs so far out from transplant, although can occur. Will await biopsy result. CMV PCR from blood ordered, but of note, this can be n egative despite tissue-invasive CMV, so biopsy will be the method of diagnosis. Recommendations: - Follow-up CMV PCR from blood - Will follow-up biopsies from colonoscopy. Spoke to pathologist--CMV immunohistochemistry should be back this afternoon, but anticipate it will likely be negative because no viral cytopathic effects seen. Saw a pattern of acute colitis as can be seen in infection or ischemia like in vasculitis. Therefore, will hold off on ganciclovir at this time - Likely can discontinue ceftriaxone and metronidazole soon Will continue to follow Consultation Information Consultation was provided via telemedicine using two-way real-time interactive telecommunication between the patient and the telemedicine provider. For the duration of the visit, the provider was performing the assessment from a different facility than the patient. This includesuse of bluetooth stethoscope forauscultationperformed by the telepresenter that the telemedicine provider can hear if described in the physical exam. [facility] [employer] contact information: Please call [facility] [phone]. 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 At 04/05/25 rheumatology visit, was started on prednisone 60 mg x 2 weeks, then 50 mg x 2 weeks, 40 mg x 1 week, with plan to reduce by 5 mg increments weekly. At 07/07 rheumatology visit, she had been on prednisone 15 mg x 2+ weeks, and plan was to continue slow taper to 12.5 mg on 07/15, 10 mg on 07/29, and 7.5 mg on 08/12. She was unable to start Bactrim for PJP prophylaxis given a sulfa allergy, but insurance would not cover atovaquone, so continuing with close monitoring. Per nephrology note, pt's MMF dose was initially reduced from 500 mg BID to 250 mg BID while on steroids. At her 07/07 rheumatology visit, the MMF dose was increased back to 500 mg BID given the tapering steroids. She was seen in the ED on 07/02 for ~1.5 weeks of pain in her lower abdomen and rectum, diarrhea. CTAP with IV contrast showed diffuse mild colonic wall thickening with minimal pericolonic stranding, representing a nonspecific colitis. She was discharged with Augmentin 875 mg PO BID x 7 days. GI pathogen panel was negative at that time. She saw her PCP on 07/05 and the Augmentin was switched to cipro. She presented back to the ED on 07/10 with ongoing abd and rectal pain and diarrhea. Repeat CTAP with IV contrast showed findings consistent with mild colitis. Pt presented back to the ED on 07/23 with abdominal pain, N/V, diarrhea. Reported a lot of rectal pain when she moves her bowels. On presentation, pt was afebrile with WBC 20.56, plt 615, ESR >130, CRP 14.53. CTA chest abd pelvis showed no significant findings. She was started on ceftriaxone and metronidazole. Did have episode of SVT for which she was started on amiodarone gtt. GI was consulted and performed colonoscopy on 07/25, which showed multiple ulcers in the rectum, sigmoid colon, mid descending colon and proximal transverse colon. There was suspicion for CMV. Biopsies sent and pending. Allergies Allergy/AdvReac Type Severity Reaction Status Date / Time Sulfa (Sulfonamide Allergy Mild Rash Verified 07/07/25 14:14 Antibiotics) Home Medications Medication Instructions Recorded Confirmed Type multivitamin 1 tab PO QAM 02/02/19 07/23/25 History blood sugar diagnostic (Accu-Chek #400 ea 11/18/19 07/07/25 Rx Guide test strips) lancets (Accu-Chek Fastclix Lancet #400 ea 11/18/19 07/07/25 Rx Drum) metformin 500 mg tablet,extended 1,000 mg (2 x 500 mg) PO BID #360 11/21/20 07/23/25 Rx release 24 hr tabs amlodipine 5 mg tablet 5 mg PO DAILY 07/27/21 07/23/25 History metoprolol succinate 50 mg 50 mg PO DAILY 07/27/21 07/23/25 History tablet,extended release 24 hr tacrolimus 1 mg capsule, 1 mg PO DIRECTED #1 cap 01/23/24 07/23/25 Rx immediate-release (Prograf) allopurinol 300 mg tablet 300 mg PO QPM #90 tabs 11/16/24 07/23/25 Rx mycophenolate mofetil 500 mg 0 mg PO BID 05/04/25 07/23/25 History tablet (CellCept) insulin glargine-yfgn 100 unit/mL 0 unit subcut UD 07/07/25 07/23/25 History (3 mL) subcutaneous pen (Semglee (insulin glargine-yfgn) Pen) prednisone 10 mg tablet 10 mg PO DAILY 07/07/25 07/23/25 History diphenoxylate-atropine 2.5 1 tab PO QID PRN diarrhea #12 tabs 07/10/25 07/23/25 Rx mg-0.025 mg tablet (Lomotil) ferrous fumarate 325 mg (106 mg 0 mg PO UD 07/23/25 07/23/25 History iron) tablet insulin NPH isoph U-100 human 100 10 unit subcut UD 07/23/25 07/23/25 History unit/mL subcutaneous suspension (Humulin N NPH U-100 Insulin (isophane susp)) ondansetron HCl 4 mg tablet 4 mg PO TID PRN n/v 07/23/25 07/23/25 History oxycodone 5 mg tablet 5 mg PO Q6H PRN Pain 07/23/25 07/23/25 History potassium chloride 20 mEq 0 meq PO BID 07/23/25 07/23/25 History tablet,extended release prednisone 20 mg tablet 20 mg PO UD 07/23/25 07/23/25 History prednisone 5 mg tablet 0 mg PO DAILY 07/23/25 07/23/25 History Patient History Medical History (Updated 07/26/25 @ 11:25 by Alba Patel PA-C) Iron deficiency anemia Constipation Vasculitis Immunocompromised SVT (supraventricular tachycardia) ESRD (end stage renal disease) Hypercholesterolemia Lower gastrointestinal bleed Diverticulosis Hypertension Surgical History (Updated 07/25/25 @ 11:52 by Danita Zaldivar DO) [place] teeth extracted Hx of colonoscopy S/P cholecystectomy S/P kidney transplant Family History Mother Colorectal cancer at age 26 with colon cancer Father Heart disease Obesity Other Coronary heart disease Denies family history of Ovarian cancer Breast cancer Social History Smoking Status: Never smoker Second Hand Exposure: No; Do You Dip or Chew Tobacco: No; Hx Alcohol Use: No Hx Substance Use: No Preferred Language: Ukrainian Communication Ability: Effective Visual Impairment: No Limitations Hearing Ability: Normal Concrete Tester Required: No Beliefs That Will Affect Care: None marital status: Current Living Situation: Spouse Current Living Situation Comment: w/ spouse current occupational status: retired Other Information That Helps Us Care for You: No Feels Safe at Home: Yes Safety Concerns: Feels Safe At This Time Diet: regular caffeine: Yes (4-5 cups caffeine beverage daily) Seatbelt Use: always Gender Identity: Female Assistive Devices: None Review of System A complete ROS was performed and is negative except as mentioned in the HPI. Physical Exam Physical Exam: GEN: sitting up in NAD. ABD: Soft, non-distended NEURO: Alert and oriented. Answers all questions appropriately. Speech not slurred. PSYCH: Normal mood, affect appropriate. Results & Data Vital Signs (Past 12 Hours) Vital Signs Temp Pulse Pulse Resp BP BP Pulse Ox 07/26/25 08:00 36.6 C 77 16 111/60 96 07/26/25 04:00 70 22 109/63 91 07/26/25 01:15 36.7 C 07/26/25 00:10 70 07/26/25 00:00 68 18 112/68 90 O2 Del Method 07/26/25 08:00 Room Air 07/26/25 04:00 Room Air 07/26/25 01:15 07/26/25 00:10 07/26/25 00:00 Room Air
--- NOTE | 2025-07-26 11:20 | Gastroenterology Progress Note ---
Date of Service July 26, 2025 Assessment & Plan (1) Colon ulcer: Plan: Colon findings were concerning for possible CMV. Further studies ordered and biopsies pending at this time. Will await biopsies prior to making further recommendations. Admission and Anticipated Discharge Date Admission Date: July 25, 2025 Supervising Physician Co-Signing Physician Notes Patient about the same. Seen in the ICU. Has pain with p.o. intake. Colonoscopy showed multiple punched-out ulcers bland without bleeding certainly suspicious for CMV however biopsies do not really confirm it. See ID note. There is only a single cell changes seen by pathologist to recommend interpreted this with a grain of caution. If this is not CMV then vasculitis is the probable etiology. Management then will be a vasculitis which could include either high-dose steroids. This of course would aggravate CMV. Could review [facility] ID and rheumatology about concurrent treatment with ganciclovir and high-dose steroids. Subjective Patient is a 54 yo female with colitis. She underwent a colonoscopy for further evaluation of this on 07/26/25. Colonoscopy indicated ulcers in the rectum, sigmoid, descending, proximal transverse colon, & punched out ulcers. She notes loose stools. Review of Systems Constitutional: no fever and no chills Respiratory: no cough and no dyspnea Cardiovascular: no chest pain Gastrointestinal: + diarrhea/loose stools; no abdominal pa in Physical Exam Constitutional: well developed Gastrointestinal (Abdomen): normal bowel sounds, soft, nontender, no hepatosplenomegaly Psychiatric: Orientation: alert and oriented x 3 Results & Data Results & Data Vital Signs (Past 12 Hours) Vital Signs Temp Pulse Pulse Resp BP BP Pulse Ox 07/26/25 08:00 36.6 C 77 16 111/60 96 07/26/25 04:00 70 22 109/63 91 07/26/25 01:15 36.7 C 07/26/25 00:10 70 07/26/25 00:00 68 18 112/68 90 O2 Del Method 07/26/25 08:00 Room Air 07/26/25 04:00 Room Air 07/26/25 01:15 07/26/25 00:10 07/26/25 00:00 Room Air PG Care Time/CCT Total # of Minutes Spent Total Time Spent with Patient: Total time spent is greater than 50% in coordination of care (as documented) at patient's floor/unit and/or counseling patient: Coding Level of Care Code 98511 SUB INP/OBS CARE MIN Diagnoses Colon ulcer K63.3
[2025-07-27 04:56] LABS: Hematocrit (blood only) 28.7 % (37.0-47.0); Hemoglobin 9.0 g/dl (12.0-16.0); Mean Corpuscular Hemoglobin 23.6 pg (25.0-34.0); Mean Corpuscular Volume 75.1 fL (80.0-100.0); Platelet Count 462 K/uL (130-400); RDW Standard Deviation 43.7 fL (36.4-46.3); Red Blood Count 3.82 M/uL (4.20-5.40); White Blood Count 10.26 K/ul (4.8-10.8)
[2025-07-27 05:13] LABS: Anion Gap 8.0 (3-11); Blood Urea Nitrogen 4.0 mg/dl (6-23); Calcium 8.1 mg/dl (8.6-10.3); Carbon Dioxide 26.0 mmol/L (21-32); Chloride 103.0 mmol/L (98-107); Creatinine Clr Calc Pharmacy 113.8 ml/min; Glucose 141.0 mg/dl (70-99(Fasting)); Magnesium 1.7 mg/dl (1.7-2.4); Potassium 3.3 mmol/L (3.5-5.1); Sodium 137.0 mmol/L (136-145)
[2025-07-27] MEDS: POTASSIUM CHLORIDE CRTAB 20 MEQ TABCR PO STA (07:54)
[2025-07-27 08:15] VITALS: RESP 20; TEMP 97.4; O2SAT 95
--- NOTE | 2025-07-27 08:24 | Hospitalist Progress Note ---
Date of Service July 27, 2025 Assessment & Plan (1) Constipation: (2) Medium vessel vasculitis: Plan Patient is a 54yo F with PMH notable for renal transplant 20y ago on chronic immunosuppression, gout, GERD, prediabetes, diverticulosis, and medium-vessel vasculitis. She presented to the ED on 07/23 after 1 month of GI sx. She has had multiple ER visits during this time for these sx. She is being admitted for improved pain control and evaluation of etiology behind GI distress. #Colitis/abd pain/rectal pain - Sx for 1 month, progressively worsening; abdominal pain, nausea, vomiting poor po intake, and rectal pain with defecation as well as fevers/chills and night sweats. Seen in ER on 07/02 - exam only notable for exquisite rectal tenderness; CTAP showed nonspecific colitis; patient sent home with Augmentin bid x 7d. PCP switched abx to Cipro and added dicyclomine. Returned to ER on 07/10 - unchanged exam or imaging, and stool testing was negative. Given rx for Lomotil and oxycodone. Has not been able to get in with GI specialist and sx have become intolerable. Broad ddx given nonspecific sx, leukocytosis, CTAP with resolving/nonspecific colitis and moderate stool burden, and constitutional sx: colitis or other infectious etiology, vasculitis, constipation, malignancy e.g. leukemia - Continue empiric abx with IV Rocephin 1g q24h and IV Flagyl 500mg q8h - Daily CBC, WBC have normalized - Pain control with Tylenol (mild), 0.5mg Dilaudid (mod), or 1mg Dilaudid (severe) - Consult GI, following Colonoscopies [id number], most recent in 2023, no significant concern Colonoscopy completed 07/25 and notable for multiple erosions throughout colon Biopsies show a single cell consistent with CMV - Consulted ID Awaiting rec for use of antivirals #Vasculitis - Following with rheum who suspect likely systemic LEON - ESR > 130, CRP 14.53 - Has been on extended prednisone taper, most recently (on 07/15) reduced to 12.5 mg #Diabetes/ Severe steroid-induced hyperglycemia - A1c now 10.3%, up from 6.9% on 01/22. POC and BMP glucose staying ~180 - Per PCP notes, had been needing frequent adjustments but up to 35u Semglee per day Increase of long-acting insulin until steroid taper complete - Continue metformin 1g BID - Continue lantus 20 units + SSI (bsg goal 140-180, CF 35, CR 12) #Tachyarrhythmia SVT has been stable since stopping amio drip on 07/26 in AM. - Will continue to monitor #Hypomagnesemia Mg is 1.7 - Monitor in AM lab #Hypokalemia K+ is 3.3 - Repleted with po potassium 40mEq Renal transplant recipient - Continue chronic regimen of tacrolimus and CellCept GERD - Continue Zofran VTE ppx: Lovenox Diet: regular as tolerated Dispo: med-tele, plan for eventual discharge home Admission and Anticipated Discharge Date Admission Date: July 25, 2025 Subjective NO acute events overnight. Pt's nurse reports soft BP this morning with a short episode of dizziness, resolved without intervention. This morning, pt reports no abdominal pain and tolerating full liquid diet without difficulty. Pt voices frustration about sontinued hospital stay, she would like to return home as soon as possible. Review of Systems Review of Systems: As per HPI. Physical Exam Physical Exam: Gen: NAD, WD/WN HEENT: NCAT, normal conjunctiva, anicteric sclera, MMM CV: RRR, no m/r/g, S1/S2 normal, no LE edema Resp: CTAB, symmetrical chest rise, breathing non-labored Abd: Soft, mildly tender to palpation lower abdomen, normoactive BS MSK: No gross deformities on inspection Skin: Warm, dry, well-perfused, no rashes or other lesions appreciated Neuro: A&Ox3, no focal deficits Psych: Full affect. Speech pace and thought content normal. Good insight Results & Data Results & Data Vital Signs (Past 12 Hours) Vital Signs Temp Pulse Resp BP Pulse Ox O2 Del Method 07/27/25 08:08 36.3 C L 87 20 113/54 L 95 Room Air 07/27/25 04:08 36.8 C 85 16 113/65 94 Room Air 07/27/25 00:00 36.8 C 72 16 104/63 94 Room Air
[2025-07-27 10:28] VITALS: BP 112/68
--- NOTE | 2025-07-27 11:29 | Infectious Disease Progress Nt ---
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 ID consulted given colonoscopy findings c/f CMV. At 04/05/25 rheumatology visit for LEON, was started on prednisone 60 mg x 2 weeks, then 50 mg x 2 weeks, 40 mg x 1 week, with plan to reduce by 5 mg increm ents weekly. At most recent 07/07 rheumatology visit, she had been on prednisone 15 mg x 2+ weeks, and plan was to continue slow taper to 12.5 mg on 07/15, 10 mg on 07/29, and 7.5 mg on 08/12. She was unable to start Bactrim for PJP prophylaxis given a sulfa allergy, but insurance would not cover atovaquone, so continuing with close monitoring. Per nephrology note, pt's MMF dose was initially reduced from 500 mg BID to 250 mg BID while on steroids. At her 07/07 rheumatology visit, the MMF dose was increased back to 500 mg BID given the tapering steroids. She was seen in the ED on 07/02 for ~1.5 weeks of pain in her lower abdomen and rectum, diarrhea. CTAP with IV contrast showed diffuse mild colonic wall thickening with minimal pericolonic stranding, representing a nonspecific colitis. She was discharged with Augmentin 875 mg PO BID x 7 days. GI pathogen panel was negative at that time. She saw her PCP on 07/05 and the Augmentin was switched to cipro. She presented back to the ED on 07/10 with ongoing abd and rectal pain and diarrhea. Repeat CTAP with IV contrast showed findings consistent with mild colitis. Pt presented back to the ED on 07/23 with abdominal pain, N/V, diarrhea. Reported a lot of rectal pain when she moves her bowels. On presentation, pt was afebrile with WBC 20.56, plt 615, ESR >130, CRP 14.53. CTA chest abd pelvis showed no significant findings. She was started on ceftriaxone and metronidazole. Did have episode of SVT for which she was started on amiodarone gtt. GI was consulted and performed colonoscopy on 07/25, which showed multiple bland punched-out ulcers in the rectum, sigmoid colon, mid descending colon and proximal transverse colon. The lack of surrounding erythema or spontaneous bleeding raised concern for CMV. Biopsies showed acute colitis with variable ulceration, no viral cytopathic effect identified on H&E. CMV immunohistochemistry showed a single positive cell in one tissue fragment. Discussion: CMV PCR from plasma is pending--if quite elevated, this would be suggestive of CMV colitis. More likely the CMV PCR will be negative--however, of note, the CMV PCR from blood can be negative despite tissue-invasive CMV, so biopsy is the method of diagnosis. Unclear significance of one positive cell by CMV immunohistochemistry, with no viral cytopathic effect on H&E. With the low positivity by IHC, the likelihood that CMV is causing all this colonic inflammation is low (assuming the CMV PCR is negative). Perhaps the colonic ulcers could be explained by her vasculitis. However, would be reasonable to treat for possible CMV since pt will likely undergo increased immunosuppression for vasculitis. Recommendations: - Follow-up CMV PCR from blood - Ok to stop ceftriaxone and metronidazole - Start valganciclovir 900 mg PO BID (opting for this over IV ganciclovir, as her diarrhea does not seem severe so I think pt will be able to absorb it). Anticipate minimum 3 week course, and would plan for a repeat colonoscopy prior to the end of the 3 week course to assess for improvement. - I would hesitate to pin her colitis on CMV, and would favor also treating as vasculitis, given discussion above. If she does not improve on antiviral therapy alone (without increased immunosuppression), this would point towards vasculitis being the cause rather than CMV. - Ideally pt would follow-up with a transplant ID physician at [facility], where her transplant team is. We unfortunately do not have the capacity to follow her closely as an outpatient in our telemedicine ID clinic which has limited ca pacity only for OPAT patients Discussed with primary team. Admission and Anticipated Discharge Date Admission Date: July 25, 2025 Subjective This patient recommendation is based on a telemedicine consult request which was completed asynchronously through chart review and information provided by the primary physician. The patient was not seen or examined today. The evaluation is consultative in nature and all patient care and treatment decisions can either be accepted or rejected by the patient's primary hospital-based treating physician using their own independent medical judgment for their patient. Time Spent Reviewing Chart: 31+ minutes No acute events Results & Data Vital Signs (Past 12 Hours) Vital Signs Temp Pulse Pulse Resp BP Pulse Ox O2 Del Method 07/27/25 10:05 112/68 07/27/25 08:36 85 07/27/25 08:08 36.3 C L 87 20 113/54 L 95 Room Air 07/27/25 04:08 36.8 C 85 16 113/65 94 Room Air 07/27/25 00:00 36.8 C 72 16 104/63 94 Room Air
[2025-07-27] MEDS: VALGANCICLOVIR HCL 450 MG TABLET PO ONE (15:23)
--- NOTE | 2025-07-27 15:36 | Gastroenterology Progress Note ---
Date of Service July 27, 2025 Assessment & Plan (1) Colitis: Plan: Improving significantly with treatment for vasculitis. Continue to monitor. Admission and Anticipated Discharge Date Admission Date: July 25, 2025 Supervising Physician Co-Signing Physician Notes Feeling better. Differential includes vasculitis and/or CMV. There is not clear evidence of CMV on biopsies. Put in note there for ID from yesterday that endoscopically appearance was consistent with CMV. Potentially if high-dose steroids or other further immunomodulators suppressive therapy is required could consider dual therapy including antivasculitis and CMV treatment. Patient for discharge. I believe the decision was made to start oral ganciclovir. I agree. Follow-up with her transplant team. ID in [place]. Subjective Patient is a 54 yo female with colitis. She is feeling much better. She notes resolution of diarrhea. No rectal bleeding. She notes she is tolerating food. ID following. Review of Systems Gastrointestinal: no abdominal pain and no problem reported Physical Exam Constitutional: well developed Gastrointestinal (Abdomen): normal bowel sounds, soft, nontender, no hepatosplenomegaly Results & Data Results & Data Vital Signs (Past 12 Hours) Vital Signs Temp Pulse Pulse Resp BP Pulse Ox O2 Del Method 07/27/25 10:05 112/68 07/27/25 08:36 85 07/27/25 08:08 36.3 C L 87 20 113/54 L 95 Room Air 07/27/25 04:08 36.8 C 85 16 113/65 94 Room Air PG Care Time/CCT Total # of Minutes Spent Total Time Spent with Patient: Total time spent is greater than 50% in coordination of care (as documented) at patient's floor/unit and/or counseling patient: Coding Level of Care Code 83957 SUB INP/OBS CARE 2/35MIN Diagnoses Colitis K52.9
[2025-07-27 15:49] VITALS: PULSE 70
--- NOTE | 2025-07-27 15:53 | Discharge Summary ---
Date of Service July 27, 2025 Principal Diagnosis Colonic ulcers Discharge Exam Gen: NAD, WD/WN HEENT: NCAT, normal conjunctiva, anicteric sclera, MMM CV: RRR, no m/r/g, S1/S2 normal, no LE edema Resp: CTAB, symmetrical chest rise, breathing non-labored Abd: Soft, non-tender to palpation lower abdomen, normoactive BS MSK: No gross deformities on inspection Skin: Warm, dry, well-perfused, no rashes or other lesions appreciated Neuro: A&Ox3, no focal deficits Psych: Full affect. Speech pace and thought content normal. Good insight Discharge Data Allergies Allergy/AdvReac Type Severity Reaction Status Date / Time Sulfa (Sulfonamide Allergy Mild Rash Verified 07/07/25 14:14 Antibiotics) Consultations 07/23/25 10:12 ED Decision to Admit Stat 07/23/25 14:33 Consult Gastroenterology Routine 07/25/25 09:20 Consult Cardiology Routine 07/26/25 09:40 Consult Infectious Diseases Routine Procedures Performed Operation Date: 07/25/25 17:10 Actual Procedures p Colonoscopy Biopsy Cytology - Yosvany Kamara MD Ordered Studies 07/23/25 09:04 CT angio abdomen pelvis w con Stat CT angio chest PE protocol Stat Diabetes Follow up Diabetes Follow-up Needed for HgbA1c >9% Hospital Course (1) Constipation: (2) Medium vessel vasculitis: Plan Patient is a 54yo F with PMH notable for renal transplant 20y ago on chronic immunosuppression, gout, GERD, prediabetes, diverticulosis, and medium-vessel vasculitis. She presented to the ED on 07/23 after 1 month of GI sx. She has had multiple ER visits during this time for these sx. She is being admitted for improved pain control and evaluation of etiology behind GI distress. #Colitis/abd pain/rectal pain - Colonoscopy with multiple ulcerations throughout colon. Biopsy showed 1 cell with evidence of CMV. IgG and IgM is negative, while CMV PCR remains pending. Consulted with ID in regard to these findings. Pt is overall feeling better, resolution of abdominal pain without use of pain medication and tolerating full liquid diet without nausea, vomiting or diarrhea. - Stopped empiric abx with IV Rocephin 1g q24h and IV Flagyl 500mg q8h - Pain control with Tylenol (mild), 0.5mg Dilaudid (mod), or 1mg Dilaudid (severe) - Consult GI, following Colonoscopies [id number], most recent in 2023, no significant concern Colonoscopy completed 07/25 and notable for multiple erosions throughout colon - Consulted ID Recommending po valganciclovir x 3 weeks Repeat colonoscopy just prior to completing course of antiviral Follow up with transplant team and obtain referral for follow up with outpatient ID #Vasculitis - Following with rheum who suspect likely systemic LEON - ESR > 130, CRP 14.53 - Has been on extended prednisone taper, most recently (on 07/15) reduced to 12.5 mg #Diabetes/ Severe steroid-induced hyperglycemia - A1c now 10.3%, up from 6.9% on 01/22. POC and BMP glucose staying ~180 - Per PCP notes, had been needing frequent adjustments but up to 35u Semglee per day Increase of long-acting insulin until steroid taper complete - Continue metformin 1g BID - Continue lantus 20 units + SSI (bsg goal 140-180, CF 35, CR 12) #Tachyarrhythmia HR has been stable for the last 24 hours without amio drip. 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 A colonoscopy was performed and found ulcers throughout your colon. Biopsies of the ulcerated tissue showed a small sample with evidence of cytomegalovirus (CMV) infection. After consultation with Infectious Disease, if was recommended that you start treatment with an oral antiviral medication, Valganciclovir 450mg- take 2 tablets, twice daily for 3 weeks. We gave you on dose today. Please pickers material handlers this prescription at your pharmacy and you will take it twice daily for 3 weeks. Last dose should be in the morning on 08/17/25. You also experienced some fast heart rates and irregular heart beats that may have been due to dehydration while preparing for the colonoscopy. We started an IV medication to slow down and regulate your heart rate, which was effective. We stopped the medication after your colonoscopy without any further issues. You can resume your previous home medications. You will follow up with your [facility] transplant team on 08/01/25. Please call them to request referral for an Infectious Disease Specialist within their system who will continue to follow you. You will also need a follow up colonoscopy just prior to completing the Valganciclovir. Please also plan to follow up with you PCP at the end of this week and schedule a follow up with Dr. Lay, your Field Contact Technician. Thank you for allowing us to be apart of your health care Pending Studies at Discharge: Yes Stand-Alone Forms: [facility], Smoking Cessation Medications and DC Order Prescriptions: New valganciclovir 450 mg Tablet 900 mg PO BID Qty: 82 0RF Continued (DME) Accu-Chek Guide test strips Strip See Rx Instructions .ROUTE .MEDSUPPLY Qty: 400 3RF Rx Instructions: Test 4 times daily (DME) lancets [Accu-Chek Fastclix Lancet Drum] Misc See Rx Instructions .ROUTE .MEDSUPPLY Qty: 400 3RF Rx Instructions: Test 4 times daily metformin 500 mg tablet extended release 24 hr 1,000 mg PO BID Qty: 360 3RF allopurinol 300 mg tablet 300 mg PO QPM Qty: 90 3RF amlodipine 5 mg tablet 5 mg PO DAILY Hold Instructions: hold for now due to recent GI bleeding metoprolol succinate 50 mg tablet extended release 24 hr 50 mg PO DAILY Hold Instructions: hold due to recent GI bleeding mycophenolate mofetil [CellCept] 500 mg tablet 0 mg PO BID Patient Comments: 07/23-last filled 04/08 90 day supply. original:250mg po bid prednisone 10 mg tablet 10 mg PO DAILY Patient Comments: filled 07/15 30 day supply Rx Instructions: as directed insulin glargine-yfgn [Semglee(insulin glarg-yfgn)Pen] 100 unit/mL (3 mL) insulin pen 0 unit subcut UD multivitamin Tablet 1 tab PO QAM Patient Comments: 07/23- otc unable to verify tacrolimus [Prograf] 1 mg Capsule 1 mg PO DIRECTED Qty: 1 0RF Rx Instructions: take 3mg each morning, and take 2mg each evening. diphenoxylate-atropine [Lomotil] 2.5-0.025 mg tablet 1 tab PO QID PRN (Reason: diarrhea) Qty: 12 0RF ondansetron HCl 4 mg tablet 4 mg PO TID PRN (Reason: n/v) prednisone 20 mg tablet 20 mg PO UD Patient Comments: filled 07/16 14 day supply Humulin N NPH U-100 Insulin 100 unit/mL suspension 10 unit SUBCUT UD Rx Instructions: 10 units subcut daily when taking prednisone oxycodone 5 mg tablet 5 mg PO Q6H PRN (Reason: Pain) prednisone 5 mg tablet 0 mg PO DAILY Patient Comments: 07/23-last filled 05/04 30 day supply ferrous fumarate 325 mg (106 mg iron) tablet 0 mg PO UD Patient Comments: 07/23- otc/no fill history unable to verify Rx Instructions: TAKE 1 TAB PO EVERY DAY + AN ADDITIONAL DOSE EVERY OTHER DAY potassium chloride 20 mEq tablet extended release 0 meq PO BID Patient Comments: 07/23- last filled 03/17 5 day supply Discharge Orders: Discharge Order (Routine); Ordered 07/27/25 Ordered By: Kenzie Torres/Other Patient Handouts: Managing Type 2 Diabetes Admission Data Admit Date/Time: 07/25/25 12:57 Attending Provider: Dimas Michel Admit Provider: Panfilo Conklin Primary Care Provider: Mackenzie Kumari Other Providers: Panfilo Conklin; Yolanda Harper; Dimas Oliver; Madie Swenson Other Interventions: Discharge Summary Assessment (RN) Last Done: 07/27/25 15:47 Supervising Physician Co-Signing Physician Notes Attending attestation Pt seen and examined in concert with Dr. Mehta. In agreement with the documented findings as noted in the resident documentation with any exceptions or additions as noted here. No further recurrence of presenting abdominal pain. Extensive conversations today between patient, primary team, GI, ID re: upcoming course. VS as noted. On examination, S1/S2 nl RRR no MCG. CTAB. Abd NT/ND BS+ve Acute colitis - ID, GI consult - previous episodes reported resolved w/ abx administration, as did this one. However, per bx report, concern for CMV in transplant patient, though immunoglobulin titers were negative. After d/w ID and their transplant colleagues, rec'd to start valgancyclovir course with follow up with primary transplant team, outpatient ID follow up, GI and primary care for further monitoring and evaluation. h/o vasculitis - continue extended prenisone taper, follow up with rheumatology DMII - recent elevation of A1c as noted, resume outpatient DM regimen with likely adjustment by FSBS based on prolonged steroid use Else see resident documentation as noted. Total attending physician time spent with this patient's care on the day of discharge: 40 minutes. Resident Activity Tracking Resident Involvement: Resident Care Provided Care Provided: Adult Hospital Medicine
--- NOTE | 2025-07-27 17:56 | Electrocardiogram Report ---
Test Reason : Blood Pressure : */* mmHG Vent. Rate : 89 BPM Atrial Rate : 89 BPM P-R Int : 132 ms QRS Dur : 80 ms QT Int : 358 ms P-R-T Axes : 58 -18 36 degrees QTcB Int : 435 ms Sinus rhythm with Premature supraventricular complexes Poor R wave progression, consider anterior [place] vs. lead placement vs. LVH Abnormal ECG When compared with ECG of 23-Jul-2025 19:59, Fusion complexes are no longer Present Premature supraventricular complexes are now Present Confirmed by Dimas Oliver ([id number]) on 07/27/2025 5:55:45 PM Referred By: REFERRED SELF Confirmed By: Dimas Oliver
[2025-07-27] MEDS ORDERED: VALGANCICLOVIR HCL 450 MG TABLET PO SCH (21:00)
[2025-07-28 18:18] LABS: CMV DNA Qnt Real Time PCR Not Detected; CMV DNA Quant PCR Not Detected log IU/mL
== END 2025-07-27 16:10 | disposition home or self-care (01) | DRG 865 ==
LOC: 2W 08:21 → ED 08:21 → SUATTDRO 14:33 → 2W 16:16 → 1E 07-25 05:02
DX: Z94.0 Kidney transplant status; Z88.2 Allergy status to sulfonamides; E43 Unspecified severe protein-calorie malnutrition; M30.0 Polyarteritis nodosa; Z79.4 Long term (current) use of insulin; B25.9 Cytomegaloviral disease, unspecified; I77.6 Arteritis, unspecified; E11.65 Type 2 diabetes mellitus with hyperglycemia; K52.9 Noninfective gastroenteritis and colitis, unspecified; K21.9 Gastro-esophageal reflux disease without esophagitis; Z79.84 Long term (current) use of oral hypoglycemic drugs; E87.6 Hypokalemia; K63.3 Ulcer of intestine; E83.42 Hypomagnesemia; M10.9 Gout, unspecified; Z79.620 Long term (current) use of immunosuppressive biologic; I47.10 Supraventricular tachycardia, unspecified; K59.00 Constipation, unspecified; T38.0X5A Adverse effect of glucocorticoids and synthetic analogues, initial encounter; Z79.899 Other long term (current) drug therapy